=== PATIENT | female | born 1970 | race Caucasian/White ===

== ENCOUNTER → 2016-10-31 | Outpatient (CLI) | payer OTHER ==
[2016-10-31 17:12] LABS: FREE T4 1.35 NG/DL (0.76-1.46)
== END ==
LOC: M WUC 12:18
PROVIDERS: ATTEND Internal Medicine
DX: E03.9 Hypothyroidism, unspecified (principal)

== ENCOUNTER 2018-08-09 19:32 | Inpatient (IN) | payer OTHER ==
[2018-08-09] MEDS: NS 500 ML IV (20:00)
[2018-08-09] MEDS ORDERED: MORPHINE 2 MG/ML 1ML SYRINGE (J2270) IV (20:00)
[2018-08-09 21:18] LABS: BASO % 0.3 % (0.0-1.0); EOS % 0.2 % (0.0-3.0); HEMATOCRIT 43.7 % (36.0-47.0); HEMOGLOBIN 14.1 g/dl (12.0-15.5); IMMATURE GRANULOCYTE % 0.3 % (0-3.0); LYMPH # 1.3 10^3/uL (1.5-4.5); LYMPH % 13.1 % (24.0-44.0); MEAN CORPUSCULAR HEMOGLOBIN 27.8 pg (27.0-33.0); MEAN CORPUSCULAR HGB CONC 32.3 g/dl (32.0-36.5); MONO # 0.6 10^3/uL (0.0-0.8); NEUTROPHILS # 7.7 10^3/uL (1.8-7.7); NEUTROPHILS % 80.1 % (36.0-66.0); PLATELET COUNT, AUTOMATED 360 10^3/uL (150-450); RED BLOOD COUNT 5.08 10^6/uL (4.00-5.40); RED CELL DISTRIBUTION WIDTH 13.5 % (11.5-14.5); WHITE BLOOD COUNT 9.6 10^3/uL (4.0-10.0)
[2018-08-09 21:28] LABS: INR 1.05; PROTHROMBIN TIME 13.8 SECONDS (12.1-14.4)
[2018-08-09 21:29] LABS: PARTIAL THROMBOPLASTIN TIME 38.6 SECONDS (25.4-37.6)
[2018-08-09 21:44] LABS: ALBUMIN 3.4 GM/DL (3.2-5.2); ALBUMIN/GLOBULIN RATIO 0.83 (1.00-1.93); ALKALINE PHOSPHATASE 64 U/L (45-117); ALT/SGPT 23 U/L (12-78); AMYLASE 37 U/L (25-115); ANION GAP 8 MEQ/L (8-16); AST/SGOT 21 U/L (7-37); BILIRUBIN,DIRECT 0.2 MG/DL (0.0-0.2); BILIRUBIN,TOTAL 0.6 MG/DL (0.2-1.0); BLOOD UREA NITROGEN 11 MG/DL (7-18); CALCIUM LEVEL 9.1 MG/DL (8.5-10.1); CARBON DIOXIDE LEVEL 31 MEQ/L (21-32); CHLORIDE LEVEL 100 MEQ/L (98-107); CK-MB VALUE MASS < 1.0 NG/ML (<3.6); CPK CREATINE PHOSPHOKINASE 93 U/L (26-192); CREATININE FOR GFR 0.79 MG/DL (0.55-1.30); GLOMERULAR FILTRATION RATE > 60.0 (>58); GLUCOSE, FASTING 128 MG/DL (70-100); LIPASE 81 U/L (73-393); MB/CK RELATIVE INDEX 1.08 (< OR =4); POTASSIUM SERUM 4.2 MEQ/L (3.5-5.1); SODIUM LEVEL 139 MEQ/L (136-145); TOTAL PROTEIN 7.5 GM/DL (6.4-8.2); TROPONIN I < 0.02 NG/ML (< 0.10)
[2018-08-09 21:51] LABS: LACTIC ACID SEPSIS PROTOCOL 1.4 MMOL/L (0.4-2.0)
[2018-08-09] MEDS: metroNIDAZOLE 500 MG in APPROPRIATE DILUENT 1 EA IV (22:00)
[2018-08-09] MEDS: LR 1,000 ML IV (22:30)
[2018-08-09] MEDS ORDERED: MORPHINE 4 MG/ML 1ML VIAL/SYRINGE (J2270) IV (22:30)
[2018-08-09] MEDS: KETOROLAC 30 MG/ML VIAL (J1885) IV (23:25)
[2018-08-09] MEDS: ONDANSETRON 4MG/2ML VIAL (J2405) IV (23:25)
[2018-08-10] MEDS: LR 1,000 ML IV ×3 (01:28→19:36)
[2018-08-10] MEDS: BACTRIM 80MG/400MG TAB PO (02:34)
[2018-08-10] MEDS: ACETAMINOPHEN TAB 650MG DOSE (2X325MG) PO ×2 (04:40→16:52)
[2018-08-10] MEDS: ONDANSETRON 4MG/2ML VIAL (J2405) IV ×3 (05:25→18:32)
[2018-08-10] MEDS: KETOROLAC 30 MG/ML VIAL (J1885) IV ×3 (05:25→21:05)
[2018-08-10] MEDS: metroNIDAZOLE 500 MG in APPROPRIATE DILUENT 1 EA IV (05:55)
[2018-08-10 08:23] LABS: BASO % 0.2 % (0.0-1.0); HEMOGLOBIN 12.4 g/dl (12.0-15.5); IMMATURE GRANULOCYTE % 0.4 % (0-3.0); LYMPH # 1.4 10^3/uL (1.5-4.5); LYMPH % 10.4 % (24.0-44.0); MEAN CORPUSCULAR HEMOGLOBIN 27.5 pg (27.0-33.0); MEAN CORPUSCULAR HGB CONC 32.6 g/dl (32.0-36.5); MEAN CORPUSCULAR VOLUME 84.3 fl (80.0-96.0); MONO # 0.6 10^3/uL (0.0-0.8); MONO % 4.5 % (0.0-5.0); NEUTROPHILS # 11.2 10^3/uL (1.8-7.7); NEUTROPHILS % 84.5 % (36.0-66.0); PLATELET COUNT, AUTOMATED 322 10^3/uL (150-450); RED BLOOD COUNT 4.51 10^6/uL (4.00-5.40); RED CELL DISTRIBUTION WIDTH 13.8 % (11.5-14.5); WHITE BLOOD COUNT 13.2 10^3/uL (4.0-10.0)
[2018-08-10] MEDS: HEPARIN SOD (PORCINE) 5000 UNITS/ML VIAL SC ×3 (08:34→21:04)
[2018-08-10] MEDS: PANTOPRAZOLE 40MG TAB (PROTONIX) PO (08:34)
[2018-08-10] MEDS: LISINOPRIL 5 MG TAB PO (11:01)
[2018-08-10] MEDS: LEVOTHYROXINE 100MCG TABLET (0.1MG) PO (12:56)
[2018-08-10] MEDS: ERTAPENEM SODIUM 1 GM in NS MINI-BAG PLUS 50 ML IV (13:05)
[2018-08-10 13:16] LABS: AMORPHOUS SEDIMENT RFX MODERATE (NEGATIVE); KETONE, URINE AUTO RFX 1+ mg/dL (NEGATIVE); MUCUS, URINE RFX LARGE (NEGATIVE); NITRITE, URINE AUTO RFX NEGATIVE (NEGATIVE); RBC, URINE AUTO RFX 0 /HPF (0-3); SQUAM EPITHELIAL CELL UR AURFX 5 /HPF (0-6); WBC, URINE AUTO RFX 4 /HPF (0-3)
[2018-08-10 13:18] LABS: LEUKOCYTE ESTERASE UR AUTO RFX 2+ (NEGATIVE)
[2018-08-11] MEDS: KETOROLAC 30 MG/ML VIAL (J1885) IV ×3 (03:59→16:38)
[2018-08-11] MEDS: ONDANSETRON 4MG/2ML VIAL (J2405) IV ×4 (04:04→22:47)
[2018-08-11] MEDS: HEPARIN SOD (PORCINE) 5000 UNITS/ML VIAL SC ×3 (06:16→23:01)
[2018-08-11] MEDS: LISINOPRIL 5 MG TAB PO (06:16)
[2018-08-11 06:58] LABS: BASO % 0.2 % (0.0-1.0); EOS % 0.2 % (0.0-3.0); HEMATOCRIT 40.5 % (36.0-47.0); HEMOGLOBIN 13.1 g/dl (12.0-15.5); IMMATURE GRANULOCYTE % 0.7 % (0-3.0); LYMPH # 1.3 10^3/uL (1.5-4.5); LYMPH % 7.4 % (24.0-44.0); MEAN CORPUSCULAR HEMOGLOBIN 27.5 pg (27.0-33.0); MEAN CORPUSCULAR HGB CONC 32.3 g/dl (32.0-36.5); MEAN CORPUSCULAR VOLUME 84.9 fl (80.0-96.0); MONO # 0.5 10^3/uL (0.0-0.8); MONO % 2.8 % (0.0-5.0); NEUTROPHILS # 15.9 10^3/uL (1.8-7.7); NEUTROPHILS % 88.7 % (36.0-66.0); PLATELET COUNT, AUTOMATED 324 10^3/uL (150-450); RED BLOOD COUNT 4.77 10^6/uL (4.00-5.40); RED CELL DISTRIBUTION WIDTH 14.7 % (11.5-14.5); WHITE BLOOD COUNT 17.9 10^3/uL (4.0-10.0)
[2018-08-11] MEDS: LEVOTHYROXINE 100MCG TABLET (0.1MG) PO (07:06)
[2018-08-11 07:30] LABS: ANION GAP 10 MEQ/L (8-16); BLOOD UREA NITROGEN 17 MG/DL (7-18); CALCIUM LEVEL 8.7 MG/DL (8.5-10.1); CARBON DIOXIDE LEVEL 26 MEQ/L (21-32); CHLORIDE LEVEL 103 MEQ/L (98-107); CREATININE FOR GFR 1.21 MG/DL (0.55-1.30); GLOMERULAR FILTRATION RATE 50.8 (>58); GLUCOSE, FASTING 104 MG/DL (70-100); POTASSIUM SERUM 3.7 MEQ/L (3.5-5.1); SODIUM LEVEL 139 MEQ/L (136-145)
[2018-08-11] MEDS: PANTOPRAZOLE 40MG INJ (PROTONIX) (C9113) IV (08:11)
[2018-08-11] MEDS: PLAQUENIL 200 MG PO (10:54)
[2018-08-11] MEDS: LR 1,000 ML IV ×2 (10:56→19:52)
[2018-08-11] MEDS: ERTAPENEM SODIUM 1 GM in NS MINI-BAG PLUS 50 ML IV (13:34)
[2018-08-11] MEDS: METOCLOPRAMIDE INJ 10MG/2ML VIAL (J2765) IV (19:45)
[2018-08-11] MEDS: HYDROMORPHONE HCL 0.5 MG/ 0.5 ML SYRINGE (J1170 PER 1) IV ×2 (19:46→22:47)
[2018-08-12] MEDS: LR 1,000 ML IV ×9 (04:34→20:56)
[2018-08-12 06:24] LABS: BASO % 0.2 % (0.0-1.0); EOS % 0.2 % (0.0-3.0); HEMATOCRIT 38.2 % (36.0-47.0); HEMOGLOBIN 12.3 g/dl (12.0-15.5); IMMATURE GRANULOCYTE % 1.9 % (0-3.0); LYMPH # 0.9 10^3/uL (1.5-4.5); LYMPH % 5.1 % (24.0-44.0); MEAN CORPUSCULAR HEMOGLOBIN 27.8 pg (27.0-33.0); MEAN CORPUSCULAR HGB CONC 32.2 g/dl (32.0-36.5); MEAN CORPUSCULAR VOLUME 86.2 fl (80.0-96.0); MONO # 0.6 10^3/uL (0.0-0.8); MONO % 3.1 % (0.0-5.0); NEUTROPHILS # 15.9 10^3/uL (1.8-7.7); NEUTROPHILS % 89.5 % (36.0-66.0); PLATELET COUNT, AUTOMATED 337 10^3/uL (150-450); RED BLOOD COUNT 4.43 10^6/uL (4.00-5.40); RED CELL DISTRIBUTION WIDTH 14.5 % (11.5-14.5); WHITE BLOOD COUNT 17.8 10^3/uL (4.0-10.0)
[2018-08-12 07:04] LABS: ANION GAP 11 MEQ/L (8-16); BLOOD UREA NITROGEN 33 MG/DL (7-18); CALCIUM LEVEL 8.7 MG/DL (8.5-10.1); CARBON DIOXIDE LEVEL 24 MEQ/L (21-32); CHLORIDE LEVEL 102 MEQ/L (98-107); CREATININE FOR GFR 2.69 MG/DL (0.55-1.30); GLOMERULAR FILTRATION RATE 20.2 (>58); GLUCOSE, FASTING 96 MG/DL (70-100); POTASSIUM SERUM 3.9 MEQ/L (3.5-5.1); SODIUM LEVEL 137 MEQ/L (136-145)
[2018-08-12] MEDS: LISINOPRIL 5 MG TAB PO (07:07)
[2018-08-12] MEDS: HEPARIN SOD (PORCINE) 5000 UNITS/ML VIAL SC ×3 (07:50→21:41)
[2018-08-12] MEDS: LEVOTHYROXINE 100MCG TABLET (0.1MG) PO (08:31)
[2018-08-12] MEDS ORDERED: fentaNYL 250 MCG/5 ML INJECTION (J3010) As Ordered (10:36)
[2018-08-12] MEDS ORDERED: SUCCINYLCHOLINE 100 MG/5 ML SYRINGE (J0330) As Ordered (10:36)
[2018-08-12] MEDS ORDERED: METOCLOPRAMIDE INJ 10MG/2ML VIAL (J2765) As Ordered ×2 (10:36→15:35)
[2018-08-12] MEDS ORDERED: dexameTHASONE 4 MG/ML 1ML VIAL (J1100) As Ordered (10:36)
[2018-08-12] MEDS ORDERED: PROPOFOL 200 MG/20 ML VIAL As Ordered (10:36)
[2018-08-12] MEDS ORDERED: LIDOCAINE 2% INJ 100 MG/5 ML SDV (FOR ANES.) As Ordered (10:36)
[2018-08-12] MEDS ORDERED: MIDAZOLAM INJ 2 MG/2 ML VIAL (J2250) As Ordered (10:36)
[2018-08-12] MEDS ORDERED: ROCURONIUM BROMIDE 50 MG/5 ML VIAL As Ordered (10:36)
[2018-08-12] MEDS ORDERED: ONDANSETRON 4MG/2ML VIAL (J2405) As Ordered ×2 (10:36→15:35)
[2018-08-12] MEDS: PLAQUENIL 200 MG PO (11:00)
[2018-08-12] MEDS ORDERED: PHENYLephrine HCL 500 MCG/5 ML (100MCG/ML) SYRINGE (J2370) As Ordered (12:04)
[2018-08-12] MEDS ORDERED: VASOPRESSIN INJ 20 UNITS/ML VIAL As Ordered (12:19)
[2018-08-12] MEDS ORDERED: SEVOFLURANE INHAL SOLN 250 ML BTL As Ordered (13:03)
[2018-08-12] MEDS ORDERED: DESFLURANE 240 ML INHALANT As Ordered (13:05)
[2018-08-12] MEDS: ERTAPENEM SODIUM 1 GM in NS MINI-BAG PLUS 50 ML IV (13:15)
[2018-08-12] MEDS ORDERED: ERTAPENEM 1 GM INJ (INVanz) (J1335) As Ordered (13:15)
[2018-08-12] MEDS ORDERED: PHENYLEPHRINE INJ 10MG/ML VIAL (J2370) As Ordered (13:28)
[2018-08-12] MEDS ORDERED: NEOSTIGMINE 10 MG/10 ML VIAL (J2710) As Ordered (14:38)
[2018-08-12] MEDS ORDERED: GLYCOPYRROLATE INJ 0.2 MG/ML 2 ML VIAL As Ordered ×2 (14:38→14:39)
[2018-08-12] MEDS: ONDANSETRON 4MG/2ML VIAL (J2405) IV ×2 (15:40→19:58)
[2018-08-12] MEDS ORDERED: fentaNYL 100 MCG/2 ML INJECTION (J3010) IV (15:45)
[2018-08-12] MEDS ORDERED: MEPERIDINE INJ 25 MG/ML VIAL (J2175) IV (15:45)
[2018-08-12] MEDS ORDERED: ONDANSETRON 4MG/2ML VIAL (J2405) IV (15:45)
[2018-08-12] MEDS ORDERED: PERCOCET 5MG/325MG TAB PO (15:45)
[2018-08-12] MEDS: METOCLOPRAMIDE INJ 10MG/2ML VIAL (J2765) IV ×2 (16:00→17:22)
[2018-08-12] MEDS: PANTOPRAZOLE 40MG INJ (PROTONIX) (C9113) IV (17:17)
[2018-08-12] MEDS: CHLORASEPTIC SPRAY MT (19:33)
[2018-08-12] MEDS: HYDROMORPHONE HCL 0.5 MG/ 0.5 ML SYRINGE (J1170 PER 1) IV (19:59)
[2018-08-13] MEDS: LR 1,000 ML IV ×5 (01:00→20:19)
[2018-08-13] MEDS: LISINOPRIL 5 MG TAB PO (05:20)
[2018-08-13] MEDS: HEPARIN SOD (PORCINE) 5000 UNITS/ML VIAL SC ×3 (05:21→21:24)
[2018-08-13 05:34] LABS: BASO % 0.1 % (0.0-1.0); HEMATOCRIT 30.1 % (36.0-47.0); IMMATURE GRANULOCYTE % 0.4 % (0-3.0); LYMPH # 0.7 10^3/uL (1.5-4.5); LYMPH % 4.7 % (24.0-44.0); MEAN CORPUSCULAR HEMOGLOBIN 27.5 pg (27.0-33.0); MEAN CORPUSCULAR HGB CONC 32.2 g/dl (32.0-36.5); MEAN CORPUSCULAR VOLUME 85.3 fl (80.0-96.0); MONO # 0.6 10^3/uL (0.0-0.8); MONO % 4.2 % (0.0-5.0); NEUTROPHILS # 12.4 10^3/uL (1.8-7.7); NEUTROPHILS % 90.6 % (36.0-66.0); PLATELET COUNT, AUTOMATED 317 10^3/uL (150-450); RED BLOOD COUNT 3.53 10^6/uL (4.00-5.40); RED CELL DISTRIBUTION WIDTH 14.3 % (11.5-14.5); WHITE BLOOD COUNT 13.7 10^3/uL (4.0-10.0)
[2018-08-13 05:37] LABS: HEMOGLOBIN 9.7 g/dl (12.0-15.5)
[2018-08-13 05:58] LABS: ANION GAP 10 MEQ/L (8-16); BLOOD UREA NITROGEN 39 MG/DL (7-18); CALCIUM LEVEL 7.8 MG/DL (8.5-10.1); CARBON DIOXIDE LEVEL 26 MEQ/L (21-32); CHLORIDE LEVEL 104 MEQ/L (98-107); CREATININE FOR GFR 1.59 MG/DL (0.55-1.30); GLUCOSE, FASTING 110 MG/DL (70-100); POTASSIUM SERUM 3.9 MEQ/L (3.5-5.1); SODIUM LEVEL 140 MEQ/L (136-145)
[2018-08-13] MEDS: LEVOTHYROXINE 100MCG TABLET (0.1MG) PO (07:38)
[2018-08-13] MEDS: PANTOPRAZOLE 40MG INJ (PROTONIX) (C9113) IV (08:47)
[2018-08-13] MEDS: PLAQUENIL 200 MG PO (10:59)
[2018-08-13] MEDS: ONDANSETRON 4MG/2ML VIAL (J2405) IV ×2 (12:03→22:09)
[2018-08-13] MEDS: HYDROMORPHONE HCL 0.5 MG/ 0.5 ML SYRINGE (J1170 PER 1) IV ×2 (12:05→22:10)
[2018-08-13] MEDS: ERTAPENEM SODIUM 1 GM in NS MINI-BAG PLUS 50 ML IV (12:38)
[2018-08-13] MEDS: SODIUM CHLORIDE 0.9% INJ 10 ML SYR IV ×2 (14:20→22:09)
[2018-08-14] MEDS: LR 1,000 ML IV ×5 (01:23→21:30)
[2018-08-14] MEDS: SODIUM CHLORIDE 0.9% INJ 10 ML SYR IV ×3 (06:00→22:13)
[2018-08-14] MEDS: HYDROMORPHONE HCL 0.5 MG/ 0.5 ML SYRINGE (J1170 PER 1) IV ×2 (06:20→16:45)
[2018-08-14] MEDS: ONDANSETRON 4MG/2ML VIAL (J2405) IV ×2 (06:27→16:46)
[2018-08-14 06:46] LABS: HEMATOCRIT 33.3 % (36.0-47.0); HEMOGLOBIN 10.7 g/dl (12.0-15.5); MEAN CORPUSCULAR HEMOGLOBIN 27.2 pg (27.0-33.0); MEAN CORPUSCULAR HGB CONC 32.1 g/dl (32.0-36.5); MEAN CORPUSCULAR VOLUME 84.5 fl (80.0-96.0); PLATELET COUNT, AUTOMATED 372 10^3/uL (150-450); RED BLOOD COUNT 3.94 10^6/uL (4.00-5.40); RED CELL DISTRIBUTION WIDTH 14.3 % (11.5-14.5); WHITE BLOOD COUNT 15.4 10^3/uL (4.0-10.0)
[2018-08-14] MEDS: HEPARIN SOD (PORCINE) 5000 UNITS/ML VIAL SC ×3 (06:48→22:13)
[2018-08-14 07:06] LABS: ANION GAP 8 MEQ/L (8-16); BLOOD UREA NITROGEN 28 MG/DL (7-18); CALCIUM LEVEL 7.8 MG/DL (8.5-10.1); CARBON DIOXIDE LEVEL 29 MEQ/L (21-32); CHLORIDE LEVEL 103 MEQ/L (98-107); CREATININE FOR GFR 0.87 MG/DL (0.55-1.30); GLOMERULAR FILTRATION RATE > 60.0 (>58); GLUCOSE, FASTING 86 MG/DL (70-100); POTASSIUM SERUM 3.7 MEQ/L (3.5-5.1); SODIUM LEVEL 140 MEQ/L (136-145)
[2018-08-14] MEDS: LISINOPRIL 5 MG TAB PO (07:11)
[2018-08-14] MEDS: PANTOPRAZOLE 40MG INJ (PROTONIX) (C9113) IV (08:25)
[2018-08-14] MEDS: LEVOTHYROXINE 100MCG TABLET (0.1MG) PO (08:25)
[2018-08-14] MEDS: PLAQUENIL 200 MG PO (11:00)
[2018-08-14] MEDS: ERTAPENEM SODIUM 1 GM in NS MINI-BAG PLUS 50 ML IV (12:58)
[2018-08-15] MEDS: LR 1,000 ML IV ×3 (02:20→11:40)
[2018-08-15] MEDS: SODIUM CHLORIDE 0.9% INJ 10 ML SYR IV ×3 (06:00→20:47)
[2018-08-15] MEDS: HEPARIN SOD (PORCINE) 5000 UNITS/ML VIAL SC ×3 (06:31→20:47)
[2018-08-15] MEDS: LISINOPRIL 5 MG TAB PO (06:32)
[2018-08-15 06:46] LABS: HEMATOCRIT 32.7 % (36.0-47.0); HEMOGLOBIN 10.3 g/dl (12.0-15.5); MEAN CORPUSCULAR HEMOGLOBIN 27.5 pg (27.0-33.0); MEAN CORPUSCULAR HGB CONC 31.5 g/dl (32.0-36.5); MEAN CORPUSCULAR VOLUME 87.4 fl (80.0-96.0); PLATELET COUNT, AUTOMATED 314 10^3/uL (150-450); RED BLOOD COUNT 3.74 10^6/uL (4.00-5.40); RED CELL DISTRIBUTION WIDTH 14.6 % (11.5-14.5); WHITE BLOOD COUNT 15.3 10^3/uL (4.0-10.0)
[2018-08-15 07:07] LABS: ANION GAP 10 MEQ/L (8-16); BLOOD UREA NITROGEN 21 MG/DL (7-18); CALCIUM LEVEL 7.9 MG/DL (8.5-10.1); CARBON DIOXIDE LEVEL 29 MEQ/L (21-32); CHLORIDE LEVEL 105 MEQ/L (98-107); CREATININE FOR GFR 0.64 MG/DL (0.55-1.30); GLOMERULAR FILTRATION RATE > 60.0 (>58); GLUCOSE, FASTING 84 MG/DL (70-100); POTASSIUM SERUM 3.7 MEQ/L (3.5-5.1); SODIUM LEVEL 144 MEQ/L (136-145)
[2018-08-15] MEDS: PANTOPRAZOLE 40MG INJ (PROTONIX) (C9113) IV (08:40)
[2018-08-15] MEDS: LEVOTHYROXINE 100MCG TABLET (0.1MG) PO (08:40)
[2018-08-15] MEDS: ACETAMINOPHEN TAB 650MG DOSE (2X325MG) PO (09:51)
[2018-08-15] MEDS: PLAQUENIL 200 MG PO (09:52)
[2018-08-15] MEDS: ERTAPENEM SODIUM 1 GM in NS MINI-BAG PLUS 50 ML IV (13:59)
[2018-08-16] MEDS: LISINOPRIL 5 MG TAB PO (05:16)
[2018-08-16] MEDS: HEPARIN SOD (PORCINE) 5000 UNITS/ML VIAL SC ×2 (05:16→13:52)
[2018-08-16] MEDS: SODIUM CHLORIDE 0.9% INJ 10 ML SYR IV ×3 (05:17→21:26)
[2018-08-16] MEDS: LR 1,000 ML IV (05:18)
[2018-08-16 05:58] LABS: ANION GAP 7 MEQ/L (8-16); BLOOD UREA NITROGEN 15 MG/DL (7-18); CALCIUM LEVEL 8.1 MG/DL (8.5-10.1); CARBON DIOXIDE LEVEL 32 MEQ/L (21-32); CHLORIDE LEVEL 102 MEQ/L (98-107); CREATININE FOR GFR 0.52 MG/DL (0.55-1.30); GLOMERULAR FILTRATION RATE > 60.0 (>58); GLUCOSE, FASTING 96 MG/DL (70-100); POTASSIUM SERUM 3.7 MEQ/L (3.5-5.1); SODIUM LEVEL 141 MEQ/L (136-145)
[2018-08-16] MEDS: LEVOTHYROXINE 100MCG TABLET (0.1MG) PO (07:42)
[2018-08-16] MEDS: ACETAMINOPHEN TAB 650MG DOSE (2X325MG) PO (08:05)
[2018-08-16] MEDS: PANTOPRAZOLE 40MG INJ (PROTONIX) (C9113) IV (09:36)
[2018-08-16] MEDS: MICAFUNGIN SODIUM 100 MG in D5W MINI-BAG PLUS 100 ML IV (09:37)
[2018-08-16] MEDS: PLAQUENIL 200 MG PO (12:10)
[2018-08-16] MEDS: ERTAPENEM SODIUM 1 GM in NS MINI-BAG PLUS 50 ML IV (13:52)
[2018-08-16] MEDS: FUROSEMIDE 20 MG/2 ML VIAL (J1940) IV (17:43)
[2018-08-17] MEDS: ONDANSETRON 4MG/2ML VIAL (J2405) IV ×2 (02:27→17:53)
[2018-08-17] MEDS: HYDROMORPHONE HCL 0.5 MG/ 0.5 ML SYRINGE (J1170 PER 1) IV ×2 (02:28→21:33)
[2018-08-17] MEDS: ACETAMINOPHEN TAB 650MG DOSE (2X325MG) PO (02:29)
[2018-08-17] MEDS: SODIUM CHLORIDE 0.9% INJ 10 ML SYR IV ×6 (02:30→21:34)
[2018-08-17] MEDS: LISINOPRIL 5 MG TAB PO (05:50)
[2018-08-17] MEDS: LEVOTHYROXINE 100MCG TABLET (0.1MG) PO (08:23)
[2018-08-17] MEDS: ENOXAPARIN 40 MG/0.4 ML SYRINGE (J1650) SC (08:23)
[2018-08-17] MEDS: PANTOPRAZOLE 40MG INJ (PROTONIX) (C9113) IV (08:24)
[2018-08-17] MEDS: MICAFUNGIN SODIUM 100 MG in D5W MINI-BAG PLUS 100 ML IV (08:24)
[2018-08-17] MEDS: POTASSIUM CHLORIDE 10 MEQ SR TABLET PO ×3 (09:30→21:32)
[2018-08-17] MEDS: FUROSEMIDE 40 MG TAB PO (09:30)
[2018-08-17 09:49] LABS: HEMATOCRIT 31.3 % (36.0-47.0); HEMOGLOBIN 9.8 g/dl (12.0-15.5); MEAN CORPUSCULAR HEMOGLOBIN 27.3 pg (27.0-33.0); MEAN CORPUSCULAR HGB CONC 31.3 g/dl (32.0-36.5); MEAN CORPUSCULAR VOLUME 87.2 fl (80.0-96.0); PLATELET COUNT, AUTOMATED 307 10^3/uL (150-450); RED BLOOD COUNT 3.59 10^6/uL (4.00-5.40); WHITE BLOOD COUNT 18.7 10^3/uL (4.0-10.0)
[2018-08-17 09:55] LABS: ADD MANUAL DIFFER YES; DIFF SLIDE NUMBER 122; POS COUNT POS FLAG; POSITIVE MORPH POS FLAG
[2018-08-17 10:09] LABS: LYMPHOCYTES 12 % (16-52); MONOCYTES 4 % (0-8); NEUTROPHILS 84 % (35-75)
[2018-08-17 10:10] LABS: PLATELET ESTIMATE NORMAL (NORMAL)
[2018-08-17 10:14] LABS: ALBUMIN 1.4 GM/DL (3.2-5.2); ALBUMIN/GLOBULIN RATIO 0.39 (1.00-1.93); ALKALINE PHOSPHATASE 65 U/L (45-117); ALT/SGPT 16 U/L (12-78); ANION GAP 6 MEQ/L (8-16); AST/SGOT 25 U/L (7-37); BILIRUBIN,TOTAL 0.3 MG/DL (0.2-1.0); BLOOD UREA NITROGEN 10 MG/DL (7-18); CALCIUM LEVEL 7.9 MG/DL (8.5-10.1); CARBON DIOXIDE LEVEL 35 MEQ/L (21-32); CHLORIDE LEVEL 100 MEQ/L (98-107); CREATININE FOR GFR 0.53 MG/DL (0.55-1.30); GLOMERULAR FILTRATION RATE > 60.0 (>58); GLUCOSE, FASTING 132 MG/DL (70-100); POTASSIUM SERUM 3.5 MEQ/L (3.5-5.1); SODIUM LEVEL 141 MEQ/L (136-145)
[2018-08-17] MEDS: PLAQUENIL 200 MG PO (10:55)
[2018-08-17] MEDS: ERTAPENEM SODIUM 1 GM in NS MINI-BAG PLUS 50 ML IV (13:12)
[2018-08-17] MEDS: FUROSEMIDE 40 MG/4 ML VIAL (J1940) IV ×2 (13:13→23:17)
[2018-08-17] MEDS: METOCLOPRAMIDE INJ 10MG/2ML VIAL (J2765) IV (21:34)
[2018-08-18] MEDS: SODIUM CHLORIDE 0.9% INJ 10 ML SYR IV ×5 (06:18→22:26)
[2018-08-18] MEDS: LISINOPRIL 5 MG TAB PO (06:18)
[2018-08-18] MEDS: LEVOTHYROXINE 100MCG TABLET (0.1MG) PO (07:42)
[2018-08-18] MEDS: MICAFUNGIN SODIUM 100 MG in D5W MINI-BAG PLUS 100 ML IV (08:28)
[2018-08-18] MEDS: ENOXAPARIN 40 MG/0.4 ML SYRINGE (J1650) SC (08:51)
[2018-08-18] MEDS: PANTOPRAZOLE 40MG TAB (PROTONIX) PO (08:51)
[2018-08-18 09:56] LABS: BASO % 0.2 % (0.0-1.0); EOS # 0.1 10^3/uL (0.0-0.50); EOS % 0.5 % (0.0-3.0); HEMOGLOBIN 9.5 g/dl (12.0-15.5); LYMPH # 1.9 10^3/uL (1.5-4.5); LYMPH % 12.4 % (24.0-44.0); MEAN CORPUSCULAR HEMOGLOBIN 27.4 pg (27.0-33.0); MEAN CORPUSCULAR HGB CONC 31.7 g/dl (32.0-36.5); MEAN CORPUSCULAR VOLUME 86.5 fl (80.0-96.0); MONO # 0.9 10^3/uL (0.0-0.8); MONO % 6.1 % (0.0-5.0); NEUTROPHILS # 11.8 10^3/uL (1.8-7.7); NEUTROPHILS % 75.8 % (36.0-66.0); PLATELET COUNT, AUTOMATED 277 10^3/uL (150-450); RED BLOOD COUNT 3.47 10^6/uL (4.00-5.40); RED CELL DISTRIBUTION WIDTH 15.3 % (11.5-14.5); WHITE BLOOD COUNT 15.5 10^3/uL (4.0-10.0)
[2018-08-18 10:17] LABS: ANION GAP 4 MEQ/L (8-16); BLOOD UREA NITROGEN 8 MG/DL (7-18); CALCIUM LEVEL 7.6 MG/DL (8.5-10.1); CARBON DIOXIDE LEVEL 38 MEQ/L (21-32); CHLORIDE LEVEL 100 MEQ/L (98-107); CREATININE FOR GFR 0.68 MG/DL (0.55-1.30); GLOMERULAR FILTRATION RATE > 60.0 (>58); GLUCOSE, FASTING 120 MG/DL (70-100); SODIUM LEVEL 142 MEQ/L (136-145)
[2018-08-18] MEDS: PLAQUENIL 200 MG PO (11:00)
[2018-08-18] MEDS: FUROSEMIDE 40 MG/4 ML VIAL (J1940) IV (11:42)
[2018-08-18] MEDS: ONDANSETRON 4MG/2ML VIAL (J2405) IV ×2 (13:51→22:27)
[2018-08-18] MEDS: ERTAPENEM SODIUM 1 GM in NS MINI-BAG PLUS 50 ML IV (13:51)
[2018-08-18] MEDS: HYDROMORPHONE HCL 0.5 MG/ 0.5 ML SYRINGE (J1170 PER 1) IV (22:27)
[2018-08-19] MEDS: ONDANSETRON 4MG/2ML VIAL (J2405) IV ×3 (03:16→21:33)
[2018-08-19] MEDS: HYDROMORPHONE HCL 0.5 MG/ 0.5 ML SYRINGE (J1170 PER 1) IV ×3 (03:17→21:35)
[2018-08-19] MEDS: SODIUM CHLORIDE 0.9% INJ 10 ML SYR IV ×4 (05:43→21:35)
[2018-08-19] MEDS: LISINOPRIL 5 MG TAB PO (05:43)
[2018-08-19 06:11] LABS: BASO # 0.1 10^3/uL (0.0-0.2); BASO % 0.3 % (0.0-1.0); EOS # 0.1 10^3/uL (0.0-0.50); EOS % 0.8 % (0.0-3.0); HEMATOCRIT 32.8 % (36.0-47.0); HEMOGLOBIN 10.3 g/dl (12.0-15.5); IMMATURE GRANULOCYTE % 4.1 % (0-3.0); LYMPH # 2.2 10^3/uL (1.5-4.5); LYMPH % 13.5 % (24.0-44.0); MEAN CORPUSCULAR HEMOGLOBIN 27.6 pg (27.0-33.0); MEAN CORPUSCULAR HGB CONC 31.4 g/dl (32.0-36.5); MEAN CORPUSCULAR VOLUME 87.9 fl (80.0-96.0); MONO # 1.1 10^3/uL (0.0-0.8); MONO % 6.9 % (0.0-5.0); NEUTROPHILS # 11.9 10^3/uL (1.8-7.7); NEUTROPHILS % 74.4 % (36.0-66.0); PLATELET COUNT, AUTOMATED 302 10^3/uL (150-450); RED BLOOD COUNT 3.73 10^6/uL (4.00-5.40); RED CELL DISTRIBUTION WIDTH 15.3 % (11.5-14.5)
[2018-08-19 06:30] LABS: ANION GAP 6 MEQ/L (8-16); BLOOD UREA NITROGEN 9 MG/DL (7-18); CALCIUM LEVEL 7.9 MG/DL (8.5-10.1); CARBON DIOXIDE LEVEL 38 MEQ/L (21-32); CHLORIDE LEVEL 96 MEQ/L (98-107); CREATININE FOR GFR 0.71 MG/DL (0.55-1.30); GLOMERULAR FILTRATION RATE > 60.0 (>58); GLUCOSE, FASTING 123 MG/DL (70-100); POTASSIUM SERUM 3.9 MEQ/L (3.5-5.1); SODIUM LEVEL 140 MEQ/L (136-145)
[2018-08-19] MEDS: LEVOTHYROXINE 100MCG TABLET (0.1MG) PO (07:48)
[2018-08-19] MEDS: FUROSEMIDE 40 MG/4 ML VIAL (J1940) IV (08:05)
[2018-08-19] MEDS: MICAFUNGIN SODIUM 100 MG in D5W MINI-BAG PLUS 100 ML IV (08:05)
[2018-08-19] MEDS: ENOXAPARIN 40 MG/0.4 ML SYRINGE (J1650) SC (08:05)
[2018-08-19] MEDS: PANTOPRAZOLE 40MG TAB (PROTONIX) PO (08:05)
[2018-08-19] MEDS: PLAQUENIL 200 MG PO (10:24)
[2018-08-19] MEDS: ERTAPENEM SODIUM 1 GM in NS MINI-BAG PLUS 50 ML IV (13:33)
[2018-08-20] MEDS: ONDANSETRON 4MG/2ML VIAL (J2405) IV (02:43)
[2018-08-20] MEDS: HYDROMORPHONE HCL 0.5 MG/ 0.5 ML SYRINGE (J1170 PER 1) IV ×3 (02:43→22:50)
[2018-08-20] MEDS: LISINOPRIL 5 MG TAB PO (05:20)
[2018-08-20] MEDS: SODIUM CHLORIDE 0.9% INJ 10 ML SYR IV ×4 (05:20→22:51)
[2018-08-20 05:48] LABS: BASO % 0.2 % (0.0-1.0); EOS # 0.1 10^3/uL (0.0-0.50); EOS % 0.8 % (0.0-3.0); HEMATOCRIT 29.1 % (36.0-47.0); HEMOGLOBIN 9.2 g/dl (12.0-15.5); IMMATURE GRANULOCYTE % 2.2 % (0-3.0); LYMPH # 1.8 10^3/uL (1.5-4.5); LYMPH % 14.4 % (24.0-44.0); MEAN CORPUSCULAR HEMOGLOBIN 27.9 pg (27.0-33.0); MEAN CORPUSCULAR HGB CONC 31.6 g/dl (32.0-36.5); MEAN CORPUSCULAR VOLUME 88.2 fl (80.0-96.0); MONO # 0.9 10^3/uL (0.0-0.8); MONO % 7.2 % (0.0-5.0); NEUTROPHILS # 9.3 10^3/uL (1.8-7.7); NEUTROPHILS % 75.2 % (36.0-66.0); PLATELET COUNT, AUTOMATED 245 10^3/uL (150-450); RED CELL DISTRIBUTION WIDTH 15.2 % (11.5-14.5); WHITE BLOOD COUNT 12.3 10^3/uL (4.0-10.0)
[2018-08-20 06:02] LABS: ANION GAP 5 MEQ/L (8-16); BLOOD UREA NITROGEN 9 MG/DL (7-18); CALCIUM LEVEL 7.2 MG/DL (8.5-10.1); CARBON DIOXIDE LEVEL 39 MEQ/L (21-32); CHLORIDE LEVEL 98 MEQ/L (98-107); CREATININE FOR GFR 0.76 MG/DL (0.55-1.30); GLOMERULAR FILTRATION RATE > 60.0 (>58); GLUCOSE, FASTING 100 MG/DL (70-100); POTASSIUM SERUM 3.9 MEQ/L (3.5-5.1); SODIUM LEVEL 142 MEQ/L (136-145)
[2018-08-20] MEDS ORDERED: PERCOCET 5MG/325MG TAB PO (09:15)
[2018-08-20] MEDS: LEVOTHYROXINE 100MCG TABLET (0.1MG) PO (09:42)
[2018-08-20] MEDS: PANTOPRAZOLE 40MG TAB (PROTONIX) PO (09:42)
[2018-08-20] MEDS: FUROSEMIDE 40 MG/4 ML VIAL (J1940) IV (09:42)
[2018-08-20] MEDS: MICAFUNGIN SODIUM 100 MG in D5W MINI-BAG PLUS 100 ML IV (09:42)
[2018-08-20] MEDS: ENOXAPARIN 40 MG/0.4 ML SYRINGE (J1650) SC (09:43)
[2018-08-20] MEDS: PLAQUENIL 200 MG PO (12:30)
[2018-08-20] MEDS: ONDANSETRON 4 MG TAB (S0181) PO ×2 (16:20→22:50)
[2018-08-21] MEDS: SODIUM CHLORIDE 0.9% INJ 10 ML SYR IV ×4 (03:42→21:00)
[2018-08-21] MEDS: HYDROMORPHONE HCL 0.5 MG/ 0.5 ML SYRINGE (J1170 PER 1) IV ×3 (03:42→21:01)
[2018-08-21] MEDS: LISINOPRIL 5 MG TAB PO (06:40)
[2018-08-21 06:58] LABS: BASO % 0.2 % (0.0-1.0); EOS # 0.1 10^3/uL (0.0-0.50); EOS % 0.6 % (0.0-3.0); HEMATOCRIT 29.3 % (36.0-47.0); HEMOGLOBIN 9.3 g/dl (12.0-15.5); IMMATURE GRANULOCYTE % 1.2 % (0-3.0); LYMPH # 1.8 10^3/uL (1.5-4.5); MEAN CORPUSCULAR HEMOGLOBIN 27.6 pg (27.0-33.0); MEAN CORPUSCULAR HGB CONC 31.7 g/dl (32.0-36.5); MEAN CORPUSCULAR VOLUME 86.9 fl (80.0-96.0); MONO # 1.1 10^3/uL (0.0-0.8); MONO % 8.7 % (0.0-5.0); NEUTROPHILS # 9.6 10^3/uL (1.8-7.7); NEUTROPHILS % 75.3 % (36.0-66.0); PLATELET COUNT, AUTOMATED 261 10^3/uL (150-450); RED BLOOD COUNT 3.37 10^6/uL (4.00-5.40); RED CELL DISTRIBUTION WIDTH 15.3 % (11.5-14.5); WHITE BLOOD COUNT 12.7 10^3/uL (4.0-10.0)
[2018-08-21 07:24] LABS: ALBUMIN 1.6 GM/DL (3.2-5.2); ALBUMIN/GLOBULIN RATIO 0.39 (1.00-1.93); ALKALINE PHOSPHATASE 61 U/L (45-117); ALT/SGPT 37 U/L (12-78); ANION GAP 4 MEQ/L (8-16); AST/SGOT 50 U/L (7-37); BILIRUBIN,TOTAL 0.4 MG/DL (0.2-1.0); BLOOD UREA NITROGEN 10 MG/DL (7-18); CALCIUM LEVEL 7.8 MG/DL (8.5-10.1); CARBON DIOXIDE LEVEL 39 MEQ/L (21-32); CHLORIDE LEVEL 95 MEQ/L (98-107); CREATININE FOR GFR 0.79 MG/DL (0.55-1.30); GLOMERULAR FILTRATION RATE > 60.0 (>58); GLUCOSE, FASTING 116 MG/DL (70-100); POTASSIUM SERUM 3.9 MEQ/L (3.5-5.1); SODIUM LEVEL 138 MEQ/L (136-145); TOTAL PROTEIN 5.7 GM/DL (6.4-8.2)
[2018-08-21] MEDS: LEVOTHYROXINE 100MCG TABLET (0.1MG) PO (08:49)
[2018-08-21] MEDS: ENOXAPARIN 40 MG/0.4 ML SYRINGE (J1650) SC (08:50)
[2018-08-21] MEDS: PANTOPRAZOLE 40MG TAB (PROTONIX) PO (08:50)
[2018-08-21] MEDS: MICAFUNGIN SODIUM 100 MG in D5W MINI-BAG PLUS 100 ML IV (08:51)
[2018-08-21] MEDS: PLAQUENIL 200 MG PO (11:00)
[2018-08-22] MEDS: HYDROMORPHONE HCL 0.5 MG/ 0.5 ML SYRINGE (J1170 PER 1) IV ×4 (03:58→21:31)
[2018-08-22] MEDS: SODIUM CHLORIDE 0.9% INJ 10 ML SYR IV ×7 (03:58→21:32)
[2018-08-22] MEDS: LISINOPRIL 5 MG TAB PO (05:43)
[2018-08-22] MEDS: LEVOTHYROXINE 100MCG TABLET (0.1MG) PO (07:30)
[2018-08-22] MEDS: PANTOPRAZOLE 40MG TAB (PROTONIX) PO (09:38)
[2018-08-22] MEDS: ENOXAPARIN 40 MG/0.4 ML SYRINGE (J1650) SC (09:48)
[2018-08-22] MEDS: MICAFUNGIN SODIUM 100 MG in D5W MINI-BAG PLUS 100 ML IV (09:48)
[2018-08-22] MEDS: PLAQUENIL 200 MG PO (11:27)
[2018-08-23] MEDS: LISINOPRIL 5 MG TAB PO (05:48)
[2018-08-23] MEDS: SODIUM CHLORIDE 0.9% INJ 10 ML SYR IV ×4 (06:00→21:00)
[2018-08-23 06:05] LABS: BASO % 0.4 % (0.0-1.0); EOS # 0.1 10^3/uL (0.0-0.50); EOS % 1.1 % (0.0-3.0); HEMATOCRIT 29.5 % (36.0-47.0); HEMOGLOBIN 9.2 g/dl (12.0-15.5); IMMATURE GRANULOCYTE % 0.7 % (0-3.0); LYMPH # 2.3 10^3/uL (1.5-4.5); LYMPH % 21.6 % (24.0-44.0); MEAN CORPUSCULAR HEMOGLOBIN 27.2 pg (27.0-33.0); MEAN CORPUSCULAR HGB CONC 31.2 g/dl (32.0-36.5); MEAN CORPUSCULAR VOLUME 87.3 fl (80.0-96.0); MONO # 0.9 10^3/uL (0.0-0.8); MONO % 8.8 % (0.0-5.0); NEUTROPHILS # 7.1 10^3/uL (1.8-7.7); NEUTROPHILS % 67.4 % (36.0-66.0); PLATELET COUNT, AUTOMATED 301 10^3/uL (150-450); RED BLOOD COUNT 3.38 10^6/uL (4.00-5.40); RED CELL DISTRIBUTION WIDTH 15.2 % (11.5-14.5); WHITE BLOOD COUNT 10.5 10^3/uL (4.0-10.0)
[2018-08-23 06:37] LABS: ALBUMIN 1.6 GM/DL (3.2-5.2); ALBUMIN/GLOBULIN RATIO 0.33 (1.00-1.93); ALKALINE PHOSPHATASE 60 U/L (45-117); ALT/SGPT 37 U/L (12-78); ANION GAP 5 MEQ/L (8-16); AST/SGOT 46 U/L (7-37); BILIRUBIN,TOTAL 0.4 MG/DL (0.2-1.0); BLOOD UREA NITROGEN 10 MG/DL (7-18); CALCIUM LEVEL 7.8 MG/DL (8.5-10.1); CARBON DIOXIDE LEVEL 35 MEQ/L (21-32); CHLORIDE LEVEL 99 MEQ/L (98-107); CREATININE FOR GFR 0.79 MG/DL (0.55-1.30); GLOMERULAR FILTRATION RATE > 60.0 (>58); GLUCOSE, FASTING 100 MG/DL (70-100); POTASSIUM SERUM 3.9 MEQ/L (3.5-5.1); SODIUM LEVEL 139 MEQ/L (136-145); TOTAL PROTEIN 6.4 GM/DL (6.4-8.2)
[2018-08-23] MEDS: LEVOTHYROXINE 100MCG TABLET (0.1MG) PO (07:54)
[2018-08-23] MEDS: ONDANSETRON 4 MG TAB (S0181) PO (07:54)
[2018-08-23] MEDS: ENOXAPARIN 40 MG/0.4 ML SYRINGE (J1650) SC (09:00)
[2018-08-23] MEDS: MICAFUNGIN SODIUM 100 MG in D5W MINI-BAG PLUS 100 ML IV (09:00)
[2018-08-23] MEDS: PANTOPRAZOLE 40MG TAB (PROTONIX) PO (09:29)
[2018-08-23] MEDS: PLAQUENIL 200 MG PO (11:20)
[2018-08-23] MEDS: MIRALAX *UNIT DOSE* 17GM PACKET PO ×3 (14:13→17:43)
[2018-08-23] MEDS: metroNIDAZOLE (FLAGYL) 500 MG TAB PO ×2 (14:13→20:58)
[2018-08-23] MEDS: NEOMYCIN SULFATE 500 MG TAB PO ×2 (15:27→20:59)
[2018-08-23] MEDS ORDERED: ONDANSETRON 4 MG TAB (S0181) XX (19:45)
[2018-08-23] MEDS ORDERED: ONDANSETRON 4 MG TAB (S0181) PO (19:45)
[2018-08-23] MEDS: ONDANSETRON 4MG/2ML VIAL (J2405) IV (20:59)
[2018-08-24] MEDS: NEOMYCIN SULFATE 500 MG TAB PO (06:38)
[2018-08-24] MEDS: metroNIDAZOLE (FLAGYL) 500 MG TAB PO ×2 (06:38→13:09)
[2018-08-24] MEDS: LISINOPRIL 5 MG TAB PO (06:38)
[2018-08-24] MEDS: SODIUM CHLORIDE 0.9% INJ 10 ML SYR IV ×6 (06:39→22:41)
[2018-08-24] MEDS: ONDANSETRON 4MG/2ML VIAL (J2405) IV ×2 (06:44→13:09)
[2018-08-24] MEDS: LEVOTHYROXINE 100MCG TABLET (0.1MG) PO (07:45)
[2018-08-24] MEDS: MICAFUNGIN SODIUM 100 MG in D5W MINI-BAG PLUS 100 ML IV (09:24)
[2018-08-24] MEDS: PANTOPRAZOLE 40MG TAB (PROTONIX) PO (09:24)
[2018-08-24] MEDS: PLAQUENIL 200 MG PO (10:44)
[2018-08-24] MEDS ORDERED: ERTAPENEM 1 GM INJ (INVanz) (J1335) As Ordered (13:56)
[2018-08-24] MEDS ORDERED: PROPOFOL 200 MG/20 ML VIAL As Ordered (15:22)
[2018-08-24] MEDS ORDERED: MIDAZOLAM INJ 2 MG/2 ML VIAL (J2250) As Ordered (15:22)
[2018-08-24] MEDS ORDERED: GLYCOPYRROLATE INJ 0.2 MG/ML 2 ML VIAL As Ordered ×2 (15:22)
[2018-08-24] MEDS ORDERED: ONDANSETRON 4MG/2ML VIAL (J2405) As Ordered (15:22)
[2018-08-24] MEDS ORDERED: LIDOCAINE 2% INJ 100 MG/5 ML SDV (FOR ANES.) As Ordered (15:22)
[2018-08-24] MEDS ORDERED: fentaNYL 250 MCG/5 ML INJECTION (J3010) As Ordered (15:22)
[2018-08-24] MEDS ORDERED: dexameTHASONE 4 MG/ML 1ML VIAL (J1100) As Ordered (15:22)
[2018-08-24] MEDS ORDERED: METOCLOPRAMIDE INJ 10MG/2ML VIAL (J2765) As Ordered (15:22)
[2018-08-24] MEDS ORDERED: DESFLURANE 240 ML INHALANT As Ordered (15:22)
[2018-08-24] MEDS ORDERED: ROCURONIUM BROMIDE 50 MG/5 ML VIAL As Ordered ×3 (15:22→15:35)
[2018-08-24] MEDS ORDERED: NEOSTIGMINE 10 MG/10 ML VIAL (J2710) As Ordered (15:23)
[2018-08-24] MEDS ORDERED: HYDROmorphone HCL 2 MG/ML 1ML VIAL (J1170) As Ordered (15:34)
[2018-08-24] MEDS ORDERED: SUGAMMADEX SODIUM 500 MG/5 ML VIAL (BRIDION) As Ordered (18:40)
[2018-08-24] MEDS ORDERED: fentaNYL 100 MCG/2 ML INJECTION (J3010) IV (19:30)
[2018-08-24] MEDS ORDERED: HYDROMORPHONE HCL 0.5 MG/ 0.5 ML SYRINGE (J1170 PER 1) IV ×2 (19:30→19:45)
[2018-08-24] MEDS ORDERED: ONDANSETRON 4MG/2ML VIAL (J2405) IV (19:30)
[2018-08-24] MEDS ORDERED: PERCOCET 5MG/325MG TAB As Ordered (19:44)
[2018-08-24] MEDS: PERCOCET 5MG/325MG TAB PO (19:49)
[2018-08-24] MEDS: ALVIMOPAN 12 MG CAPSULE (ENTEREG) PO (22:39)
[2018-08-25] MEDS: HYDROMORPHONE HCL 0.5 MG/ 0.5 ML SYRINGE (J1170 PER 1) IV ×6 (01:59→21:02)
[2018-08-25] MEDS: SODIUM CHLORIDE 0.9% INJ 10 ML SYR IV ×4 (04:52→21:03)
[2018-08-25 05:19] LABS: BASO % 0.2 % (0.0-1.0); HEMATOCRIT 31.1 % (36.0-47.0); HEMOGLOBIN 9.5 g/dl (12.0-15.5); IMMATURE GRANULOCYTE % 0.7 % (0-3.0); LYMPH # 1.6 10^3/uL (1.5-4.5); LYMPH % 9.4 % (24.0-44.0); MEAN CORPUSCULAR HEMOGLOBIN 26.9 pg (27.0-33.0); MEAN CORPUSCULAR HGB CONC 30.5 g/dl (32.0-36.5); MEAN CORPUSCULAR VOLUME 88.1 fl (80.0-96.0); MONO % 6.2 % (0.0-5.0); NEUTROPHILS # 13.9 10^3/uL (1.8-7.7); NEUTROPHILS % 83.5 % (36.0-66.0); PLATELET COUNT, AUTOMATED 397 10^3/uL (150-450); RED BLOOD COUNT 3.53 10^6/uL (4.00-5.40); RED CELL DISTRIBUTION WIDTH 15.5 % (11.5-14.5); WHITE BLOOD COUNT 16.6 10^3/uL (4.0-10.0)
[2018-08-25 05:37] LABS: ANION GAP 7 MEQ/L (8-16); BLOOD UREA NITROGEN 11 MG/DL (7-18); CALCIUM LEVEL 8.1 MG/DL (8.5-10.1); CARBON DIOXIDE LEVEL 31 MEQ/L (21-32); CHLORIDE LEVEL 101 MEQ/L (98-107); CREATININE FOR GFR 0.85 MG/DL (0.55-1.30); GLOMERULAR FILTRATION RATE > 60.0 (>58); GLUCOSE, FASTING 110 MG/DL (70-100); POTASSIUM SERUM 4.6 MEQ/L (3.5-5.1); SODIUM LEVEL 139 MEQ/L (136-145)
[2018-08-25] MEDS: LISINOPRIL 5 MG TAB PO (06:05)
[2018-08-25] MEDS: LR 1,000 ML IV ×3 (06:05→21:03)
[2018-08-25] MEDS: ENOXAPARIN 40 MG/0.4 ML SYRINGE (J1650) SC (08:19)
[2018-08-25] MEDS: PANTOPRAZOLE 40MG TAB (PROTONIX) PO (08:19)
[2018-08-25] MEDS: MICAFUNGIN SODIUM 100 MG in D5W MINI-BAG PLUS 100 ML IV (08:19)
[2018-08-25] MEDS: ALVIMOPAN 12 MG CAPSULE (ENTEREG) PO ×2 (08:19→21:01)
[2018-08-25] MEDS: LEVOTHYROXINE 100MCG TABLET (0.1MG) PO (08:19)
[2018-08-25] MEDS: ACETAMINOPHEN TAB 650MG DOSE (2X325MG) PO (08:20)
[2018-08-25] MEDS: ERTAPENEM SODIUM 1 GM in NS MINI-BAG PLUS 50 ML IV (08:20)
[2018-08-25] MEDS: ONDANSETRON 4MG/2ML VIAL (J2405) IV ×2 (08:34→15:44)
[2018-08-25] MEDS: PLAQUENIL 200 MG PO (11:50)
[2018-08-26] MEDS: HYDROMORPHONE HCL 0.5 MG/ 0.5 ML SYRINGE (J1170 PER 1) IV ×3 (01:19→08:43)
[2018-08-26] MEDS: SODIUM CHLORIDE 0.9% INJ 10 ML SYR IV ×3 (04:59→21:32)
[2018-08-26] MEDS: LISINOPRIL 5 MG TAB PO (05:49)
[2018-08-26 08:37] LABS: APPEARANCE, URINE CLOUDY (CLEAR); BACTERIA, URINE AUTO 1+ (NEGATIVE); BILIRUBIN, URINE AUTO NEGATIVE (NEGATIVE); BLOOD, URINE BLOOD NEGATIVE (NEGATIVE); COLOR, URINE YELLOW (YELLOW); GLUCOSE, URINE (UA) AUTO NEGATIVE (NEGATIVE); KETONE, URINE AUTO 1+ mg/dL (NEGATIVE); LEUKOCYTE ESTERASE, URINE AUTO NEGATIVE (NEGATIVE); MUCUS, URINE SMALL (NEGATIVE); NITRITE, URINE AUTO NEGATIVE (NEGATIVE); PROTEIN, URINE AUTO NEGATIVE (NEGATIVE); RBC, URINE AUTO 3 /HPF (0-3); SPECIFIC GRAVITY URINE AUTO 1.014 (1.002-1.035); SQUAMOUS EPITHELIAL CELL UR AU 2 /HPF (0-6); URIC ACID CRYSTALS SMALL; UROBILINOGEN, URINE AUTO 0.2 mg/dL (0.0-2.0); WBC, URINE AUTO 3 /HPF (0-3)
[2018-08-26] MEDS: MICAFUNGIN SODIUM 100 MG in D5W MINI-BAG PLUS 100 ML IV (08:42)
[2018-08-26] MEDS: PANTOPRAZOLE 40MG TAB (PROTONIX) PO (08:42)
[2018-08-26] MEDS: ENOXAPARIN 40 MG/0.4 ML SYRINGE (J1650) SC (08:42)
[2018-08-26] MEDS: ALVIMOPAN 12 MG CAPSULE (ENTEREG) PO ×2 (08:42→20:01)
[2018-08-26] MEDS: LEVOTHYROXINE 100MCG TABLET (0.1MG) PO (08:42)
[2018-08-26 10:20] LABS: HEMATOCRIT 27.6 % (36.0-47.0); HEMOGLOBIN 8.6 g/dl (12.0-15.5); MEAN CORPUSCULAR HEMOGLOBIN 27.3 pg (27.0-33.0); MEAN CORPUSCULAR HGB CONC 31.2 g/dl (32.0-36.5); MEAN CORPUSCULAR VOLUME 87.6 fl (80.0-96.0); PLATELET COUNT, AUTOMATED 363 10^3/uL (150-450); RED BLOOD COUNT 3.15 10^6/uL (4.00-5.40); RED CELL DISTRIBUTION WIDTH 15.8 % (11.5-14.5)
[2018-08-26 10:42] LABS: ANION GAP 7 MEQ/L (8-16); BLOOD UREA NITROGEN 12 MG/DL (7-18); CALCIUM LEVEL 7.9 MG/DL (8.5-10.1); CARBON DIOXIDE LEVEL 32 MEQ/L (21-32); CHLORIDE LEVEL 99 MEQ/L (98-107); CREATININE FOR GFR 0.71 MG/DL (0.55-1.30); GLOMERULAR FILTRATION RATE > 60.0 (>58); GLUCOSE, FASTING 116 MG/DL (70-100); POTASSIUM SERUM 3.7 MEQ/L (3.5-5.1); SODIUM LEVEL 138 MEQ/L (136-145)
[2018-08-26] MEDS: PERCOCET 5MG/325MG TAB PO ×2 (12:12→17:10)
[2018-08-26] MEDS: PLAQUENIL 200 MG PO (12:12)
[2018-08-27] MEDS: HYDROMORPHONE HCL 0.5 MG/ 0.5 ML SYRINGE (J1170 PER 1) IV (02:55)
[2018-08-27] MEDS: SODIUM CHLORIDE 0.9% INJ 10 ML SYR IV ×3 (05:27→14:29)
[2018-08-27] MEDS: LISINOPRIL 5 MG TAB PO (05:27)
[2018-08-27] MEDS: LEVOTHYROXINE 100MCG TABLET (0.1MG) PO (07:51)
[2018-08-27] MEDS: PERCOCET 5MG/325MG TAB PO ×2 (07:52→14:01)
[2018-08-27] MEDS: MICAFUNGIN SODIUM 100 MG in D5W MINI-BAG PLUS 100 ML IV (09:45)
[2018-08-27] MEDS: ALVIMOPAN 12 MG CAPSULE (ENTEREG) PO (09:46)
[2018-08-27] MEDS: ENOXAPARIN 40 MG/0.4 ML SYRINGE (J1650) SC (09:46)
[2018-08-27] MEDS: PANTOPRAZOLE 40MG TAB (PROTONIX) PO (09:46)
[2018-08-27] MEDS: PLAQUENIL 200 MG PO (11:30)
[2018-08-27] MEDS ORDERED: SLF 3 ML SYR IV (14:15)
[2018-08-27] MEDS: SLF 3 ML SYR IV (22:28)
[2018-08-28] MEDS: HYDROMORPHONE HCL 0.5 MG/ 0.5 ML SYRINGE (J1170 PER 1) IV (01:57)
[2018-08-28] MEDS: PERCOCET 5MG/325MG TAB PO ×2 (06:54→16:53)
[2018-08-28] MEDS: SLF 3 ML SYR IV ×3 (06:54→21:40)
[2018-08-28] MEDS: LISINOPRIL 5 MG TAB PO (06:54)
[2018-08-28] MEDS: LEVOTHYROXINE 100MCG TABLET (0.1MG) PO (07:35)
[2018-08-28] MEDS: ENOXAPARIN 40 MG/0.4 ML SYRINGE (J1650) SC (09:36)
[2018-08-28] MEDS: PANTOPRAZOLE 40MG TAB (PROTONIX) PO (10:52)
[2018-08-28] MEDS: PLAQUENIL 200 MG PO (10:54)
[2018-08-29] MEDS: SLF 3 ML SYR IV ×3 (05:12→22:00)
[2018-08-29] MEDS: HYDROMORPHONE HCL 0.5 MG/ 0.5 ML SYRINGE (J1170 PER 1) IV (05:13)
[2018-08-29] MEDS: LISINOPRIL 5 MG TAB PO (05:29)
[2018-08-29 07:24] LABS: BASO % 0.6 % (0.0-1.0); EOS # 0.1 10^3/uL (0.0-0.50); EOS % 1.3 % (0.0-3.0); HEMATOCRIT 28.9 % (36.0-47.0); HEMOGLOBIN 8.9 g/dl (12.0-15.5); IMMATURE GRANULOCYTE % 0.4 % (0-3.0); LYMPH # 1.6 10^3/uL (1.5-4.5); LYMPH % 21.8 % (24.0-44.0); MEAN CORPUSCULAR HEMOGLOBIN 27.5 pg (27.0-33.0); MEAN CORPUSCULAR HGB CONC 30.8 g/dl (32.0-36.5); MEAN CORPUSCULAR VOLUME 89.2 fl (80.0-96.0); MONO # 0.5 10^3/uL (0.0-0.8); MONO % 6.8 % (0.0-5.0); NEUTROPHILS % 69.1 % (36.0-66.0); PLATELET COUNT, AUTOMATED 363 10^3/uL (150-450); RED BLOOD COUNT 3.24 10^6/uL (4.00-5.40); RED CELL DISTRIBUTION WIDTH 16.1 % (11.5-14.5); WHITE BLOOD COUNT 7.2 10^3/uL (4.0-10.0)
[2018-08-29 07:47] LABS: ALBUMIN 1.8 GM/DL (3.2-5.2); ALBUMIN/GLOBULIN RATIO 0.38 (1.00-1.93); ALKALINE PHOSPHATASE 115 U/L (45-117); ALT/SGPT 31 U/L (12-78); ANION GAP 2 MEQ/L (8-16); AST/SGOT 53 U/L (7-37); BILIRUBIN,TOTAL 0.3 MG/DL (0.2-1.0); BLOOD UREA NITROGEN 6 MG/DL (7-18); CALCIUM LEVEL 8.2 MG/DL (8.5-10.1); CARBON DIOXIDE LEVEL 36 MEQ/L (21-32); CHLORIDE LEVEL 102 MEQ/L (98-107); CREATININE FOR GFR 0.76 MG/DL (0.55-1.30); GLOMERULAR FILTRATION RATE > 60.0 (>58); GLUCOSE, FASTING 112 MG/DL (70-100); POTASSIUM SERUM 3.7 MEQ/L (3.5-5.1); SODIUM LEVEL 140 MEQ/L (136-145); TOTAL PROTEIN 6.6 GM/DL (6.4-8.2)
[2018-08-29] MEDS: PANTOPRAZOLE 40MG TAB (PROTONIX) PO (07:53)
[2018-08-29] MEDS: LEVOTHYROXINE 100MCG TABLET (0.1MG) PO (07:53)
[2018-08-29] MEDS: ENOXAPARIN 40 MG/0.4 ML SYRINGE (J1650) SC (07:53)
[2018-08-29] MEDS: PLAQUENIL 200 MG PO (11:23)
[2018-08-29] MEDS: PERCOCET 5MG/325MG TAB PO ×2 (13:33→20:02)
[2018-08-30] MEDS: SLF 3 ML SYR IV ×3 (06:42→22:00)
[2018-08-30] MEDS: LISINOPRIL 5 MG TAB PO (06:42)
[2018-08-30] MEDS: PANTOPRAZOLE 40MG TAB (PROTONIX) PO (08:11)
[2018-08-30] MEDS: PERCOCET 5MG/325MG TAB PO ×2 (08:13→17:02)
[2018-08-30] MEDS: LEVOTHYROXINE 100MCG TABLET (0.1MG) PO (08:13)
[2018-08-30] MEDS: ENOXAPARIN 40 MG/0.4 ML SYRINGE (J1650) SC (08:13)
[2018-08-30] MEDS: PLAQUENIL 200 MG PO (11:00)
[2018-08-31] MEDS: PERCOCET 5MG/325MG TAB PO ×3 (01:36→22:50)
[2018-08-31] MEDS: LISINOPRIL 5 MG TAB PO (05:26)
[2018-08-31] MEDS: SLF 3 ML SYR IV (05:26)
[2018-08-31] MEDS: LEVOTHYROXINE 100MCG TABLET (0.1MG) PO (07:48)
[2018-08-31] MEDS: PANTOPRAZOLE 40MG TAB (PROTONIX) PO (07:48)
[2018-08-31] MEDS: ENOXAPARIN 40 MG/0.4 ML SYRINGE (J1650) SC (07:48)
[2018-08-31] MEDS: PLAQUENIL 200 MG PO (11:00)
[2018-09-01] MEDS: LISINOPRIL 5 MG TAB PO (05:08)
[2018-09-01 06:38] LABS: BASO % 0.3 % (0.0-1.0); EOS # 0.1 10^3/uL (0.0-0.50); EOS % 1.8 % (0.0-3.0); HEMATOCRIT 27.5 % (36.0-47.0); HEMOGLOBIN 8.5 g/dl (12.0-15.5); IMMATURE GRANULOCYTE % 0.5 % (0-3.0); LYMPH # 1.8 10^3/uL (1.5-4.5); LYMPH % 29.6 % (24.0-44.0); MEAN CORPUSCULAR HEMOGLOBIN 27.2 pg (27.0-33.0); MEAN CORPUSCULAR HGB CONC 30.9 g/dl (32.0-36.5); MEAN CORPUSCULAR VOLUME 88.1 fl (80.0-96.0); MONO # 0.5 10^3/uL (0.0-0.8); MONO % 8.4 % (0.0-5.0); NEUTROPHILS # 3.6 10^3/uL (1.8-7.7); NEUTROPHILS % 59.4 % (36.0-66.0); PLATELET COUNT, AUTOMATED 314 10^3/uL (150-450); RED BLOOD COUNT 3.12 10^6/uL (4.00-5.40); RED CELL DISTRIBUTION WIDTH 16.5 % (11.5-14.5); WHITE BLOOD COUNT 6.1 10^3/uL (4.0-10.0)
[2018-09-01 07:15] LABS: ALBUMIN 1.8 GM/DL (3.2-5.2); ALBUMIN/GLOBULIN RATIO 0.39 (1.00-1.93); ALKALINE PHOSPHATASE 293 U/L (45-117); ALT/SGPT 104 U/L (12-78); ANION GAP 3 MEQ/L (8-16); AST/SGOT 132 U/L (7-37); BILIRUBIN,TOTAL 0.3 MG/DL (0.2-1.0); BLOOD UREA NITROGEN 10 MG/DL (7-18); CALCIUM LEVEL 7.9 MG/DL (8.5-10.1); CARBON DIOXIDE LEVEL 34 MEQ/L (21-32); CHLORIDE LEVEL 102 MEQ/L (98-107); CREATININE FOR GFR 0.81 MG/DL (0.55-1.30); GLOMERULAR FILTRATION RATE > 60.0 (>58); GLUCOSE, FASTING 101 MG/DL (70-100); POTASSIUM SERUM 4.1 MEQ/L (3.5-5.1); SODIUM LEVEL 139 MEQ/L (136-145); TOTAL PROTEIN 6.4 GM/DL (6.4-8.2)
[2018-09-01] MEDS: LEVOTHYROXINE 100MCG TABLET (0.1MG) PO (09:12)
[2018-09-01] MEDS: ENOXAPARIN 40 MG/0.4 ML SYRINGE (J1650) SC (09:12)
[2018-09-01] MEDS: PANTOPRAZOLE 40MG TAB (PROTONIX) PO (09:12)
[2018-09-01] MEDS: PLAQUENIL 200 MG PO (11:00)
[2018-09-01] MEDS: PERCOCET 5MG/325MG TAB PO ×2 (11:07→18:21)
[2018-09-01] MEDS: ACETAMINOPHEN TAB 650MG DOSE (2X325MG) PO (21:41)
[2018-09-02] MEDS: LISINOPRIL 5 MG TAB PO (05:26)
[2018-09-02] MEDS: ENOXAPARIN 40 MG/0.4 ML SYRINGE (J1650) SC (08:49)
[2018-09-02] MEDS: PANTOPRAZOLE 40MG TAB (PROTONIX) PO (08:49)
[2018-09-02] MEDS: PERCOCET 5MG/325MG TAB PO ×3 (08:50→23:03)
[2018-09-02] MEDS: LEVOTHYROXINE 100MCG TABLET (0.1MG) PO (08:51)
[2018-09-02] MEDS: PLAQUENIL 200 MG PO (11:00)
[2018-09-03] MEDS: LISINOPRIL 5 MG TAB PO (05:12)
[2018-09-03 07:05] LABS: ALBUMIN 2.1 GM/DL (3.2-5.2); ALKALINE PHOSPHATASE 267 U/L (45-117); ALT/SGPT 79 U/L (12-78); AST/SGOT 87 U/L (7-37); BILIRUBIN,DIRECT 0.1 MG/DL (0.0-0.2); BILIRUBIN,TOTAL 0.4 MG/DL (0.2-1.0); TOTAL PROTEIN 7.3 GM/DL (6.4-8.2)
[2018-09-03] MEDS: LEVOTHYROXINE 100MCG TABLET (0.1MG) PO (07:30)
[2018-09-03] MEDS: ENOXAPARIN 40 MG/0.4 ML SYRINGE (J1650) SC (09:00)
[2018-09-03] MEDS: PANTOPRAZOLE 40MG TAB (PROTONIX) PO (09:00)
[2018-09-03] MEDS: PLAQUENIL 200 MG PO (11:12)
[2018-09-03] MEDS: PERCOCET 5MG/325MG TAB PO ×2 (15:16→22:36)
[2018-09-04] MEDS: LISINOPRIL 5 MG TAB PO (05:10)
[2018-09-04] MEDS: ENOXAPARIN 40 MG/0.4 ML SYRINGE (J1650) SC (09:00)
[2018-09-04] MEDS: LEVOTHYROXINE 100MCG TABLET (0.1MG) PO (10:05)
[2018-09-04] MEDS: PANTOPRAZOLE 40MG TAB (PROTONIX) PO (10:05)
[2018-09-04] MEDS: PLAQUENIL 200 MG PO (10:06)
== END 2018-09-04 14:00 | disposition home health service (06) | DRG 330 ==
LOC: M ICU 08-12 16:27 → M PED 08-10 00:55 → M MSPAV 08-13 17:45 → M ED 19:32 → M ED INP 22:26
PROVIDERS: Surgery
PROC: 0DTN0ZZ Resection of Sigmoid Colon, Open Approach (ICD-10-PCS; principal; 2018-08-12 09:06)
PROC: 0D1M0Z4 Bypass Descending Colon to Cutaneous, Open Approach (ICD-10-PCS; 2018-08-12 09:06)
PROC: 02HV33Z Insertion of Infusion Device into Superior Vena Cava, Percutaneous Approach (ICD-10-PCS; 2018-08-12 09:06)
PROC: 0DQ80ZZ Repair Small Intestine, Open Approach (ICD-10-PCS; 2018-08-12 10:26)
PROC: 0D1L0Z4 Bypass Transverse Colon to Cutaneous, Open Approach (ICD-10-PCS; 2018-08-12 10:26)
PROC: 0DBM0ZZ Excision of Descending Colon, Open Approach (ICD-10-PCS; 2018-08-12 10:26)
PROC: 0WQF0ZZ Repair Abdominal Wall, Open Approach (ICD-10-PCS; 2018-08-12 10:26)
DX: K57.20 Diverticulitis of large intestine with perforation and abscess without bleeding (principal); Z68.43 Body mass index [BMI] 50.0-59.9, adult; N17.9 Acute kidney failure, unspecified; J90 Pleural effusion, not elsewhere classified; K94.03 Colostomy malfunction; E66.01 Morbid (severe) obesity due to excess calories; Z88.0 Allergy status to penicillin; Z88.6 Allergy status to analgesic agent; Z88.1 Allergy status to other antibiotic agents; Z91.041 Radiographic dye allergy status

== ENCOUNTER 2018-10-04 19:33 | Emergency (ER) | payer OTHER ==
[~2018-10-04] VITALS: Ht 165.1 cm; Wt 140.0 kg
[~2018-10-04 19:33] MED LIST: ACET-683 PO; ACET1TAB55 PO; ASPI1TAB15 PO; HYDR200T3 PO; LEVO200T4 PO; LISI-542 PO; METR1TAB66 PO; PERCOCET PO; PLAQUENIL PO; SULF1TAB72 PO; SYNT100T PO; VITA-122 PO
[2018-10-04] MEDS ORDERED: COLA100C5 PO (19:51)
[2018-10-04] MEDS ORDERED: FERR325T18 (19:51)
[2018-10-04 20:37] LABS: BASO # 0.1 10^3/uL (0.0-0.2); BASO % 0.6 % (0.0-1.0); EOS # 0.1 10^3/uL (0.0-0.50); EOS % 1.3 % (0.0-3.0); HEMATOCRIT 38.4 % (36.0-47.0); HEMOGLOBIN 11.8 g/dl (12.0-15.5); LYMPH # 3.3 10^3/uL (1.5-4.5); LYMPH % 39.9 % (24.0-44.0); MEAN CORPUSCULAR HEMOGLOBIN 26.6 pg (27.0-33.0); MEAN CORPUSCULAR HGB CONC 30.7 g/dl (32.0-36.5); MEAN CORPUSCULAR VOLUME 86.5 fl (80.0-96.0); MONO # 0.5 10^3/uL (0.0-0.8); MONO % 5.8 % (0.0-5.0); NEUTROPHILS # 4.3 10^3/uL (1.8-7.7); NEUTROPHILS % 52.3 % (36.0-66.0); PLATELET COUNT, AUTOMATED 357 10^3/uL (150-450); RED BLOOD COUNT 4.44 10^6/uL (4.00-5.40); WHITE BLOOD COUNT 8.2 10^3/uL (4.0-10.0)
[2018-10-04 20:56] LABS: ERYTHROCYTE SEDIMENTATION RATE 73 mm/hr (0-20)
[2018-10-04 21:00] LABS: ALBUMIN 3.4 GM/DL (3.2-5.2); ALT/SGPT 21 U/L (12-78); BILIRUBIN,DIRECT 0.1 MG/DL (0.0-0.2); BILIRUBIN,TOTAL 0.5 MG/DL (0.2-1.0); BLOOD UREA NITROGEN 15 MG/DL (7-18); C REACTIVE PROTEIN QUANTITATIV 1.36 MG/DL (0.00-0.30); CALCIUM LEVEL 8.8 MG/DL (8.5-10.1); CARBON DIOXIDE LEVEL 30 MEQ/L (21-32); CHLORIDE LEVEL 104 MEQ/L (98-107); CREATININE FOR GFR 0.97 MG/DL (0.55-1.30); GLOMERULAR FILTRATION RATE > 60.0 (>58); GLUCOSE, FASTING 131 MG/DL (70-100); POTASSIUM SERUM 4.1 MEQ/L (3.5-5.1); SODIUM LEVEL 140 MEQ/L (136-145); TOTAL PROTEIN 7.8 GM/DL (6.4-8.2)
--- NOTE | 2018-10-04 22:11 | REPVR ---
EXAM: US Abdomen Limited EXAM DATE/TIME: 10/04/2018 9:34 PM CLINICAL HISTORY: 48 years old, female; Signs and symptoms; Other: Drainage from incision; Prior surgery; Surgery date: 1-6 months; Surgery type: Bowel resection beginning of august; Additional info: Inc drainage/swelling at incision/r/o abscess TECHNIQUE: Real-time ultrasound of the abdomen with image documentation. Examination is focused on the region of clinical interest. COMPARISON: CT ABD PELVIS W/O CONTRAST 08/12/2018 8:05 AM FINDINGS: A limited ultrasound was performed of the anterior incision site. There is concern for drainage from this area. At the incision site there is a linear fluid collection measuring approximately 8 CM in length but only 1CM in thickness. There is however no focal mass effect and no focal large abscess identified. The linear fluid collection could be serous fluid or infected fluid. A CT scan might be considered for further evaluation. IMPRESSION: At the incision there is a small linear area of fluid but no focal abscess identified. Suggest correlation with CT. Electronically signed by: Eugene Perkins On 10/04/2018 22:11:48 PM
[2018-10-04] MEDS ORDERED: BACT800T5 PO (22:45)
[2018-10-04 22:50] VITALS: BP 146/74
== END 2018-10-04 22:55 | disposition home or self-care (01) ==
LOC: M ED 19:33
DX: L03.311 Cellulitis of abdominal wall (principal); T81.41XA Infection following a procedure, superficial incisional surgical site, initial encounter; Y83.3 Surgical operation with formation of external stoma as the cause of abnormal reaction of the patient, or of later complication, without mention of misadventure at the time of the procedure; K57.32 Diverticulitis of large intestine without perforation or abscess without bleeding; I10 Essential (primary) hypertension; E03.9 Hypothyroidism, unspecified; F41.9 Anxiety disorder, unspecified; M32.9 Systemic lupus erythematosus, unspecified; Z88.0 Allergy status to penicillin; Z88.1 Allergy status to other antibiotic agents; Z91.040 Latex allergy status; Z91.018 Allergy to other foods; Z88.8 Allergy status to other drugs, medicaments and biological substances; Z79.899 Other long term (current) drug therapy; Z79.82 Long term (current) use of aspirin

== ENCOUNTER 2018-10-23 21:15 | Emergency (ER) | payer OTHER ==
[~2018-10-23] VITALS: Ht 165.1 cm; Wt 138.6 kg
[~2018-10-23 21:15] MED LIST changes: +BACT800T5 PO; +COLA100C5 PO; +FERR325T18; +METR-201 PO; -METR1TAB66 PO
[2018-10-23 22:27] LABS: BASO # 0.1 10^3/uL (0.0-0.2); BASO % 0.6 % (0.0-1.0); EOS # 0.1 10^3/uL (0.0-0.50); EOS % 1.5 % (0.0-3.0); HEMOGLOBIN 12.6 g/dl (12.0-15.5); LYMPH # 3.4 10^3/uL (1.5-4.5); LYMPH % 37.9 % (24.0-44.0); MEAN CORPUSCULAR HEMOGLOBIN 26.3 pg (27.0-33.0); MEAN CORPUSCULAR HGB CONC 30.7 g/dl (32.0-36.5); MEAN CORPUSCULAR VOLUME 85.4 fl (80.0-96.0); MONO # 0.6 10^3/uL (0.0-0.8); MONO % 6.2 % (0.0-5.0); NEUTROPHILS # 4.7 10^3/uL (1.8-7.7); NEUTROPHILS % 53.5 % (36.0-66.0); PLATELET COUNT, AUTOMATED 335 10^3/uL (150-450); WHITE BLOOD COUNT 8.8 10^3/uL (4.0-10.0)
[2018-10-23 23:17] LABS: BLOOD UREA NITROGEN 15 MG/DL (7-18); CALCIUM LEVEL 8.6 MG/DL (8.5-10.1); CARBON DIOXIDE LEVEL 28 MEQ/L (21-32); CHLORIDE LEVEL 105 MEQ/L (98-107); CREATININE FOR GFR 0.83 MG/DL (0.55-1.30); GLOMERULAR FILTRATION RATE > 60.0 (>58); GLUCOSE, FASTING 125 MG/DL (70-100); POTASSIUM SERUM 4.1 MEQ/L (3.5-5.1); SODIUM LEVEL 139 MEQ/L (136-145)
--- NOTE | 2018-10-23 23:32 | REPVR ---
EXAM: CT Abdomen and Pelvis Without Contrast EXAM DATE/TIME: 10/23/2018 10:32 PM CLINICAL HISTORY: 48 years old, female; Pain; Abdominal pain; Flank; Left; Prior surgery; Surgery date: <1 month; Additional info: Left flank pain; Hematuria TECHNIQUE: Axial computed tomography images of the abdomen and pelvis without contrast. All CT scans at this facility use at least one of these dose optimization techniques: automated exposure control; mA and/or kV adjustment per patient size (includes targeted exams where dose is matched to clinical indication); or iterative reconstruction. Coronal and sagittal reformatted images were created and reviewed. COMPARISON: CT ABD PELVIS W/O CONTRAST 08/12/2018 8:05 AM FINDINGS: Lower thorax: There is mild atelectasis and infiltrate at the right lung base. There is a moderate size right pleural effusion. This has developed since the previous CT. Normal size heart. ABDOMEN: Liver: Normal liver. Gallbladder and bile ducts: Post cholecystectomy. Pancreas: Normal pancreas. Spleen: Normal spleen. Adrenals: Normal adrenal glands. Kidneys and ureters: Normal kidneys. Stomach and bowel: Surgical clips in the upper sigmoid colon/blind-ending pouch. There is a colostomy in left lower quadrant with no evidence of obstruction. Normal appearing small bowel. PELVIS: Bladder: Urinary bladder is empty. Reproductive: Normal uterus. ABDOMEN and PELVIS: Intraperitoneal space: There is no evidence of pneumoperitoneum. Bones/joints: There is severe narrowing of the L4-L5 disc space with a large posterior bony ridge/osteophyte causing severe central spinal canal stenosis and severe bilateral L4 neural foramina narrowing. Soft tissues: Previous anterior abdominal wound now healed. There is a scar. Vasculature: Normal-size aorta. Lymph nodes: No evidence of lymphadenopathy. IMPRESSION: No evidence of bowel obstruction. There is mild right basilar atelectasis and infiltrate. There is a moderate right pleural effusion. Electronically signed by: Eugene Perkins On 10/23/2018 23:32:29 PM
[2018-10-24 00:19] VITALS: BP 160/78
--- NOTE | 2018-10-24 11:40 | ED PDOC ---
Post-Departure Follow-Up ft xena de souza and dr helton faxed formal report of ct abd/p forfu Lacie Jimenez MD Oct 24, 2018 11:40
== END 2018-10-24 00:27 | disposition home or self-care (01) ==
LOC: M ED 21:15
DX: R31.9 Hematuria, unspecified (principal); J90 Pleural effusion, not elsewhere classified; I10 Essential (primary) hypertension; M32.9 Systemic lupus erythematosus, unspecified; F41.9 Anxiety disorder, unspecified; E03.9 Hypothyroidism, unspecified; Z91.041 Radiographic dye allergy status; Z88.0 Allergy status to penicillin; Z88.1 Allergy status to other antibiotic agents; Z91.018 Allergy to other foods; Z79.899 Other long term (current) drug therapy; Z79.82 Long term (current) use of aspirin; Z93.3 Colostomy status; Z90.49 Acquired absence of other specified parts of digestive tract

== ENCOUNTER 2018-11-12 21:00 | Emergency (ER) | payer OTHER ==
[~2018-11-12] VITALS: Ht 165.1 cm; Wt 143.2 kg
[2018-11-12 22:46] VITALS: BP 158/84
[2018-11-12 23:27] LABS: ABG BASE EXCESS 2.6 (-2.0-2.0); ABG HCO3 25.9 MEQ/L (22.0-26.0); ABG O2 SATURATION 99.4 % (95.0-99.0); ABG PARTIAL PRESSURE CO2 35.8 mmHg (35.0-45.0); ABG PARTIAL PRESSURE O2 176.1 mmHg (75.0-100.0); ABG STANDARD HCO3 26.8 MEQ/L (22.0-26.0); ABG pH (ARTERIAL) 7.477 UNITS (7.350-7.450)
--- NOTE | 2018-11-13 02:18 | REP ---
Clinical: Effusion. Technique: PA and lateral. Comparison: 08/20/2018. Findings: Small residual right pleural effusion and minimal right basilar atelectasis noted. No further consolidation, or pneumothorax. Mediastinum and cardiac silhouette are normal. Skeletal structures intact. Impression: Small right pleural effusion with right basilar atelectasis. Electronically Signed by Toro Scales MD 11/13/2018 02:09 A
--- NOTE | 2018-11-13 10:59 | ED PDOC ---
Post-Departure Follow-Up frank de souza faxed formal report of cxr for fu Lacie Jimenez MD Nov 13, 2018 10:59
== END 2018-11-13 | disposition home or self-care (01) ==
LOC: M ED 21:00
DX: J90 Pleural effusion, not elsewhere classified (principal); I10 Essential (primary) hypertension; E03.9 Hypothyroidism, unspecified; D50.9 Iron deficiency anemia, unspecified; Z91.041 Radiographic dye allergy status; Z88.0 Allergy status to penicillin; Z88.1 Allergy status to other antibiotic agents; Z91.018 Allergy to other foods; Z79.899 Other long term (current) drug therapy; Z79.82 Long term (current) use of aspirin

== ENCOUNTER → 2018-12-04 | Outpatient (CLI) | payer OTHER ==
[~2018-12-04] MED LIST changes: -FERR325T18; +FERR325T18 PO; +ONDA4TAB6 PO; +OSEL75CA PO; +TESS100C PO
[2018-12-04 13:34] LABS: BASO % 0.5 % (0.0-1.0); EOS # 0.1 10^3/uL (0.0-0.50); EOS % 1.2 % (0.0-3.0); HEMATOCRIT 43.4 % (36.0-47.0); HEMOGLOBIN 13.4 g/dl (12.0-15.5); LYMPH # 2.2 10^3/uL (1.5-4.5); LYMPH % 33.8 % (24.0-44.0); MEAN CORPUSCULAR HEMOGLOBIN 26.3 pg (27.0-33.0); MEAN CORPUSCULAR HGB CONC 30.9 g/dl (32.0-36.5); MEAN CORPUSCULAR VOLUME 85.1 fl (80.0-96.0); MONO # 0.4 10^3/uL (0.0-0.8); MONO % 6.6 % (0.0-5.0); NEUTROPHILS # 3.8 10^3/uL (1.8-7.7); NEUTROPHILS % 57.6 % (36.0-66.0); PLATELET COUNT, AUTOMATED 306 10^3/uL (150-450); WHITE BLOOD COUNT 6.6 10^3/uL (4.0-10.0)
[2018-12-04 13:54] LABS: ERYTHROCYTE SEDIMENTATION RATE 43 mm/hr (0-20); INR 1.01; PROTHROMBIN TIME 13.4 SECONDS (12.1-14.4)
[2018-12-04 13:55] LABS: PARTIAL THROMBOPLASTIN TIME 46.3 SECONDS (25.4-37.6)
[2018-12-04 14:00] LABS: ALBUMIN 3.7 GM/DL (3.2-5.2); ALT/SGPT 22 U/L (12-78); BILIRUBIN,TOTAL 0.6 MG/DL (0.2-1.0); BLOOD UREA NITROGEN 16 MG/DL (7-18); CALCIUM LEVEL 9.2 MG/DL (8.5-10.1); CARBON DIOXIDE LEVEL 32 MEQ/L (21-32); CHLORIDE LEVEL 103 MEQ/L (98-107); CREATININE FOR GFR 0.79 MG/DL (0.55-1.30); GLOMERULAR FILTRATION RATE > 60.0 (>58); GLUCOSE, FASTING 106 MG/DL (70-100); LDH LACTATE DEHYDROGENASE 202 U/L (84-246); POTASSIUM SERUM 4.7 MEQ/L (3.5-5.1); RHEUMATOID FACTOR QUANT < 10.0 IU/ML (<15.0); SODIUM LEVEL 140 MEQ/L (136-145); TOTAL PROTEIN 7.8 GM/DL (6.4-8.2)
[2018-12-08 00:09] LABS: ANCA-ATYPICAL <1:20 titer (Neg:<1:20); ANTI DOUBLE STRAND-DNA AB <1 IU/mL (0-9); ANTINUCLEAR ANTIBODIES DIRECT Positive (Negative); CYTOPLASMIC NEUTROP AB ANCA-C <1:20 titer (Neg:<1:20); PERINUCLEAR AB ANCA-P <1:20 titer (Neg:<1:20); RNP ANTIBODIES >8.0 AI (0.0-0.9); SJOGREN'S ANTI SS-A >8.0 AI (0.0-0.9); SJOGREN'S ANTI SS-B 3.8 AI (0.0-0.9); SMITH ANTIBODIES <0.2 AI (0.0-0.9)
== END ==
LOC: M SMT 10:24
PROVIDERS: ATTEND Internal Medicine Pulmonary Disease
DX: J90 Pleural effusion, not elsewhere classified (principal); K57.20 Diverticulitis of large intestine with perforation and abscess without bleeding

== ENCOUNTER 2018-12-09 12:08 | Emergency (ER) | payer OTHER ==
[~2018-12-09] VITALS: Ht 165.1 cm; Wt 145.0 kg
[~2018-12-09 12:08] MED LIST changes: -ONDA4TAB6 PO; -OSEL75CA PO; -TESS100C PO
[2018-12-09 13:03] LABS: BASO % 0.6 % (0.0-1.0); EOS # 0.1 10^3/uL (0.0-0.50); EOS % 1.1 % (0.0-3.0); HEMOGLOBIN 13.3 g/dl (12.0-15.5); LYMPH # 1.1 10^3/uL (1.5-4.5); LYMPH % 20.4 % (24.0-44.0); MEAN CORPUSCULAR HEMOGLOBIN 26.3 pg (27.0-33.0); MEAN CORPUSCULAR HGB CONC 31.7 g/dl (32.0-36.5); MEAN CORPUSCULAR VOLUME 83.2 fl (80.0-96.0); MONO # 0.4 10^3/uL (0.0-0.8); MONO % 8.3 % (0.0-5.0); NEUTROPHILS # 3.7 10^3/uL (1.8-7.7); NEUTROPHILS % 69.4 % (36.0-66.0); PLATELET COUNT, AUTOMATED 253 10^3/uL (150-450); RED BLOOD COUNT 5.05 10^6/uL (4.00-5.40); WHITE BLOOD COUNT 5.3 10^3/uL (4.0-10.0)
[2018-12-09 13:29] LABS: INFLUENZA A AMPLIFICATION POSITIVE (NEGATIVE); INFLUENZA B AMPLIFICATION NEGATIVE (NEGATIVE)
[2018-12-09 13:34] LABS: ALBUMIN 3.5 GM/DL (3.2-5.2); ALT/SGPT 20 U/L (12-78); BILIRUBIN,DIRECT 0.2 MG/DL (0.0-0.2); BILIRUBIN,TOTAL 0.7 MG/DL (0.2-1.0); BLOOD UREA NITROGEN 14 MG/DL (7-18); CALCIUM LEVEL 9.2 MG/DL (8.5-10.1); CARBON DIOXIDE LEVEL 32 MEQ/L (21-32); CHLORIDE LEVEL 102 MEQ/L (98-107); CREATININE FOR GFR 0.78 MG/DL (0.55-1.30); GLOMERULAR FILTRATION RATE > 60.0 (>58); GLUCOSE, FASTING 92 MG/DL (70-100); LIPASE 155 U/L (73-393); POTASSIUM SERUM 4.1 MEQ/L (3.5-5.1); SODIUM LEVEL 138 MEQ/L (136-145); TOTAL PROTEIN 8.3 GM/DL (6.4-8.2)
--- NOTE | 2018-12-09 13:44 | REP ---
Clinical: cough. Comparison: 11/12/2018. Technique: PA and lateral. Findings: The mediastinum and cardiac silhouette are normal. The lung atkinson are clear and without acute consolidation, effusion, or pneumothorax. The skeletal structures are intact and normal. Impression: 1. No acute cardiopulmonary process. Electronically Signed by Toro Scales MD 12/09/2018 01:35 P
[2018-12-09] MEDS ORDERED: OSEL75CA PO (13:52)
[2018-12-09 13:58] VITALS: BP 173/85
[2018-12-09] MEDS ORDERED: ACETAMINOPHEN 325 MG TAB PO ONE (14:00)
[2018-12-09] MEDS ORDERED: ONDA4TAB6 PO (14:03)
== END 2018-12-09 14:10 | disposition home or self-care (01) ==
LOC: M ED 12:08
DX: J09.X9 Influenza due to identified novel influenza A virus with other manifestations (principal); E66.9 Obesity, unspecified; I10 Essential (primary) hypertension; E03.9 Hypothyroidism, unspecified; M32.9 Systemic lupus erythematosus, unspecified; F41.9 Anxiety disorder, unspecified; Z79.899 Other long term (current) drug therapy; Z79.890 Hormone replacement therapy; Z79.82 Long term (current) use of aspirin; Z91.041 Radiographic dye allergy status; Z88.0 Allergy status to penicillin; Z88.1 Allergy status to other antibiotic agents; Z91.018 Allergy to other foods; Z88.8 Allergy status to other drugs, medicaments and biological substances; Z90.49 Acquired absence of other specified parts of digestive tract; Z98.890 Other specified postprocedural states

== ENCOUNTER 2018-12-11 05:39 | Emergency (ER) | payer OTHER ==
[~2018-12-11] VITALS: Ht 165.1 cm; Wt 143.2 kg
[~2018-12-11 05:39] MED LIST changes: +ONDA4TAB6 PO; +OSEL75CA PO
--- NOTE | 2018-12-11 06:55 | REP ---
Clinical: Chest pain with flu-like symptoms Comparison: 12/09/2018 . Technique: PA and lateral. Findings: The mediastinum and cardiac silhouette are normal. The lung atkinson are clear and without acute consolidation, effusion, or pneumothorax. The skeletal structures are intact and normal. Impression: 1. No acute cardiopulmonary process. Electronically Signed by Toro Scales MD 12/11/2018 06:47 A
[2018-12-11] MEDS ORDERED: TESS100C PO (07:07)
[2018-12-11 07:18] VITALS: BP 185/88
== END 2018-12-11 07:22 | disposition home or self-care (01) ==
LOC: M ED 05:39
DX: J09.X2 Influenza due to identified novel influenza A virus with other respiratory manifestations (principal); K57.30 Diverticulosis of large intestine without perforation or abscess without bleeding; E03.9 Hypothyroidism, unspecified; E55.9 Vitamin D deficiency, unspecified; F41.9 Anxiety disorder, unspecified; Z90.49 Acquired absence of other specified parts of digestive tract; Z79.82 Long term (current) use of aspirin; Z79.899 Other long term (current) drug therapy; Z88.0 Allergy status to penicillin; Z88.8 Allergy status to other drugs, medicaments and biological substances; Z88.1 Allergy status to other antibiotic agents; Z91.018 Allergy to other foods; Z91.041 Radiographic dye allergy status

== ENCOUNTER → 2019-01-11 | Outpatient (CLI) | payer OTHER ==
[~2019-01-11] MED LIST changes: -METR-201 PO; +METR-265 PO; +TESS100C PO
--- NOTE | 2019-01-11 09:32 | REP ---
CT ABDOMEN WITHOUT IV OR ORAL CONTRAST: HISTORY: Peristomal hernia without obstruction. Comparison CT study October 23, 2018. CT FINDINGS: Digital preliminary oncology physician assistant radiograph shows clips in the right upper quadrant and right lower quadrant of the abdomen. The bowel gas pattern is normal on digital oncology physician assistant radiograph. Lung bases are clear except for the presence of a small quantity of right pleural fluid. This has decreased in size compared to the October 23, 2018 prior study. There is a small collection of loculated pleural fluid just posterior to the inferior vena cava at the right base anteriorly. No focal hepatic or splenic lesion is seen. The liver is not enlarged. The spleen is mildly prominent measuring 14 cm in greatest transverse dimension. This is unchanged. The gallbladder is surgically absent. No pancreatic lesion is seen. Normal adrenal glands are noted bilaterally. Kidneys are morphologically intact. No stone or hydronephrosis is seen. No retroperitoneal mass or adenopathy is noted. A left lower quadrant colostomy is seen. There is a longer and somewhat redundant loop of left colon in the anterior abdominal wall along with some abdominal fat today. The size of the defect in the anterior abdominal wall measures 5.7 cm in medial to lateral span, previously 4.0 cm. It has a 6.7 cm craniocaudal diameter. No small bowel loops are seen within the hernia. The sigmoid colon appears to have been resected. No other abdominal wall defect is seen. There is no evidence of ascites. IMPRESSION: 1. Small right pleural effusion decreased in size from the October 23, 2018 study. 2. Left lower quadrant colostomy with peristomal hernia as above. 3. Borderline spleen size. Electronically Signed by Toi Muñoz MD 01/11/2019 01:32 P
== END ==
LOC: M RAD 06:47
PROVIDERS: ATTEND Surgery
DX: K43.5 Parastomal hernia without obstruction or gangrene (principal); J90 Pleural effusion, not elsewhere classified

== ENCOUNTER 2019-03-18 20:17 | Emergency (ER) | payer OTHER ==
[~2019-03-18] VITALS: Ht 165.1 cm; Wt 141.8 kg
[2019-03-18 20:17] VITALS: BP 163/77
== END 2019-03-18 23:44 | disposition left against medical advice (07) ==
LOC: M ED 20:17
DX: Z53.29 Procedure and treatment not carried out because of patient's decision for other reasons (principal)

== ENCOUNTER 2019-10-22 12:20 | Emergency (ER) | payer OTHER ==
[~2019-10-22] VITALS: Ht 165.1 cm; Wt 154.1 kg
[~2019-10-22 12:20] MED LIST changes: -SULF1TAB72 PO; +SULF400T14 PO
--- NOTE | 2019-10-22 13:05 | REP ---
Portable chest x-ray: Single view. History: Chest pain. Comparison chest x-ray December 11, 2018. Findings: Monitoring electrodes overlie the chest. Lungs are well inflated and clear. The pleural angles are sharp. Heart size is normal. Pulmonary vasculature is not increased. Impression: No active disease. Electronically Signed by Toi Muñoz MD 10/22/2019 12:57 P
[2019-10-22 13:43] LABS: BASO % 0.4 % (0.0-1.0); EOS % 0.4 % (0.0-3.0); HEMATOCRIT 47.7 % (36.0-47.0); HEMOGLOBIN 15.1 g/dl (12.0-15.5); LYMPH # 1.7 10^3/uL (1.5-5.0); LYMPH % 20.1 % (24.0-44.0); MEAN CORPUSCULAR HEMOGLOBIN 28.6 pg (27.0-33.0); MEAN CORPUSCULAR HGB CONC 31.7 g/dl (32.0-36.5); MEAN CORPUSCULAR VOLUME 90.3 fl (80.0-96.0); MONO # 0.4 10^3/uL (0.0-0.8); MONO % 5.1 % (0.0-5.0); NEUTROPHILS # 6.1 10^3/uL (1.5-8.5); NEUTROPHILS % 73.6 % (36.0-66.0); PLATELET COUNT, AUTOMATED 312 10^3/uL (150-450); RED BLOOD COUNT 5.28 10^6/uL (4.00-5.40); WHITE BLOOD COUNT 8.3 10^3/uL (4.0-10.0)
[2019-10-22 14:17] LABS: ALBUMIN 4.1 GM/DL (3.2-5.2); BILIRUBIN,DIRECT 0.3 MG/DL (0.0-0.2); TOTAL PROTEIN 8.3 GM/DL (6.4-8.2)
[2019-10-22 14:18] LABS: BLOOD UREA NITROGEN 12 MG/DL (7-18); CALCIUM LEVEL 9.2 MG/DL (8.5-10.1); CARBON DIOXIDE LEVEL 27 MEQ/L (21-32); CHLORIDE LEVEL 105 MEQ/L (98-107); CK-MB VALUE MASS < 1.0 NG/ML (<3.6); CPK CREATINE PHOSPHOKINASE 71 U/L (26-192); CREATININE FOR GFR 0.89 MG/DL (0.55-1.30); GLOMERULAR FILTRATION RATE > 60.0 (>58); GLUCOSE, FASTING 115 MG/DL (70-100); MB/CK RELATIVE INDEX 1.41 (< OR =4); POTASSIUM SERUM 3.8 MEQ/L (3.5-5.1); SODIUM LEVEL 140 MEQ/L (136-145); TROPONIN I < 0.02 NG/ML (< 0.10)
[2019-10-22 14:19] LABS: MAGNESIUM LEVEL 2.4 MG/DL (1.8-2.4); PHOSPHORUS LEVEL 3.2 MG/DL (2.5-4.9)
[2019-10-22 14:22] LABS: FREE T4 1.64 NG/DL (0.76-1.46); THYROID STIMULATING HORMONE 1.4 uIU/ML (0.358-3.740)
[2019-10-22 15:35] VITALS: BP 150/71
--- NOTE | 2019-10-23 10:12 | ECGEPIP ---
[facility] - ED Test Date: 2019-10-22 Pat Name: DARCI ENGEL Department: Room: - Gender: Female Parole Supervisor: : 1970 Requested By: Susan Lujan Order Number: [id number] Reading MD: Susan Lujan Measurements Intervals [place] Rate: 77 P: 35 KS: 148 QRS: 33 QRSD: 93 T: 10 QT: 382 QTc: 433 Interpretive Statements SINUS RHYTHM POSSIBLE INFERIOR MYOCARDIAL INFARCTION, PROBABLY OLD SIMILAR 08/09/18 Electronically Signed on 10-23-2019 10:12:16 EST by Susan Lujan
== END 2019-10-22 15:44 | disposition home or self-care (01) ==
LOC: EDBD 12:20 → M ED 12:20
DX: R00.2 Palpitations (principal); I10 Essential (primary) hypertension; E07.9 Disorder of thyroid, unspecified; M32.9 Systemic lupus erythematosus, unspecified; Z79.899 Other long term (current) drug therapy; Z79.890 Hormone replacement therapy; Z79.82 Long term (current) use of aspirin; Z88.0 Allergy status to penicillin; Z88.1 Allergy status to other antibiotic agents; Z88.8 Allergy status to other drugs, medicaments and biological substances; Z91.018 Allergy to other foods; Z91.041 Radiographic dye allergy status

== ENCOUNTER 2019-12-06 18:17 | Emergency (ER) | payer OTHER ==
[~2019-12-06] VITALS: Ht 165.1 cm; Wt 156.6 kg
--- NOTE | 2019-12-06 20:25 | REPVR ---
PROCEDURE INFORMATION: Exam: CT Head Without Contrast Exam date and time: 12/06/2019 7:55 PM Age: 49 years old Clinical indication: Injury or trauma; Fall; Initial encounter; Blunt trauma (contusions or hematomas); Additional info: Fall, pain to left side of head TECHNIQUE: Imaging protocol: Computed tomography of the head without contrast. Radiation optimization: All CT scans at this facility use at least one of these dose optimization techniques: automated exposure control; mA and/or kV adjustment per patient size (includes targeted exams where dose is matched to clinical indication); or iterative reconstruction. COMPARISON: No relevant prior studies available. FINDINGS: Brain: Normal. No hemorrhage. Unremarkable white matter. No mass effect. Ventricles: Normal. No ventriculomegaly. Bones/joints: Unremarkable. No acute fracture. Sinuses: Visualized sinuses are unremarkable. No fluid levels. Mastoid air cells: Visualized mastoid air cells are well aerated. Soft tissues: Unremarkable. IMPRESSION: No acute intracranial abnormality. Electronically signed by: Dharmesh Love On 12/06/2019 20:24:51 PM
--- NOTE | 2019-12-06 20:29 | REPVR ---
PROCEDURE INFORMATION: Exam: CT Cervical Spine Without Contrast Exam date and time: 12/06/2019 7:55 PM Age: 49 years old Clinical indication: Injury or trauma; Fall; Initial encounter; Blunt trauma; Additional info: Fall, pain to left side of head TECHNIQUE: Imaging protocol: Computed tomography images of the cervical spine without contrast. Radiation optimization: All CT scans at this facility use at least one of these dose optimization techniques: automated exposure control; mA and/or kV adjustment per patient size (includes targeted exams where dose is matched to clinical indication); or iterative reconstruction. COMPARISON: No relevant prior studies available. FINDINGS: Vertebrae: Discogenic degenerative changes with endplate spurring at C5-C6 and C6-C7. No fracture or malalignment. Discs/Spinal canal/Neural foramina: Mild central spinal stenosis with lateral recess and foraminal narrowing on the left at C6-C7. Soft tissues: Unremarkable. Lungs: Lung apices are normal. IMPRESSION: 1. No fracture or malalignment. 2. Mild degenerative spondylosis as above. Electronically signed by: Dharmesh Love On 12/06/2019 20:29:03 PM
[2019-12-06] MEDS ORDERED: PERCOCET 5MG/325MG TAB PO ONE (20:45)
[2019-12-06] MEDS ORDERED: REGL10TA6 PO (20:45)
[2019-12-06 22:11] VITALS: BP 156/77
[2019-12-06] MEDS ORDERED: traMADol 50 MG TAB (BULK 4 TAB ED) PO ONE (22:15)
--- NOTE | 2019-12-08 07:56 | REP ---
LEFT ELBOW, FOUR VIEWS: There is no evidence of an acute fracture, dislocation or intrinsic bone disease. IMPRESSION: No fracture or dislocation. Electronically Signed by Trung Laws MD 12/08/2019 06:03 P
== END 2019-12-06 23:02 | disposition home or self-care (01) ==
LOC: M ED 18:17
DX: S50.02XA Contusion of left elbow, initial encounter (principal); S00.83XA Contusion of other part of head, initial encounter; W18.39XA Other fall on same level, initial encounter; Y92.481 Parking lot as the place of occurrence of the external cause; H92.02 Otalgia, left ear; I10 Essential (primary) hypertension; E07.9 Disorder of thyroid, unspecified; Z79.899 Other long term (current) drug therapy; Z79.890 Hormone replacement therapy; Z79.82 Long term (current) use of aspirin; Z88.0 Allergy status to penicillin; Z88.1 Allergy status to other antibiotic agents; Z88.8 Allergy status to other drugs, medicaments and biological substances; Z91.018 Allergy to other foods; Z91.041 Radiographic dye allergy status

== ENCOUNTER → 2019-12-10 | Outpatient (REF) | payer OTHER ==
[~2019-12-10] MED LIST changes: +REGL10TA6 PO
[2019-12-10 17:48] LABS: BASO % 0.6 % (0.0-1.0); EOS # 0.1 10^3/uL (0.0-0.5); EOS % 0.7 % (0.0-3.0); HEMOGLOBIN 14.1 g/dl (12.0-15.5); LYMPH # 2.4 10^3/uL (1.5-5.0); LYMPH % 32.4 % (24.0-44.0); MEAN CORPUSCULAR HEMOGLOBIN 28.6 pg (27.0-33.0); MEAN CORPUSCULAR VOLUME 89.2 fl (80.0-96.0); MONO # 0.5 10^3/uL (0.0-0.8); MONO % 6.6 % (0.0-5.0); NEUTROPHILS # 4.3 10^3/uL (1.5-8.5); NEUTROPHILS % 59.4 % (36.0-66.0); PLATELET COUNT, AUTOMATED 216 10^3/uL (150-450); RED BLOOD COUNT 4.93 10^6/uL (4.00-5.40); WHITE BLOOD COUNT 7.3 10^3/uL (4.0-10.0)
[2019-12-10 18:08] LABS: CREATININE,RANDOM URINE 65.7 MG/DL; TOTAL PROTEIN,RANDOM URINE 8.7 MG/DL (0.0-12.0)
[2019-12-10 18:24] LABS: ALBUMIN 3.7 GM/DL (3.2-5.2); ALT/SGPT 46 U/L (12-78); BILIRUBIN,TOTAL 0.8 MG/DL (0.2-1.0); BLOOD UREA NITROGEN 15 MG/DL (7-18); C REACTIVE PROTEIN QUANTITATIV 1.48 MG/DL (0.00-0.30); CALCIUM LEVEL 8.9 MG/DL (8.5-10.1); CARBON DIOXIDE LEVEL 26 MEQ/L (21-32); CHLORIDE LEVEL 108 MEQ/L (98-107); COMPLEMENT C3 167 MG/DL (90-180); COMPLEMENT C4 17 MG/DL (10-40); CREATININE FOR GFR 0.67 MG/DL (0.55-1.30); FREE T4 1.54 NG/DL (0.76-1.46); GLOMERULAR FILTRATION RATE > 60.0 (>58); GLUCOSE, FASTING 87 MG/DL (70-100); SODIUM LEVEL 140 MEQ/L (136-145); TOTAL PROTEIN 7.5 GM/DL (6.4-8.2)
[2019-12-10 19:07] LABS: TOTAL 25(OH) VITAMIN D 32.4 NG/ML (30.0-100.0)
[2019-12-10 19:30] LABS: ERYTHROCYTE SEDIMENTATION RATE 30 mm/hr (0-20)
[2019-12-16 14:10] LABS: ANA (HEP2) Positive (.); ANTI DS-DNA AB Negative (Negative); BETA-2 GLYCOPROTEIN I ABY IGA <9 (0-25); BETA-2 GLYCOPROTEIN I ABY IGG <9 (0-20); BETA-2 GLYCOPROTEIN I ABY IGM <9 (0-32); CARDIOLIPIN IGA ANTIBODY <9 APL U/mL (0-11); CARDIOLIPIN IGG ANTIBODY <9 GPL U/mL (0-14); CARDIOLIPIN IGM ANTIBODY <9 MPL U/mL (0-12); SMITHS ANTIBODY < 0.2 AI (0.0-0.9); SSA SJOGRENS A >8.0 AI (0.0-0.9); SSB SJOGRENS B 7.7 AI (0.0-0.9)
== END ==
LOC: M SFHCRHEU 13:48
PROVIDERS: ATTEND Internal Medicine
DX: M32.9 Systemic lupus erythematosus, unspecified (principal); E66.01 Morbid (severe) obesity due to excess calories; E55.9 Vitamin D deficiency, unspecified
CPT/HCPCS: 36415; 80053; 82306; 82570; 84156; 84439; 84443; 85025; 85652; 86038; 86140; 86146; 86147; 86160; 86225; 86235; 86255; G0463

== ENCOUNTER → 2020-01-02 | Outpatient (CLI) | payer OTHER ==
--- NOTE | 2020-01-02 16:39 | REP ---
LUMBOSACRAL SPINE SERIES: Five views of the lumbosacral spine are performed. There is no compression fracture. There is normal lumbar lordosis. There is mild diffuse anterior spurring. There is moderate posterior osteophytic ridging at L4-5 level. There is sclerosis and spurring at the posterior facet joints of L4-5 and L5-S1. There is moderate disc space narrowing and subchondral sclerosis at L4-5. There is likely spinal stenosis at L4-5. Posterior elements are intact. Metallic clips are seen in the pelvis. There are metallic clips in the right upper quadrant. IMPRESSION: Arthritic changes as discussed above most significantly at the L4-5 level. There appears to be posterior osteophytic ridging at L4-5 with hypertrophic changes at the posterior facet joints likely causing spinal stenosis at that level. Electronically Signed by Trung Laws MD 01/02/2020 05:01 P
== END ==
LOC: M WUC 13:33
PROVIDERS: ATTEND Internal Medicine
DX: M25.78 Osteophyte, vertebrae (principal); M48.061 Spinal stenosis, lumbar region without neurogenic claudication; M54.16 Radiculopathy, lumbar region
CPT/HCPCS: 72110; G0463

== ENCOUNTER 2020-01-08 02:30 | Emergency (ER) | payer OTHER ==
[~2020-01-08] VITALS: Ht 165.1 cm; Wt 154.6 kg
[2020-01-08 02:34] VITALS: BP 172/83
== END 2020-01-08 03:55 | disposition left against medical advice (07) ==
LOC: M ED 02:30
DX: R19.7 Diarrhea, unspecified (principal); R10.30 Lower abdominal pain, unspecified; I10 Essential (primary) hypertension; E07.9 Disorder of thyroid, unspecified; M32.9 Systemic lupus erythematosus, unspecified; E66.8 Other obesity; Z79.899 Other long term (current) drug therapy; Z79.82 Long term (current) use of aspirin; Z88.0 Allergy status to penicillin; Z88.1 Allergy status to other antibiotic agents; Z88.8 Allergy status to other drugs, medicaments and biological substances; Z91.018 Allergy to other foods; Z91.041 Radiographic dye allergy status

== ENCOUNTER 2020-03-25 21:07 | Emergency (ER) | payer OTHER ==
[~2020-03-25] VITALS: Ht 165.1 cm; Wt 145.5 kg
[2020-03-25 23:18] LABS: HEMATOCRIT 46.3 % (36.0-47.0); HEMOGLOBIN 14.6 g/dl (12.0-15.5); MEAN CORPUSCULAR HEMOGLOBIN 28.2 pg (27.0-33.0); MEAN CORPUSCULAR HGB CONC 31.5 g/dl (32.0-36.5); MEAN CORPUSCULAR VOLUME 89.6 fl (80.0-96.0); PLATELET COUNT, AUTOMATED 282 10^3/uL (150-450); RED BLOOD COUNT 5.17 10^6/uL (4.00-5.40); WHITE BLOOD COUNT 7.6 10^3/uL (4.0-10.0)
[2020-03-25 23:41] LABS: ALBUMIN 3.6 GM/DL (3.2-5.2); ALT/SGPT 31 U/L (12-78); BILIRUBIN,TOTAL 0.6 MG/DL (0.2-1.0); BLOOD UREA NITROGEN 15 MG/DL (7-18); CALCIUM LEVEL 8.9 MG/DL (8.5-10.1); CARBON DIOXIDE LEVEL 30 MEQ/L (21-32); CHLORIDE LEVEL 107 MEQ/L (98-107); CK-MB VALUE MASS < 1.0 NG/ML (<3.6); CPK CREATINE PHOSPHOKINASE 84 U/L (26-192); CREATININE FOR GFR 0.87 MG/DL (0.55-1.30); GLOMERULAR FILTRATION RATE > 60.0 (>58); GLUCOSE, FASTING 123 MG/DL (70-100); MB/CK RELATIVE INDEX 1.19 (< OR =4); POTASSIUM SERUM 4.2 MEQ/L (3.5-5.1); SODIUM LEVEL 142 MEQ/L (136-145); TOTAL PROTEIN 7.7 GM/DL (6.4-8.2); TROPONIN I < 0.02 NG/ML (< 0.10)
[2020-03-26] MEDS ORDERED: NORCO 5/325MG TABLET (BULK FOR ED) PO ONE (00:15)
[2020-03-26 00:34] VITALS: BP 120/70
--- NOTE | 2020-03-26 08:12 | REP ---
Clinical: Cough . Comparison: 10/22/2019 . Findings: The mediastinum and cardiac silhouette are stable and within normal limits for portable technique. The lung atkinson are clear without acute consolidation, effusion, or pneumothorax. Skeletal structures are intact. Impression: No acute cardiopulmonary process appreciated. Electronically Signed by Toro Scales MD 03/26/2020 08:03 A
== END 2020-03-26 00:38 | disposition home or self-care (01) ==
LOC: M ED 21:07
DX: H92.02 Otalgia, left ear (principal); I10 Essential (primary) hypertension; G50.0 Trigeminal neuralgia; E03.9 Hypothyroidism, unspecified; E55.9 Vitamin D deficiency, unspecified; F41.9 Anxiety disorder, unspecified; Z88.0 Allergy status to penicillin; Z88.1 Allergy status to other antibiotic agents; Z88.6 Allergy status to analgesic agent; Z88.8 Allergy status to other drugs, medicaments and biological substances; Z91.018 Allergy to other foods; Z91.041 Radiographic dye allergy status; Z79.82 Long term (current) use of aspirin; Z79.899 Other long term (current) drug therapy

== ENCOUNTER → 2020-08-31 | Outpatient (CLI) | payer OTHER ==
[~2020-08-31] MED LIST changes: +ASPI-546 PO; -ASPI1TAB15 PO; +VITAD400CA PO
[2020-08-31 11:30] LABS: BASO % 0.6 % (0.0-1.0); EOS # 0.1 10^3/uL (0.0-0.5); EOS % 0.9 % (0.0-3.0); HEMATOCRIT 42.7 % (36.0-47.0); HEMOGLOBIN 13.4 g/dl (12.0-15.5); LYMPH # 2.1 10^3/uL (1.5-5.0); MEAN CORPUSCULAR HGB CONC 31.4 g/dl (32.0-36.5); MEAN CORPUSCULAR VOLUME 89.1 fl (80.0-96.0); MONO # 0.4 10^3/uL (0.0-0.8); MONO % 6.3 % (0.0-5.0); NEUTROPHILS # 3.7 10^3/uL (1.5-8.5); NEUTROPHILS % 58.9 % (36.0-66.0); PLATELET COUNT, AUTOMATED 278 10^3/uL (150-450); RED BLOOD COUNT 4.79 10^6/uL (4.00-5.40); WHITE BLOOD COUNT 6.4 10^3/uL (4.0-10.0)
[2020-08-31 12:02] LABS: ERYTHROCYTE SEDIMENTATION RATE 49 mm/hr (0-20)
[2020-08-31 12:09] LABS: TOTAL PROTEIN,RANDOM URINE 9.2 MG/DL (0.0-12.0)
[2020-08-31 12:21] LABS: ALBUMIN 3.6 GM/DL (3.2-5.2); ALT/SGPT 31 U/L (12-78); BILIRUBIN,TOTAL 0.9 MG/DL (0.2-1.0); BLOOD UREA NITROGEN 14 MG/DL (7-18); CALCIUM LEVEL 9.4 MG/DL (8.5-10.1); CARBON DIOXIDE LEVEL 32 MEQ/L (21-32); CHLORIDE LEVEL 105 MEQ/L (98-107); CREATININE FOR GFR 0.86 MG/DL (0.55-1.30); FREE T4 1.38 NG/DL (0.76-1.46); GLOMERULAR FILTRATION RATE > 60.0 (>58); GLUCOSE, FASTING 91 MG/DL (70-100); POTASSIUM SERUM 4.4 MEQ/L (3.5-5.1); SODIUM LEVEL 140 MEQ/L (136-145); THYROID STIMULATING HORMONE 0.866 uIU/ML (0.358-3.740); TOTAL PROTEIN 7.6 GM/DL (6.4-8.2)
[2020-08-31 14:49] LABS: COMPLEMENT C3 142 MG/DL (90-180); COMPLEMENT C4 16 MG/DL (10-40)
[2020-09-05 09:09] LABS: ANTI DS-DNA AB Negative (Negative)
== END ==
LOC: M LAB 10:27
PROVIDERS: ATTEND Internal Medicine
DX: N96 Recurrent pregnancy loss (principal); M32.9 Systemic lupus erythematosus, unspecified; E03.9 Hypothyroidism, unspecified
CPT/HCPCS: 36415; 80053; 82570; 84156; 84439; 84443; 85025; 85613; 85652; 85732; 86160; 86225; G0463

== ENCOUNTER → 2020-08-31 | Outpatient (REF) | payer OTHER | LOC: M SFHCRHEU 08:36 | PROVIDERS: ATTEND Internal Medicine | DX: M32.9 Systemic lupus erythematosus, unspecified (principal) ==

== ENCOUNTER → 2020-09-14 | Outpatient (CLI) | payer SELFPAY | LOC: M LABSMTC 18:26 | PROVIDERS: ATTEND Pediatrics | DX: Z20.828 Contact with and (suspected) exposure to other viral communicable diseases (principal) ==

== ENCOUNTER → 2020-10-13 | Outpatient (CLI) | payer OTHER ==
[2020-10-13 08:17] LABS: BLOOD UREA NITROGEN 17 MG/DL (7-18); CALCIUM LEVEL 8.7 MG/DL (8.5-10.1); CARBON DIOXIDE LEVEL 31 MEQ/L (21-32); CHLORIDE LEVEL 105 MEQ/L (98-107); CREATININE FOR GFR 0.81 MG/DL (0.55-1.30); GLOMERULAR FILTRATION RATE > 60.0 (>58); GLUCOSE, FASTING 111 MG/DL (70-100); POTASSIUM SERUM 4.2 MEQ/L (3.5-5.1); SODIUM LEVEL 141 MEQ/L (136-145)
== END ==
LOC: M LAB 07:18
PROVIDERS: ATTEND Urology
DX: R73.01 Impaired fasting glucose (principal)

== ENCOUNTER 2020-11-04 06:15 | Day surgery (SDC) | payer OTHER ==
[~2020-11-04] VITALS: Ht 165.1 cm; Wt 150.6 kg
[~2020-11-04 06:15] MED LIST changes: -LISI-542 PO; +LISI-898 PO
--- OUTSIDE RECORDS SUMMARY | 2020-11-04 06:19 | CCD | Summary of Care ---
Author Author [facility] Organization [facility] Address Unknown Phone Unavailable Care Team Providers Care Italian Teacher Name Role Phone Elena Morfin PCP Reason for Visit * Reason Comments Procedure Cysto Encounter Details Care Team Description Date Type Department Chandrika Aguilar [place] [address] [phone] Gross hematuria (Primary Dx) 10/22/2020 Procedure visit [facility] @ [address] [id number] Allergies Comments Active Allergy Reactions Severity Noted Date Difficulty breathing Amoxicillin Hives 07/16/2015 Cefaclor Hives 07/16/2015 Difficulty breathing Doxycycline Hives 07/16/2015 tachycardio Penicillins Hives 07/16/2015 documented as of this encounter (statuses as of 10/23/2020) Medications End Date Status Medication Sig Dispensed Refills Start Date Active levothyroxine (SYNTHROID) Take 200 mcg 0 200 MCG tablet by mouth daily Active lisinopril Take 5 mg by 0 (PRINIVIL,ZESTRIL) 5 MG mouth daily. tablet Active hydroxychloroquine Take 200 mg 0 (PLAQUENIL) 200 MG tablet by mouth daily. Active aspirin 81 MG tablet Take 81 mg by 0 mouth daily. Active Cholecalciferol (VITAMIN Take 2,000 0 D) 2000 UNITS tablet Units by mouth Two Times Daily. Active Ferrous Sulfate 325 (65 Take 325 mg 0 Fe) MG Oral Tablet by mouth daily with breakfast 10/22/2020 Discontinued diazePAM 2 MG Oral Tablet Take 1 tablet 1 tablet 0 (Valium)Indications: by mouth once 1 Anxiety as needed for Anxiety (take one hour prior to cystoscopy) for up to 1 dose Status Hospital, Clinic, or Ordered Dose Route Frequency Start End Date Other Facility Date Administered Medication Ended lidocaine (XYLOCAINE) 2 % 10 mL UR Once 10/22/19 urojet 10 mL 21 1 Ended sulfamethoxazole-trimetho 1 tablet PO Once 10/22/19 prim (BACTRIM DS) 800-160 21 1 MG per tablet 1 tablet documented as of this encounter (statuses as of 10/23/2020) Active Problems Problem Noted Date Antiphospholipid antibody syndrome 07/21/2015 SLE (systemic lupus erythematosus) 07/16/2015 Overview: Diagnosis as per referral History of antiphospholipid antibody syndrome 2014 Overview: 6 miscarriages and positive lupus antic oagulant Obesity 07/16/2015 Incontinence Gross hematuria documented as of this encounter (statuses as of 10/23/2020) Social History Date Tobacco Use Types Packs/Day Years Used Never Smoker Smokeless Tobacco: Never Used Drinks/Week oz/Week Comments Alcohol Use 0 Standard drinks or equivalent 0.0 No Sex Assigned at Date Recorded Not on file Date Recorded COVID-19 Exposure Response 10/22/2020 12:16 PM EST In the last month, have you been in contact with No / Unsure someone who was confirmed or suspected to have Coronavirus / COVID-19? documented as of this encounter Last Filed Vital Signs Reading Time Taken Comments Vital Sign 159/90 10/22/2020 2:06 PM EST Blood Pressure 79 10/22/2020 2:06 PM EST Pulse 36.4 C (97.6 F) 10/22/2020 2:06 PM EST Temperature 18 10/22/2020 2:06 PM EST Respiratory Rate - - Oxygen Saturation - - Inhaled Oxygen Concentration 140.6 kg (310 lb) 10/22/2020 2:06 PM EST Weight 165.1 cm (5' 5") 10/22/2020 2:06 PM EST Height 51.59 10/22/2020 2:06 PM EST Body Mass Index documented in this encounter Patient Instructions * Patient Instructions* Catarina Daley RN - 10/22/2020 2:15 PM EST Patient Discharge Instructions for Cystoscopy Discharge instructions were given to Laverne prior to procedure. Laverne welch understanding of all discharge instrudctions These instructions included: Cystoscopy Cystoscopy is a procedure that lets your doctor look directly inside your urethr a and bladder. It can be used to: Help diagnose a problem with your urethra, bladder, or kidneys. Take a sample (biopsy) of bladder or urethral tissue. Treat certain problems (such as removing kidney stones). Place a stent to bypass an obstruction. Take special x-rays of the kidneys. Based on the findings, your doctor may recommend other tests or treatments. What Is a Cystoscope? A cystoscope is a telescope-like instrument that contains lenses and fiberoptics (small glass wires that make bright light). The cystoscope may be straight and rigid, or flexible to bend around curves in the urethra. The doctor may look dir ectly into the cystoscope, or project the image onto a monitor. Getting Ready To prepare, stop taking any medications as instructed. Ask whether you should av oid eating or drinking anything after midnight before the procedure. Follow any other instructions your doctor gives you. Tell your doctor before the exam if you: Take any medications, such as aspirin or blood thinners Have allergies to any medications Are The Procedure Cystoscopy is done in the doctors office or hospital. The doctor and somet imes a nurse are present during the procedure. It takes only a few minutes, long er if a biopsy, x-ray, or treatment needs to be done. During the procedure: You lie on an exam table on your back, knees bent and legs apart. You are covere d with a drape. Your urethra and the area around it are washed. Anesthetic jelly may be applied to numb the urethra. Other pain medication is usually not needed. In some cases, you may be offered a mild sedative to help you relax. If a more extensive proce dure is to be done, such as a biopsy or kidney stone removal, general anesthesia may be needed. The cystoscope is inserted. A sterile fluid is put into the bladder to expand it . You may feel pressure from this fluid. When the procedure is done, the cystoscope is removed. After the Procedure If you had a sedative, general anesthesia, or spinal anesthesia, you must have s omeone drive you home. Once youre home: Drink plenty of fluids. You may have burning or light bleeding when you urinatethis is normal. Medications may be prescribed to ease any discomfort or prevent infection. Take these as directed. Call your doctor if you have heavy bleeding or blood clots, burning that lasts m ore than a day, a fever over 101F , or trouble urinating. [id number] [facility], [address] [place] [address], [place] [address]. All r ights reserved. This information is not intended as a substitute for professiona l medical care. Always follow your healthcare professional's instructions. If you have any questions please do not hesitate to call us! documented in this encounter Progress Notes * Chandrika Aguilar MD - 10/22/2020 2:15 PM EST Chief complaint: Gross hematuria History of present illness: Patient is a pleasant 50-year-old female with a hist ory of gross hematuria as well as urinary incontinence. She has had multiple ab dominal surgeries, and recently has noticed some hematuria. She is unsure if th e bleeding is coming from the bladder versus the vagina, and is also following u p with ACTIVE DIRECTORY ENGINEER, and is scheduled to have a hysteroscopy. Patient recently underwent CT IVP, and is coming in today for cystoscopy. CT IVP: Personally reviewed the images of the CT IVP. No clear evidence of worr isome lesions in either the kidneys or the ureters. Will await official atten ding report. Date: 10/22/2020 Cystoscopy Preop Diagnosis: Hematuria Postop Diagnosis: Hematuria Surgeon: Jeff Procedure: The patient was brought in to the procedure room. The patient was prepped and d raped in a sterile fashion. A time out was performed confirming the correct pat ient and procedure. 2% lidocaine jelly was instilled per urethra for local anes thetic. We started by inserting the scope per urethra. The urethra was visualized in it s entirety and found to be normal. The scope was then passed in to the bladder. The bladder was visualized in its entirety, including retroflexion to visualize the bladder neck and urethrovesical junction. Both ureteral orifices were visu alized in their orthotopic position, clear urine efflux was seen. The bladder wa s noted to have no foreign bodies, masses or lesions. The cystoscope was withdrawn atraumatically. Patient tolerated the procedure wel moi. Assessment/plan: Patient is a pleasant 50-year-old female with a history of april turia, evaluation today is negative for any worrisome urologic source. 1. Patient will follow up with [facility] DIRECT[employer] [facility]INE[facility], for her hysteroscopy 2. Patient follow-up with us in 1 year, for repeat urinalysis. If she starts t o develop any worsening neurologic symptoms, or has more hematuria, she will db l our office for sooner evaluation. This visit was dictated using [employer] dictation software, please excuse any typog raphical errors. Thank you very much for allowing me to participate in this sherice ent's care. Please do not hesitate to contact me with any questions. Chandrika Aguilar MD Diesel Dragline Operator, Department of Urology [facility] Main: documented in this encounter Nursing Notes * Catarina Daley RN - 10/22/2020 2:15 PM EST Loaner scope used documented in this encounter Plan of Treatment Care Team Description Date Type Specialty Chandrika Aguilar MD [address] [place] [address] [phone] 10/28/2021 Office Visit Urology Health Maintenance Due Date Last Done Comments MMR Vaccines (1 of - 02[birth year]01/1972 Standard series) Varicella Vaccines (1 of [birth year]/01/1972 2 - 2-dose childhood series) DTaP,Tdap,and Td Vaccines 1978 (1 - Tdap) HIV Screening 02/01/1984 Cervical Cancer Screening 02/01/1992 5 years Influenza Vaccine 07/09/2020 06/12/2020, 07/08/2019 Pneumococcal Vaccine: 65+ 02/01/2036 Years (1 of - PPSV23) HIB Vaccines Aged Out No longer eligible based on patient's age to complete this topic Hepatitis A Vaccines Aged Out No longer eligibl e based on patient's age to complete this topic Hepatitis B Vaccines Aged Out No longer eligibl e based on patient's age to complete this topic IPV Vaccines Aged Out No longer eligible based on patient's age to complete this topic Pneumococcal Vaccine: Aged Out No longer eligib le based on patient's age to Pediatrics (0 to 5 Years) complete this topic and At-Risk Patients (6 to 64 Years) documented as of this encounter Results Not on filedocumented in this encounter Visit Diagnoses Diagnosis Gross hematuria - Primary documented in this encounter Administered Medications Action Date Dose Rate Site Medication Order MAR Action 10/22/2020 2:17 PM EST 10 mLs lidocaine (XYLOCAINE) 2 % urojet 10 mL Given 10 mL, Urethral, Once, Sherry 10/22/20 at 1415, For 1 dose 10/22/2020 2:27 PM EST 1 tablet sulfamethoxazole-trimethoprim (BACTRIM Given DS) 800-160 MG per tablet 1 tablet 1 tablet, Oral, Once, Sherry 10/22/20 at 1415, For 1 dose documented in this encounter
--- OUTSIDE RECORDS SUMMARY | 2020-11-04 06:19 | CCD ---
Author Author [facility] Organization [facility] Address Unknown Phone Unavailable Care Team Providers Care Transition Manager Name Role Phone Chago Stefanie Unavailable PROBLEMS Type Condition ICD9-CM Code [id number] Code Onset Dates Condition S tatus SNOMED Code Notes Problem Postoperative wound dehiscence, initial encounter T81.31XA Active 735657005 Problem Postoperative wound dehiscence, subsequent encounter T81.31XD Active 206740205 Problem Hypothyroidism, unspecified type E03.9 Active 41647278 Problem Lumbar spondylosis M47.816 Active 981782302 Problem Severe obesity E66.01 Active 45570596819654 Problem Vitamin D deficiency E55.9 Active 12562509 Problem Lumbago with sciatica, left side M54.42 Active 644199157 Problem Systemic lupus erythematosus , unspecified SLE type, unspecified organ involvement status M32.9 Active 55376826 ALLERGIES Allergen (clinical drug ingredient) Drug/Non Drug Allergy do cumented on EMR Reaction Allergy Type Onset Date Status ceclor Anaphylaxis Drug Allergy Active Penicillin (For Allergies Use Only) Anaphylaxis Drug Aller gy Active amoxicillin Amoxicillin(NDC Code:[address]-47) Anaphylaxis Drug Bridger rgy Active doxycycline Doxycycline(ND Code:[address]-80) Anaphylaxis Drug Bridger rgy Active IV Dye Anaphylaxis Drug Allergy Active ENCOUNTERS from 1971 to 2020-09-12 Encounter Location Date Provider Diagnosis [facility] Rheumatology [address] [place] [address] Aug, Stefanie Anders IMMUNIZATIONS No Information SOCIAL HISTORY Tobacco Use: Social History Observation Description Date Details (start date - stop date) Never Smoker Sex Assigned At : Social History Observation Description Sex Assigned At Unknown Education: Question Answer Notes Level of Education: College Language: Question Answer Notes Languages spoken: Frisian Islam: Question Answer Notes Islam No confucianism beliefs that would impact health care. Alcohol Screening: Question Answer Notes Did you have a drink containing alcohol in the past year? No Points 0 Interpretation Negative Tobacco Use: Question Answer Notes Are you a: never smoker REASON FOR REFERRAL No Information VITAL SIGNS No information MEDICATIONS Medication SIG (Take, Route, Frequency, Duration) Notes Start Da te End Date Status Levothyroxine Sodium 200 MCG 1 tablet on an empty stom ach in the morning Orally Once a day for 30 day(s) Active Ammonium Lactate 12 % as directed Externally Daily Active Vanicream - as directed Externally A ctive Vitamin D3 3000 UNIT 1 tablet Orally Once a day Active Iron 325 (65 Fe) MG 1 tablet Orally Once a day for 30 day(s) Active Docusate Sodium 100 MG 1 capsule as needed Orally Once a day Active Lisinopril 5 MG 1 tablet Orally Once a day for 30 day(s) Active Align Not-Taking Aspir-81 81 MG 1 tablet Orally Once a day for 30 day(s) Active Plaquenil 200 MG 1 tablet brand only Orally Once a day for 90 days Active PROCEDURES No Information RESULTS No Results REASON FOR VISIT No Information MEDICAL (GENERAL) HISTORY Type Description Date Medical History hypertension Medical History mixed connective tissue disease Medical History hypothyroidism Medical History diverticulitis Surgical History colostomy 08/2018 Surgical History cesarian 1991 Surgical History gall bladder removed 1993 Surgical History D&C Surgical History ectopic Surgical History catracts 2012 Surgical History sinus surgery 1999 Hospitalization History diverticulitis, colostomy 08/2018 Hospitalization History strep throat 1996 Goals Section No Information Health Concerns No Information MEDICAL EQUIPMENT No Information MENTAL STATUS No Information FUNCTIONAL STATUS No Information ASSESSMENTS No Information PLAN OF TREATMENT Next Appt Details Provider Name:Shanita Kovacs, 2020-09-14 10:00:00 AM, [address] [place], [address], Insurance Providers Payer Name Payer Address Payer Phone Insured Name Patient Relati onship to Insured Coverage Start Date Coverage End Date [facility] [address] [place] [id number] KAELYN ENGEL
--- OUTSIDE RECORDS SUMMARY | 2020-11-04 06:19 | CCD ---
Author Author [facility] Organization [facility] Address Unknown Phone Unavailable Care Team Providers Care Patient Registration Rep Name Role Phone Chago Stefanie Unavailable PROBLEMS Type Condition ICD9-CM Code [id number] Code Onset Dates Condition S tatus SNOMED Code Notes Problem Postoperative wound dehiscence, initial encounter T81.31XA Active 315156819 Problem Postoperative wound dehiscence, subsequent encounter T81.31XD Active 095077665 Problem Hypothyroidism, unspecified type E03.9 Active 57674011 Problem Lumbar spondylosis M47.816 Active 637315459 Problem Severe obesity E66.01 Active 31242463638458 Problem Vitamin D deficiency E55.9 Active 36584532 Problem Lumbago with sciatica, left side M54.42 Active 044926372 Problem Systemic lupus erythematosus , unspecified SLE type, unspecified organ involvement status M32.9 Active 00158999 ALLERGIES Allergen (clinical drug ingredient) Drug/Non Drug Allergy do cumented on EMR Reaction Allergy Type Onset Date Status ceclor Anaphylaxis Drug Allergy Active Penicillin (For Allergies Use Only) Anaphylaxis Drug Aller gy Active amoxicillin Amoxicillin(ND Code:[address]-34) Anaphylaxis Drug Bridger rgy Active doxycycline Doxycycline(ND Code:[address]-12) Anaphylaxis Drug Bridger rgy Active IV Dye Anaphylaxis Drug Allergy Active ENCOUNTERS from 1971 to 2020-11-02 Encounter Location Date Provider Diagnosis [facility] Rheumatology [address] [place] [address] Oct, Stefanie Anders IMMUNIZATIONS No Information SOCIAL HISTORY Tobacco Use: Social History Observation Description Date Details (start date - stop date) Never Smoker Sex Assigned At : Social History Observation Description Sex Assigned At Unknown Education: Question Answer Notes Level of Education: College Language: Question Answer Notes Languages spoken: Mohawk Uatsdin: Question Answer Notes Uatsdin No rastafari beliefs that would impact health care. Alcohol [...] Information RESULTS No Results REASON FOR VISIT questions Hematocrit result MEDICAL (GENERAL) HISTORY Type Description Date Medical History hypertension Medical History mixed connective tissue disease Medical History hypothyroidism Medical History diverticulitis Surgical History colostomy 08/2018 Surgical History cesarian 1991 Surgical History gall bladder removed 1993 Surgical History D&C Surgical History ectopic Surgical History catracts 2012 Surgical History sinus surgery 1999 Hospitalization History diverticulitis, colostomy 08/2018 Hospitalization History strep throat 1995 Goals Section No Information Health Concerns No Information MEDICAL EQUIPMENT No Information MENTAL STATUS No Information FUNCTIONAL STATUS No Information ASSESSMENTS No Information PLAN OF TREATMENT No Information Insurance Providers Payer Name Payer Address Payer Phone Insured Name Patient Relati onship to Insured Coverage Start Date Coverage End Date [facility] [address] [facility] [id number] KAELYN ENGEL
--- OUTSIDE RECORDS SUMMARY | 2020-11-04 06:20 | CCD ---
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 Use of Other Medications 09/10/2020 - 12:00AM Aleixs Awan DO Active 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 09/10/2020 - 12:00AM Alexis Awan DO Active Sicca Syndrome with Keratoconjunctivitis 09/10/2020 - 12:00AM Alexis Awan DO Active Dry Eye Syndrome 09/10/2020 - 12:00AM Alexis hart DO Active Vitreous Disorders Degeneration 09/10/2020 - 12:00AM Luba Awan DO Active Plan of Treatment Pending Tests Order Diagnosis Results Due Ordering Provi merary Testing Ordered - Visual Field Visual Field 10-2 Red Sicca s yndrome with keratoconjunctivitis 03/09/21 Alexis Awan DO Testing Ordered - OCT OCT RETINA Sicca syndrome with kerato conjunctivitis 03/09/21 Alexis Awan DO Future Appointments Date Time Location Provider VISUAL FIELD 10-2 02/01/2021 7:30AM Nikolas Naik MD [facility] OCT RETINA 02/01/2021 7:30AM Nikolas Naik MD [facility] 1 Year Follow-Up 09/15/2021 7:40AM Nikolas Naik MD [facility] Alexis Awan DO Assessments Includes: Assessments for all patient encounters Findings Encounter Date Dry eye syndrome NEW PATIENT WITH REFERRAL with Alexis quinn DO 09/10/2020 retirement use of other medications NEW PATIENT WITH RE FERRAL with Alexis Awan DO 09/10/2020 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 NEW PATIEN T WITH REFERRAL with Alexis Awan DO 09/10/2020 Pseudophakia NEW PATIENT WITH REFERRAL with Alexis Bennett [facility] DO 09/10/2020 Sicca syndrome with keratoconjunctivitis NEW PATIENT W ITH REFERRAL with Alexis Awan DO 09/10/2020 Vitreous degeneration NEW PATIENT WITH REFERRAL with Alexis Awan DO 09/10/2020 Instructions Instructions not supported for this document typeNo Instructions Recorded Medical Equipment - Implanted Devices Includes: Current and historical DevicesNo Medical Equipment Recorded Medications Includes: Current and historical Medications Current Medications (continue as prescribed) Plaquenil 200 MG Oral Tablet 09/10/2020 Provider: Diagnosis: Synthroid 200 MCG Oral Tablet 09/10/2020 Provider: Diagnosis: Lisinopril 5 MG Oral Tablet 09/10/2020 Provider: Diagnosis: Calcium Carbonate-Vitamin D 300-100 MG-UNIT Oral Capsule 12/2019 Provider: Diagnosis: Daily Vitamin/Iron Oral Tablet 09/10/2020 Provider: Diagnosis: Aspirin Low Dose 81 MG Oral Tablet Chewable 09/10/2020 Provider: Diagnosis: Medications Administered Includes: Administered Medications in patient's chartNo Administered Medications Recorded Vital Signs Includes: Vital Signs from 09/10/2019 through 09/10/2020No Vital Signs Recorded For Specified Dates Results Includes: Results from 09/10/2019 through 09/10/2020No Results Recorded For Specified Dates History of Present Illness History of Present Illness not supported for this document typeNo History of Present Illness Recorded Social History Description Last Updated Not a current smoker 09/10/2020 Not using alcohol 09/10/2020 Not using drugs 09/10/2020 Smoking status : Never smoker 09/10/2020 Procedures and Surgical History Includes: Procedures from 09/10/2019 through 09/10/2020 Procedures Code Diagnosis Performing Provider Service Location Service Date Medical Eye Exam [id number] Sicca syndrome with keratoconjunctivitis, retirement use of other medications, Open angle with borderline findings, low risk, bilateral, DRY EYE SYNDROME Alexis Awan DO 09/10/2020 Surgical History Last Updated History of extracapsular cataract extraction PCIOL OS 2013 by [facility] 09/10/2020 Surgical / procedural history Bowel res ection 2017, Sinus [id number], Gallbladder 1993, 1991, D&C 2008 09/10/2020 Medical History Includes: Medical History in patient's chart Description Last Updated Reported medical history Sjogrens Syndrome, Menopause , Hernia 09/10/2020 History of hypertension 09/10/2020 History of hypothyroidism 09/10/2020 Family History Includes: Family History in patient's chart Description Last Updated Maternal history of hypertension 09/10/2020 Paternal history of heart disease 09/10/2020 Paternal history of hypertension 09/10/2020 Review of Systems Review of Systems not supported for this document typeNo Review of Systems Recorded Mental Status Mental Status not supported for this document type Description Oriented to time, place, and person Functional Status Functional Status not supported for this document typeNo Functional Status Recorded Physical Exam Physical Exam not supported for this document typeNo Physical Exam Recorded Immunizations Includes: Immunizations in patient's chartNo Immunizations Recorded Allergies Includes: Active, inactive, and resolved Allergies Substance Type Reaction Onset Date - Time Resolved Date - Ti me Status Penicillin Allergy 09/10/2020 - 8:16AM Activ e Ceclor Allergy 09/10/2020 - 8:17AM Activ e Amoxicillin Allergy 09/10/2020 - 8:16AM Acti ve Encounters Includes: Encounters from 09/10/2019 through 09/10/2020 Encounter Provider Location Date Check-In Time Check-Out Time D iagnosis NEW PATIENT WITH REFERRAL Alexis Celeste MD [facility] 09/10/2020 7:53AM 8:52AM Dry Eye Syndrome, Cem rderline Glaucoma Open Angle with Borderline Findings Both Eyes, 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 Use of Other Medications, Sicca Syndrome with Keratoconjunctivitis, Vitreous Disorders Degeneration, Pse udophakia Insurance Includes: Active Insurance Policies Plan Name Member ID Group # Subscriber Relationship Effective Da melissa 1 - [facility] [id number] Laverne Chapman Self Advance Directives Includes: Current Advance DirectivesNo Advance Directives Recorded Health Concerns Includes: Active Health ConcernsNo Active Health Concerns Recorded Goals Includes: Active GoalsNo Active Goals Recorded Interventions Includes: Interventions for active GoalsNo Interventions Recorded Evaluations & Outcomes Includes: Evaluations & Outcomes for active GoalsNo Outcomes Recorded
--- OUTSIDE RECORDS SUMMARY | 2020-11-04 06:20 | CCD | Continuity of Care Document ---
Author Author [facility] Address [address] [place] [address] Phone Support Name Relationship Address Phone [place], [place] [address] [place] [address] Alice MCCOY [place] [address] [facility] [address] [place] [address] Jarad Ríos [place] [address] [facility] [place] [address] Allergies, Adverse Reactions, Alerts Allergen Type Severity Reaction Last Updated Verified Status amoxicillin Allergy Halina re Anaphylaxis September 15, 2020 10:02pm Yes Active amoxicillin trihydrate Allergy Severe Anaphylaxis September 15, 2020 10:02 pm Yes Active cefaclor Allergy Severe Anaphylaxis September 15, 2020 10:02pm Yes Active dicyclomine Allergy Halina re Anaphylaxis September 15, 2020 10:02pm Yes Active Iodinated Contrast Media Allergy Severe Anaphylaxis September 15, 2020 10:02 pm Yes Active Penicillins Allergy Halina re Anaphylaxis September 15, 2020 10:02pm Yes Active potassium clavulanate Allergy Severe Anaphylaxis September 15, 2020 10:02 pm Yes Active naproxen Adverse Reaction Moderate Other, not listed September 15, 2020 10:02pm Yes Active Medications Medication Status Dose Units Route Directions Qty Days Start Date End Date Instructions Aspirin Active 81 MG PO Once Per Day April 23, 2016 1:33pm Levothyroxine (Levoxyl) 200 MCG tablet Active 200 MCG PO Once Per Day April 23, 2016 1:33 pm Lisinopril Active 5 MG PO Once Per Day April 23, 2016 1:33pm Hydroxychloroquine Active 200 MG PO Once Per Day April 23, 2016 1:33pm Cholecalciferol (Vitamin D3) Active 3000 UNIT PO Once Per Day April 23, 2016 1:33 pm Hydrocodone-Acetaminophen ([place] 5-325 T ablet) 5-325 mg tablet Discontinued 1 - 2 TAB PO Every 4-6 hours April 23, 2016 2:22pm November 8:19pm Azithromycin Discontinued 250 MG PO Once Per Day August 07, 2017 7:06pm March 26, 2018 9:10am x 5 days Ferrous Sulfate (Iron) 325 MG tablet Activ e 325 MG PO Once Per Day November 17, 2018 1 2:35am Docusate Sodium Active 1 00 MG PO Once Per Day November 17, 2018 12:35am Problems Active Problems Medical Problem Onset Date Status Pain in limb Active Knee pain, acute Activ e Knee sprain Active Palpitations Active Skin irritation Active Acute diverticulitis A ctive Pain, dental Active Knee buckling Active Costochondritis, acute Active Procedures Procedure Date Performed Status CT Thorax without contrast September 15, 2020 10:05pm completed CT Abd/pel w/o contrast September 10:05pm completed Urine Culture September 15, 2020 active Respiratory Panel (PCR) September 15, 2020 completed Blood Culture September 15, 2020 active Escherichia coli Shiga Toxins EIA De cember 2019 active Salmonella/Shigella Screen September 15, 2020 active Campylobacter Culture September 15, 2020 active Escherichia coli 0157 Culture Decemb er 2019 active 3D DIG MAMMO SCREEN BILAT June 25, 2020 6:50am completed Relevant Diagnostic Tests and/or Laboratory Data Laboratory Results Test Date/Time Result Interpretation Reference Range Result Comment Performing Site White Blood Count September 15, 2020 10:40pm 7.2 10e3/uL 4.45-10.71 [facility], [address] [place] [address] 79046 Red Blood Count September 15, 2020 10:40pm 4.77 10e6/uL 4.20-5.40 [facility], [address] [place] [address] 49053 Hemoglobin September 15, 2020 10:40pm 13.7 g/dL 10.7-15.4 [facility], [address] [place] [address] 04948 Hematocrit September 15, 2020 10:40pm 42.8 % 37-47 [facility], [address] [place] [address] 47698 Mean Corpuscular Volume September 10:40pm 89.7 fl 80-96 [facility], [address] [place] [address] 77405 Mean Corpuscular Hemoglobin September 15, 2020 10:40pm 28.7 pg 27-31 [facility], [address] [place] [address] Mean Corpuscular Hemoglobin Concent September 15, 2020 10:40pm 32.0 g/dl 33-37 [facility], [address] [place], [place] [id number] Red Cell Distribution Width September 15, 2020 10:40pm 13 % 11-15 [facility], [address] [place] [address] Platelet Count September 15, 2020 10:40pm 278 10e3/ul 130-472 [facility], [address] [place], [place] [address] Mean Platelet Volume September 15 10:40pm 10.6 fl 9.1-13.1 [facility], [address] [place] [address] Neutrophils (%) (Auto) September 15, 2020 10:40pm 57.5 % 41-77 [facility], [address] [place], [place] [id number] Absolute Neutrophil September 15 10:40pm 4.1 # 1.7-7.6 [facility], [address] [place] [address] Lymphocytes (%) (Auto) September 15, 2020 10:40pm 33.9 % 14-46 [facility], [address] [place] [address] 56547 Lymphocytes # (Auto) September 15 10:40pm 2.4 # 0.6-4.[address] [facility], [address] [place] [address] Monocytes (%) (Auto) September 15 10:40pm 6.4 % 4-12 [facility], [address] [place] [address] Monocytes # September 15, 2020 10:40pm 0.5 # 0.2-1.2 [facility], [address] [place] [address] Eosinophils (%) (Auto) September 15, 2020 10:40pm 1.3 % 0-7 [facility], [address] [place] [address] Absolute Eosinophils (CBC) September 15, 2020 10:40pm 0.1 # 0.0-0.5 [facility], [address] [place] [address] Basophils (%) (Auto) September 15 10:40pm 0.6 % 0.4-1.3 [facility], [address] [place] [address] Absolute Basophils (CBC) September 10:40pm 0.0 # 0.0-0.2 [facility], [address] [place] [address] Immature Granulocyte % (Auto) Dece er 2019 10:40pm 0.3 % 0-2 [facility], [address] [place] [address] Absolute Immature Granulocyte (auto September 15, 2020 10:40pm 0.0 # 0-0.1 [facility], [address] [place] [address] Add Manual Differential September 10:40pm No [facility], [address] [place] [address] Prothrombin Time September 15, 2020 10:40p m 10.6 SECONDS 9.6-12.3 [facility], [address] [place] [address] INR International Normalized Ratio D ec2019 10:40pm 1.0 0.9-1.1 THE INR IS OPERATIONALLY DEFINED FOR ELVA SH PLASMA FROMPATIENTS STABILIZED ON ORAL ANTICOAGULANTS. ROUTINE ANTICOAGULANT THERAPY 2.0-3.0RECURRENT SYSTEMIC EMBOLISM/HEART VALVE REPLACEMENT 2.5-3.5 [facility], [address] [place] [address] 72901 Partial Thromboplastin Time - Kimball D ec2019 10:40pm 32.2 SECONDS 22.7-31.6 [facility], [address] [place] [address] 55005 Urine Color September 15, 2020 10:20pm Yellow [facility], [address] [place] [address] 02905 Urine Appearance September 15, 2020 10:20p m Clear CLEAR [facility], [address] [place] [address] 62775 Urine pH September 15, 2020 10:20pm 6.5 [facility], [address] [place] [address] 23658 Urine Specific Bird In Hand September 15, 2020 10:20pm 1.010 [facility], [address] [place] [address] Urine Leukocyte Esterase September 10:20pm Negative NEGATIVE [facility], [address] [place] [address] 47254 Urine Nitrate September 15, 2020 10:20pm Negative NEGATIVE [facility], [address] [place] [address] Urine Protein September 15, 2020 10:20pm Negative NEGATIVE [facility], [address] [place] [address] 62847 Urine Glucose September 15, 2020 10:20pm Negative NEGATIVE [facility], [address] [place] [address] 23231 Urine Ketones September 15, 2020 10:20pm Negative NEGATIVE [facility], [address] [place] [address] 67158 Urine Urobilinogen September 15 0 10:20pm 0.2 eu/dl [facility], [address] [place] [address] 83732 Urine Bilirubin September 15, 2020 10:20pm Negative NEGATIVE [facility], [address] [place] [address] 99598 Urine Blood September 15, 2020 10:20pm Moderate NEGATIVE A Culture has been added to this specimen per established criteria [facility], [address] [place] [address] 54915 Add Urine Microanalysis September 10:20pm Microscopic added [facility], [address] [place] [address] 95049 Urine RBC September 15, 2020 10:20pm 6-10 /hpf [facility], [address] [place] [address] 33517 Urine Squamous Epithelial Cells Dece mber 2019 10:20pm Few /hpf [facility], [address] [place] [address] 56379 Urine Bacteria September 15, 2020 10:20pm Small amount NEGATIVE [facility], [address] [place] [address] 06850 Blood Urea Nitrogen September 15 10:40pm 15 mg/dL 9-23 [facility], [address] [place] [address] 87108 Sodium Level September 15, 2020 10:40pm 141 mmol/L 132-146 [facility], [address] [place] [address] 32272 Potassium Level September 15, 2020 10:40pm 3.9 mmol/L 3.5-5.5 [facility], [address] [place] [address] 19199 Chloride Level September 15, 2020 10:40pm 109 mmol/l 99-109 [facility], [address] [place] [address] 08810 Carbon Dioxide Level September 15 020 10:40pm 29 mmol/l 20-31 [facility], [address] [place] [address] 74435 Anion Gap September 15, 2020 10:40pm 7 mmol/l 8-16 [facility], [address] [place] [address] 75823 Glucose Level September 15, 2020 10:40pm 114 mg/dL 74-106 [facility], [address] [place], [place] [address] Creatinine September 15, 2020 10:40pm 1.0 mg/dL 0.5-1.1 [facility], [address] [place], [place] [address] Glomerular Filtration Rate Calc Dece mber 2019 10:40pm 59 ml/min ABOVE 60 [facility], [address] [place], [place] [address] Alanine Aminotransferase (ALT/SGPT) September 15, 2020 10:40pm 26 U/L 10-49 [facility], [address] [place], [place] [address] Aspartate Amino Transf [facility]AST[facility]SGOT[facility] 16 U/L 0-33 [facility], [address] [place], [place] [address] Alkaline Phosphatase September 15 10:40pm 82 U/L 45-129 [facility], [address] [place], [place] [address] Calcium Level September 15, 2020 10:40pm 8.4 mg/dL 8.5-10.1 [facility], [address] [place], [place] [address] Total Bilirubin September 15, 2020 10:40pm 0.8 mg/dL 0.3-1.2 [facility], [address] [place], [place] [address] Albumin September 15, 2020 10:40pm 3.6 g/dL 3.2-4.8 [facility], [address] [place], [place] [address] Serum Total Protein September 15 10:40pm 8.1 g/dL 5.7-8.2 [facility], [address] [place], [place] [address] Lactic Acid Level September 15, 2020 10:40pm 1.1 mmol/L 0.5-2.2 [facility], [address] [place], [place] [address] C-Reactive Protein September 15 0 10:40pm 11.1 mg/L 0.0-5.0 [facility], [address] [place], [place] [address] Troponin I September 15, 2020 10:40pm Less than 0.015 ng/mL 0.00-0.09 Less than 0.09 NG/ML Negative0.10 - 0.77 NG/ML High Risk0.78 NG/ML or Greater Positive The WHO defined the cutoff (definition for diagnosis of AL)for this method as 0.78 ng/ml. [facility], [address] [place] [address] 05421 Pro-B-Type Natriuretic Peptide Decem 2019 10:40pm 269.00 pg/mL 0.00-175 [facility], [address] [place] [address] 28191 Microbiology Results Procedure Source Result Collection Date/Time Result Date/Time Result Comment Performing Site Respiratory Panel (PCR) Nasopharyngeal No Organisms Detected September 15, 2020 9:44pm September 15, 2020 11:07pm [facility], [address] [place] [address] 63160 Diagnostic Imaging Reports Report Dictated Date/Time Dictated By Status Radiology Report June 30 0 9:38am Abdi House MD completed [place] [id number] [place] [id number] [phone] NAME SEX PT STATUS ACCOUNT NUMBER DARCI ENGEL REG REF [id number] ORDERING PHYSICIAN LOCATION MEDICAL RECORD NO. JAIMEE Alice MCCOY, DO MAMMO [id number] ATTENDING PHYSICIAN DATE OF DATE OF EXAM/TIME Ez,Yoko 1970 06[birth year]/20749 TYPE / EXAM 3D DIG MAMMO SCREEN BILAT REASON FOR EXAM SCREENING LAST CLINICAL BREAST EXAM: patient is unsure FIVE YEAR RISK: 0.8% LIFETIME RISK: 7.5% FAMILY HISTORY OF BREAST CARCINOMA: Grandmother COMPARISON: June 05, 2016 2D bilateral digital mammogram in the CC and MLO projections was performed with supplemental 3D tomosynthesis of both breasts. FINDINGS: Craniocaudad and oblique lateral views of the breasts were obtained. The breasts are primarily of fat density. Occasional benign type calcifications are seen. There is no dominant mass, suspicious clustered microcalcification or architectural distortion. IMPRESSION: No mammographic evidence of malignancy. Yearly screening recommended. OVERALL FINAL ASSESSMENT OF FINDINGS BI-RADS 2 - Benign findings OVERALL FINAL ASSESSMENT OF THE BREAST COMPOSITION Breast Density Classification: A Description: The breasts are almost entirely fatty. This mammogram was read with the assistance of Jorge, an FDA-approved computer-a ided detection system for mammography. Reported By Abdi House MD on 06/30/20 0938 Signed By Abdi House MD on 06/30/20 0941 Date Time CC: Abdi House MD; Yoko Hui Techn: PELBU Trans Dt/Tm: Trans by: DT Prt Dt/Tm: : Total DLP = 0.00 mGy-cm : Total Radiation Dose = 0.0000 mSv Lifetime Dose: 0 mSv Health Concerns Health Concerns may be documented in an alternate section. Advance Directives Advance Directive Response Recorded Date/Time Advanced Directive No De cember 2019 10:23pm Does Patient have a DNR? No September 15, 2020 10:23pm Healthcare Proxy No Dece mber 2019 10:23pm Living Will No April 1:14pm Chief Complaint and Reason for Visit Chief Complaint SCREENING DIARRHEA,COUGH,HEADACHE Encounters Encounter Location(s) Ar rival/Admit Date Discharge/Depart Date Provider(s) Registered Referred [facility]-Mammography June 25, 2020 6:32am JAIMEE MCCOY DO Departed Emergency [facility]-Emergency Room ER September 15, 2020 9:31pm September 16, 2020 12:21am null Assessments No Assessments Information Available Functional Status No Functional Status information available Goals Goals may be documented in an alternate section. Immunizations No Immunization Information Available Mental Status Observation Response Jose e Recorded Impairments No impairments or barriers September 15, 2020 9:32pm Medical Equipment No Medical Equipment Information available Insurance Providers Guarantor DARCI ENGEL Address [address] [place] [address] Contact Info. Home Phone: Payer Policy Id Coverage Id Subscriber's Name Subscriber Id Effective Date Expiration Date [facility] Self Pay Self N/A [facility] [id number] KAELYN ENGEL [id number] Plan of Treatment Future Tests Future scheduled test information is unavailable Pending Tests Pending diagnostic test information is unavailable Future Visits Future appointment information is unavailable Referrals to Other Providers Reason for Referral Referral Start Date Provider Provider Conta ct Information Provider Address [facility] Phone: [phone] [facility] [address] Future Procedures Future procedure information is unavailable Future Medications Future medication information is unavailable Patient Instructions Acute Diarrhea (ED) Viral Syndrome (ED) Incisional Hernia (DC) Ventral Hernia (ED) Social History Smoking Status Status Date of Observation Never smoker September 15, 2020 10:2 3pm Observation Status Date of Observation Not November 18, 2016 Observation Status Observation Response Jose e of Response Smoking Status Never smoker September 15, 2020 10:23pm Alcohol Use No September 15, 2020 10:13pm Substance Use No [facility] 2019 10:13pm Assigned Sex Female Vital Signs Vital Reading Result Ref erence Range Collection Date/Time Height 65 [in_i] September 15, 2020 10:23pm Weight 320.00 [lb_av] September 15, 2020 10:23pm Body Temperature 98.2 [degF] 97.6-99.5 September 15, 2020 9:32pm Heart Rate 81 /min 60-100 September 15, 2020 9:32pm Respiratory rate 20 /min 12-24 September 15, 2020 9:32pm Oxygen saturation by Pulse oximetry 97 % 95- 100 September 15, 2020 9:32pm BP Systolic 177 mm[Hg] September 15, 2020 9:32pm BP Diastolic 87 mm[Hg] September 15, 2020 9:32pm
--- OUTSIDE RECORDS SUMMARY | 2020-11-04 06:20 | CCD | Summary of Care ---
Author Author [facility] Organization [facility] Address Unknown Phone Unavailable Care Team Providers Care Golf Teacher Name Role Phone Elena Morfin PCP Reason for Referral * Diagnostic Radiology (Routine) Referred By Contact Referred To Contact Status Reason Specialty Diagnoses / Procedures Chandrika Aguilar MD [address] [place] [address] Email: [email or web address] Open Radiology Diagnoses Gross hematuria P rocedures CT Abdomen Pelvis with and without Contrast Reason for Visit * Reason Comments New Patient incontinence * Office Visit (Routine) Referred By Contact Referred To Contact Status Reason Specialty Diagnoses / Procedures [facility] [place] - REFERRAL [address] [place] [address] Chandrika Aguilar MD [address] [place] [address] Email: [email or web address] Authorized Urology Diagnoses hematuria P rocedures hysteroscopy evalutaion - in office visits only 1 consult - 07/06/2020- 1 3 outpatient visits 07/06/2020- 1 Encounter Details Care Team Description Date Type Department Chandrika Aguilar MD [address] [place] [address] [phone] Gross hematuria (Primary Dx); Urge incontinence of urine 09/14/2020 Telemedicine [facility] Urology @ [facility] [address] [place] [id number] Allergies Comments Active Allergy Reactions Severity Noted Date Difficulty breathing Amoxicillin Hives 07/16/2015 Cefaclor Hives 07/16/2015 Difficulty breathing Doxycycline Hives 07/16/2015 tachycardio Penicillins Hives 07/16/2015 documented as of this encounter (statuses as of 09/14/2020) Medications End Date Status Medication Sig Dispensed [...] Oral Tablet by mouth daily with breakfast documented as of this encounter (statuses as of 09/14/2020) Active Problems Problem Noted Date Antiphospholipid antibody syndrome 07/21/2015 SLE (systemic lupus erythematosus) 07/16/2015 Overview: Diagnosis as per referral History of antiphospholipid antibody syndrome 2014 Overview: 6 miscarriages and positive lupus antic oagulant Obesity 07/16/2015 Incontinence Hematuria documented as of this encounter (statuses as of 09/14/2020) Social History Date Tobacco Use Types Packs/Day Years Used Never Smoker Smokeless Tobacco: Never Used Drinks/Week oz/Week Comments Alcohol Use 0 Standard drinks or equivalent 0.0 No Sex Assigned at Date Recorded Not on file Date Recorded COVID-19 Exposure Response 09/14/2020 7:41 AM EST In the last month, have you been in contact with No / Unsure someone who was confirmed or suspected to have Coronavirus / COVID-19? documented as of this encounter Last Filed Vital Signs Reading Time Taken Comments Vital Sign - - Blood Pressure - - Pulse - - Temperature - - Respiratory Rate - - Oxygen Saturation - - Inhaled Oxygen Concentration 140.6 kg (310 lb) 09/14/2020 8:05 AM EST Weight 165.1 cm (5' 5") 09/14/2020 8:05 AM EST Height 51.59 09/14/2020 8:05 AM EST Body Mass Index documented in this encounter Progress Notes * Chandrika Aguilar MD - 09/14/2020 8:00 AM EST Chief complaint: Gross hematuria, urinary incontinence History of present illness: Patient is a pleasant 50-year-old female with a hist ory of gross hematuria and urinary incontinence for approximately the last 2 yea rs. She states her symptoms started after she had a complex bowel resection. S he had a spontaneous bowel perforation, that required multiple surgeries, bowel resections, and ICU stay. After she recovered, she noted urinary frequency, urg ency, and occasional incontinence, associated with urgency. Additionally, she s tarted to notice bleeding, particularly after she urinated, in the toilet bowl, and when she would wipe. She denies any pain or discomfort with urinating. She denies any recent UTIs. She denies any hesitancy or straining to void. Patient feels she urinates approximately every hour throughout the day, and 1-2 times per night. Patient has also been seen by CLINIC PHYSICIAN, to evaluate for possible any gynecologic sour ce for the bleeding. She was recommended to have hysteroscopy. Patient has never been a smoker, and denies other urologic risk factors for abdirahman gnancy. PAST MEDICAL HISTORY Past Medical History: Diagnosis Date Hematuria Hypertension Hypothyroidism Incontinence Lupus 2009 [employer] [place] skin rash, thrombophlebitis Thrombophlebitis PAST SURGICAL HISTORY Past Surgical History: Procedure Laterality Date bowl resection 2018 CATARACT EXTRACTION SECTION CHOLECYSTECTOMY DILATION AND CURETTAGE OF UTERUS Medications: Current Outpatient Medications: aspirin 81 MG tablet, Take 81 mg by mouth daily., Disp: , Rfl: Cholecalciferol (VITAMIN D) 2000 UNITS tablet, Take 2,000 Units by mouth Two Times Daily., Disp: , Rfl: Ferrous Sulfate 325 (65 Fe) MG Oral Tablet, Take 325 mg by mouth daily w ith breakfast, Disp: , Rfl: hydroxychloroquine (PLAQUENIL) 200 MG tablet, Take 200 mg by mouth daily ., Disp: , Rfl: levothyroxine (SYNTHROID) 200 MCG tablet, Take 200 mcg by mouth daily , Disp: , Rfl: lisinopril (PRINIVIL,ZESTRIL) 5 MG tablet, Take 5 mg by mouth daily., Di sp: , Rfl: Allergies: Amoxicillin, Ceclor [cefaclor], Doxycycline, and Penicillins Allergies Allergen Reactions Amoxicillin Hives Difficulty breathing Ceclor [Cefaclor] Hives Doxycycline Hives Difficulty breathing Penicillins Hives tachycardio Tobacco: Social History Tobacco Use Smoking Status Never Smoker Smokeless Tobacco Never Used Alcohol: reports no history of alcohol use. Drug: has no history on file for drug. PAST FAMILY Family History Problem Relation Age of Onset Hypertension Mother Hypertension Father Kidney disease Father SOCIAL HISTORY Social History Socioeconomic History Marital status: Spouse name: None Number of children: None Years of education: None Highest education level: None Occupational History None Social Needs Financial resource strain: None Food insecurity Worry: None Inability: None Transportation needs Medical: None Non-medical: None Tobacco Use Smoking status: Never Smoker Smokeless tobacco: Never Used Substance and Sexual Activity Alcohol use: No Alcohol/week: 0.0 standard drinks Drug use: None Sexual activity: None Lifestyle Physical activity Days per week: None Minutes per session: None Stress: None Relationships Social connections Talks on phone: None Gets together: None Attends anglican service: None Active member of club or organization: None Attends meetings of clubs or organizations: None Relationship status: None Intimate partner violence Fear of current or ex partner: None Emotionally abused: None Physically abused: None Forced sexual activity: None Other Topics Concern None Social History Narrative None Social History Tobacco Use Smoking status: Never Smoker Smokeless tobacco: Never Used Substance Use Topics Alcohol use: No Alcohol/week: 0.0 standard drinks REVIEW OF SYSTEMS Constitutional: No fevers/chills Eyes: No trouble with vision Ears/Nose/Throat: No ear infections or sore throat Neuro: No tremors Endocrine: Not too hot or cold CV: no chest pains Resp: no wheezing or trouble breathing GI: no abdominal pains : as in HPI Heme: no easy bruising Musc: no new muscle weakness Derm: no new rashes EXAMINATION General: Awake, Alert, NAD Neurologic: Oriented to person, place, time Eyes: No icterus ENT: Moist mucous membranes Respiratory: Breathing comfortable without distress Musculoskeletal: POWERS, normal tone Skin: no rashes, edema Psychiatric: Normal mood, affect Chart review: Patient was seen by her PCP, Dr. Rodrigues, on 07/13/2020. Patient was noted to have history of gross hematuria since her surgical procedures. Assessment/plan: Patient is a pleasant 50-year-old female with a history of poss ible intermittent gross hematuria approximately last 1 to 2 years. 1. It is unclear whether the patient's bleeding is vaginal versus urologic in o rigin. Given the fact that seems to occur in the trouble, and after voiding, I do think it is reasonable to proceed with hematuria evaluation. I discussed thi s evaluation patient, including CT IVP as well as cystoscopy. Patient is maggie noonan to undergo this evaluation. 2. It is possible the patient's bleeding is gynecologic in origin. I would def er to her CLINIC PHYSICIAN providers for appropriate evaluation if no urologic source is iden tified. This is a telemedical visit including synchronous audio and visual communication initiated by the patient. The patient was informed of the risks including secur ity breech, technological failure, inability to perform a comprehensive physical exam which could delay or prevent an accurate diagnosis, and potential complica tions from treatment decisions rendered over a telemedical platform. The patient understands and consented to the use of tele-health services. This visit was dictated using [employer] dictation software, please excuse any typog raphical errors. Thank you very much for allowing me to participate in this sherice ent's care. Please do not hesitate to contact me with any questions. Chandrika Aguilar MD Risk Consulting Treasury Director, Department of Urology [facility] Main: documented in this encounter Plan of Treatment Order Schedule Name Type Priority Associated Diag noses 1 Occurrences starting 09/14/2020 until 03/15/2021 Basic metabolic panel Lab Routine Gross he maturia Expected: 09/14/2020, Expires: 2 CT Abdomen Pelvis with Imaging Routine Gross h ematuria and without Contrast Health Maintenance Due Date Last Done Comments MMR Vaccines (1 of - 02/01/1972 Standard series) Varicella Vaccines (1 of 02/01/1972 2 - 2-dose childhood series) DTaP,Tdap,and Td Vaccines 1978 (1 - Tdap) HIV Screening 02/01/1984 Cervical Cancer Screening 02/01/1992 5 years Influenza Vaccine 07/09/2020 Pneumococcal Vaccine: 65+ 02/01/2036 Years (1 of 1 - PPSV23) HIB Vaccines Aged Out No [...] Visit Diagnoses Diagnosis Gross hematuria - Primary Urge incontinence of urine Urge incontinence documented in this encounter
--- OUTSIDE RECORDS SUMMARY | 2020-11-04 06:20 | CCD ---
Author Author [facility] Organization [facility] Address Unknown Phone Unavailable Care Team Providers Care Supervisor Rework Name Role Phone AndersAlexisy Unavailable PROBLEMS Type Condition ICD9-CM Code BWC54-IV Code Onset Dates Condition S tatus SNOMED Code Notes Problem Postoperative wound dehiscence, initial encounter T81.31XA Active 763749068 Problem Postoperative wound dehiscence, subsequent encounter T81.31XD Active 367237290 Problem Hypothyroidism, unspecified type E03.9 Active 07222776 Problem Lumbar spondylosis M47.816 Active 479605448 Problem Severe obesity E66.01 Active 33470668669743 Problem Vitamin D deficiency E55.9 Active 01184156 Problem Lumbago with sciatica, left side M54.42 Active 480666382 Problem Systemic lupus erythematosus , unspecified SLE type, unspecified organ involvement status M32.9 Active 53454318 ALLERGIES Allergen (clinical drug ingredient) Drug/Non Drug Allergy do cumented on EMR Reaction Allergy Type Onset Date Status ceclor Anaphylaxis Drug Allergy Active Penicillin (For Allergies Use Only) Anaphylaxis Drug Aller gy Active amoxicillin Amoxicillin(NDC Code:[address]-21) Anaphylaxis Drug Bridger rgy Active doxycycline Doxycycline(ND Code:[address]-34) Anaphylaxis Drug Bridger rgy Active IV Dye Anaphylaxis Drug Allergy Active ENCOUNTERS from 1971 to 2020-09-07 Encounter Location Date Provider Diagnosis [facility] Rheumatology [address] [place] [address] Aug, Stefanie Anders Systemic lupus erythematosus, unspecifie d SLE type, unspecified organ involvement status M32.9 ; Hypothyroidism, unspecified type E03.9 ; History of recurrent miscarriages N96 and Lumbar spondylosis M47.816 IMMUNIZATIONS No Information SOCIAL HISTORY Tobacco Use: Social History Observation Description Date Details (start date - stop date) Never Smoker Sex Assigned At : Social History Observation Description Sex Assigned At Unknown Education: Question Answer Notes Level of Education: College Language: Question Answer Notes Languages spoken: Mauritanian Bahai: Question Answer Notes Bahai No advent beliefs that would impact health care. Alcohol Screening: Question Answer Notes Did you have a drink containing alcohol in the past year? No Points 0 Interpretation Negative Tobacco Use: Question Answer Notes Are you a: never smoker REASON FOR REFERRAL No Information VITAL SIGNS Weight 337.2 lbs Aug, Weight-kg 152.9 kg Aug, Height 65 in Aug, BMI 56.11 kg/m2 Aug, Heart Rate 74 /min Aug, Respiratory Rate 20 /min Aug, Temperature 97.6 degrees Fahrenheit Aug, Oximetry 99% Aug, Blood pressure systolic 126 mm Hg Aug, Blood pressure diastolic 74 mm Hg Aug, MEDICATIONS Medication SIG (Take, Route, Frequency, Duration) [...] Information RESULTS No Results REASON FOR VISIT Novemeber follow up MEDICAL (GENERAL) HISTORY Type Description Date Medical [...] No Information FUNCTIONAL STATUS No Information ASSESSMENTS Encounter Date Diagnosis Assessment Notes Treatment Notes Treatm ent Clinical Notes Aug, Systemic lupus erythematosus , unspecified SLE type, unspecified organ involvement status (ICD-10 - M32.9) SLE appears to be stable/mild and well treated on low-dose Plaquenil. There is no need to hold this drug either before or after any surgical procedure. Plaquenil is not associated with poor wound healing or infection. She will continue annual eye exam. Check lab today to assess lupus disease activity. Aug, Hypothyroidism, unspecified type (ICD-10 - E03.9 ) Per her request I will check thyroid function tests. If there are any abnormalities they will be deferred to her PCP. 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 She indicates she tested positive previously for lupus anticoagulant. I'm testing her for this again today, the last time this was ordered the test was not done. If she tests positive, she would need anticoagulation before and after her surgery. I would defer to hematology to recommend a regimen. Aug, Lumbar spondylosis (ICD-10 - M47.816) She has chronic back pain but at this time not extremely severe. Continue to monitor. Aug, Other Patient instructions: Continue Plaquenil 200 mg daily. There is no need to stop Plaquenil either before or after any surgical procedures since this drug is not associated with infection or poor wound healing. I'm testing today for lupus anticoagulant. If this is positive, I believe you will need anticoagulation in association with your upcoming surgical procedure. Hematology could be consulted for the most appropriate anticoagulation recommendations. Lab tests today. Follow-up visit in 4 months. PLAN OF TREATMENT Treatment Notes Assessment Notes Clinical Notes Systemic lupus erythematosus, unspecifie d SLE type, unspecified organ involvement status SLE appears to be stable/mild and well t reated on low-dose Plaquenil.There is no need to hold this drug either before or after any surgical procedure.Plaquenil is not associated with poor wound healing or infection.She will continue annual eye exam.Check lab today to assess lupus disease activity. Hypothyroidism, unspecified type Per her request I maricruz l check thyroid function tests.If there are any abnormalities they will be deferred to her PCP. History of recurrent miscarriages She has a history of recurrent miscarriage and superficial thrombophlebitis.She indicates she tested positive previously for lupus anticoagulant.I'm testing her for this again today, the last time this was ordered the test was not done.If she tests positive, she would need anticoagulation before and after her surgery. I would defer to hematology to recommend a regimen. Lumbar spondylosis She has chronic back pain bu t at this time not extremely severe.Continue to monitor. Next Appt Details 4 Months Reason: Provider Name:Shanita Kovacs, 2020-09-14 10:00:00 AM, [address] [place] [address], [phone], Insurance Providers Payer Name Payer Address Payer Phone Insured Name Patient Relati onship to Insured Coverage Start Date Coverage End Date [facility] [employer] [id number] [place] [id number] [place]
--- OUTSIDE RECORDS SUMMARY | 2020-11-04 06:21 | CCD ---
Author Author [facility] Organization [facility] Address Unknown Phone Unavailable Care Team Providers Care Warp Placer Name Role Phone DEJAOL, Kenyatta MORRELL MD Unavailable Unavailable ANTECOL, Kenyatta MORRELL MD Unavailable Unavailable ANTECOL, Kenyatta MORRELL MD Unavailable Unavailable ANTECOL, Kenyatta MORRELL MD Unavailable Unavailable ANTECOL, Kenyatta MORRELL MD Unavailable Unavailable ANTECOLKenyatta MD Unavailable Unavailable ANTECOLKenyatta MD Unavailable Unavailable ANTECOLKenyatta MD Unavailable Unavailable ANTECOLKenyatta MD Unavailable Unavailable ANTECOL, Kenyatta MORRELL MD Unavailable Unavailable ANTECOLKenyatta MD Unavailable Unavailable ANTECOLKenyatta MD Unavailable Unavailable ANTECOLKenyatta MD Unavailable Unavailable ANTECOLKenyatta MD Unavailable Unavailable ANTECOLKenyatta MD Unavailable Unavailable ANTECOLKenyatta MD Unavailable Unavailable ANTECOLKenyatta MD Unavailable Unavailable ANTECOLKenyatta MD Unavailable Unavailable ANTECOLKenyatta MD Unavailable Unavailable ANTECOLKenyatta MD Unavailable Unavailable ANTECOLKenyatta MD Unavailable Unavailable ANTECOLKenyatta MD Unavailable Unavailable ANTECOLKenyatta MD Unavailable Unavailable ANTECOLKenyatta MD Unavailable Unavailable ANTECOLKenyatta MD Unavailable Unavailable ANTECOLKenyatta MD Unavailable Unavailable ANTECOLKenyatta MD Unavailable Unavailable ANTECOLKenyatta MD Unavailable Unavailable ANTECOLKenyatta MD Unavailable Unavailable ANTECOL, Kenyatta MORRELL MD Unavailable Unavailable ANTECOL, Kenyatta MORRELL MD Unavailable Unavailable ANTECOL, Kenyatta MORRELL MD Unavailable Unavailable ANTECOL, Kenyatta MORRELL MD Unavailable Unavailable ANTECOL, Kenyatta MORRELL MD Unavailable Unavailable ANTECOL, Kenyatta MORRELL MD Unavailable Unavailable ANTECOL, Kenyatta MORRELL MD Unavailable Unavailable ANTECOL, Kenyatta MORRELL MD Unavailable Unavailable ANTECOL, Kenyatta MORRELL MD Unavailable Unavailable ANTECOL, Kenyatta MORRELL MD Unavailable Unavailable ANTECOL, Kenyatta MORRELL MD Unavailable Unavailable ANTECOL, Kenyatta MORRELL MD Unavailable Unavailable ANTECOL, Kenyatta MORRELL MD Unavailable Unavailable ANTECOL, Kenyatta MORRELL MD Unavailable Unavailable ANTECOL, Kenyatta MORRELL MD Unavailable Unavailable ANTECOL, Kenyatta MORRELL MD Unavailable Unavailable ANTECOL, Kenyatta MORRELL MD Unavailable Unavailable ANTECOL, Kenyatta MORRELL MD Unavailable Unavailable ANTECOL, Kenyatta MORRELL MD Unavailable Unavailable ANTECOL, Kenyatta MORRELL MD Unavailable Unavailable ANTECOL, Kenyatta MORRELL MD Unavailable Unavailable ANTECOL, Kenyatta MORRELL MD Unavailable Unavailable ANTECOL, Kenyatta MORRELL MD Unavailable Unavailable ANTECOL, Kenyatta MORRELL MD Unavailable Unavailable ANTECOL, Kenyatta MORRELL MD Unavailable Unavailable ANTECOL, Kenyatta MORRELL MD Unavailable Unavailable DARIUS, Alice HERMOSILLO Unavailable Unavailable Fons, M Fiordaliza SEAMER OPERATOR Unavailable Unavailable Fons, M Fiordaliza SEAMER OPERATOR Unavailable Unavailable Fons, M Fiordaliza SEAMER OPERATOR Unavailable Unavailable Fons, M Fiordaliza SEAMER OPERATOR Unavailable Unavailable Fons, M Fiordaliza SEAMER OPERATOR Unavailable Unavailable Fons, M Fiordaliza SEAMER OPERATOR Unavailable Unavailable Fons, M Fiordaliza SEAMER OPERATOR Unavailable Unavailable Fons, M Fiordaliza SEAMER OPERATOR Unavailable Unavailable Fons, M Fiordaliza SEAMER OPERATOR Unavailable Unavailable Fons, M Fiordaliza SEAMER OPERATOR Unavailable Unavailable Fons, M Fiordaliza SEAMER OPERATOR Unavailable Unavailable Fons, M Fiordaliza SEAMER OPERATOR Unavailable Unavailable Fons, M Fiordaliza SEAMER OPERATOR Unavailable Unavailable Fons, M Fiordaliza SEAMER OPERATOR Unavailable Unavailable Fons, M Fiordaliza SEAMER OPERATOR Unavailable Unavailable Fons, M Fiordaliza SEAMER OPERATOR Unavailable Unavailable Fons, M Fiordaliza SEAMER OPERATOR Unavailable Unavailable Fons, M Fiordaliza SEAMER OPERATOR Unavailable Unavailable Fons, M Fiordaliza SEAMER OPERATOR Unavailable Unavailable Fons, M Fiordaliza SEAMER OPERATOR Unavailable Unavailable Fons, M Fiordaliza SEAMER OPERATOR Unavailable Unavailable Fons, M Fiordaliza SEAMER OPERATOR Unavailable Unavailable Fons, M Fiordaliza SEAMER OPERATOR Unavailable Unavailable Fons, M Fiordaliza SEAMER OPERATOR Unavailable Unavailable Fons, M Fiordaliza SEAMER OPERATOR Unavailable Unavailable Fons, M Fiordaliza SEAMER OPERATOR Unavailable Unavailable Fons, M Fiordaliza SEAMER OPERATOR Unavailable Unavailable Fons, M Fiordaliza SEAMER OPERATOR Unavailable Unavailable Fons, M Fiordaliza SEAMER OPERATOR Unavailable Unavailable Fons, M Fiordaliza SEAMER OPERATOR Unavailable Unavailable Fons, M Fiordaliza SEAMER OPERATOR Unavailable Unavailable Fons, M Fiordaliza SEAMER OPERATOR Unavailable Unavailable Fons, M Fiordaliza SEAMER OPERATOR Unavailable Unavailable Fons, M Fiordaliza SEAMER OPERATOR Unavailable Unavailable Fons, M Fiordaliza SEAMER OPERATOR Unavailable Unavailable Fons, M Fiordaliza SEAMER OPERATOR Unavailable Unavailable Fons, M Fiordaliza SEAMER OPERATOR Unavailable Unavailable Fons, M Fiordaliza SEAMER OPERATOR Unavailable Unavailable Fons, M Fiordaliza SEAMER OPERATOR Unavailable Unavailable Fons, M Fiordaliza SEAMER OPERATOR Unavailable Unavailable Fons, M Fiordaliza SEAMER OPERATOR Unavailable Unavailable Fons, M Fiordaliza SEAMER OPERATOR Unavailable Unavailable Fons, M Fiordaliza SEAMER OPERATOR Unavailable Unavailable Fons, M Fiordaliza SEAMER OPERATOR Unavailable Unavailable Fons, M Fiordaliza SEAMER OPERATOR Unavailable Unavailable Fons, M Fiordaliza SEAMER OPERATOR Unavailable Unavailable Fons, M Fiordaliza SEAMER OPERATOR Unavailable Unavailable Fons, M Fiordaliza SEAMER OPERATOR Unavailable Unavailable Fons, M Fiordaliza SEAMER OPERATOR Unavailable Unavailable Fons, M Fiordaliza SEAMER OPERATOR Unavailable Unavailable Fons, M Fiordaliza SEAMER OPERATOR Unavailable Unavailable Fons, M Fiordaliza SEAMER OPERATOR Unavailable Unavailable Fons, M Fiordaliza SEAMER OPERATOR Unavailable Unavailable Fons, M Fiordaliza SEAMER OPERATOR Unavailable Unavailable Morfin, N Elena PA Unavailable Unavailable Morfin, N Elena PA Unavailable Unavailable Morfin, N Elena PA Unavailable Unavailable Morfin, N Elena PA Unavailable Unavailable Morfin, N Elena PA Unavailable Unavailable Morfin, N Elena PA Unavailable Unavailable Morfin, N Elena PA Unavailable Unavailable Morfin, N Elena PA Unavailable Unavailable Morfin, N Elena PA Unavailable Unavailable Morfin, N Elena PA Unavailable Unavailable Morfin, N Elena PA Unavailable Unavailable Morfin, N Elena PA Unavailable Unavailable Morfin, N Elena PA Unavailable Unavailable Morfin, N Elena PA Unavailable Unavailable Morfin, N Elena PA Unavailable Unavailable Morfin, N Elena PA Unavailable Unavailable Morfin, N Elena PA Unavailable Unavailable Morfin, N Elena PA Unavailable Unavailable Morfin, N Elena PA Unavailable Unavailable Jarad Ríos MD Unavailable Unavailable Spivey, L Bonnie PA Unavailable Unavailable Spivey, L Bonnie PA Unavailable Unavailable Spivey, L Bonnie PA Unavailable Unavailable Spivey, L Bonnie PA Unavailable Unavailable Spivey, L Bonnie PA Unavailable Unavailable Spivey, L Bonnie PA Unavailable Unavailable Spivey, L Bonnie PA Unavailable Unavailable Spivey, L Bonnie PA Unavailable Unavailable Spivey, L Bonnie PA Unavailable Unavailable Spivey, L Bonnie PA Unavailable Unavailable Spivey, L Bonnie PA Unavailable Unavailable Spivey, L Bonnie PA Unavailable Unavailable Spivey, L Bonnie PA Unavailable Unavailable Spivey, L Bonnie PA Unavailable Unavailable Spivey, L Bonnie PA Unavailable Unavailable Spivey, L Bonnie PA Unavailable Unavailable Spivey, L Bonnie PA Unavailable Unavailable Spivey, L Bonnie PA Unavailable Unavailable Spivey, L Bonnie PA Unavailable Unavailable Spivey, L Bonnie PA Unavailable Unavailable Spivey, L Bonnie PA Unavailable Unavailable Spivey, L Bonnie PA Unavailable Unavailable Spivey, L Bonnie PA Unavailable Unavailable Spivey, L Bonnie PA Unavailable Unavailable Spivey, L Bonnie PA Unavailable Unavailable Spivey, L Bonnie PA Unavailable Unavailable Spivey, L Bonnie PA Unavailable Unavailable Spivey, L Bonnie PA Unavailable Unavailable Spivey, L Bonnie PA Unavailable Unavailable Spivey, L Bonnie PA Unavailable Unavailable Spivey, L Bonnie PA Unavailable Unavailable Spivey, L Bonnie PA Unavailable Unavailable Spivey, L Bonnie PA Unavailable Unavailable Spivey, L Bonnie PA Unavailable Unavailable Spivey, L Bonnie PA Unavailable Unavailable Spivey, L Bonnie PA Unavailable Unavailable Yolanda, [id number] Z Dhiraj DO Unavailable Unavailab le Yolanda, [id number] Z Dhiraj DO Unavailable Unavailab le Yolanda, [id number] Z Dhiraj DO Unavailable Unavailab le KAJAL DOUGLASS MD Unavailable Unavailable AMKAJAL OLGUIN MD Unavailable Unavailable AMKAJAL OLGUIN MD Unavailable Unavailable AMKAJAL OLGUIN MD Unavailable Unavailable AMKAJAL OLGUIN MD Unavailable Unavailable AMERKAJAL GUERRERO MD Unavailable Unavailable AMKAJAL OLGUIN MD Unavailable Unavailable AMKAJAL OLGUIN MD Unavailable Unavailable AMKAJAL OLGUIN MD Unavailable Unavailable AMKAJAL OLGUIN MD Unavailable Unavailable AMKAJAL OLGUIN MD Unavailable Unavailable AMERKAJAL GUERRERO MD Unavailable Unavailable JÚNIOR HODGES MD Unavailable Unavailable JÚNIOR HODGES MD Unavailable Unavailable JÚNIOR HODGES MD Unavailable Unavailable JÚNIOR HODGES MD Unavailable Unavailable JÚNIOR OHDGES MD Unavailable Unavailable JÚNIOR HODGES MD Unavailable Unavailable JÚNIOR HODGES MD Unavailable Unavailable JÚNIOR HODGES MD Unavailable Unavailable JÚNIOR HODGES MD Unavailable Unavailable JÚNIOR HODGES MD Unavailable Unavailable GINZBURG, JÚNIOR MD Unavailable Unavailable GINZBURG, JÚNIOR MD Unavailable Unavailable GINZBURG, JÚNIOR MD Unavailable Unavailable GINZBURG JÚNIOR MD Unavailable Unavailable GINZBURG JÚNIOR MD Unavailable Unavailable GINZBURG JÚNIOR MD Unavailable Unavailable GINZBURG JÚNIOR MD Unavailable Unavailable GINZBURG JÚNIOR MD Unavailable Unavailable GINZBURG, JÚNIOR MD Unavailable Unavailable GINZBURG JÚNIOR MD Unavailable Unavailable GINZBURG, JÚNIOR MD Unavailable Unavailable GINZBURG, JÚNIRO MD Unavailable Unavailable GINZBURG, JÚNIOR MD Unavailable Unavailable GINZBURG, JÚNIOR MD Unavailable Unavailable GINZBURG, JÚNIOR MD Unavailable Unavailable GINZBURG JÚNIOR Unavailable Unavailable GINZBURG JÚNIOR Unavailable Unavailable GINZSUJATHA JÚNIOR MD Unavailable Unavailable GINZBURG JÚNIOR MD Unavailable Unavailable GINZSUJATHA JÚNIOR MD Unavailable Unavailable GINZSUJATHA JÚNIOR Unavailable Unavailable GINZSUJATHA JÚNIOR MD Unavailable Unavailable GINZSUJATHA JÚNIOR MD Unavailable Unavailable GINZBURG, JÚNIOR MD Unavailable Unavailable GINZSUJATHA JÚNIOR MD Unavailable Unavailable GINZSUJATHA JÚNIOR MD Unavailable Unavailable GINZSUJATHA JÚNIOR Unavailable Unavailable GINZSUJATHA JÚNIOR Unavailable Unavailable GINZSUJATHA JÚNIOR MD Unavailable Unavailable GINZSUJATHA JÚNIOR Unavailable Unavailable GINZSUJATHA JÚNIOR MD Unavailable Unavailable GINZSUJATHA JÚNIOR Unavailable Unavailable GINZSUJATHA JÚNIOR MD Unavailable Unavailable GINZBURG JÚNIOR Unavailable Unavailable GINZBURG JÚNIOR MD Unavailable Unavailable GINZBURG JÚNIOR MD Unavailable Unavailable GINZBURG, JÚNIOR MD Unavailable Unavailable GINZBURG, JÚNIOR MD Unavailable Unavailable GINZBURG JÚNIOR Unavailable Unavailable GINZBURG JÚNIOR Unavailable Unavailable GINZBURG JÚNIOR Unavailable Unavailable GINZBURG JÚNIOR MD Unavailable Unavailable GINZBURG, JÚNIOR MD Unavailable Unavailable GINZBURG, JÚNIOR MD Unavailable Unavailable GINZBURG JÚNIOR MD Unavailable Unavailable GINZBURG, JÚNIOR MD Unavailable Unavailable GINZBURG, JÚNIOR MD Unavailable Unavailable GINZBURG, JÚNIOR MD Unavailable Unavailable GINZBURG, JÚNIOR MD Unavailable Unavailable GINZBURG, JÚNIOR MD Unavailable Unavailable GINZBURG, JÚNIOR MD Unavailable Unavailable GINZBURG, JÚNIOR MD Unavailable Unavailable GINZBURG, JÚNIOR MD Unavailable Unavailable GINZBURG, JÚNIOR MD Unavailable Unavailable GINZBURG, JÚNIOR MD Unavailable Unavailable GINZBURG, JÚNIOR MD Unavailable Unavailable GINZBURG, JÚNIOR MD Unavailable Unavailable GINZBURG, JÚNIOR MD Unavailable Unavailable GINZBURG, JÚNIOR MD Unavailable Unavailable Issa AWANEW DO Unavailable [phone] Issa AWAN PRABHAKAR DO Unavailable [phone] Issa AWAN PRABHAKAR DO Unavailable [phone] Issa AWAN PRABHAKAR DO Unavailable [phone] Issa AWANEW DO Unavailable [phone] Issa AWAN PRABHAKAR DO Unavailable [phone] Issa AWAN PRABHAKAR DO Unavailable [phone] Issa AWANEW DO Unavailable [phone] Issa AWANEW DO Unavailable [phone] Issa AWANEW DO Unavailable [phone] Issa AWANEW DO Unavailable [phone] Issa AWANEW DO Unavailable [phone] Issa AWAN PRABHAKAR DO Unavailable [phone] Issa AWAN PRABHAKAR DO Unavailable [phone] Issa AWANEW DO Unavailable [phone] Issa AWANEW DO Unavailable [phone] Issa AWANEW DO Unavailable [phone] Issa AWAN PRABHAKAR DO Unavailable [phone] Issa AWAN PRABHAKAR DO Unavailable [phone] Issa AWAN DO Unavailable [phone] Issa AWAN DO Unavailable [phone] Doctor Provided, Family PHYS No Family Unavailable U navailable Re-disclosure Warning The records that you are about to access may contain information from federally-assisted alcohol or drug abuse programs. If such information is present, then the following federally mandated warning applies: This information has been disclosed to you from records protected by federal confidentiality rules (42 CFR part 2). The federal rules prohibit you from making any further disclosure of this information unless further disclosure is expressly permitted by the written consent of the person to whom it pertains or as otherwise permitted by 42 CFR part 2. A general authorization for the release of medical or other information is NOT sufficient for this purpose. The Federal rules restrict any use of the information to criminally investigate or prosecute any alcohol or drug abuse patient.The records that you are about to access may contain highly sensitive health information, the redisclosure of which is protected by Article 27-F of the [facility] Public Health law. If you continue you may have access to information: Regarding HIV / AIDS; Provided by facilities licensed or operated by the [facility] Office of Mental Health; or Provided by the [facility] Office for People With Developmental Disabilities. If such information is present, then the following [facility] mandated warning applies: This information has been disclosed to you from confidential records which are protected by state law. State law prohibits you from making any further disclosure of this information without the specific written consent of the person to whom it pertains, or as otherwise permitted by law. Any unauthorized further disclosure in violation of state law may result in a fine or care home sentence or both. A general authorization for the release of medical or other information is NOT sufficient authorization for further disc losure. Allergies and Adverse Reactions Type Description Substance Reaction Status Data Source(s ) Drug allergy dicyclomine dicyclomine Anaphylaxis [facility] Drug allergy amoxicillin Amoxicillin Anaphylaxis [facility] Drug allergy cefaclor Cefaclor Anaphylaxis [facility] Drug allergy naproxen Naproxen Other, not listed [place] L [facility] Drug allergy Penicillins Penicillin Anaphylaxis [facility] Drug allergy Iodinated Contrast Media Iodinated Contrast Media Anap hylaxis [facility] Drug allergy potassium clavulanate potassium clavulanate Anaphylaxis [facility] Drug allergy amoxicillin trihydrate amoxicillin trihydrate Anaphylaxi s [facility] Drug allergy Ceclor Oral Capsule Ceclor Active [place] (Porsche Rubio MD [facility]) Drug allergy amoxicillin Amoxicillin Active LILIA ( Porsche Rubio MD [facility]) Drug allergy Penicillin Oral Tablet Penicillin Active LILIA (Porsche Rubio MD [facility]) Drug allergy Amoxicillin Amoxicillin Anaphylaxis Active eCW1 ([facility]) BRANDNAME CECLOR CECLOR [facility] Food allergy PEANUTS PEANUTS [facility] Drug allergy DOXYCYCLINE DOXYCYCLINE [facility] Drug allergy AMOXICILLIN AMOXICILLIN HIVES [facility] Family History Family Member Name Family Member Gender Family Member Status Date o f Status Description Data Source(s) Unknown Male Problem MEDENT ([facility]) Unknown Male Problem MEDENT [facility] at age 76 Unknown Female Problem MEDENT ([facility]) Unknown Female Problem MEDENT ([facility]) Unknown Female Problem MEDENT ([facility]) Unknown Female Problem MEDENT ([facility]) Unknown Female Problem MEDENT ([facility]) Unknown Female Problem MEDENT ([facility]) Encounters Encounter Providers Location Date Indications Data Source(s ) Outpatient Attender: JÚNIOR HODGES MD 10/28/2021 12:00: 00 AM [facility] Unknown [address] [facility] [address] 11/02/2020 12:00:00 AM EST eCW1 ([facility]) Outpatient Attender: JÚNIOR HODGES MD [id number] 12:00:00 AM EST - 10/22/2020 02:29:24 PM [facility] Outpatient Referrer: JÚNIOR HODGES MD 10/22/2020 12:00:00 AM EST Gross hematuria [facility] Gross hematuria Outpatient Attender: Bonnie [email or web address] 12:00:00 AM EST - 10/22/2020 08:42:14 AM EST [facility] Emergency Attender: Jarad Ríos MD 09/15 09:31:00 PM EST - 09/16/2020 12:21:00 AM EST DIARRHEA,COUGH,HEADACHE [facility] DIARRHEA,COUGH,HEADACHE Patient discharged. Outpatient Attender: JÚNIOR HODGES MDReferrer: Elena Goff allegra BAIN [id number] 09/14/2020 12:00:00 AM EST - 09/14/2020 08:34:01 AM EST [facility] Outpatient<td ID="encounterTypeDescripti onID0">NEW PATIENT WITH REFERRAL</td><td>Prabhakar Awan DO</td><td>Porsche Naik MD [facility]</td><td>09/10/2020</td><td>7:53AM</td><td>8:52AM</td><td><content ID="encounterDiagnosisID0-0">Dry Eye Syndrome</content>, <content ID="encounterDiagnosisID0-1">Borderline Glaucoma Open Angle with Borderline Findings Both Eyes</content>, <content ID="encounterDiagnosisID0-2">Correction Use of Other Medications</content>, <content ID="encounterDiagnosisID0-3">Sicca Syndrome with Keratoconjunctivitis</content>, <content ID="encounterDiagnosisID0-4">Vitreous Disorders Degeneration</content>, <content ID="encounterDiagnosisID0-5">Pseudophakia</content></td> Attender: PRABHAKAR Celeste MD [facility] 09/10/2020 07:53:00 AM EST - 09/10/2020 08:52:00 AM EST PseudophakiaVitreous Disorders Degenerat ionSicca Syndrome with KeratoconjunctivitisLong Term Use of Other MedicationsBorderline Glaucoma Open Angle with Borderline Findings Both EyesDry Eye Syndrome LILIA (Porsche Rubio MD [facility]) Pseudophakia Vitreous Disorders Degeneration Sicca Syndrome with Keratoconjunctivitis Correction Use of Other Medications Borderline Glaucoma Open Angle with Bord de Findings Both Eyes Dry Eye Syndrome Unknown [address] [facility] [address] 09/07/2020 12:00:00 AM EST eCW1 ([facility]) Outpatient [address] [facility] [id number] 08/31/2020 12:00:00 AM EST eCW1 ([facility]) Outpatient Attender: JAIMEE Villelaender: No Family Doctor Provided 06/25/2020 07:32:00 AM EDT SCREENING [facility] l SCREENING Unknown [address] [facility] [address] 04/22/2020 12:00:00 AM EDT eCW1 ([facility]) Outpatient Referrer: PORSCHE WATKINS MD 01/13/2020 05:05:00 AM EDT [facility] [address] [place] [phone] 01/02/2020 12:00:00 AM EDT eCW1 ([facility] [address] [place] [phone] 01/02/2020 12:00:00 AM EDT eCW1 ([facility] [address] [place] [phone] 01/02/2020 12:00:00 AM EDT eCW1 ([facility] [address] [place] [phone] 12/30/2019 12:00:00 AM EDT eCW1 ([facility] [address] [place] [phone] 12/10/2019 12:00:00 AM EST eCW1 ([facility]) Outpatient Referrer: PORSCHE WATKINS MD 12/09/2019 03:23:00 PM EST [facility] Rhe[facility] Center [address] [place] [phone] 11/27/2019 12:00:00 AM EST eCW1 ([facility] [address] [place] [phone] 11/11/2019 12:00:00 AM EST eCW1 ([facility]) Outpatient Attender: Fiordaliza BEVERLY [email or web address] 11/06/2019 12:00:00 AM EST [facility] Outpatient Referrer: PORSCHE WATKINS MD 11/05/2019 09:00:00 PM EST [facility] Imaging Emergency Attender: KAJAL DOUGLASS MDConsultant : [phone] Dhiraj Guerrero DO 10/23/2019 03:29:00 PM EST - 10/23/2019 07:23:[address] [facility] Patient discharged. Medications Medication Brand Name Start Date Product Form Dose Route Admi nistrative Instructions Pharmacy Instructions Status Indications Reaction Description Data Source(s) lidocaine (XYLOCAINE) 2 % urojet 10 mL [address]-4 02:15:00 PM EST 10 mL Urethral completed 10 mL, Urethr al, Once, Sherry 10/22/20 at 1415, For 1 dose [facility] Medication administered onsite Sulfamethoxazole 800 MG / Trimethoprim 1 60 MG Oral Tablet sulfamethoxazole- trimethoprim (BACTRIM DS) 800-160 MG per tablet 1 tablet sulfamethoxazole- trimethoprim (BACTRIM DS) 800-160 MG per tablet 1 tablet 10/22/2020 02:15:00 PM EST 1 {tbl} Oral completed 1 tabl et, Oral, Once, Sherry 10/22/20 at 1415, For 1 dose [facility] Medication administered onsite Diazepam 2 MG Oral Tablet diazePAM 2 MG Oral Tablet (V alium) diazePAM 2 MG Oral Tablet (Valium) 10/20/2020 12:00:00 AM EST 2 mg Oral ab orted Anxiety Take 1 tablet by mouth once as needed for Anxiety (take one hour prior to cystoscopy) for up to 1 dose [facility] Anxiety Hydroxychloroquine Sulfate 200 MG Oral T ablet [Plaquenil] Plaquenil 200 MG Oral Tablet Plaquenil 200 MG Oral Tablet 09/10/2020 12:00:00 AM EST 1 active hydroxychloroquine sulfate 200 MG Oral T ablet [Plaquenil] LILIA (Porsche Rubio MD [facility]) Levothyroxine Sodium 0.2 MG Oral Tablet [Synthroid] Synthroid 200 MCG Oral Tablet Synthroid 200 MCG Oral Tablet 09/10/2020 12:00:00 AM EST 1 active levothyroxine sodium 0.2 MG Oral Tablet [Synthroid] LILIA (Porsche Rubio MD [facility]) Lisinopril 5 MG Oral Tablet Lisinopril 5 MG Oral Tablet 12/2019 12:00:00 AM EST 1 active lisinopril 5 MG O ral Tablet LILIA (Porsche Rubio MD [facility]) Calcium Carbonate-Vitamin D 300-100 MG-UNIT Oral Capsu le Calcium Carbonate- Vitamin D 300-100 MG-UNIT Oral Capsule 09/10/2020 12:00:00 AM EST 1 active Calcium Carbonate-Vitamin D GREE NWAY (Porsche Rubio MD [facility]) Daily Vitamin/Iron Oral Tablet Daily Vitamin/Iron Oral Table t 09/10/2020 12:00:00 AM EST 1 active Daily Vi tamin/Iron LILIA (Porsche Rubio MD [facility]) Aspirin 81 MG Chewable Tablet Aspirin Low Dose 81 MG O ral Tablet Chewable Aspirin Low Dose 81 MG Oral Tablet Chewable 09/10/2020 12:00:00 AM EST 1 active aspirin 81 MG Chewable Table t [facility]ILIA (Porsche Rubio MD [facility]) Sertraline 50 MG Oral Tablet sertraline (ZOLOFT) 50 MG tablet sertraline (ZOLOFT) 50 MG tablet 10/24/2019 12:00:00 AM EST a borted [facility] bismuth subsalicylate 17.5 MG/ML Oral [place] spension BISMATROL 262 MG/15ML suspension BISMATROL 262 MG/15ML suspension 10/24/2019 12:00:00 AM EST aborted [facility] 1 mg 10/23/2019 12:00:00 AM EST tablet 9 TAKE ONE TABLET BY MOUTH THREE TIMES A DAY MAXIMUM DAILY DOSE = 2 TABLETS TAKE ONE TABLET BY MOUTH THREE TIMES A DAY MAXIMUM DAILY DOSE = 2 TABLETS SOLD: 10/23/2019 [facility] fluticasone (FLONASE) 50 MCG/ACT nasal spray [id number] 10/10/2019 12:00:00 AM EST aborted [facility] emollient cream 64920-890-89 10/10/2019 12:00:00 AM EST active [facility] Sodium Chloride 0.111 MEQ/ML Nasal [place] [Deep Sea] DEEP SEA NASAL SPRAY 0.65 % nasal spray DEEP SEA NASAL SPRAY 0.65 % nasal spray 09/04/2019 12:00:00 AM EST aborted [facility] Omeprazole 20 MG Delayed Release Oral Ca psule omeprazole (PRILOSEC) 20 MG capsule omeprazole (PRILOSEC) 20 MG capsule 08/30/2019 12:00:00 AM EST aborted [facility] Docusate Sodium 100 MG Oral Tablet Docusate Sodium 100 MG Tablet Docusate Sodium 100 MG Tablet aborted STOOL SOFT ENER TABS [facility] Insurance Providers Payer name Policy type / Coverage type Policy ID Covered republican ID Covered republican's relationship to brooks Policy [place] Plan Information [facility] [id number] 2 [id number] U [id number] Self [id number] Tasia [id number] SELF PAY ONLY [id number] SP [id number] FOR LIFE U [id number] Self [id number] [facility] [id number] 2 [id number] [place] O [id number] S [id number] N REGIONAL CLAIMS NAVEEN -O/P [id number] 01 [id number] ANSI-Not a Secondary Insurance [id number] ANSI-Not a Secondary Insurance [id number] ANSI-Not a Secondary Insurance [id number] ANSI-Not a Secondary Insurance [id number] ANSI-Not a Secondary Insurance [id number] ANSI-Not a Secondary Insurance [id number] ANSI-Not a Secondary Insurance [id number] ANSI-Not a Secondary Insurance [id number] [place] [employer] [id number] 2 [id number] [facility] (2018) Health Maintenance Organization (HMO) [id number] Family Dependent [id number] [facility] (2018) Health Maintenance Organization (HMO) [id number] Family Dependent [id number] ANSI-Not a Secondary Insurance [id number] ANSI-Not a Secondary Insurance [id number] ANSI-Not a Secondary Insurance [id number] ANSI-Not a Secondary Insurance [id number] HUMANA PPO [id number] [facility] [id number] ANSI-Commercial [id number] [place] (2018) Health Maintenance Organization (HMO) [id number] Family Dependent [id number] [place] [employer] [id number] HU2 [id number] [place] (2018) Health Maintenance Organization (HMO) [id number] Family Dependent [id number] [place] (2018) Health Maintenance Organization (HMO) [id number] Family Dependent [id number] [place] (2018) Health Maintenance Organization (HMO) [id number] Family Dependent [id number] [place] (2018) Health Maintenance Organization (HMO) [id number] Family Dependent [id number] [place] (2018) Health Maintenance Organization (HMO) [id number] Family Dependent [id number] Prime Medigap Part B [id number] Family Dependent [id number] [place] (2018) Health Maintenance Organization (HMO) [id number] Family Dependent [id number] [facility] [id number] HU2 [id number] [employer] Health Maintenance Organization (HMO) [id number] Self [id number] [employer] Health Maintenance Organization (HMO) [id number] Self [id number] [facility] [place] O [id number] P [id number] U [id number] Self [id number] [facility] Federal Service Commercial Family Depend [facility] [id number] [facility] [id number] SPO [id number] [employer]/ AD P [id number] P [id number] Problems, Conditions, and Diagnoses Code Display Name Description Problem Type Effective Dates Data Source(s) Z13.220 Screening for lipid disorders Screening for lipid diso rders [id number] 10/22/2020 12:00:[address] [facility] Z01.818 Pre-op evaluation Pre-op evaluation [id number] 10/22/2020 12:00:[address] 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 Open Angle with Borderline Findings Both Eyes Problem 09/10/2020 12:00:00 AM EST [facility] (Porsche Rubio MD [facility]) 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 Use of Other Medications Problem 09/10/2020 12:00:00 AM EST [facility] (Porsche chandra MD [facility]) V43.1 Pseudophakia Pseudophakia Problem 09/10/2020 12:00:00 A M EST [facility] (Porsche Rubio MD [facility]) M47.816 [id number] Lumbar spondylosis Problem 08/31/2020 12:00: 00 AM EST eCW1 ([facility]) E03.9 56564911 Hypothyroidism, unspecified type Problem 08/31/2020 12:00:00 AM EST eCW1 ([facility]) M32.9 21938439 Systemic lupus eryth ematosus, unspecified SLE type, unspecified organ involvement status Problem 12/10/2019 12:00:00 AM EST eCW1 ([facility]) M54.42 105364671 Lumbago with sciatica, left side Problem 12/10/2019 12:00:00 AM EST eCW1 ([facility]) E55.9 47584868 Vitamin D deficiency Problem 12/10/2019 12:0 0:00 AM EST eCW1 ([facility]) E66.01 [id number] Severe obesity Problem 12/10/2019 12:00: 00 AM EST eCW1 ([facility]) M32.9 10073686 Systemic lupus eryth ematosus, unspecified SLE type, unspecified organ involvement status Problem 12/10/2019 12:00:00 AM EST eCW1 ([facility]) E66.01 [id number] Severe obesity Problem 12/10/2019 12:00: 00 AM EST eCW1 ([facility]) M54.42 683905748 Lumbago with sciatica, left side Problem 12/10/2019 12:00:00 AM EST W1 ([facility]) E55.9 20157095 Vitamin D deficiency Problem 12/10/2019 12:0 0:00 AM EST [facility] ([facility]) I10 Essential hypertension Essential hypertension [id number] 11/06/2019 12:00:[address] [facility] R00.2 Palpitations Palpitations 12262609 11/06/2019 12:00:[address] [facility] Z01.818 Encounter for other preprocedural examin ation Encounter for other preprocedural examin Diagnosis 10/22/2020 07:45:[address] [facility] Z13.220 Encounter for screening for lipoid disor ders Encounter for screening for lipoid disor Diagnosis 10/22/2020 07:45:[address] [facility] I10 Essential (primary) hypertension Essential (primary) h ypertension Diagnosis 10/22/2020 07:45:[address] [facility] R31.0 Gross hematuria Gross hematuria Diagnosis 10/08/2020 09:4 8:50 AM [facility] Z7982 senior care (current) use of aspirin senior care (cu rrent) use of aspirin Diagnosis 10/23/2019 03:29:00 PM [facility] I10 Essential (primary) hypertension Essential (primary) h ypertension Diagnosis 10/23/2019 03:29:00 PM [facility] E039 Hypothyroidism, unspecified Hypothyroidism, unspecifie d Diagnosis 10/23/2019 03:29:00 PM [facility] I493 Ventricular premature depolarization Ventricular premature depolarization Diagnosis 10/23/2019 03:29:00 PM [facility] R0789 Other chest pain Other chest pain Diagnosis 10/23/2019 03 :29:00 PM [facility] Surgeries/Procedures Procedure Description Date Indications Data Source(s) ECG ROUTINE ECG W/LEAST 12 LDS W/I&R POCT AMB EKG Routine 10/22/2020 8:27 AM EST Essential hypertension 10/22/2020 01:27:00 PM [facility] Essential hype rtension [facility] Essential hypertension BASIC METABOLIC PANEL CALCIUM TOTAL BASIC METABOLIC PANEL Routine 10/13/2020 10/13/2020 12:00:[address] [facility] CT Abd/pel w/o contrast 09/15/2020 10:05:00 PM [facility] CT Thorax without contrast 09/15/2020 10:05:00 PM [facility] Escherichia coli 0157 Culture 09/15/2020 12:00:00 AM E [facility] Campylobacter Culture 09/15/2020 12:00:00 AM [facility] Salmonella/Shigella Screen 09/15/2020 12:00:00 AM [facility] Escherichia coli Shiga Toxins EIA 09/15/2020 12:00:00 AM [facility] Blood Culture 09/15/2020 12:00:00 AM [facility] Nucleic acid assay (procedure) 09/15/2020 12:00:00 AM [facility] Urine Culture 09/15/2020 12:00:00 AM [facility] Surgical / procedural history Bowel res ection 2017, Sinus Ryzrmpr1332, Gallbladder 1994, 1992, D&C 2007 Surgical / procedural history Bowel resection 2017, Sinus [id number], Gallbladder 1994, 1992, D&C 200709/10/2020 12:00:00 AM [facility] (Porsche chandra MD [facility]) Extracapsular extraction of lens (procedure) History o f extracapsular cataract extraction PCIOL OS 2013 by WE 09/10/2020 12:00:00 AM [facility] (Porsche Rubio MD [facility]) Medical Eye Exam Medical Eye Exam 09/10/2020 12:00:00 AM [facility] (Porsche Rubio MD [facility]) BLOOD COUNT COMPLETE AUTO&AUTO DIFRNTL WBC COUNT CBC AND DIFFER ENTIAL Routine 08/31/2020 08/31/2020 12:00:00 AM [facility] THYROID STIMULATING HORMONE TSH TSH Routine 08/31/2020 08/31/2020 12:00:[address] [facility] BASIC METABOLIC PANEL CALCIUM TOTAL BASIC METABOLIC PANEL Routine 08/31/2020 08/31/2020 12:00:[address] [facility] Screening mammography (procedure) 06/25/2020 07:50:00 AM EDT [facility] VENIPUNCT, ROUTINE* 12/10/2019 12:00:00 AM EST eCW1 ([facility]) Results ID Date Data Source [id number] 10/30/2020 09:27:00 AM EST [facility] Name Value Range Interpretation Code Description Data Delmy rce(s) Supporting Document(s) SARS coronavirus 2 RNA Not Detected [facility] This lab was ordered by [facility] Laboratory and reported by [facility]. ID Date Data Source [id number] 10/23/2020 12:22:[address] [facility] Name Value Range Interpretation Code Description Data Delmy rce(s) Supporting Document(s) Progress Note [facility] [id number] lbm [file] ID Date Data Source [id number] 10/23/2020 09:35:35 AM [facility] CT ABDOMEN PELVIS WITH AND WITHOUT CONTR AST [id number] RESULTInterpreted by:Hallie Amaya MDCLINICAL INDICATION: Gross hematuria.TECHNIQUE: Helical axial CT images of the abdomen and pelvis were obtained with and without intravenous contrast and displayed at 5 and 1 mm intervals. Automated dose lowering techniques and/or adjustment according to patient size were utilized for this exam. No oral contrast was given.COMPARISON: None available.FINDINGS:LUNG BASES: The lung bases are clear. There is no pleural disease. The visualized cardiac structures are grossly normal.LIVER: The liver is normal in size and attenuation. There are no focal lesions.GALLBLADDER: The patient is status post cholecystectomy.BILE DUCTS: There is no intrahepatic or extrahepatic biliary dilation.PANCREAS: Pancreas appears normal. There is no mass, ductal dilatation, or surrounding inflammation.SPLEEN: The spleen is enlarged measuring 14 cm in length.ADRENALS: Adrenals are normal in size and morphology bilaterally.URINARY SYSTEM: The kidneys are normal in size and shape. There is no evidence of hydronephrosis, renal calculus, or focal lesion.There is normal enhancement and excretion of intravenous contrast bilaterally. The calyces are normal in appearance. No filling defect or stricture is noted in the ureters.The bladder appears normal without evidence of bladder stones or filling defects. On delayed images, the bladder is partially distended and opacified with contrast, without evidence for focal wall thickening or filling defect. STOMACH AND BOWEL: The stomach, duodenum, and small bowel are normal. Status post partial colectomy. Rectal stump is noted. Large left lower quadrant parastomal hernia containing fat and colonic loops. No evidence for obstruction or inflammatory stranding. There is no evidence of bowel obstruction. There is a small amount stool throughout the colon. Appendix is normal.LYMPH NODES: There are subcentimeter periportal and atriocaval lymph nodes.REPRODUCTIVE ORGANS: The uterus appears normal. There are no adnexal masses.VESSELS: The abdominal aorta is normal in course and caliber.FREE FLUID/AIR: There is no free fluid or free air.BONES: There are multilevel degenerative changes in the spine. There is severe disc space narrowing L4-5. There are degenerative changes of the bilateral sacroiliac joints. IMPRESSION:1. No urinary calculi or hydronephrosis.2. No filling defect within the collecting systems.3. Bladder is partially opacified, without filling defect or wall thickening.4. Left lower quadrant colostomy with large parastomal hernia.5. Mild splenomegaly.6. Additional findings as described above.This document has been electronically signed by Jazmin Mercedes MD on 10/23/2020 9:33 AM Name Value Range Interpretation Code Description Data Delmy e(s) Supporting Document(s) ID Date Data Source [id number] 09/15/2020 11:44:00 PM [facility] [address] [place] [address] [phone] NAME SEX PT STATUS ACCOUNT NUMBER DARCI CHAPMAN [facility] ER [id number] ORDERING PHYSICIAN LOCATION MEDICAL RECORD NO. Jarad Ríos MD ER [id number] ATTENDING PHYSICIAN DATE OF DATE OF EXAM/TIME [facility] 1970 09/15/202204 TYPE / EXAM CT Thorax without contrast REASON FOR EXAM Lupus diarrhea Hx divertic sepsis colostom Clinical History/Indication for Exam: Lupus diarrhea Hx divertic sepsis colostomy CT CHEST WITHOUT INTRAVENOUS CONTRAST INDICATION: Lupus diarrhea Hx divertic sepsis colostomy TECHNIQUE: Axial computed tomography images of the chest without intravenous contrast. Sagittal and coronal reformatted images were created and reviewed. This CT exam was performed using one or more of the following dose reduction techniques: automated exposure control, adjustment of the mA and/or kV according to patient size, and/or use of iterative reconstruction technique. COMPARIS ON: No relevant prior studies available. FINDINGS: Lungs: Unremarkable. No mass. No consolidation. Pleural space: Unremarkable. No pneumothorax. No significant effusion. Heart: Unremarkable. No cardiomegaly. No significant pericardial effusion. Bones/joints: Unremarkable. No acute fracture. No dislocation. Soft tissues: Unremarkable. Vasculature: Unremarkable. No thoracic aortic aneurysm. Lymph nodes: Unremarkable. No enlarged lymph nodes. 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 The patient is status post yoon cystectomy. IMPRESSION: No consolidation. 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 Automatic exposure control was used as a dose lowering technique. REPORT SIGNATURE ON FILE 09/15/2020 (23:44 Eastern Time ) Signed by: Yared Parikh M.D. Reported By Yared Parikh MD on 09/15/202343 Signed By Yared Parikh MD on 09/15/202343 Date Time CC: [facility]; Yared Parikh MD Techn: MUKUL Trans Dt/Tm: Trans by: DT Prt Dt/Tm: 4769-2125: Total DLP = 1000.00 mGy-cm 5219-3006: Total Radiation Dose = 13.0000 mSv Lifetime Dose: 26.1850 mSv Name Value Range Interpretation Code Description Data Delmy rce(s) Supporting Document(s) ID Date Data Source [id number] 09/15/2020 11:40:00 PM [facility] [address] [facility] [address] [place] [id number] [phone] NAME SEX PT STATUS ACCOUNT NUMBER DARCI CHAPMAN [facility] ER [id number] ORDERING PHYSICIAN LOCATION MEDICAL RECORD NO. Jarad Ríos MD ER [id number] ATTENDING PHYSICIAN DATE OF DATE OF EXAM/TIME [facility] 1970 09/15/202204 TYPE / EXAM CT Abd/pel w/o contrast REASON FOR EXAM cough chills morbid obesity Clinical History/Indication for Exam: cough chills morbid obesity CT ABDOMEN AND PELVIS WITHOUT INTRAVENOUS CONTRAST INDICATION: cough chills morbid obesity TECHNIQUE: Axial computed tomography images of the abdomen and pelvis without intravenous contrast. Sagittal and coronal reformatted images were created and reviewed. This CT exam was performed using one or more of the following dose reduction techniques: automated exposure control, adjustment of the mA and/or kV according to patient size, and/or use of iterative reconstruction technique. COMPARISON: August 04, 2018 FINDINGS: Lung bases: The visualized lung bases are clear. ABDOMEN: Liver: Unremarkable. Gallbladder and bile ducts: Status post cholecystectomy. No ductal dilation. Pancreas: Unremarkable. No ductal dilation. Spleen: Unremarkable. No splenomegaly. Adrenals: Unremarkable. No mass. Kidneys and ureters: No hydronephrosis, or ureteral stone. Stomach and bowel: Interval partial distal colectomy with left abdominal colostomy are noted. 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 This measures 13 cm. No obstruction. PELVIS: Appendix: See above. Bladder: Unremarkable. No stones. Reproductive: Unremarkable as visualized. ABDOMEN and PELVIS: Intraperitoneal space: Unremarkable. No free air. No significant fluid collection. Bones/joints: No acute fracture. No dislocation. Soft tissues: See above. Vasculature: Unremarkable. No abdominal aortic aneurysm. Lymph nodes: Unremarkable. No enlarged lymph nodes. IMPRESSION: 1. Interval partial distal colectomy with left abdominal colostomy are noted. 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 This measures 13 cm. 2. Status post cholecystectomy. 3. The visualized lung bases are clear. 4. No hydronephrosis, or ureteral stone. Automatic exposure control was used as a dose lowering technique. REPORT SIGNATURE ON FILE 09/15/2020 (23:40 Eastern Time ) Signed by: Gabriele Quiroz M.D. Reported By Gabriele Quiroz MD on 09/15/202339 Signed By Gabriele Quiroz MD on 09/15/202339 Date Time CC: [facility]; Gabriele Quiroz MD Techn: YAULU Trans Dt/Tm: Trans by: DT Prt Dt/Tm: : Total DLP = 879.00 mGy-cm : Total Radiation Dose = 13.1850 mSv Lifetime Dose: 26.1850 mSv Name Value Range Interpretation Code Description Data Delmy rce(s) Supporting Document(s) ID Date Data Source [id number] 09/15/2020 11:01:00 PM [facility] Special Instructions: Lab may order repe at test if initial test elevatedPhysician If elevated, reflex second test in 4-6 hrs Reason for ordering culture: Abnormal fi ndings UA@09/15/20 2312: UA W/ MICRO added. RFLXG = UMIC CIF.Method of Collection:: Voided @09/15/20 2348: Urine culture added. RFL XG = CULT.ADD.25,000 CFU/MLStaph spp, Strep spp, Corynebacterium sppProbable contaminants no senst done Reason for ordering culture: Abnormal fi ndings UA@09/15/20 2312: UA W/ MICRO added. RFLXG = UMIC CIF.Method of Collection:: Voided Name Value Range Interpretation Code Description Data Delmy rce(s) Supporting Document(s) Leukocytes [#/volume] in Blood by Automated count 7.2 10*3/uL 4.45-10 .71 N [facility] Erythrocytes [#/volume] in Blood by Automated count 4.77 10*6/uL 4.20 -5.40 N [facility] Hemoglobin [Moles/volume] in Blood 13.7 g/dL 10.7-15.4 [facility] Hematocrit [Volume Fraction] of Blood by Automated count 42.8 % 3 7-47 N [facility] Erythrocyte mean corpuscular volume [Ent itic volume] in Cord blood by Automated count 89.7 fL 80-96 N [facility] ital Erythrocyte mean corpuscular hemoglobin [Entitic mass] by Automated count 28.7 pg 27-31 N [facility] l Erythrocyte mean corpuscular hemoglobin concentration [Mass/volume] in Cord blood 32.0 g/dL 33-37 Below low normal [facility] Erythrocyte distribution width [Entitic volume] by Automated count 13 % 11-15 N [facility] Platelets [#/volume] in Blood by Automated count 278 10*3/uL 130-472 N [facility] Platelet mean volume [Entitic volume] in Blood 10.6 fL 9.1-13.1 N [facility] Neutrophils/100 leukocytes in Blood by Automated count 57.5 % 41- 77 N [facility] Neutrophils [#/volume] in Blood by Automated count 4.1 U 1.7-7.6 N [facility] Lymphocytes/100 leukocytes in Blood by Automated count 33.9 % 14- 46 N [facility] Lymphocytes [#/volume] in Blood by Automated count 2.4 U 0.6-4.6 N [facility] Monocytes/100 leukocytes in Blood by Automated count 6.4 % 4-12 N [facility] Monocytes [#/volume] in Blood by Automated count 0.5 U 0.2-1.2 N [facility] Eosinophils/100 leukocytes in Blood by Automated count 1.3 % 0-7 N [facility] Eosinophils [#/volume] in Blood by Automated count 0.1 U 0.0-0.5 N [facility] Basophils/100 leukocytes in Blood by Automated count 0.6 % 0.4-1 .3 N [facility] Basophils [#/volume] in Blood by Automated count 0.0 U 0.0-0.2 N [facility] NUCLEATED RED BLOOD CELL 0 % [facility] NUCLEATED RED BLOOD CELL# [address] [facility] Immature granulocytes [Presence] in Blood by Automated count 0-2 N [facility] Immature granulocytes [#/volume] in Blood by Automated count 0.0 U 0-0.1 N [facility] Manual Differential panel - Blood NO [facility] ID Date Data Source [id number] 09/15/2020 11:20:00 PM EST [facility] Special Instructions: Lab may order repe at test if initial test elevatedPhysician If elevated, reflex second test in 4-6 hrs Reason for ordering culture: Abnormal fi ndings UA@09/15/20 2312: UA W/ MICRO added. RFLXG = UMIC CIF.Method of Collection:: Voided @09/15/20 2348: Urine culture added. RFL XG = CULT.ADD.25,000 CFU/MLStaph spp, Strep spp, Corynebacterium sppProbable contaminants no senst done Reason for ordering culture: Abnormal fi ndings UA@09/15/20 2312: UA W/ MICRO added. RFLXG = UMIC CIF.Method of Collection:: Voided Name Value Range Interpretation Code Description Data Delmy rce(s) Supporting Document(s) Prothrombin Time (Patient) 10.6 s 9.6-12.3 [facility] INR 1.0 0.9-1.1 [facility] THE INR IS OPERATIONALLY DEFINED FOR ELVA SH PLASMA FROMPATIENTS STABILIZED ON ORAL ANTICOAGULANTS.ROUTINE ANTICOAGULANT THERAPY 2.0-3.0RECURRENT SYSTEMIC EMBOLISM/HEART VALVE REPLACEMENT 2.5-3.5 aPTT.lupus sensitive (LA screen) 32.2 s 22.7-31.6 Above high nor [facility] ID Date Data Source [id number] 09/15/2020 11:30:00 PM [facility] Special Instructions: Lab may order repe at test if initial test elevatedPhysician If elevated, reflex second test in 4-6 hrs Reason for ordering culture: Abnormal fi ndings UA@09/15/20 2312: UA W/ MICRO added. RFLXG = UMIC CIF.Method of Collection:: Voided @09/15/20 2348: Urine culture added. RFL XG = CULT.ADD.25,000 CFU/MLStaph spp, Strep spp, Corynebacterium sppProbable contaminants no senst done Reason for ordering culture: Abnormal fi ndings UA@09/15/20 2312: UA W/ MICRO added. RFLXG = UMIC CIF.Method of Collection:: Voided Name Value Range Interpretation Code Description Data Delmy rce(s) Supporting Document(s) Urea nitrogen [Mass/volume] in Serum or Plasma 15 mg/dL 9-23 [facility] Sodium [Moles/volume] in Serum or Plasma 141 mmol/L 132-146 [facility] Potassium [Moles/volume] in Serum or Plasma 3.9 mmol/L 3.5-5.5 [facility] Chloride [Moles/volume] in Serum or Plasma 109 mmol/L 99-109 [facility] Carbon dioxide, total [Moles/volume] in Serum or Plasma 29 mmol/L 20 -31 [facility] Anion gap in Serum or Plasma 7 mmol/L 8-16 Below low normal [facility] Glucose [Mass/volume] in Serum or Plasma 114 mg/dL 74-106 Above high normal [facility] Creatinine 1.0 mg/dL 0.5-1.1 [facility] Glomerular filtration rate/1.73 sq M.pre dicted [Volume Rate/Area] in Serum or Plasma 59 ml/min ABOVE 60 [facility] ital Alanine aminotransferase [Enzymatic acti vity/volume] in Serum or Plasma by With P-5'-P 26 U/L 10-49 N [facility] ital Aspartate aminotransferase [Enzymatic ac tivity/volume] in Serum or Plasma by With P-5'-P 16 U/L 0-33 N [facility] pital Alkaline phosphatase [Enzymatic activity/volume] in Serum or Plasma 82 U/L 45-129 [facility] Calcium [Mass/volume] in Serum or Plasma 8.4 mg/dL 8.5-10.1 Below low normal [facility] Bilirubin.total [Mass/volume] in Serum or Plasma 0.8 mg/dL 0.3-1.2 [facility] Albumin [Mass/volume] in Serum or Plasma by Bromocresol purple (BCP) dye binding method 3.6 g/dL 3.2-4.8 [facility] ital Protein [Mass/volume] in Serum or Plasma 8.1 g/dL 5.7-8.2 [facility] ID Date Data Source [id number] 09/15/2020 11:25:00 PM EST [facility] Special Instructions: Lab may order repe at test if initial test elevatedPhysician If elevated, reflex second test in 4-6 hrs Reason for ordering culture: Abnormal fi ndings UA@09/15/20 2312: UA W/ MICRO added. RFLXG = UMIC CIF.Method of Collection:: Voided @09/15/20 2348: Urine culture added. RFL XG = CULT.ADD.25,000 CFU/MLStaph spp, Strep spp, Corynebacterium sppProbable contaminants no senst done Reason for ordering culture: Abnormal fi ndings UA@09/15/20 2312: UA W/ MICRO added. RFLXG = UMIC CIF.Method of Collection:: Voided Name Value Range Interpretation Code Description Data Delmy rce(s) Supporting Document(s) Lactic w Rfx (if elevated) 1.1 mmol/L 0.5-2.2 N [facility] ID Date Data Source [id number] 09/20/2020 10:46:00 PM [facility] Special Instructions: Lab may order repe at test if initial test elevatedPhysician If elevated, reflex second test in 4-6 hrs Reason for ordering culture: Abnormal fi ndings UA@09/15/20 2312: UA W/ MICRO added. RFLXG = UMIC CIF.Method of Collection:: Voided @09/15/208: Urine culture added. RFL XG = CULT.ADD.25,000 CFU/MLStaph spp, Strep spp, Corynebacterium sppProbable contaminants no senst done Reason for ordering culture: Abnormal fi ndings UA@09/15/20 2312: UA W/ MICRO added. RFLXG = UMIC CIF.Method of Collection:: Voided Name Value Range Interpretation Code Description Data [facility] rce(s) Supporting Document(s) Bacteria identified in Blood by Culture [facility] NO GROWTH AFTER 5 DAYS ID Date Data Source [id number] 09/15/2020 11:30:00 PM [facility] Special Instructions: Lab may order repe at test if initial test elevatedPhysician If elevated, reflex second test in 4-6 hrs Reason for ordering culture: Abnormal fi ndings UA@09/15/20 2312: UA W/ MICRO added. RFLXG = UMIC CIF.Method of Collection:: Voided @09/15/20 2348: Urine culture added. RFL XG = CULT.ADD.25,000 CFU/MLStaph spp, Strep spp, Corynebacterium sppProbable contaminants no senst done Reason for ordering culture: Abnormal fi ndings UA@09/15/20 2312: UA W/ MICRO added. RFLXG = UMIC CIF.Method of Collection:: Voided Name Value Range Interpretation Code Description Data Delmy rce(s) Supporting Document(s) C reactive protein [Mass/volume] in Serum or Plasma 11.1 mg/L 0.0-5.0 Above high normal [facility] ID Date Data Source [id number] 09/15/2020 11:30:00 PM [facility] Special Instructions: Lab may order repe at test if initial test elevatedPhysician If elevated, reflex second test in 4-6 hrs Reason for ordering culture: Abnormal fi ndings UA@09/15/20 2312: UA W/ MICRO added. RFLXG = UMIC CIF.Method of Collection:: Voided @09/15/20 2348: Urine culture added. RFL XG = CULT.ADD.25,000 CFU/MLStaph spp, Strep spp, Corynebacterium sppProbable contaminants no senst done Reason for ordering culture: Abnormal fi ndings UA@09/15/20 2312: UA W/ MICRO added. RFLXG = UMIC CIF.Method of Collection:: Voided Name Value Range Interpretation Code Description Data [facility] rce(s) Supporting Document(s) Troponin I.cardiac [Mass/volume] in Serum or Plasma Less Than 0.015 0.00-0.09 N [facility] Less than 0.09 NG/ML Negative0.10 - 0.77 NG/ML High Risk0.78 NG/ML or Greater PositiveThe WHO defined the cutoff (definition for diagnosis of [place])for this method as 0.78 ng/ml. ID Date Data Source [id number] 09/15/2020 11:30:00 PM [facility] Special Instructions: Lab may order repe at test if initial test elevatedPhysician If elevated, reflex second test in 4-6 hrs Reason for ordering culture: Abnormal fi ndings UA@09/15/20 2312: UA W/ MICRO added. RFLXG = UMIC CIF.Method of Collection:: Voided @09/15/20 2348: Urine culture added. RFL XG = CULT.ADD.25,000 CFU/MLStaph spp, Strep spp, Corynebacterium sppProbable contaminants no senst done Reason for ordering culture: Abnormal fi ndings UA@09/15/20 2312: UA W/ MICRO added. RFLXG = UMIC CIF.Method of Collection:: Voided Name Value Range Interpretation Code Description Data Delmy rce(s) Supporting Document(s) Natriuretic peptide.B prohormone N-Terminal [Mass/volu me] in Serum or Plasma 269.00 pg/mL 0.00-175 Above high normal [facility] spital ID Date Data Source [id number] 09/15/2020 11:48:00 PM EST [facility] Special Instructions: Lab may order repe at test if initial test elevatedPhysician If elevated, reflex second test in 4-6 hrs Reason for ordering culture: Abnormal fi ndings UA@09/15/20 2312: UA W/ MICRO added. RFLXG = UMIC CIF.Method of Collection:: Voided @09/15/20 2348: Urine culture added. RFL XG = CULT.ADD.25,000 CFU/MLStaph spp, Strep spp, Corynebacterium sppProbable contaminants no senst done Reason for ordering culture: Abnormal fi ndings UA@09/15/20 2312: UA W/ MICRO added. RFLXG = UMIC CIF.Method of Collection:: Voided Name Value Range Interpretation Code Description Data Delmy rce(s) Supporting Document(s) Color of Urine [facility] Appearance of Urine CLEAR [facility] pH of Urine by Test strip 6.5 5-8 [facility] Specific gravity of Urine by Refractometry 1.010 1.005-1.030 [facility] Leukocyte esterase [Presence] in Urine by Test strip NEGAT KAYDEN [facility] Nitrite [Presence] in Urine by Test strip NEGATIVE [facility] Protein [Presence] in Urine by Test strip NEGATIVE [facility] Glucose [Mass/volume] in Urine by Automated test strip NEGATIVE NEG ATIVE [facility] Ketones [Presence] in Urine by Test strip NEGATIVE [facility] Urobilinogen [Presence] in Urine 0.2-1 EU/dl [facility] Bilirubin.total [Presence] in Urine by Automated test strip NEGATIVE [facility] Erythrocytes [#/volume] in Urine by Test strip MODERATE N EGATIVE Above high normal [facility] @DO MICRO!!!!A Culture has been added to this specimen per established criteria URINE MICROSCOPIC? (CIF) Microscopic Added [facility] ID Date Data Source [id number] 09/21/2020 02:16:00 PM [facility] Micro Number: [id number] Test Status: Sylwia l Specimen Source: STOOL Specimen Quality: Adequate Shiga Toxin: Not Detected Reference Range: Not Detected Micro Number: [id number] Test Status: Sylwia l Specimen Source: STOOL Specimen Quality: Adequate Result: No Salmonella or Shigella isolated Micro Number: [id number] Test Status: Sylwia l Specimen Source: STOOL Specimen Quality: Adequate Result: No enteric Campylobacter isolated PERFORMING SITE:[employer] [address] LaboratoryDirector: CHARLOTTE RENNER MD, CLIA: [id number] Name Value Range Interpretation Code Description Data Delmy rce(s) Supporting Document(s) ID Date Data Source [id number] 09/21/2020 02:16:00 PM [facility] Micro Number: [id number] Test Status: Sylwia l Specimen Source: STOOL Specimen Quality: Adequate Shiga Toxin: Not Detected Reference Range: Not Detected Micro Number: [id number] Test Status: Sylwia l Specimen Source: STOOL Specimen Quality: Adequate Result: No Salmonella or Shigella isolated Micro Number: [id number] Test Status: Sylwia l Specimen Source: STOOL Specimen Quality: Adequate Result: No enteric Campylobacter isolated PERFORMING SITE:[place] [address] LaboratoryDirector: CHARLOTTE RENNER MD, CLIA: [id number] Name Value Range Interpretation Code Description Data Delmy rce(s) Supporting Document(s) ID Date Data Source [id number] 09/21/2020 02:16:00 PM [facility] Micro Number: [id number] Test Status: Sylwia l Specimen Source: STOOL Specimen Quality: Adequate Shiga Toxin: Not Detected Reference Range: Not Detected Micro Number: [id number] Test Status: Sylwia l Specimen Source: STOOL Specimen Quality: Adequate Result: No Salmonella or Shigella isolated Micro Number: [id number] Test Status: Sylwia l Specimen Source: STOOL Specimen Quality: Adequate Result: No enteric Campylobacter isolated PERFORMING SITE:[facility] [employer] [place] [address] LaboratoryDirector: CHARLOTTE RENNER MD, CLIA: [id number] Name Value Range Interpretation Code Description Data Delmy rce(s) Supporting Document(s) ID Date Data Source [id number] 09/15/2020 10:09:00 PM [facility] ED Physician Documentation NAME: DARCI CHAPMAN : 1970 AGE: 50 MR#: [id number] SERVICE DATE: 09/15/[address]: Jarad Ríos MD PRIMARY CARE DR: Yoko [facility] (Adult[facility]) General Chief Complaint: Respiratory Pulmonary Stated Complaint: DIARRHEA,COUGH,HEADACHE Resident LT, travel outisde home, exposure to hot tubs:: No Time Seen by Provider: 09/15/20 21:50 Source: patient Exam Limitations: clinical condition and other (obesity ) History of Present Illness Initial Comments: 50-year-old white female with 3-day history of nasal congestion clear discharge without headache or photophobia or neck pain also w ith dry cough and general malaise with nausea butno shortness of breath or abdominal pain or vomiting but with moderate diarrhea via her colostomy. Patient denies actual diffuse myalgias but does say she has had bilateral foot pain. She also denies any current chest pain or pressure. There is concerned because she has a history of lupus is on Plaquenil and hence is immunocompromised in addition to her history of diverticulitis and related sepsis with resulting [place] colostomy of approximately a year and a half duration. Also has a history of morbid obesity and hypothyroidism hypertension multiple allergies. ROS otherwise acutely noncontributory PS and EMR data is appreciated , , Timing/Duration: other Past Medical History Past Medical History: Nursing Past Medical History Has Been Reviewed Allergies/Home Meds Allergies Allergy/AdvReac Type Severity Reaction Status Date / Time amoxicillin Allergy Severe Anaphylaxis Verified 09/15/20 22:02 amoxicillin trihydrate Allergy Severe Anaphylaxis Verified 09/15/20 22:02 [From Augmentin] cefaclor [From Ceclor] Allergy Severe Anaphylaxis Verified 09/15/20 22:02 dicyclomine Allergy Severe Anaphylaxis Verified 09/15/20 22:02 Iodinated Contrast Media Allergy Severe Anaphylaxis Verified 09/15/20 22:02 [Iodinated Contrast- Oral and IV Dye] Penicillins Allergy Severe Anaphylaxis Verified 09/15/20 22:02 potassium clavulanate Allergy Severe Anaphylaxis Verified 09/15/20 22:02 [From Augmentin] naproxen AdvReac Intermediate Other, not Verified 09/15/20 22:02 listed Home Medications Medication Instructions Recorded Confirmed Last Taken Type aspirin 81 mg PO DAILY 04/23/16 11/17/18 11/16/18 History cholecalciferol (vitamin D3) 3,000 unit PO DAILY 04/23/16 11/17/18 11/16/18 History hydroxychloroquine 200 mg PO DAILY 04/23/16 11/17/18 11/16/18 History levothyroxine [Levoxyl] 200 mcg PO DAILY 04/23/16 11/17/18 11/16/18 History lisinopril 5 mg PO DAILY 04/23/16 11/17/18 11/16/18 History docusate sodium 100 mg PO DAILY 11/17/18 11/17/18 11/16/18 History ferrous sulfate [Iron] 325 mg PO DAILY 11/17/18 11/17/18 11/16/18 History Medication list updated and reviewed:: Yes Pain Assessment Pain Location: na ER plan Plan of care and ER treatment: Patient encouraged to ask questions about plan and ER treatments and Patient agrees with ER plan of care Plan: see ED Orders PMH (from Triage) Patient Medical History PMH Reviewed/Updated as Needed: Yes Female History : No Hx Drug Resistant Infections Hx MRSA: (Methicillin-resistant Staphylococcus aureus): No Hx VRE (Vancomycin-resistant enterococci): No Hx C.Diff: No Hx CRKP: No Hx Other Resistant Infection?: No Isolation: Airborne Hx Recent Travel Out of the country within 10 days (where): No Hx Fever: No Hx Fever with a rash?: No Nurse screening for coronavirus: Recent Travel outside the No country (where) Has patient experienced No coronavirus symptoms Coronavirus symptoms lower respiratory illness,Shortness of breath, experienced Nausea, vomiting or diarr Social History Does patient have suicidal/homicidal thoughts or ideation?: No Are you in a relationship with/Does anyone hit you, yell/swear a t you, steal from you?: No Substance Use Hx Alcohol Use: No Hx Substance Use: No Hx Substance Use Treatment: No Smoking Status: Never smoker Tobacco Use Hx Chewing Tobacco Use: No Vaccination History Hx/Date of Tetanus, Diphtheria Vaccination: Yes (2015) Hx/Date of Influenza Vaccination: No Hx/Date of Pneumococcal Vaccination: No PFSH Social History Does the Patient have a Healthcare Proxy: No Does Patient have a DNR?: No Does Patient have a Living Will?: No Hx Recent Travel (where): No Smoking Status: Never smoker ROS Review of Systems Constitutional: Reports weakness and malaise; Denies fever, chills and sweats Eyes: Reports redness; Denies vision change, eye discharge/drng, eye pain, conjunctiva inflammation and wears glasses ENT: Reports nasal discharge and nasal congestion; Denies mouth pain, mouth swelling, dental pain, bleeding gums, ear pain, hearing loss, tinnitis, ear discharge, nasal pain, epistaxis, throat pain, throat swelling, hoarseness, pain upon swallowing and recent head trauma Respiratory: Reports cough; Denies sputum, orthopnea, SOB w/exertion rest, SOB with excertion, SOB at rest, SOB, stridor, wheezing, hemoptysis and pleuritic pain Cardiovascular: Reports hypertension; Denies chest pain, palpitations, orthopnea, paroxysmal noc dyspnea, edema, light headedness, dyspnea on exertion, syncope, known heart murmurs, leg cramps w/walking and pain in feet/toes at night Gastrointestinal: Reports nausea and diarrhea; Denies vomiting, abdominal pain, constipation, heartburn, reflux/regurg, hematemesis, black tarry stools, melena, hematochezia, coffee grounds emesis, stomach pain relieved by food and hx of jaundice Genitourinary-Female: Denies dysuria, frequency, hematuria, retention and urgency Musculoskeletal: Reports foot pain; Denies neck pain, shoulder pain, arm pain, back pain, hand pain, leg pain, sciatica, muscle pain and joint pain Skin/Breasts: Denies rash and pruritus Neurologic: Denies weakness, numbness, headache, incoordination, change in speech, confusion, dizziness, vertigo, lightheadedness, muscle spasm, loss of consciousness, abnormal gait and paresthesias Psychiatric: Reports anxiety Endocrine: Reports Loss of appetite; Denies Excessive sweating, Intolerance to cold, Polydipsia, Polyuria and Unexplained weight loss Hematological/Lymphatic: Denies easy blee ding and easy bruising Allergic/Immunologic: Denies rash, night sweats, wheals and flare Physical Exam General Limitations: physical limitation General appearance: alert, in no apparent distress and anxious Head Head exam: Present atraumatic, normocephalic and normal inspection Eye Eye exam: Present normal apperance, PERRL and EOMI; Absent scleral icterus and conjunctival injection Pupils: Present normal accommodation ENT ENT exam: Present normal exam, normal orophraynx, mucous membranes moist, TM's normal bilaterally and normal external ear exam Neck Neck exam: Present normal inspection, full ROM and supple; Absent tenderness, meningismus, lymphadenopathy and thyromegaly Respiratory Respiratory exam: Present normal lung sounds bilaterally; Absent respiratory distress, wheezes, rales, rhonchi, stridor, chest wall tenderness and prolonged expiratory Cardiovascular Cardiovascular Exam: Present regular rate, normal rhythm, normal heart sounds and no murmur; Absent rubs, gallop, clicks, JVD, S3 and S4 GI/Abdominal GI/Abdominal exam: Present Abd soft, bowel sounds present all quadrents, soft, normal bowel sounds and other (patent LLQ colostomy wnl); Absent distended, tenderness, guarding, rebound, rigid, organomegaly and pulsatile mass Rectal Rectal exam: Present deferred Extremities Exam Extremities exam: Present Full ROM without tenderness, capillary refill brisk, full ROM, capillary refill brisk and pedal edema (tr); Absent tenderness, joint swelling and calf tenderness Back Exam Back exam: Present normal inspection; Absent tenderness, CVA tenderness (R), CVA tenderness (L), paraspinal tenderness and vertebral tenderness Neurological Exam Neurological exam: Present alert, oriented X3, CN II-XII intact and normal gait; Absent motor sensory deficit Psychiatric Psychiatric exam: Present normal affect and anxious Skin Skin exam: Present warm and dry; Absent rash and cyanosis Vital Signs Vital Signs: Vital Signs 09/15/20 21:32 Temperature 98.2 F Pulse Rate 81 Respiratory Rate 20 Blood Pressure 177/87 O2 Sat by Pulse Oximetry 97 MDM (comprehensive) Lab Data Labs: 09/15/20 22:40 09/15/20 22:40 Laboratory Results Last 24 hours 09/15/20 22:20: Urine Color Yellow, Urine Appearance Clear, Urine pH 6.5, Ur Specific [place] 1.010, Urine Protein Negative, Urine Ketones Negative, Urine Blood Moderate H, Urine Nitrate Negative, Urine Bilirubin Negative, Urine Urobilinogen 0.2 eu/dl, Ur Leukocyte Esterase Negative, Add Ur Microanalysis Microscopic added, Urine RBC 6-10 H, Ur Squamous Epith Cells Few, Urine Bacteria Small amount H, Urine Glucose Negative 09/15/20 22:40: WBC 7.2, RBC 4.77, Hgb 13.7, Hct 42.8, MCV 89.7, MCH 28.7, MCHC 32.0 L, RDW 13, Plt Count 278, MPV 10.6, Immature Gran % (Auto) 0.3, Neut % (Auto) 57.5, Lymph % (Auto) 33.9, [place] % (Auto) 6.4, Eos % (Auto) 1.3, Baso % (Auto) 0.6, Lymph # (Auto) 2.4, Abs Immat Gran (auto) 0.0, Add Manual Diff No, Absolute Neutrophils 4.1, Monocytes # 0.5, Absolute Eosinophils 0.1, Absolute Basophils 0.0 09/15/20 22:40: PT 10.6, INR 1.0, PTT (Lionel) 32.2 H 09/15/20 22:40: Sodium 141, Potassium 3.9, Chloride 109, Carbon Dioxide 29, Anion Gap 7 L, BUN 15, Creatinine 1.0, GFR Calculation 59, Glucose 114 H, Calcium 8.4 L, Total Bilirubin 0.8, AST 16, ALT 26, Alkaline Phosphatase 82, Troponin I Less than 0.015, C-Reactive Protein 11.1 H, Dbx-C-Kmbfrqdueds Pept 269.00 H, Serum Total Protein 8.1, Albumin 3.6 09/15/20 22:40: Lactic Acid 1.1 Microbiology 09/15/20 21:44 Nasopharyngeal Respiratory Panel (PCR) - Fin al No Organisms Detected EKG Data -: EKG Interpreted by Me ([address] isolated to V3 Q to III with nssts nl axis interv) EKG Data EKG comments: min change vs 2017 Radiology Data Radiology impressions: CT Thorax IMPRESSION: No consolidation. 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 Automatic exposure control was used as a dose lowering technique. REPORT SIGNATURE ON FILE 09/15/2020 (23:44 Eastern Time ) Signed by: Yared Parikh M.D. Reported By Yared Parikh MD on 09/15/20 2344 Signed By Yared Parikh MD on 09/15/[address] Abd Pelvis IMPRESSION: 1. Interval partial distal colectomy with left abdominal colostomy are noted. 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 This measures 13 cm. 2. Status post cholecystectomy. 3. The visualized lung bases are clear. 4. No hydronephrosis, or ureteral stone. Automatic exposure control was used as a dose lowering technique. REPORT SIGNATURE ON FILE 09/15/2020 (23:40 Eastern Time ) Signed by: Gabriele Quiroz M.D. Medical Decision Making Free Text/Narative:: 2350 No change vss Data appreciated Differential Diagnosis Differential Diagnosis: Febrile / viral v bact ( resp GI other ) v Rheum v other Critical Care Time Critical Care Time Critical Care Time: Yes ED Critical Care Time - [facility]: 31-74 Minutes Total Critical Care Time: 33 Critical Care Time: complex pt with fever Ddx * w/u eval dispo f/u Plan Plan Plan: per above DC data Discharge Plan Admission/Discharge Dx Primary DC Diagnosis: Viral Syndrome/ Immunocomp Host/ Ventral Hernias x 2 / Diarrhea/ Hx Lupus ED Provider: Jarad Ríos ED Status: Physician Time Seen by Provider: 09/15/20 21:50 Triaged At: 09/15/20 21:32 Condition Condition: Stable Discharge Detail Disposition: Home, Self-Care Med Rec New Prescriptions: No Action aspirin 81 MG tablet,chewable 81 mg PO DAILY RF: 0 levothyroxine [Levoxyl] 200 MCG tablet 200 mcg PO DAILY RF: 0 lisinopril 5 MG tablet 5 mg PO DAILY RF: 0 hydroxychloroquine 200 MG tablet 200 mg PO DAILY RF: 0 cholecalciferol (vitamin D3) 5,000 UNIT capsule 3,000 unit PO DAILY RF: 0 ferrous sulfate [Iron (ferrous sulfate)] 325 MG tablet 325 mg PO DAILY RF: 0 docusate sodium 100 MG capsule 100 mg PO DAILY RF: 0 Discharge Education Printouts: Acute Diarrhea (ED), Viral Syndrome (ED), Incisional Hernia (DC), Ventral Hernia (ED) Follow Up Visit/Referrals: [facility] [Primary Care Provider] - Forms Forms Work Release: Work/School/Activ/Gym Release Follow Up Care/Instructions Diet/Activity/Wound Care..: see Dx's Rx fluids tylenol see PCP Dr Morfin at [facility] in 2 d - call in am for appt (re ED Follow up) RTED if sx increase or new ssx or fever as discussed , , *Discharge Patient* Discharge Orders: Discharge Order (Routine); Ordered 09/16/20 Ordered By: Jarad Ríos Report Signers: <Electronically signed by Jarad Ríos MD> Jarad Ríos MD 09/16/20 0004 Jarad Ríos MD SIGNATURE DA Report Cosigners: D: CASEY 09/15/202208 T: CASEY 09/15/202208 CC: [facility] Name Value Range Interpretation Code Description Data Delmy rce(s) Supporting Document(s) ID Date Data Source [id number] 09/15/2020 11:07:00 PM [facility] THIS RP PANEL TESTS FOR SARS-CoV -2,(COVID-19)FilmArray Respiratory Panel is a Multiplexed NAAT-PCR testNORMAL VALUE FOR ALL 20 PATHOGENS IS "NOT DETECTED".The FilmArray RP panel detects Influenza A H1,H3 [id number] H1 viruses,Influenza B virus, Respiratory syncytialvirus, Human metapneumovirus,Parainfluenza virus 1,2,3, and4, Adenovirus,Rhino/Enterovirus,Coronavirus HKU 1, Nl63,OC43, and 229E,Bordetella pertussis, Bordetellaparapertussis, Mycoplasma pneumoniae and Chlamydiapneumoniae, SARS-CoV-2 (COVID 19).THIS TEST HAS NOT BEEN EVALUATED FOR USE WITH SPECIMENSOTHER THAN NASOPHARYNGEAL SWAB SPECIMENS.THE PERFORMANCE OF THIS TEST HAS NOT BEEN ESTABLISHED FORPATIENTS WITHOUT SIGNS AND SYMPTOMS OF RESPIRATORYINFECTION.RESULTS FROM THIS TEST MUST BE CORRELATED WITH CLINICALHIST ORY, EPIDEMIOLOGICAL DATA , AND OTHER DATA AVAILABLE TOTHE CLINICIAN EVALUATING THE PATIENT.THE PERFORMANCE OF THE FilmARRAY RP HAS NOT BEEN ESTABLISHEDIN INDIVIDUALS WHO RECEIVED INFLUENZA VACCINE. RECENTADMINISTRATION OF A NASAL INFLUENZA VACCINE MAY CAUSE AFALSE POSITIVE RESULT FOR INFLUENZA A AND/OR B.NEGATIVE RESULTS SHOULD NOT BE USED THE SOLE BASIS FORDIAGNOSIS, TREATMENT, OR OTHER MANAGEMENT DECISIONS.NEGATIVE RESULTS IN THE SETTING OF A RESPIRATORY ILLNESSMAYBE DUE TO INFECTION WITH PATHOGENS THAT ARE NOT DETECTEDBY THIS TEST OR LOWER RESPIRATORY TRACT INFECTION THAT ISNOT DETECTED BY A NASOPHARYNGEAL SWAB SPECIMEN.SARS-CoV-2 RNA Resp Ql MICHAEL+probe Name Value Range Interpretation Code Description Data Delmy rce(s) Supporting Document(s) ID Date Data Source [id number] 09/15/2020 12:00:00 AM EST [facility] Name Value Range Interpretation Code Description Data Delmy rce(s) Supporting Document(s) SARS-CoV2 Rapid PCR [facility] This lab was ordered by [facility] and reported by [facility]. ID Date Data Source [id number] 09/14/2020 09:08:[address] [facility] Name Value Range Interpretation Code Description Data Delmy rce(s) Supporting Document(s) Progress Note [facility] HXAUTu7gXjZJYtPx63/JBYlvJFLyn1MnIWjpDJv1YQsnKJItQ1ClFWY9zL3wDQT8ISwRTmEqAxVeXzS5 lbm DjDfoUDyYlETYxCxjBWrJlIJvqUngjwCVkCP1AsTD5MJDgI07cFWFiSQMxW1BjTZO9AVF+Jn3VCOQtqR LsPP1HLjdA3L9mq6yKIA5b0L2qfGVRIebf5jRmXUY7vgs3U1fODxaUsy3QBv0fB7sqHnca/RikFfxF1E 3utevca2MkzILA8b0fBwIFcaq/v7M91+acs+y/9U/X F2x8z/22Q0Q1fKNdzxX/yRaZK3C13F0cHL+axtcv/DJi+0vxvcFT4ZhzrJCeV2FNQnjYlLE2mGtkx0qe Z+A2OvhZ1zb06W0fyzQAlf26+Lmdb3cv/3LOpF3xmuAbycXc7t1GfbQqVhweECPxxVLTkGY43rPfoRph yVpRiJ8A6M8wszAV/xLKoo3sJx0Cyd3PdU9C6G1l+C lsUSEQHm+GIReNUYlmz+S+x6U/k9mpLKd1TYgqbXsWsfz8Zrszf0N1uW5hngaeEP2WEd/ISZlSi3FCPX fWbOwuOYLg39T0tLQUrhyPpB887bYkvdatn/9J6Fw5iSMhJ4gJj/esmluiokKrAK87Rbfg3fy7zKHvD5 llxMWsO1783ZeNp5g3+iqH7MFv6sQN4pfPAErvKUId +MWKlt7myy5RFYtihuiKnLjFLo1/3R9krpJR+Vthas7kF9T4wPWwRS5L+739x7r2phFbvMNCKJpC/dLi 8mdojM4rAFxxtkxk/vqSThNLwZ8p96noMk0PGstbAS6B9L0gw8JoPL2A+mQ6zyJozltSGLe6zOuRP9aG mOpow3nVIkploOUurKhduy3fjjxtP2RETFV9DZbrqN QBjhwmfBrk5dlRONEUd8vonuPY9Z/OISYdPY2BqhFZSo/jG8n4FnXeuD/9x7DWEwkF0jeev1bICoqmY2 XdebAMFncBexXNvlyvkts0+j54x34x7VZGdmO6ZYc3pAwog6BLU4xo8BtydEzeWxuo8h5U+zijWZ0kNc iH9CxqknJaRggrtxlmHBj3GA5gFrjmmvd0rForOGqS [file] C2shRw1aAU/0T3XIFTeyy457FW0wxt+4V2SAt94+HOSPITAL ADMISSIONS OFFICER ihl0N5cRlcoc0rMC0xcB6V/w8TBB4SVk+gz7xwmnKt9PXy+tZwiS6yh9eUzvlk+++jx0+zzHdMvX3qpl GHlxz7xmTVz8rsGuvJTUdQp4LH19U3pMYjo3RDsJ4a/Re4Xt13KBppSc7WJo80B/Dqbm9nsGuBfqpiyn +++SYa/Kd7Vfwp8g85qam0pW42opsmPYTlWBxs06Kl aZAr4E11rnWInFJXvH9WAe+Sv4OPH2p4vMP1b5JA0XnTvylaT+GHoak09dh7fKzCesc2hs+qnds5W6pg 23t2jHCya1VJUsGR9ji62ll25iv1rmlNHMun4Tih6URVdFTmnnCckhUKRCpD4e6srFGYa5xhhdkO7vBu AJjSEiaKqicHew2g9WOvmXYxp+28YrkGfYhWD5Zfpd fyrllhH2S2dwrymRnLgXa4jhLGav/EWmLDsNsSYwqfsu+kI8MaxUhcpjCFTfGwiIsRZ5XKCrsiPAJ2Uf aKkrbh1owvh05XAWIXIOor4um2y2jgFB2HKqmbA9aaTyqE3qKu8ZMzJs9RZ9St7kweoZY3U/+3NQ6AXU yN7rHaNQ1AGTWjKuKjwu7B4QR2t9YXeEG3RuVIPfg8 TQ11a2RfgfdbadKZL10LZUjq7Ai4jOvPwQRYANHJVoX+NKl8nJe51oRRLkQXtiFNe+Zgy6VajJz4z4V9 +cscEoGQwqB9tD1rMgP21ygR5ymZCalbQo8WqI1qWbhKRyzhWBIvzlAumbwMnJZgi98OiO6BU6T4W2ob sJM5PtCllvHnVcyMvnGdYsuOnr3af+PAWPGVd5EcLf N7eD2wIXAjVY96wClLBoQO0kMM9hgI99R+7rN/Ace/m3J1Qhd0IBm2KMkyuLyWpz4KL+JNiQNSWrZWnXj [file] 8WK8+G+tYDFNOv1roqGO7Kz3oolRqc43A94UW [file] xECiQy2VPCK2AiNVWoPvSC1DKHu= ID Date Data Source [id number] 09/14/2020 12:00:00 AM EST [facility] Name Value Range Interpretation Code Description Data Delmy rce(s) Supporting Document(s) 2019-nCoV RNA XXX MICHAEL+probe-Imp [facility] This lab was ordered by [facility] and reported by [employer] ID Date Data Source [id number] 06/30/2020 09:38:00 AM EDT [facility] [address] [place] [address] [phone] NAME SEX PT STATUS ACCOUNT NUMBER DARCI CHAPMAN REG REF [id number] ORDERING PHYSICIAN LOCATION MEDICAL RECORD NO. JAIMEE MCCOY DO MAMMO [id number] ATTENDING PHYSICIAN DATE OF DATE OF EXAM/TIME [facility],[place] 1970 06/25/20749 TYPE / EXAM 3D DIG [...] read with the assistance of Jorge, an FDA- approved computer-aided detection system for mammography. Reported By Abdi House MD on 06/30/20937 Signed By Abdi House MD on 06/30/2041 Date Time CC: Abdi House MD; [facility] Techn: PELBU Trans Dt/Tm: Trans by: DT Prt Dt/Tm: : Total DLP = 0.00 mGy-cm : Total Radiation Dose = 0.0000 mSv Lifetime Dose: 0 mSv Name Value Range Interpretation Code Description Data Delmy rce(s) Supporting Document(s) ID Date Data Source [id number] 05/08/2020 12:00:00 AM EDT [facility] Kip Zhao MD Patient Name: ALVIN CHAPMAN [facility] [address] [facility] [address]- Date of Exam: 05/08/2020#: Fax: [phone] EXAM: CT ABDOMEN & PELVIS WITHOUT&WITH CONTRASTCLINICAL INFORMATION: Abnormal uterine bleeding for two years.Low dose [address] scanning of the abdomen and pelvis wasobtained without the administration of intravenous co ntrast, with oralcontrast. The patient declined intravenous contrast administration.History of colon resection with colostomy.The visualized lung bases demonstrate no infiltrate. The liver, spleen,adrenals, pancreas and kidneys are grossly unremarkable. The patient hashad a prior cholecystectomy. There does not appear to be significantbiliary dilatation.Abdominal aorta is normal in caliber with no aneurysm. I see noadenopathy. There is no free air. There is a very small amount of freefluid in the posterior cul-de-sac. I see no bowel wall thickening.Left-sided colotomy is noted in the mid-abdomen. 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 The hernia contains primarilynon-inflamed fat but also a portion of the colon. The aperture of thehernia is 6 cm in diameter. The appendix normal. Surgical clips andsutures are seen along the superior margin of the uterus from the priorcolon surgery, and there appear to be bilateral fallopian tube clips. Nopelvic mass is seen. Uterus is grossly unremarkable. There is no evidenceof ovarian mass. The urinary bladder is mildly distended and grosslyunremarkable. There is post surgical scarring in the anterior abdominalwall. There are mild degenerative changes of the spine.IMPRESSION:Status post cholecystectomy. Status post colonic surgery with leftcolostomy noted. There is a parastomal hernia containing primarily fat,which is not inflamed as discussed above. Uterus and ovaries appeargrossly unremarkable. There is a tiny amount of free fluid in zinhkf-ge-ixe which is likely physiologic.Accredited by the [employer] in [place].Trung Laws, MARY/Gerson you for referring DARCI CHAPMAN to our office. Electronically Signed - TRUNG LAWS MD 05/08/20 16:26 Name Value Range Interpretation Code Description Data Delmy rce(s) Supporting Document(s) ID Date Data Source VITAMIN D 25-HYDROXY 12/10/2019 12:00:00 AM EST eCW1 ([facility]) Name Value Range Interpretation Code Description Data Delmy rce(s) Supporting Document(s) 32.4 30.0-100.0 TOTAL 25(OH) VITAMIN D eC W1 ([facility]) ID Date Data Source CREATININE,RANDOM URINE 12/10/2019 12:00:00 AM EST eCW1 ([facility]) Name Value Range Interpretation Code Description Data Delmy rce(s) Supporting Document(s) 65.7 CREATININE,RANDOM URINE eCW1 ( [facility]) ID Date Data Source FREE T4 & TSH PANEL 12/10/2019 12:00:00 AM EST eCW1 ([facility]) Name Value Range Interpretation Code Description Data Delmy rce(s) Supporting Document(s) 0.940 0.358-3.740 THYROID STIMULATING HORM ONE eCW1 ([facility]) 1.54 0.76-1.46 FREE T4 eCW1 ([facility]) ID Date Data Source TOTAL PROTEIN,RANDOM URINE 12/10/2019 12:00:00 AM EST eCW1 ( [facility]) Name Value Range Interpretation Code Description Data Delmy rce(s) Supporting Document(s) 8.7 0.0-12.0 TOTAL PROTEIN,RANDOM URIN E eCW1 ([facility]) ID Date Data Source ERYTHROCYTE SEDIMENTATION RATE 12/10/2019 12:00:00 AM EST eC W1 ([facility]) Name Value Range Interpretation Code Description Data Delmy rce(s) Supporting Document(s) 30 0-20 ERYTHROCYTE SEDIMENTATION RATE eCW1 ([facility]) ID Date Data Source Comprehensive Metabolic Profile (CMP) 12/10/2019 12:00:00 AM EST eCW1 ([facility]) Name Value Range Interpretation Code Description Data Delmy rce(s) Supporting Document(s) 15 7-18 BLOOD UREA NITROGEN eCW1 ([facility]) 87 70-100 GLUCOSE, FASTING eCW1 ([facility]) 0.67 0.55-1.30 CREATININE FOR GFR eCW1 ([facility]) > 60.0 >58 GLOMERULAR FILTRATION RATE eCW 1 ([facility]) 140 136-145 SODIUM LEVEL eCW1 ([facility]) 108 98-107 CHLORIDE LEVEL eCW1 ([facility]) 4.0 3.5-5.1 POTASSIUM SERUM eCW1 ([facility]) 26 21-32 CARBON DIOXIDE LEVEL eCW1 ([facility]) 79 45-117 ALKALINE PHOSPHATASE eCW1 ([facility]) 8.9 8.5-10.1 CALCIUM LEVEL eCW1 ([facility]) 24 7-37 AST/SGOT eCW1 ([facility]) 46 12-78 ALT/SGPT eCW1 ([facility]) 0.8 0.2-1.0 BILIRUBIN,TOTAL eCW1 ([facility]) 3.7 3.2-5.2 ALBUMIN eCW1 ([facility]) 7.5 6.4-8.2 TOTAL PROTEIN eCW1 ([facility]) 0.97 1.00-1.93 ALBUMIN/GLOBULIN RATIO eCW1 ([facility]) ID Date Data Source C REACTIVE PROTEIN QUANTITATIV (At [facility]) 12/10/2019 12:00 :00 AM EST eCW1 ([facility]) Name Value Range Interpretation Code Description Data Delmy rce(s) Supporting Document(s) 1.48 0.00-0.30 C REACTIVE PROTEIN QUANTI TATIV eCW1 ([facility]) ID Date Data Source CBC with Differential 12/10/2019 12:00:00 AM EST eCW1 ([facility]) Name Value Range Interpretation Code Description Data Delmy rce(s) Supporting Document(s) 7.3 4.0-10.0 WHITE BLOOD COUNT eCW1 ([facility]) 4.93 4.00-5.40 RED BLOOD COUNT eCW1 ([facility]) 14.1 12.0-15.5 HEMOGLOBIN eCW1 ([facility]) 44.0 36.0-47.0 HEMATOCRIT eCW1 ([facility]) 89.2 80.0-96.0 MEAN CORPUSCULAR VOLUME e CW1 ([facility]) 32.0 32.0-36.5 MEAN CORPUSCULAR HGB CONC eCW1 ([facility]) 216 150-450 PLATELET COUNT, AUTOMATED eCW1 ([facility]) 13.5 11.5-14.5 RED CELL DISTRIBUTION WID TH eCW1 ([facility]) 28.6 27.0-33.0 MEAN CORPUSCULAR HEMOGLOB IN eCW1 ([facility]) 0.7 0.0-3.0 EOS % eCW1 ([facility]) 59.4 36.0-66.0 NEUTROPHILS % eCW1 ([facility]) 6.6 0.0-5.0 MONO % eCW1 ([facility]) 32.4 24.0-44.0 LYMPH % eCW1 ([facility]) 2.4 1.5-5.0 LYMPH # eCW1 ([facility]) 0.5 0.0-0.8 MONO # eCW1 ([facility]) 4.3 1.5-8.5 NEUTROPHILS # eCW1 ([facility]) 0.6 0.0-1.0 BASO % eCW1 ([facility]) 0.1 0.0-0.5 EOS # eCW1 ([facility]) 0.0 0.0-0.2 BASO # eCW1 ([facility]) ID Date Data Source COMPLEMENT C4 12/10/2019 12:00:00 AM EST eCW1 ([facility]) Name Value Range Interpretation Code Description Data Delmy rce(s) Supporting Document(s) 17 10-40 COMPLEMENT C4 eCW1 ([facility]) ID Date Data Source COMPLEMENT C3 12/10/2019 12:00:00 AM EST eCW1 ([facility]) Name Value Range Interpretation Code Description Data Delmy rce(s) Supporting Document(s) 031 90-180 COMPLEMENT C3 eCW1 ([facility]) ID Date Data Source [id number] 10/24/2019 08:52:00 [place] [address] RESPIRATORY CARE REPORT ==== ---------NAME------- NUMBER SEX AGE ADMIT DISC. XRAY# F/C DEDRICK Fragoso [id number] F 49 10/23/19 10/23/19 [id number] SB1 E/R DATE OF : 1970 M/R# [id number] #: [phone] TR-07 LOCATION: EMERGENCY DEPT [facility] [address] COMPLE TE:10/24/19 03:07 VMT 16043 PHYSICIAN: EVONNE SNOWDEN CH Name Value Range Interpretation Code Description Data Delmy rce(s) Supporting Document(s) ID Date Data Source [id number] 10/24/2019 04:06:00 PM [place] [address] PHONE: [phone] FAX: [phone] Name .................. : MAREN Fragoso Acct Number.................. : [id number] ROOM. ................. : [address] Number ................... : [id number] Stay type ............. : E/R Discharge Date......... ... : 10/23/19 Admit Date ......... : 10/23/19 Admit Phys .................... : EVONNE Obrien Date of ....... : 1970 Family Phys ................... : YOLANDA HYLTON Phone .................. : [phone] Age ................................ : 49 Film# .................. .:[id number] Sex ................................. : F Unsigned transcriptions are preliminary reports and do not represent a medical or legal document CHEST 2 VIEWS 14267 COMPLETE:10/23/19 18:50 KAH 20231 Reason(s): Chest Pain CHEST X-RAY: 2-VIEWS INDICATION: Chest pain. FINDINGS: The cardiac and mediastinal silhouettes appear normal and the lungs are clear. The bones and soft tissues are normal. The upper abdomen is unremarkable. IMPRESSION: No acute disease identifiable. Electronically Reviewed and Signed By Evan Liriano M.D. , 10/24/19 16:06, [place] Transcribe Initials: LISA , Transcribe Date: 10/23/19 20:39, Dictation Date: Copy for: ISI BROWN via fax Copy for: EMERGENCY DEPT via modem Copy for: 710 MED REC DISCHARGED Page 1 of 1 Name Value Range Interpretation Code Description Data Delmy rce(s) Supporting Document(s) ID Date Data Source [id number] 10/23/2019 03:29:[address] [facility] [address] [facility] Emergency Department [address] [place] [address] Phone #: ext- [phone] 10/23/2019 14:54 Patient: DARCI CHAPMAN Sex: F : 1970 Age: 49yWEIGHT:145.1 kg (S) HEIGHT:65 inches (S) BMI:53.3ALLERGIES: Wilian Coyne COMPLAINT: discomfortDIAGNOSIS: Atypical chest pain, Ventricular premature complexLAB ORDERSOrder Description Priority Entered Acknowledged InitialedCBC w Diff STAT 16:25 10/23/2019 16:26 Evangelina Francisco RN P.A.-C;CMP STAT 16:10/23/2019 16:26 Evangelina Francisco RN P.A.-C;Lipase STAT 16:25 10/23/2019 16:26 Evangelina Francisco RN P.A.-C;PT/PTT STAT 16:25 10/23/2019 16:26 Evangelina Francisco RN P.A.-C;Troponin-T STAT 16:10/23/2019 16:26 Evangelina Francisco RN P.A.-C;TSH STAT 16:25 10/23/2019 16:26 Evangelina Francisco RN P.A.-C;D-Dimer STAT 16:25 10/23/2019 16:26 Evangelina Brendan Francisco RN P.A.-C;Urinalysis (Clean STAT 16:25 10/23/2019 16:26 DorisCatch) Brendan Francisco RN P.A.-C;HCG Serum Qual STAT 16:25 10/23/2019 16:26 Evangelina Brendan Francisco RN P.A.-C;Influenza Nasal A B STAT 16:28 10/23/2019 16:52 Isabel Arreaga RN P.A.-C; [address] [facility] Emergency Department [address] [place] [address] Phone #: ext- [phone] 10/23/2019 14:54 Patient: DARCI CHAPMAN Sex: F : 1970 Age: 49yDIAGNOSTIC STUDY ORDERSOrder Description Priority Entered Acknowledged InitialedChest 2 View STAT 17:40 10/23/2019 17:58 Basilia(Oxygen?(No)) Brendan Snowden selenium plant operator, Anurag CLARK P.A.-C; Tech1 Reason for Study: Chest PainMEDICATION/IV/DRIP/FLUID ORDERSOrder Description Priority Entered Acknowledged InitialedIV NS : Bolus 500 16:25 10/23/2019 16:51 Davian Arreaga, then 125 mL/hr Brendan Snowden RN P.A.-C;Ativan IVP 0.5 mg 17:40 10/23/2019 18:43 Evangelina(HIGH ALERT Brendan Francisco RNMEDICATION) P.A.-C;GENERAL ORDERSOrder Description Priority Entered Acknowledged InitialedCardiac Monitor 16:25 10/23/2019 16:26 Evangelina(continuous) Brendan Francisco RN P.A.-C;EKG 16:25 10/23/2019 16:26 Evangelina Brendan Francisco RN P.A.-C;NPO 16:10/23/2019 16:26 Evangelina Francisco RN P.A.-C;Obtain Old EKG 16:10/23/2019 16:26 Evangelina Francisco RN P.A.-C;Obtain Old Records 16:10/23/2019 16:26 Evangelina Francisco RN P.A.-C;Pulse oximeter 16:10/23/2019 16:26 Evangelina(Continuous) Brendan Francisco RN P.A.-C;Saline Lock 16:10/23/2019 16:51 Isabel Arreaga RN P.A.-C;Vitals 16:10/23/2019 16:26 Evangelina Francisco RN P.A.-C;Blood Pressure 16:10/23/2019 16:26 Evangelina [address] [facility] Emergency Department [address] [place] [address] Phone #: ext- [phone] 10/23/2019 14:54 Patient: DARCI CHAPMAN Sex: F : 1970 Age: 49yMonitor Brendan Francisco RN P.A.-C;[Electronically signed by Brendan Snowden P.A.-C (02:10/24/2019)][Electronically signed by Brielle Keyes R.N. (12:10/24/2019)][Electronically locked by Brielle Keyes R.N. (:10/24/2019)] Name Value Range Interpretation Code Description Data Delmy rce(s) Supporting Document(s) ID Date Data Source [id number] 10/23/2019 03:29:[address] [facility] 1 Medication Reconciliation Report [facility] Emergency Department [address] [place] [address] Phone #: are- [phone] 10/23/2019 14:54 [id number] Sex: F : 1970 Age: 49yWeight: 145.1 kgHeight/Length: 65 in.BMI: 53.3ALLERGIES: Rufus Coyne patient's Home Medications are listed below:THE FOLLOWING MEDICATIONS NEED TO BE RECONCILED: Aspirin Oral (81 mg) 1 tablet, daily Levothyroxine Sodium Oral Lisinopril Oral Plaquenil OralThe source(s) of the original Home Medication information:Not obtained.The following Medications were given to the patient in the Emergency Department:IV NS IV Fluids bolus 500 mL over 20 minute(s), then 125 mL/hr, administered: 10/23/2019 4:51:00 PMAtivan [IVP] IVP 0.5 mg diluted in NS 10 mL, administered: 10/23/2019 6:10:00 PMThe following Medications were prescribed to the patient:Ativan 1 mg t ablet Take 1 tablet three times a day for 3 days -- Dispense 9 tablet. Refills: 0.Substitution permitted.Pharmacy - [id number] - [id number] ; [place] [address]. FaxNumber: . -- Brendan Snowden P.A.-C Name Value Range Interpretation Code Description Data Delmy rce(s) Supporting Document(s) ID Date Data Source [id number] 10/23/2019 03:29:[address] [facility] 1 Medication Administration Record [facility] Emergency Department [address] [place] [address] Phone #: ext- [phone] 10/23/2019 14:54 Patient: DARCI CHAPMAN Sex: F : 1970 Age: 49yWeight: 145.1 kgHeight/Length: 65 inBMI: 53.3ALLERGIES: Ceclor, Penicillins Date/Time Medication Administered Medication OrderedStart IV NS IV NS : Bolus 500 mL, then 93582:51 10/23/2019 Dose: IV Fluids mL/hrIsabel Arreaga RN Rate: 125 mL/hr over 4 hour(s)---- Bolus: 500 mL over 20 minute(s)Stop Dispensed: 1000 mL bag19:13 10/23/2019 Site: #1 left Inder Azul R.N.Given ATIVAN [IVP] (LORAZEPAM) Ativan IVP 0.5 mg (HIGH ALERT18:10 10/23/2019 Dose: 0.5 mg IVP MEDICATION)Evangelina Francisco RN In: NS 10 mL Site: #1 left AC Name Value Range Interpretation Code Description Data Delmy rce(s) Supporting Document(s) ID Date Data Source [id number] 10/23/2019 03:29:[address] [facility] [address] [facility] Emergency Department [address] [place] [address] Phone #: ext- [phone] 10/23/2019 14:54 Patient: DARCI CHAPMAN Sex: F : 1970 Age: 49yAtypical chest painOccasional PVC's.INSTRUCTIONSNo dietary restrictions. Avoid stimulants (such as cigarettes, coffee, cold medicines, sinus medicines,street drugs). Do not smoke.(Recommend to utilize OTC Motrin and Tylenol to control inflammation and pain management.Recommend to follow the instructions on the bottle and not to exceed.).Warnings: Further evaluation is necessary.SEDATIVE MEDICATION: You were given sedative medication during your visit. Do not drive or operatedangerous machinery.CONTROLLED SUBSTANCE WARNINGS.GENERAL WARNINGS: Return or contact your physician immediately if your condition worsens orchanges unexpectedly, if not improving as expected, or if other problems arise.Prescription monitor program consulted by me due to This report was requested by: Brendan Garcia #: [id number]. Prescription does not exceed state maximum supply of medi cationsPrescription Medications:Ativan 1 mg tablet Take 1 tablet three times a day for 3 days -- Dispense 9 tablet. Refills: 0.Substitution permitted.Pharmacy - [facility] - [id number] ; [place] [address]. Phone: FaxNumber: .Follow-up:Return to the emergency department as needed. Follow up with your healthcare provider in about threedays if not better. Call for an appointment. Follow up with a front office assistant as scheduled.Understanding of the discharge instructions verbalized by patient.Follow-up with: Shabbir Marin MD, Gastroenterology, [id number], [facility],[address] [place] [address], [address], [place], [facility] Follow up. Call for the next available appointment. Reason for referral: evaluation and treatment. [address] [facility] Emergency Department [address] [place] [address] Phone #: ext- [phone] 10/23/2019 14:54 Patient: DARCI CHAPMAN Sex: F : 1970 Age: 49y ADDITIONAL INFORMATIONChest Pain with Uncertain Cause (Child)Chest pain in children can have many causes. Most are not serious. Sometimes chest pain is causedby stress or anxiety. Your child may have chest pain from heartburn (stomach acid reflux), or lots ofcoughing. Or the pain may be from inflammation of the cartilage and joints connecting the ribs to thebreastbone (sternum). A child may have a hard time describing the pain, so it can be hard for you tofigure out the cause. In many cases, the cause of chest pain is not known. Less than 2% of chestpain in children and teens is due to a real heart problem or cause.Home careThe healthcare provider may prescribe medicines for pain or other symptoms, such as a cough.Follow all instructions for giving these medicines to your child. Don't give your child any medicinesthat the provider has not approved.General care Allow your child to do normal activities, as advised by your healthcare provider and as tolerated by your child. If an activity makes the pain worse, have your child rest. Position your child so that he or she is as comfortable as possible when having chest pain. Change his or her position as needed. A cold pack may help if the healthcare provider thinks the pain is from an injury or inflammation. Most young children will not use a cold pack because they don't like the feel of the cold. Don't force your child to use one. Apply a covered heating pad set on warm--not hot--or a warm cloth to the chest for 20 minutes, 4 times a day. If the pain seems worse after several hours, stop using heat. Ask your provider about stretches for the chest muscles that may help ease pain. If the provider thinks the pain is from heartburn, watch what your child eats. Limit junk food. Don't give your child a meal just before bedtime, and avoid large meals. Talk with your provider about the causes of your child's pain. The provider may advise other ways to ease it. Acetaminophen or ibuprofen can be used to treat sore or strained chest muscles. Do not give your child aspirin unless told to do so by the healthcare provider.Follow-up careFollow up with your child's healthcare provider, or as advised. [address] [facility] Emergency Department [address] [place] [address] Phone #: ext- [phone] 10/23/2019 14:54 Patient: DARCI CHAPMAN Sex: F : 1970 Age: 49yCall 911Call 911 if your child: Has severe shortness of breath or is turning blue (cyanosis) Faints or loses consciousness Has an abnormal heartbeatWhen to seek medical adviceCall your child's healthcare provider right away if any of these occur: Your child has a fever Symptoms don't go away with medicine or other treatment Your child's symptoms worsen Trouble breathing Fast breathing Acting very ill Too weak to stand The pain is severe and lasts for a prolonged period Chest pain improves, but then worsens again 1999- 2017 [employer]. [address] [place], [place] [address]. All rights reserved. This information is not intended as asubstitute for professional medical care. Always follow your healthcare professional's instructions.Heart Palpitations [address] [facility] Emergency Department [address] [place] [address] Phone #: ext- [phone] 10/23/2019 14:54 Patient: DARCI CHAPMAN Sex: F : 1970 Age: 49yPalpitations are the feeling that your heart is beating hard, fast, or irregular. Some describe it as"pounding" or "skipped beats." Palpitations may occur in someone with heart disease, but can alsooccur in a healthy person.Heart-related causes: Arrhythmia (a change from the heart's normal rhythm) Heart valve disease Disease of the heart muscle Coronary artery disease High blood tuktacibPpi-yzxrl-dxhuunn causes: Certain medicines such as asthma inhalers and decongestants Some herbal supplements, energy drinks and pills, and weight loss pills Illegal stimulant drugs such as cocaine, crank, methamphetamine, PCP, bath salts, or ecstasy Caffeine, alcohol, and tobacco [address] [facility] Emergency Department [address] [place] [address] Phone #: ext- [phone] 10/23/2019 14:54 Patient: DARCI CHAPMAN Sex: Dotty : 1970 Age: 49y Medical conditions such as thyroid disease, anemia, anxiety, and panic disorderSometimes the cause can't be found.Home careFollow these home care tips: Don't use too much caffeine, alcohol, tobacco, or any stimulant drugs. Tell your doctor about any prescription or zwys-iir-ppgzctt or herbal medicines you take.Follow-up care Follow up with your doctor, or as advised.Call 911This is the fastest and safest way to get to the emergency department. The paramedics can alsobegin treatment on the way to the hospital, if needed.Don't wait until your symptoms are severe to call 911. These are reasons to call 911: Chest pain Shortness of breath Feeling lightheaded, faint, or dizzy Fainting or loss of consciousness Very irregular heartbeat Rapid heartbeat that makes you uncomfortable Slower than usual heart rate associated with symptoms Slower than usual heart rate Chest pain with weakness, dizziness, heavy sweating, nausea, or vomiting Extreme drowsiness or confusion Weakness of an arm or leg, or on 1 side of the face Difficulty with speech or visionWhen to seek medical adviceCall your healthcare provider right away if you have palpitations and any of the followin General Instructions [facility] Emergency Department [address] [place] [address] Phone #: ext- [phone] 10/23/2019 14:54 Patient: DARCI CHAPMAN Sex: F : 1970 Age: 49y Weakness Dizziness Lightheadedness Fainting [id number] [employer]. [address] [place] [address]. All rights reserved. This information is not intended as asubstitute for professional medical care. Always follow your healthcare professional's instructions.About ArrhythmiasElectrical impulses cause the normal heart to beat 60 to 100 times a minute while at rest. Theseimpulses come from a natural pacemaker deep inside the heart muscle. Each impulse causes theheart muscle to contract. This causes the blood to flow through the heart and out to the tissues andorgans of your body.An arrhythmia is a change from the normal speed or pattern of these electrical impulses. This cancause the heart to beat too fast (tachycardia); or too slow (bradycardia); or in an unsteady pattern(irregular rhythm). [address] [facility] Emergency Department [address] [place] [address] Phone #: ext- [phone] 10/23/2019 14:54 Patient: DARCI CHAPMAN Sex: F : 1970 Age: 49ySymptoms of arrhythmiasDifferent people experience arrhythmias differently. Sometimes they may not have symptoms, but justnotice a change in their pulse. Symptoms can include: Fluttering feeling in the chest Shortness of breath Chest pain or pressure Neck fullness Lightheadedness or dizziness Fainting or almost fainting Palpitations (the sense that your heart is fluttering or beating fast or hard or irregularly) Tiredness, fatigue, or weakness Cardiac arrestCauses of arrhythmiasArrhythmias are most often due to heart disease such as: Coronary artery disease Heart valve disease Enlarged heart High blood pressure Heart failureOther causes of arrhythmia include: Certain medicines (such as asthma inhalers and decongestants) Some herbal supplements Cardiac stimulant drugs (such as cocaine, amphetamine, diet pills, certain decongestant cold medicines, caffeine, and nicotine) Excessive alcohol use Anxiety and panic disorder Thyroid disease [address] [facility] Emergency Department [address] [place] [address] Phone #: ext- [phone] 10/23/2019 14:54 Patient: DARCI CHAPMAN Sex: F : 1970 Age: 49y Anemia Diabetes Sleep apnea Obesity Congenital heart disease Cardiac genetic diseasesArrhythmias can often be prevented. The cause and type of arrhythmia determines the besttreatment. Sometimes your doctor may want to monitor your heart rate over a 24-hour period orlonger. This can help identify the cause of your arrhythmia and find the best treatment. This can bedone with a Holter monitor, a portable EKG recording device attached by wires to your chest. Or youmay get an event monitor, which you can place over the skin in front of your heart to record heartrhythms. You can carry this with you as you go about your routine activities during the monitoringperiod. Implantable loop recorders may also be used to monitor the heart rhythm for up to 2 years.This miniature device is plac ed underneath the skin overlying the heart.Home careThe following guidelines will help you care for yourself at home: Avoid cardiac stimulants (such as cocaine, amphetamine, diet pills, certain decongestant cold medicines, caffeine, and nicotine). If you smoke, stop smoking. Contact your doctor or a local stop-smoking program for help. Tell your doctor about any prescription, srqo-epk-vkmxzvp, or herbal medicines you take. These may be affecting your heart rhythm.Follow-up careFollow up with your healthcare provider, or as advised. If a Holter monitor has been recommended,contact the ca rdiologist you have been referred to as soon as you can picker tender helper the device. Otheroutpatient tests may also be arranged for you at that time.Call 911This is the fastest and safest way to get to the emergency department. The paramedics can also starttreatment on the way to the hospital, if needed.Don't wait until your symptoms are severe to call 911. Other reasons to call 911 besides chest paininclude: [address] [facility] Emergency Department [address] [place] [address] Phone #: ext- [phone] 10/23/2019 14:54 Patient: DARCI CHAPMAN Sex: F : 1970 Age: 49y Chest, shoulder, arm, neck, or back pain Shortness of breath Feeling lightheaded, faint, or dizzy Unexplained fainting Rapid heart beat Slower than usual heart rate compared to your normal Very irregular heartbeat Chest pain (angina) with weakness, dizziness, heavy sweating, nausea, or vomiting Extreme drowsiness, or confusion Weakness of an arm or leg or one side of the face Difficulty with speech or visionWhen to seek medical adviceRemember, things are not always like they are on TV. Sometimes it is not so obvious. You may onlyfeel weak or just "not right." If it is not clear or if you have any doubt, call for advice. Seek help for chest pain, or it feels different from usual, even if your symptoms are mild. Don't drive yourself. Have someone else drive. If no one can drive you, call 911. If your doctor has given you medicines to take when you have symptoms, take them, but don't delay getting help while trying to find them. [id number] [employer]. [address] [place] [address]. All rights reserved. This information is not in tended as asubstitute for professional medical care. Always follow your healthcare professional's instructions. You have been given the following additional information: Chest Pain, Uncertain Cause (Child) Palpitations About Arrhythmias [address] [facility] Emergency Department [address] [place] [address] Phone #: ext- [phone] 10/23/2019 14:54 Patient: DARCI CHAPMAN Sex: F : 1970 Age: 49y(Electronically signed by Brendan Snowden P.A.-C 10/24/2019 02:08) Name Value Range Interpretation Code Description Data Delmy rce(s) Supporting Document(s) ID Date Data Source [id number] 10/23/2019 03:29:[address] [facility] 1 Clinical Report - Nurses [facility] Emergency Department [address] [place] [address] Phone #: ext- [phone] 10/23/2019 14:54 Patient: DARCI CHAPMAN Sex: F : 1970 Age: 49yTRIAGEHistorian: patient.Triage time: 15:00 10/23/2019. Acuity: LEVEL 3.Chief Complaint: (chest and back pain).Alert. No acute distress.( pt seen a [facility] yesterday, dx with pvc's, pt unable to see cardiology until next month. pt c/o back andchest pain last night and today. pt unsure if it's her anxiety or something wrong.).SEPSIS SCREEN: NEGATIVE. Negative (no infection suspected/documented). --15:05 10/23/19 StephyBrielleEmily15:00 10/23/19. BP: 155/95. MAP: 115. HR: 79. RR: 18. O2 saturation: 99%. Temp: 97.8 F. Pain levelnow: 4/10. --15:05 10/23/19 Brielle Keyes R.N.Weight: 145.1 kg stated. Height/Length: 65 inches Per Patient. BMI: 53.3. --14:59 10/23/19 Brielle Keyes R.N.MedicationsLisinopril Oral. --15:01 10/23/19 Stephy Isaura Hannah. Plaquenil Oral. --15:10/23/19, January RPuraN. Levothyroxine Sodium Oral. --15:10/23/19, JanuaryIsaura. Aspirin Oral (Tablet Chewable 81 mg) 1 tablet, daily. --15:10/23/19, January RPuraN.AllergiesPenicillins. --15:10/23/19, JanuaryIsaura.Ceclor. --15:10/23/19, January, RAngelica.PROBLEMS:Systemic Lupus Erythematosus.Hypothyroidism.Hypertension. --15:02 10/23/19, January, RPuraN.ADDITIONAL SURGERIES:Bowel resection.Cateract.Cholecystectomy.C- Section.Sinus Surgery. --15:02 10/23/19January RLesa 2 Clinical Report - Nurses [facility] Emergency Department [address] [place] [address] Phone #: ext- [phone] 10/23/2019 14:54 Patient: DARCI CHAPMAN [facility]#: [id number] Sex: F : 1970 Age: 49y History PAST MEDICAL HX: The patient is post-menopausal. SOCIAL HX: Never smoker. No alcohol use or drug use. The patient was offered HIV testing but declined. The patient has not traveled outside the [place] Infectious disease exposure: No infectious disease exposure. Patient is not a known carrier of tuberculosis, hepatitis, HIV, MRSA or VRE. Patient is not a known carrier of CRE. SELF HARM ASSESSMENT: Self harm assessment was performed. The patient answered "no" to the question(s) "Have you recently felt down, depressed, or hopeless?", "Do you have thoughts of harming or killing yourself?", "Do you have a plan for harming or killing yourself?", "Have you recently had thoughts about harming or killing others?", "Do you have any dangerous items in your possession?", "Have you noticed less interest or pleasure in doing things?", "Ar e you here because you tried to hurt yourself?" and "Have you ever tried to hurt yourself before today?". ABUSE ASSESSMENT: Abuse assessment. yes. The patient had positive responses to the question(s) "Do you feel safe in your home?". No report of abuse. NUTRITIONAL RISK ASSESSMENT: The nutritional risk assessment revealed no deficiencies. FUNCTIONAL ASSESSMENT: Functional assessment: no impairments noted. LEARNING NEEDS ASSESSMENT: The learning needs assessment revealed no barriers. FALL RISK ASSESSMENT: Fall risk assessment completed. No risk factors identified. SKIN INTEGRITY ASSESSMENT: Skin integrity risk assessment completed. No skin integrity risk identified. --15:05 10/23/19 Brielle Keyes R.N. Interventions To treatment room. --15:05 10/23/19 Brielle Keyes R.N.NURSING PROGRESS NOTESCardiac monitor, pulse oximeter and NIBP monitor placed on patient; monitor alarms on. Patient gowned.Reassurance given. Call light placed in reach. Side rails up x 2. Bed placed in lowest position. Brakesof bed on. Patient ready for evaluation- ED physician and PA notified. --15:07 10/23/19 Brielle Keyes R.N. EKG time: (16:07 10/23/2019). EKG was performed by a raciel and shown to the ED physician and PA. --16:09 10/23/19 [place] selenium plant operatorAnurag Packer ER Tech1 16:51 10/23/2019 Site #1 started via IV in the left antecubital space with an 20g angiocath; one attempt. Saline lock flushed with 5 mL saline. --16:51 10/23/19 Isabel Arreaga, KINGS 16:51 10/23/2019 Started bag #1 1000 mL IV Fluids IV NS; bolus of 500 mL over 20 minute(s) then at 125 mL/hr over 4 hour(s) via site #1 via IV pump. Allergies verified and confirmed 5 rights. IV patency 3 Clinical Report - Nurses [facility] Emergency Department [address] [place] [address] Phone #: ext- [phone] 10/23/2019 14:54 Patient: DARCI CHAPMAN Sex: F : 1970 Age: 49y established. IV site checked: no pain, redness, or swelling. IV flushed thoroughly pre- and post-medication administration. Information reviewed with patient including reason for taking this medication. Verbalizes understanding. --16:51 10/23/19 Isabel Arreaga RN 17:55 10/23/19. Patient transported to radiology by wheelchair with experimental technician. --18:05 10/23/19 Evangelina Francisco RN 18:06 10/23/19. Patient returned from radiology by wheelchair with experimental technician. --18:06 10/23/19 Evangelina Francisco RN 18:10 10/23/2019 Ativan (LORazepam) IVP 0.5 mg given diluted in NS 10mL over 2 minute(s) via site #1. Allergies verified and confirmed 5 rights. IV patency established. IV site checked: no pain, redness, or swelling. IV flushed thoroughly pre- and post- medication administration. IVP given by RN. Information reviewed with patient including reason for taking this medication, signs of allergic reaction, precautions and sedative warning. Verbalizes understanding. --18:43 10/23/19 Evangelina Francisco RN 18:45 10/23/19. Reassessment after medication administered and fluids administered. She has had no adverse reaction. ( States no pain, "still high anxiety", looking at cell phone appears relaxed, vitals signs stable). --18:45 10/23/19 Evangelina Francisco RN 19:13 10/23/2019 IV Fluids IV NS via IV site #1 Discontinued: discontinued upon discharge. Total amount infused: 750 mL. --19:23 10/23/19 Shira Azul R.N.DISPOSITION / DISCHARGE 19:14 10/23/19. BP: 123/61. HR: 77. RR: 19. O2 saturation: 100%. Temp: 97.5 F. Pain level now 0/10. --19:14 10/23/19 [place] selenium plant operatorAnurag ER Tech1 19:22 10/23/2019 Site #1 removed upon discharge. Bandage applied. --19:22 10/23/19 Shira Azul R.N. Departure time: 19:23 10/23/2019. Condition at departure: improved and stable. No learning barriers present. Reviewed medication(s). Prescription(s) sent electronically to pharmacy. Follow up contact number , Cardiology, PCP. Patient and spouse verbalized understanding. Written instructions provided in Persian. The patient was discharged by the physician shipping assistant. She was discharged home and accompanied by spouse. She left ambulatory and via private vehicle. Spouse driving. --19:23 10/23/19 Shira Azul R.N.Locked/Released at 10/24/2019 12:01 by Brielle Keyes R.N. 4 Clinical Report - Nurses [facility] Emergency Department [address] [place] [address] Phone #: ext- [phone] 10/23/2019 14:54 [id number] Sex: F : 1970 Age: 49y Name Value Range Interpretation Code Description Data Delmy rce(s) Supporting Document(s) ID Date Data Source [id number] 10/23/2019 03:29:[address] [facility] 1 Clinical Report - Physicians/Mid Levels [facility] Emergency Department [address] [place] [address] Phone #: ext- [phone] 10/23/2019 14:54 Patient: DARCI CHAPMAN Sex: F : 1970 Age: 49y Time Seen: 16:22 10/23/2019; initial patient contact, initial documentation. Arrived- By private vehicle. Historian- patient.HISTORY OF PRESENT ILLNESS Chief Complaint: CHEST DISCOMFORT. It is described as tightness and it is described as located in the left chest area. This started yesterday and is still present but is improving. The patient cannot recall the circumstances at the onset. At its maximum, severity described as mild. When seen in the E.D., severity described as mild. No nausea, vomiting, difficulty breathing or diaphoresis. No additional chest pain. (Pt sts that she as a appt with PCP yesterday and noted slgiht chest discomfort and was referred to [facility]. Pt had a extensive work up and dx'ed wtih PVCs with a f/u with cardiolgoy. Sts that she was infomred if she feels any pain to come to the ER. Unsure if its actually CP or potentially her anxiety.). Similar symptoms previously. Recent medical care: The patient was seen recently at another facility in the emergency department and office.REVIEW OF SYSTEMSNo fever, chills, pedal edema, calf pain or fainting episodes. No headache, sore throat, blurred vision,abdominal pain or black stools. No difficulty with urination, skin rash, enlarged lymph nodes, joint pain orbloody stools. The patient has had a cough.PAST HISTORYSee nurses notes. Problems: Osteum bag. HTN. Crush Injury. Throid disease. 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 Systemic Lupus Erythematosus. Hypothyroidism. Hypertension. Additional Surgeries: Bowel resection. Cateract. Cholecystectomy. . 2 Clinical Report - Physicians/Mid Levels [facility] Emergency Department [address] [place] [address] Phone #: ext- [phone] 10/23/2019 14:54 -------- Patient: DARCI CHAPMAN Sex: F : 1970 Age: 49y Sinus Surgery. Medications: Aspirin Oral (Tablet Chewable 81 mg) 1 tablet, daily. Levothyroxine Sodium Oral. Plaquenil Oral. Lisinopril Oral. Allergies: Ceclor. Penicillins.SOCIAL HISTORYNever smoker. No alcohol use or drug use.ADDITIONAL NOTESThe nursing notes have been reviewed.PHYSICAL EXAMVital Signs: 10/23/2019 15:00 BP: 155/95. MAP: 115. HR: 79. RR: 18. O2 saturation: 99%. Temp: 97.8 F.Pain level now: 01/16. Have been reviewed. Oxygen saturation normal.Appearance: Alert. Oriented X3. No acute distress.Eyes: Eyelids appear normal to inspection. Conjunctivae and sclerae appear normal to inspection.Corneas appear normal to inspection. Pupils equal, round and reactive to light. EOMs intact. Periorbitalareas appear normal to inspection. Anterior chambers clear.ENT: Normal ENT inspection. Airway intact. TM's normal. Ears normal. Nose normal. Nares normal.Pharynx normal. Uvula midline. Voice normal.Neck: Normal inspection. Neck supple.CVS: Normal heart rate and rhythm. No JVD present. Pulses normal. Capillary refill normal. Strongperipheral pulses. Heart sounds normal. Pulses: right radial 2+; left radial 2+; right dorsalis pedis 2+; leftdorsalis pedis 2+; right posterior tibial 2+; left posterior tibial 2+.Respiratory: Chest normal on inspection. No respiratory distress. Unlabored respirations. Lungs clear.Good chest movement. Breath sounds normal and equal. Chest nontender.Abdomen: Soft and nontender. Bowel sounds normal. No distention. Obese.Back: Normal external inspection. No CVA tenderness.Skin: Skin warm and dry.Extremities: Extremities exhibit normal ROM. No lower extremity edema.Neuro: Awake. Alert. Mood/affect normal. Speech normal. No motor deficit. No sensory deficit.Psych: Cognition normal. Thought process and content normal. Insight and judgement normal.LABS, X-RAYS, AND EKGEKG: SInus rhythem w. sinus arrhythmia w/ occasional PVCo/o normal ecg.Chest X-ray: No acute disease. The X- rays were interpreted by the radiologist.Laboratory Tests: 3 Clinical Report - Physicians/[facility] Emergency Department [address] [place] [address] Phone #: ext- [phone] 10/23/2019 14:54 Patient: DARCI CHAPMAN Sex: F : 1970 Age: 49yInfluenza Nasal A B: (IFEOMA: 10/23/2019 16:42) ( MsgRcvd 2019 17:06) Final results Test Result Flag Units (Reference) INFLUENZA A NEGATIVE (NORMAL: NEGAT INFLUENZA B NEGATIVE (NORMAL: NEGAT INFLUENZA A REENTER NEGATIVE (NORMAL: NEGAT INFLUENZA B REENTER NEGATIVE (NORMAL: NEGAT PROCEDURAL CONTROL VALID KIT LOT # _[id number] 10/23/19.1706.AZ . . . KIT EXP DATE _07/02/20 10/23/19.1706.AZ . . .The Influenza A utilizing an isothermal nucleic acid amplification technologyfor thequalitative detection of influenza A and B viral RNA.Negative results do not preclude influenza virusinfection and should not beused as the sole basis for diagnosis, treatment or other patient managementdecisions.CBC w Diff: (IFEOMA: 10/23/2019 16:40) ( GagRcvd 10/23/2019 16:55) Final results Test Result Flag Units (Reference) CBC W/AUTOMATED DIFF COMPLETE BLOOD COUNT WBC 9.2 10/uL (4.2 - 11.0) RBC 5.09 10/uL (4.20 - 5.40) HEMOGLOBIN 14.5 g/dL (12.0 - 16.0) HEMATOCRIT 45.3 % (37.0 - 47.0) MCV 89.0 fL (81.0 - 101) MCH 28.5 pg (27.0 - 34.0) MCHC 32.0 g/dL (31.0 - 36.0) RDW 13.7 % (11.5 - 14.5) PLATELETS 308 10/uL (150 - 450) MPV 10.3 fL (7.4 - 10.4) NEUT 71.4 % (37.0 - 80.0) LYMPH 22.4 L % (25.0 - 40.0) MONO 5.4 % (3.0 - 8.0) EOS 0.3 % (0.0 - 7.0) BASO 0.3 % (0.0 - 2.5) %IG 0.2 H % (0.0 - 0.0) %NRBC 0.0 % (0.0 - 0.0) #NEUT 6.59 10/uL (2.00 - 6.90) #LYMPH 2.07 10/uL (0.60 - 3.40) #MONO 0.50 10/uL (0.00 - 0.90) #EOS 0.03 10/uL (0.00 - 0.70) #BASO 0.03 10/uL (0.00 - 0.20) #IG 0.02 10/uL (0.00 - 0.10) #NRBC 0.00 10/uL (0.00 - 0.00) MANUAL DIFF NOT INDICATED RBC MORPH NOT INDICATEDCMP: (IFEOMA: 10/23/2019 16:40) ( MsgRcvd 10/23/2019 17:32) Final results Test Result Flag Units (Reference) COMPREHENSIVE METABOLIC PANEL COMPREHENSIVE METABOLIC PANEL SODIUM 142 mEq/L (134 - 153) POTASSIUM 3.9 mEq/L (3.6 - 5.0) CHLORIDE 100 mEq/L (98 - 107) CO2 26 MEQ/L (22 - 30) GLUCOSE 107 MG/DL (65 - 110) BUN 18 MG/DL (7 - 21) CREATININE 1.2 MG/DL (0.7 - 1.5) BUN/CREAT 15 (8 - 27) TOTAL PROTEIN 8.0 G/DL (6.3 - 8.2) ALBUMIN 4.4 G/DL (3.9 - 5.0) GLOBULIN 3.6 H GM/DL (2.4 - 3.2) A/G RATIO 1.2 (0.8 - 2.0) CALCIUM 9.8 MG/DL (8.4 - 10.2) TOTAL BILI 1.1 MG/DL (0.2 - 1.3) ALKALINE PHOS 73 U/L (38 - 126) SGOT/AST 24 U/L (5 - 40) SGPT/ALT 23 U/L (7 - 56) 4 Clinical Report - Physicians/Mid Levels [facility] Emergency Department [address] [place] [address] Phone #: ext- [phone] 10/23/2019 14:54 Patient: DARCI CHAPMAN Sex: F : 1970 Age: 49y ANION GAP 16.0 mmol/L (8.0 - 16.0) AGE 49 yrs NON-AA GFR 51 mL/min AFR AMER GFR >60 mL/min Male GFR Interprentation 20-49 yrs >60 mL/min Muzacc63-73 yrs >56 mL/min Normal 60-69 yrs >49 mL/min Normal 70-79yrs>42 mL/min Normal 80 and above >35 mL/min Normal Female GFRInterpretation 20-39 yrs >60 mL/min Normal 40-49 yrs >58 mL/minNormal 50- 59 yrs >51 mL/min Normal 60-69 yrs >45 mL/min Lgyxig82-44 yrs >39 mL/min Normal 80 and above >32 mL/min NormalLipase: (IFEOMA: 10/23/2019 16:40) ( MsgRcvd 10/23/2019 17:26) Final results Test Result Flag Units (Reference) LIPASE 26 U/L (13 - 60)PT/PTT: (IFEOMA: 10/23/2019 16:40) ( MsgRcvd 10/23/2019 17:06) Final results Test Result Flag Units (Reference) PROTIME 13.2 SECONDS (11.0 - 15.5) INR 0.99 (0.93 - 1.23) PTT 45.5 H SECONDS (24.8 - 36.7) \\BLDo\\INR INTERPRETATION\\BLDx\\ Therapeutic range for Coumadin andrelated oral anticoagulants. -International Normalized Ratio (INR): 2.0 - 3.0 for VenousThrombosis, Pulmonary Embolus, Tissue heart valves, Acute [place] Atrial Fibrillation, Valvular heart diseaseand recurrent Systemic Embolism. -International Normalized Ratio (INR): 2.5 - 3.5 forMechanical Prosthetic valve. \\BLDo\\PTT INTERPRETATION\\BLDx\\Critical results for patients not on therapy: >50 seconds Critical results for patients on therapy:>119 seconds Therapeutic range for patients on therapy: 58 - 90 seconds Coag studies fromline draws may not be accurate due to Heparin and other interferences.Troponin-T: (IFEOMA: 10/23/2019 16:40) ( [facility] 10/23/2019 17:16) Final results Test Result Flag Units (Reference) TROPONIN T 0.01 NG/ML (0.00 - 0.10) TROPONIN T0.1 ng/ml Recommended as the clinical threshold value forTroponin T.TSH: (IFEOMA: 10/23/2019 16:40) ( [facility] 10/23/2019 17:32) Final results Test Result Flag Units (Reference) TSH 0.68 uIU/mL (0.47 - 5.01)D-Dimer: (IFEOMA: 10/23/2019 16:40) ( [facility] 10/23/2019 17:06) Final results Test Result Flag Units (Reference) D-DIMER QUANT 0.44 ug/mL (0.27 - 0.50)Urinalysis: (IFEOMA: 10/23/2019 16:35) ( [facility] 10/23/2019 16:56) Final results Test Result Flag Units (Reference) URINALYSIS URINALYSIS SOURCE R COLOR yellow (NORMAL: Yello CLARITY clear (NORMAL: Clear SPEC GRAVITY 1.015 (1.001 - 1.030 pH 5 (5 - 9) GLUCOSE NORM (NORMAL: Negat BILIRUBIN NEG (NORMAL: Negat KETONE 15 A (NORMAL: Negat PROTEIN NEG (NORMAL: Negat NITRITE NEG (NORMAL: Negat BLOOD NEG (NORMAL: Negat LEUK EST NEG (NORMAL: Negat UROBILINOGEN NOR (less than 1.0 MICROSCOPIC Not Indicate 5 Clinical Report - Physicians/Mid Levels [facility] Emergency Department [address] [place] [address] Phone #: [phone] 10/23/2019 14:54 Patient: DARCI CHAPMAN MRN: [id number] Sex: F : 1970 Age: 49y Beta-HCG, Qual Serum: (IFEOMA: 10/23/2019 16:40) ( MsgRcvd 10/23/2019 17:09) Final results Test Result Flag Units (Reference) HCG SERUM QUAL NEGATIVE (NORMAL: NEGAT HCG SERUM QL REENTER NEGATIVE (NORMAL: NEGAT { KIT LOT # [id number] ){ KIT EXP DATE 03/28/21 ){ PROCEDURAL CONTROL VALID ).PROGRESS AND PROCEDURESCourse of Care: VSS, NAD, AOx3, interacting well and appropriately, no use of accessory muscle, able tospeak full sentences, stable, non-toxic looking. Enter room and pt lying peacefully in bed in NAD. Patient stable. Denies any new issues, concerns, or complaints. Was at clinic yesterday, had palps, sent to [facility]...night prior had MOM. Sts drinks MOM for stoma....feels funny at times after this. Sts she will stop. Does not see GI. PE demos NV intact b/l UE and LE. Will obtain labs and imaging for furhter eval. PEnding ersults. Enter room and patient lying peacefully in bed in NAD. Patient stable. Denies any new issues, concerns, or complaints. Discussed results with pt. Discussed tx plan with pt. Discussed and counseled on stable condition. Discussed importance of a f/u with PCP. Discussed return to ER criteria. Answered their questions. Indicates and verbalizes that they understand, agree, and will comply with above. Denies any new questions or concerns. Patient has capacity to understand. Discharge decision based on the following: patient's condition is stable; patient's exam is stable; social support is adequate; transportation is available; follow-up is available. Discussed of OTC Motrin and Tylenol to control inflammation and pain management. Informed to follow directions on bottle that are appropriate for age and/or weight. Discussed case with health care provider (Evonne). Disposition: Discharged home in good and improved condition. Condition: good and stable.CLINICAL IMPRESSION Atypical chest pain Occasional PVC's. 6 Clinical Report - Physicians/Mid Levels [facility] Emergency Department [address] [place] [address] Phone #: [phone] 10/23/2019 14:54 Patient: DARCI CHAPMAN Sex: F : 1970 Age: 49yINSTRUCTIONS No dietary restrictions. Avoid stimulants (such as cigarettes, coffee, cold medicines, sinus medicines, street drugs). Do not smoke. (Recommend to utilize OTC Motrin and Tylenol to control inflammation and pain management. Recommend to follow the instructions on the bottle and not to exceed.). Warnings: Further evaluation is necessary. SEDATIVE MEDICATION: You were given sedative medication during your visit. Do not drive or operate dangerous machinery. CONTROLLED SUBSTANCE WARNINGS. GENERAL WARNINGS: Return or contact your physician immediately if your condition worsens or changes unexpectedly, if not improving as expected, or if other problems arise. Prescription monitor program consulted by me due to This report was requested by: Brendan Snowden Reference #: [id number]. Prescription does not exceed state maximum supply of medications Prescription Medications: Ativan 1 mg tablet Take 1 tablet three times a day for 3 days -- Dispense 9 tablet. Refills: 0. [place] bstitution permitted. Pharmacy - [facility] - [id number] ; [place] [address]. . Follow-up: Return to the emergency department as needed. Follow up with your healthcare provider in about three days if not better. Call for an appointment. Follow up with a front office assistant as scheduled. Understanding of the discharge instructions verbalized by patient. Follow-up with: Shabbir Marin MD, Gastroenterology, [id number], [facility], [address] [place] [address], [address], [place], [address] Follow up. Call for the next available appointment. Reason for referral: evaluation and treatment.(Electronically signed by Brendan Snowden P.A.-C 10/24/2019 02:08) Name Value Range Interpretation Code Description Data Delmy rce(s) Supporting Document(s) ID Date Data Source [id number] 10/23/2019 05:06:00 PM [facility] Name Value Range Interpretation Code Description Data Delmy rce(s) Supporting Document(s) Influenza virus A Ag [Presence] in Nasopharynx by Immunoassa y NEGATIVE NORMAL: NEGATIVE [facility] Influenza virus B Ag [Presence] in Nasopharynx by Immunoassa y NEGATIVE NORMAL: NEGATIVE [facility] NEGATIVENEGATIVE PROCEDURAL CO NTROL VALID KIT LOT # _[id number] 10/23/19.1706.NH . . . KIT EXP DATE _07/02/20 10/23/19.1706.NH . . .The Influenza A & B assay is a rapid molecular in vitro diagnostic testutilizing an isothermal nucleic acid amplification technology for thequalitative detection of influenza A and B viral RNA.Negative results do not preclude influenza virus infection and should not beused as the sole basis for diagnosis, treatment or other patient managementdecisions. ID Date Data Source [id number] 10/23/2019 05:32:00 PM [facility] Name Value Range Interpretation Code Description Data Delmy rce(s) Supporting Document(s) Thyrotropin [Units/volume] in Serum or Plasma by Detec tion limit <= 0.05 mIU/L 0.68 uIU/mL 0.47 - 5.[address] [facility] ID Date Data Source [id number] 10/23/2019 05:32:[address] [facility] Name Value Range Interpretation Code Description Data Delmy rce(s) Supporting Document(s) COMPREHENSIVE METABOLIC PANEL [facility] COMPREHENSIVE METABOLIC PANEL Sodium [Moles/volume] in Serum or Plasma 142 mEq/L 134 - [address] [facility] Potassium [Moles/volume] in Serum or Plasma 3.9 mEq/L 3.6 - 5.[address] [facility] Chloride [Moles/volume] in Serum or Plasma 100 mEq/L 98 - [address] [facility] Carbon dioxide, total [Moles/volume] in Serum or Plasma 26 MEQ/L 22 - [address] [facility] Glucose [Mass/volume] in Serum or Plasma 107 MG/DL 65 - [address] [facility] BUN 18 MG/DL 7 - 21 [facility] Creatinine [Mass/volume] in Serum or Plasma 1.2 MG/DL 0.7 - 1.[address] [facility] BUN/CREAT 15 8 - 27 [facility] Protein [Mass/volume] in Serum or Plasma 8.0 G/DL 6.3 - 8.[address] [facility] Albumin [Mass/volume] in Serum or Plasma 4.4 G/DL 3.9 - 5.[address] [facility] Globulin [Mass/volume] in Serum by calculation 3.6 GM/DL 2.4 - 3.[address] [facility] A/G RATIO 1.2 0.8 - 2.0 [facility] Calcium [Mass/volume] in Serum or Plasma 9.8 MG/DL 8.4 - 10.[address] [facility] Bilirubin.total [Mass/volume] in Serum or Plasma 1.1 MG/DL 0.2 - 1.[address] [facility] Alkaline phosphatase [Enzymatic activity/volume] in Serum or Plasma 73 U/L 38 - [address] [facility] Aspartate aminotransferase [Enzymatic activity/volume] in Serum or Plasma 24 U/L 5 - [address] [facility] Alanine aminotransferase [Enzymatic activity/volume] in Seru m or Plasma 23 U/L 7 - [address] [facility] Anion gap 3 in Serum or Plasma 16.0 mmol/L 8.0 - 16.[address] [facility] AGE 49 yrs [facility] NON-AA GFR 51 mL/min [facility] AFR AMER GFR >60 mL/min [facility] Male GFR In terprentation 20-49 yrs >60 mL/min Normal 50-59 yrs >56 mL/min Normal 60-69 yrs >49 mL/min Normal 70-79yrs >42 mL/min Normal 80 and above >35 mL/min Normal Female GFR Interpretation 20-39 yrs >60 mL/min Normal 40-49 yrs >58 mL/min Normal 50-59 yrs >51 mL/min Normal 60-69 yrs >45 mL/min Normal 70-79 yrs >39 mL/min Normal 80 and above >32 mL/min Normal ID Date Data Source [id number] 10/23/2019 05:26:00 PM [facility] Name Value Range Interpretation Code Description Data Delmy rce(s) Supporting Document(s) Lipase [Enzymatic activity/volume] in Serum or Plasma 26 U/L 13 - [address] [facility] ID Date Data Source [id number] 10/23/2019 05:16:00 PM [facility] Value Range Interpretation Code Description Data Delmy rce(s) Supporting Document(s) TROPONIN T 0.01 NG/ML 0.00 - 0.10 [facility] TROPONIN T0.1 ng/ml Recommended as the c linical threshold value forTroponin T. ID Date Data Source [id number] 10/23/2019 05:09:00 PM [facility] Name Value Range Interpretation Code Description Data Delmy rce(s) Supporting Document(s) HCG SERUM QUAL NEGATIVE NORMAL: NEGATIVE [facility] HCG SERUM QL REENTER NEGATIVE NORMAL: NEGATIVE [facility] { KIT LOT # [id number] ){ KIT EXP DATE 03/28/21 ){ PROCEDURAL CONTROL VALID ) ID Date Data Source [id number] 10/23/2019 05:06:00 PM [facility] Value Range Interpretation Code Description Data Delmy rce(s) Supporting Document(s) Fibrin D-dimer FEU [Mass/volume] in Platelet poor plasma 0.44 ug /mL 0.27 - 0.[address] [facility] ID Date Data Source [id number] 10/23/2019 05:06:00 PM [facility] Name Value Range Interpretation Code Description Data [facility] rce(s) Supporting Document(s) Prothrombin time (PT) 13.2 SECONDS 11.0 - 15.5 [facility] INR in Platelet poor plasma by Coagulation assay 0.99 0.93 - 1. [address] [facility] aPTT in Blood by Coagulation assay 45.5 SECONDS 24.8 - 36.[address] [facility] \\BLDo\\INR INTERPRETATION\\BLDx\\ Therapeutic range for Coumadin and related oral anticoagulants. - International Normalized Ratio (INR): 2.0 - 3.0 for Venous Thrombosis, Pulmonary Embolus, Tissue heart valves, Acute [place] Atrial Fibrillation, Valvular heart disease and recurrent Systemic Embolism. - International Normalized Ratio (INR): 2.5 - 3.5 for Mechanical Prosthetic valve. \\BLDo\\PTT INTERPRETATION\\BLDx\\ Critical results for patients not on therapy: >50 seconds Critical results for patients on therapy: >119 seconds Therapeutic range for patients on therapy: 58 - 90 seconds Coag adam dies from line draws may not be accurate due to Heparin and other interferences. ID Date Data Source [id number] 10/23/2019 04:55:00 PM [facility] Name Value Range Interpretation Code Description Data [facility](s) Supporting Document(s) CBC W/AUTOMATED DIFF [facility] COMPLETE BLOOD COUNT Leukocytes [#/volume] in Blood by Automated count 9.2 10^3/uL 4.2 - [address] [facility] Erythrocytes [#/volume] in Blood by Automated count 5.09 10^6/uL 4. 20 - 5.[address] [facility] Hemoglobin [Mass/volume] in Blood 14.5 g/dL 12.0 - 16.[address] [facility] Hematocrit [Volume Fraction] of Blood by Automated count 45.3 % 3 7.0 - 47.[address] [facility] Erythrocyte mean corpuscular volume [Entitic volume] by Auto mated count 89.0 fL 81.0 - [address] [facility] Erythrocyte mean corpuscular hemoglobin [Entitic mass] by Automated count 28.5 pg 27.0 - 34.[address] [facility] Erythrocyte mean corpuscular hemoglobin concentration [Mass/volume] by Automated count 32.0 g/dL 31.0 - 36.[address] [facility] Erythrocyte distribution width [Ratio] by Automated count 13.7 % 11.5 - 14.[address] [facility] Platelets [#/volume] in Blood by Automated count 308 10^3/uL 150 - [address] [facility] Platelet mean volume [Entitic volume] in Blood by Automated count 10.3 fL 7.4 - 10.[address] [facility] Neutrophils/100 leukocytes in Blood by Automated count 71.4 % 37. 0 - 80.[address] [facility] Lymphocytes/100 leukocytes in Blood by Manual count 22.4 % 25.0 - 40.[address] [facility] Monocytes/100 leukocytes in Blood by Automated count 5.4 % 3.0 - 8.[address] [facility] Eosinophils/100 leukocytes in Blood by Automated count 0.3 % 0.0 - 7.[address] [facility] Basophils/100 leukocytes in Blood by Automated count 0.3 % 0.0 - 2.[address] [facility] %IG 0.2 % 0.0 - 0.0 [facility] %NRBC 0.0 % 0.0 - 0.0 [facility] al Neutrophils [#/volume] in Blood by Automated count 6.59 10^3/uL 2.00 - 6.[address] [facility] Lymphocytes [#/volume] in Blood by Automated count 2.07 10^3/uL 0.60 - 3.[address] [facility] Monocytes [#/volume] in Blood by Automated count 0.50 10^3/uL 0.00 - 0.[address] [facility] Eosinophils [#/volume] in Blood by Automated count 0.03 10^3/uL 0.00 - 0.[address] [facility] Basophils [#/volume] in Blood by Automated count 0.03 10^3/uL 0.00 - 0.[address] [facility] #IG 0.02 10^3/uL 0.00 - 0.10 [facility] ospital #NRBC 0.00 10^3/uL 0.00 - 0.00 [facility] MANUAL DIFF NOT INDICATED [facility] RBC MORPH NOT INDICATED [facility] ID Date Data Source [id number] 10/23/2019 04:56:[address] [facility] Name Value Range Interpretation Code Description Data Delmy rce(s) Supporting Document(s) URINALYSIS [facility] URINALYSIS SOURCE R [facility] COLOR yellow NORMAL: Yellow [facility] CLARITY clear NORMAL: Clear [facility] Specific gravity of Urine by Test strip 1.015 1.001 - 1.[address] [facility] pH 5 5 - 9 [facility] Glucose [Mass/volume] in Urine by Test strip [facility] Bilirubin.total [Presence] in Urine by Test strip NEG NORMAL: Negative [facility] Ketones [Presence] in Urine by Test strip 15 NORMAL: Negative A [facility] Protein [Mass/volume] in Urine by Test strip NEG [facility]AL[facility] Nitrite [Presence] in Urine by Test strip NEG NORMAL: Negative [facility] BLOOD NEG NORMAL: Negative [facility] Leukocyte esterase [Presence] in Urine by Test strip NEG DEANA L: Negative [facility] Urobilinogen [Mass/volume] in Urine by Test strip NOR less jazmyn n 1.0 mg/dL [facility] MICROSCOPIC Not Indicate [facility]ital Procedure Social History Code Duration Value Status Description Data Source(s ) Alcohol intake 10/22/2020 12:00:00 AM EST Not Currently completed [facility] Smoking 10/22/2020 12:00:00 AM EST Never smoker completed Never s [facility] Alcohol intake 10/22/2020 12:00:00 AM EST Current non-d ralph of alcohol (finding) completed Current non-drinker of alcohol (finding) [facility] Tobacco use and exposure 10/22/2020 12:00:00 AM EST Never used co mpleted Never used [facility] Smoking 10/22/2020 12:00:00 AM EST Never smoker completed Never s [facility] 09/15/2020 10:23:00 PM EST Never smoker completed Never s [facility] Smoking 09/15/2020 10:23:00 PM EST Never smoker completed Never s [facility] 09/15/2020 10:13:55 PM EST No completed No [facility] 09/15/2020 10:13:55 PM EST No completed No [facility] Alcohol intake 09/14/2020 12:00:00 AM EST Current non-d ralph of alcohol (finding) completed Current non-drinker of alcohol (finding) [facility] Smoking 09/10/2020 09:22:07 AM EST Never smoked tobacco (findi ng) completed Never smoked tobacco (finding) [place] (Porsche Rubio MD [facility]) Smoking 08/31/2020 12:00:00 AM EST Never Smoker completed Never S moker eCW1 ([facility]) Smoking 08/31/2020 12:00:00 AM EST Never Smoker completed Never S moker eCW1 ([facility]) Smoking 08/31/2020 12:00:00 AM EST Never Smoker completed Never S moker eCW1 ([facility]) Smoking 01/02/2020 12:00:00 AM EDT Never Smoker completed Never S moker eCW1 ([facility]) Vital Signs ID Date Data Source UNK Name Value Range Interpretation Code Description Data Source(s) Oxygen saturation in Arterial blood by Pulse oximetry 99 % 99 % [facility] Body mass index (BMI) [Ratio] 53.42 kg/m2 53.42 kg/m2 [facility] Body weight 150.141 kg 150.141 kg [facility] Body height 167.6 cm 167.6 cm [facility] Heart rate 66 /min 66 /min [facility] Diastolic blood pressure 74 mm[Hg] 74 mm[Hg] [facility] Systolic blood pressure 132 mm[Hg] 132 mm[Hg] [facility] Diastolic blood pressure 74 mm[Hg] 74 mm[Hg] eCW1 ([facility]) Systolic blood pressure 126 mm[Hg] 126 mm[Hg] e CW1 ([facility]) Body temperature 97.6 [degF] 97.6 [degF] eCW1 ( [facility]) Respiratory rate 20 /min 20 /min eCW1 ([facility]) Heart rate 74 /min 74 /min eCW1 ([facility]) Body mass index (BMI) [Ratio] 56.11 kg/m2 56.11 kg/m2 eCW1 ([facility]) Body height 65 [in_i] 65 [in_i] eCW1 ([facility]) Body weight 152.9 kg 152.9 kg eCW1 ([facility]) Body weight 337.2 [lb_av] 337.2 [lb_av] eCW1 ([facility]) Body weight 152.636 kg 152.636 kg [facility] ([facility], ) [place] body weight 125 [lb_av] 125 [lb_av] MEDEN T ([facility], ) Body mass index (BMI) [Ratio] 56.0 kg/m2 56.0 k g/m2 MEDENT ([facility], ) Body weight 336.50 [lb_av] 336.50 [lb_av] MEDEN T ([facility], ) Body height 65 [in_i] 65 [in_i] MEDENT ([facility]) 5'5" Diastolic blood pressure 78 mm[Hg] 78 mm[Hg] [facility], [facility] Systolic blood pressure 136 mm[Hg] 136 mm[Hg] M EDENT ([facility], ) Diastolic blood pressure 70 mm[Hg] 70 mm[Hg] eCW1 ([facility]) Systolic blood pressure 124 mm[Hg] 124 mm[Hg] e CW1 ([facility]) Body temperature 98.0 [degF] 98.0 [degF] eCW1 ( [facility]) Respiratory rate 20 /min 20 /min eCW1 ([facility]) Heart rate 76 /min 76 /min eCW1 ([facility]) Body mass index (BMI) [Ratio] 56.51 kg/m2 56.51 kg/m2 eCW1 ([facility]) Body height 65 [in_us] 65 [in_us] eCW1 ([facility]) Body weight Measured 339.6 [lb_av] 339.6 [lb_av ] eCW1 ([facility]) Diastolic blood pressure 84 mm[Hg] 84 mm[Hg] eCW1 ([facility]) Systolic blood pressure 132 mm[Hg] 132 mm[Hg] e CW1 ([facility]) Body temperature 98.0 [degF] 98.0 [degF] eCW1 ( [facility]) Respiratory rate 20 /min 20 /min eCW1 ([facility]) Heart rate 81 /min 81 /min eCW1 ([facility]) Body mass index (BMI) [Ratio] 57.17 kg/m2 57.17 kg/m2 eCW1 ([facility]) Body height 65 [in_us] 65 [in_us] eCW1 ([facility]) Body weight Measured 343.6 [lb_av] 343.6 [lb_av ] eCW1 ([facility]) ID Date Data Source [id number] 10/23/2020 12:22:58 PM [facility] Name Value Range Interpretation Code Description Data Source(s) WEIGHT RECORDED 310 lb 310 lb [facility] Body height Measured 65 in 65 in [facility] Patient Treatment Plan of Care Planned Activity Planned Date Details Description Data Source (s) Sulfamethoxazole 800 MG / Trimethoprim 160 MG Oral Tab let 10/22/2020 02:15:00 PM [facility]spital lidocaine (XYLOCAINE) 2 % urojet 10 mL 10/22/2020 02:15:00 PM [facility] Diazepam 2 MG Oral Tablet 10/20/2020 12:00:00 AM [facility] Sertraline 50 MG Oral Tablet 10/24/2019 12:00:[address] [facility] bismuth subsalicylate 17.5 MG/ML Oral Suspension 10/24/2019 12:00:[address] [facility] fluticasone (FLONASE) 50 MCG/ACT nasal spray 10/10/2019 12:00:[address] [facility] emollient cream 10/10/2019 12:00:[address] [facility] Sodium Chloride 0.111 MEQ/ML Nasal [place] [[place]] 09/04/20 12:00:[address] [facility] Omeprazole 20 MG Delayed Release Oral Capsule 08/30/2019 12:00:[address] [facility] Docusate Sodium 100 MG Oral Tablet [facility]
[2020-11-04] MEDS ORDERED: LR 1,000 ML IV ONE (07:00)
[2020-11-04 07:02] LABS: HEMATOCRIT 47.1 % (36.0-47.0); HEMOGLOBIN 14.8 g/dl (12.0-15.5)
[2020-11-04] MEDS ORDERED: ACETAMINOPHEN TAB 650MG DOSE (2X325MG) As Ordered ONE (07:15)
[2020-11-04] MEDS ORDERED: SCOPOLAMINE 1MG TRANSDERMAL PATCH As Ordered ONE (07:15)
[2020-11-04 07:40] LABS: ALBUMIN 3.6 GM/DL (3.2-5.2); ALT/SGPT 29 U/L (12-78); BILIRUBIN,TOTAL 0.8 MG/DL (0.2-1.0); BLOOD UREA NITROGEN 22 MG/DL (7-18); CALCIUM LEVEL 9.6 MG/DL (8.5-10.1); CARBON DIOXIDE LEVEL 30 MEQ/L (21-32); CHLORIDE LEVEL 103 MEQ/L (98-107); GLOMERULAR FILTRATION RATE > 60.0 (>58); GLUCOSE, FASTING 118 MG/DL (70-100); POTASSIUM SERUM 5.2 MEQ/L (3.5-5.1); SODIUM LEVEL 139 MEQ/L (136-145); TOTAL PROTEIN 8.7 GM/DL (6.4-8.2)
[2020-11-04] MEDS ORDERED: LIDOCAINE 1% SDV 30ML VIAL As Ordered ONE (07:43)
[2020-11-04] MEDS ORDERED: SUGAMMADEX SODIUM 500 MG/5 ML VIAL (BRIDION) As Ordered ONE (07:46)
[2020-11-04] MEDS ORDERED: propofoL 200 MG/20 ML VIAL As Ordered ONE (07:46)
[2020-11-04] MEDS ORDERED: LIDOCAINE 2% 100MG/5ML SDV (FOR ANES.) As Ordered ONE (07:46)
[2020-11-04] MEDS ORDERED: ONDANSETRON 4MG/2ML VIAL As Ordered ONE (07:46)
[2020-11-04] MEDS ORDERED: MIDAZOLAM INJ 2MG/2ML VIAL (J2250 PER 1MG) As Ordered ONE (07:46)
[2020-11-04] MEDS ORDERED: dexameTHASONE 4 MG/ML 1ML VIAL (J1100 PER 1MG) As Ordered ONE (07:46)
[2020-11-04] MEDS ORDERED: ROCURONIUM BROMIDE 50 MG/5 ML VIAL As Ordered ONE (07:46)
[2020-11-04] MEDS ORDERED: fentaNYL 250 MCG/5 ML INJECTION (J3010) As Ordered ONE (07:46)
[2020-11-04] MEDS ORDERED: KETOROLAC 60MG 2ML VIAL As Ordered ONE (07:59)
[2020-11-04] MEDS ORDERED: GLYCOPYRROLATE INJ 0.2 MG/ML 2 ML VIAL As Ordered ONE (08:21)
[2020-11-04] MEDS ORDERED: oxyCODONE 5MG TAB As Ordered ONE (09:19)
--- NOTE | 2020-11-04 09:27 | ROOPDOC ---
[facility] Report Of Operation Report of Operation DATE OF PROCEDURE: 11/04/20 PREPROCEDURE DIAGNOSES: Abnormal Uterine Bleeding POSTPROCEDURE DIAGNOSES: Abnormal Uterine bleeding, endometrial polyp. PROCEDURE: Diagnostic Hysteroscopy, Polypectomy, Dilation and Curettage and Mirena IUD placement. SURGEON: Preston Cervantes MD AIX SYSTEM ADMINISTRATOR: MD ANESTHESIA: LMA. ESTIMATED BLOOD LOSS: Approximately 20 mL. COMPLICATIONS: None. REMARKS: . PROCEDURE NOTE: normal anatomy of external female genitalia. external exam limited due to body habitus. Endometrial poly, Normal Bilateral [place]. Polypectomy using Skip stone forceps. endometrial curetting done. Mirena IUD Placed without issues. Paracervical block done with 1% lidocaine plain ( 9ml). DESCRIPTION OF PROCEDURE: The patient was taken to the operating room where anesthesia was found to be adequate. She was then placed in the high lithotomy position with the yellow fin stirrups. Examination under anesthesia was performed, with the findings listed above. The patient was then prepped and draped in the usual sterile fashion. An operative bivalve sterile speculum was placed in the vagina, and the anterior and posterior lips of the cervix were grasped with a single-tooth tenaculum. The cervix was sounded to 8 cm and sequentially dilated using Rui dilators up to 15French. A paracervical block was then done using 9mg of 1% lidocaine pain. A 5 mm diagnostic hysteroscope with normal saline distention medium was inserted into the cervix. Upon entrance into the cervical canal, an endometrial polyp with a posterior right lateral attachment next to the right ostium was visualized. No additional fibroids were visualized. The bilateral cornua were seen and then the hysteroscope was removed. The cervix was then dilated to 17Fr and vaginal sidewall retractors used to allow better visualization. Skip stone forceps were then advanced through the cervix into the uterus, with two attempts to grasp the polyp, which were remov ed. After removal of the Skip forceps, a sharp curette was then gently advanced through the cervix to the fundus. Sharp curettage was performed until a good uterine cry was noted at 360. The sharp curette was removed, with moderate return of tissue. Both the endometrial polyp and endometrial curettings were sent separately to Pathology. Next the Mirena IUD was inserted according to the vat house laborer's guidelines. the strings were cut to approximately 2-3 cm. Both single tooth tenaculum were removed from the cervix. The tenaculum sites were hemostatic after pressure held with a sponge stick. The operative sterile speculum and side wall retractors were then removed from the vagina. The patient was returned to the supine position, extubated without difficulty, and then taken to the recovery room in stable condition. Sponge, lap, and needle counts were correct x2.. PRESTON CERVANTES MD Nov 04, 2020 09:27
[2020-11-04] MEDS ORDERED: METOCLOPRAMIDE INJ 10MG/2ML VIAL (J2765 PER 1) IV PRN (09:30)
[2020-11-04] MEDS ORDERED: LR 1,000 ML IV SCH (09:30)
[2020-11-04] MEDS ORDERED: ONDANSETRON 4MG/2ML VIAL IV PRN (09:30)
[2020-11-04] MEDS ORDERED: oxyCODONE 5MG TAB PO PRN (09:30)
[2020-11-04] MEDS ORDERED: fentaNYL 100 MCG/2 ML INJECTION (J3010) IV PRN (09:30)
[2020-11-04] MEDS ORDERED: MEPERIDINE INJ 25 MG/ML VIAL (J2175) IV PRN (09:30)
[2020-11-04] MEDS ORDERED: KETOROLAC 30 MG/ML 1ML VIAL IV ONE (09:30)
[2020-11-04] MEDS ORDERED: oxyCODONE 5MG TAB PO ONE ×2 (09:30→10:45)
[2020-11-04 12:00] VITALS: BP 155/82
== END 2020-11-04 12:07 | disposition home or self-care (01) ==
LOC: M SDC 06:15
PROVIDERS: ATTEND Obstetrics & Gynecology
DX: N93.9 Abnormal uterine and vaginal bleeding, unspecified (principal); N84.0 Polyp of corpus uteri; F43.10 Post-traumatic stress disorder, unspecified; I10 Essential (primary) hypertension; E03.9 Hypothyroidism, unspecified; K57.92 Diverticulitis of intestine, part unspecified, without perforation or abscess without bleeding; D64.9 Anemia, unspecified; M32.9 Systemic lupus erythematosus, unspecified; Z86.718 Personal history of other venous thrombosis and embolism; Z91.041 Radiographic dye allergy status; Z88.0 Allergy status to penicillin; Z88.1 Allergy status to other antibiotic agents; Z88.8 Allergy status to other drugs, medicaments and biological substances; Z91.018 Allergy to other foods; Z79.82 Long term (current) use of aspirin
CPT/HCPCS: 36415; 58300; 58558; 80053; 81025; 84484; 85014; 85018; 88305; J1100; J1885; J2250; J2405; J3010; J7298

== ENCOUNTER 2021-05-12 18:01 | Emergency (ER) | payer OTHER ==
[~2021-05-12] VITALS: Ht 165.1 cm; Wt 150.0 kg
[~2021-05-12 18:01] MED LIST changes: +MIRE1IUD IU; +PLAQ200T4 PO; +REFR0.5D8; +SYNT175T2 PO
[2021-05-12] MEDS ORDERED: ALPRAZolam 0.25 MG TAB PO ONE (23:40)
[2021-05-12 23:49] LABS: BASO % 0.4 % (0.0-1.0); EOS # 0.1 10^3/uL (0.0-0.5); EOS % 0.9 % (0.0-3.0); HEMOGLOBIN 14.7 g/dl (12.0-15.5); LYMPH # 2.8 10^3/uL (1.5-5.0); LYMPH % 31.3 % (24.0-44.0); MEAN CORPUSCULAR HEMOGLOBIN 28.2 pg (27.0-33.0); MEAN CORPUSCULAR VOLUME 88.3 fl (80.0-96.0); MONO # 0.5 10^3/uL (0.0-0.8); NEUTROPHILS # 5.5 10^3/uL (1.5-8.5); NEUTROPHILS % 61.1 % (36.0-66.0); PLATELET COUNT, AUTOMATED 316 10^3/uL (150-450); RED BLOOD COUNT 5.21 10^6/uL (4.00-5.40); WHITE BLOOD COUNT 9.1 10^3/uL (4.0-10.0)
[2021-05-13 00:36] LABS: BLOOD UREA NITROGEN 15 MG/DL (7-18); CARBON DIOXIDE LEVEL 28 MEQ/L (21-32); CHLORIDE LEVEL 105 MEQ/L (98-107); CK-MB VALUE MASS < 1.0 NG/ML (<3.6); CPK CREATINE PHOSPHOKINASE 96 U/L (26-192); CREATININE FOR GFR 0.77 MG/DL (0.55-1.30); GLOMERULAR FILTRATION RATE > 60.0 (>51); GLUCOSE, FASTING 92 MG/DL (70-100); MB/CK RELATIVE INDEX 1.04 (< OR =4); NT-PRO BNP 246 PG/ML (<125); POTASSIUM SERUM 4.2 MEQ/L (3.5-5.1); SODIUM LEVEL 140 MEQ/L (136-145); TROPONIN I < 0.02 NG/ML (< 0.10)
--- NOTE | 2021-05-13 00:57 | REPVR ---
PROCEDURE INFORMATION: Exam: XR Chest Exam date and time: 05/12/2021 11:07 PM Age: 51 years old Clinical indication: Other: Dyspnea; Additional info: Dyspnea/cough TECHNIQUE: Imaging protocol: XR of the chest. Views: 1 view. COMPARISON: CR PORTABLE CHEST X-RAY 03/25/2020 11:46 PM FINDINGS: LUNGS and PLEURAL SPACE: The lungs are symmetrically expanded. Lung volumes are within normal limits. No evidence of peribronchial thickening. There is no consolidation, pneumothorax, or pleural effusion. No evidence of pulmonary vascular redistribution or overt edema. MEDIASTINUM: There is no mediastinal shift or widening. CARDIAC SILHOUETTE: Cardiac size is at the upper end of normal. BONY THORAX: No acute findings are seen. IMPRESSION: No acute infiltrate. Findings discussed above in detail. Electronically signed by: Gurwinder Fisher On 05/13/2021 00:57:22 AM
[2021-05-13 01:31] LABS: RSV AMPLIFICATION NEGATIVE (NEGATIVE)
[2021-05-13 03:10] VITALS: BP 156/75
--- NOTE | 2021-05-13 07:35 | ECGEPIP ---
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
== END 2021-05-13 03:13 | disposition home or self-care (01) ==
LOC: M ED 18:22
DX: J06.9 Acute upper respiratory infection, unspecified (principal); I10 Essential (primary) hypertension; M32.9 Systemic lupus erythematosus, unspecified; E03.9 Hypothyroidism, unspecified; Z79.899 Other long term (current) drug therapy; Z79.82 Long term (current) use of aspirin; Z79.890 Hormone replacement therapy; Z97.5 Presence of (intrauterine) contraceptive device; Z88.0 Allergy status to penicillin; Z88.1 Allergy status to other antibiotic agents; Z88.8 Allergy status to other drugs, medicaments and biological substances; Z91.018 Allergy to other foods

== ENCOUNTER 2021-05-31 20:38 | Emergency (ER) | payer OTHER ==
[~2021-05-31] VITALS: Ht 165.1 cm; Wt 140.9 kg
[2021-05-31] MEDS ORDERED: LORazepam 2 MG/ML VIAL IV STA (21:20)
[2021-05-31 21:55] LABS: BASO % 0.5 % (0.0-1.0); EOS # 0.1 10^3/uL (0.0-0.5); EOS % 1.1 % (0.0-3.0); HEMATOCRIT 45.5 % (36.0-47.0); HEMOGLOBIN 14.7 g/dl (12.0-15.5); LYMPH # 2.3 10^3/uL (1.5-5.0); LYMPH % 27.2 % (24.0-44.0); MEAN CORPUSCULAR HEMOGLOBIN 28.5 pg (27.0-33.0); MEAN CORPUSCULAR HGB CONC 32.3 g/dl (32.0-36.5); MEAN CORPUSCULAR VOLUME 88.3 fl (80.0-96.0); MONO # 0.5 10^3/uL (0.0-0.8); NEUTROPHILS # 5.5 10^3/uL (1.5-8.5); NEUTROPHILS % 64.8 % (36.0-66.0); PLATELET COUNT, AUTOMATED 285 10^3/uL (150-450); RED BLOOD COUNT 5.15 10^6/uL (4.00-5.40); WHITE BLOOD COUNT 8.4 10^3/uL (4.0-10.0)
[2021-05-31 22:12] LABS: BLOOD UREA NITROGEN 21 MG/DL (7-18); CALCIUM LEVEL 8.5 MG/DL (8.5-10.1); CARBON DIOXIDE LEVEL 30 MEQ/L (21-32); CHLORIDE LEVEL 109 MEQ/L (98-107); CREATININE FOR GFR 0.94 MG/DL (0.55-1.30); GLOMERULAR FILTRATION RATE > 60.0 (>51); GLUCOSE, FASTING 115 MG/DL (70-100); SODIUM LEVEL 142 MEQ/L (136-145)
--- NOTE | 2021-05-31 22:12 | REPVR ---
PROCEDURE INFORMATION: Exam: XR Chest Exam date and time: 05/31/2021 9:11 PM Age: 51 years old Clinical indication: Pain; Other: Not specified; Additional info: Chest pain TECHNIQUE: Imaging protocol: XR of the chest. Views: 1 view. COMPARISON: CR PORTABLE CHEST X-RAY 05/12/2021 11:10 PM FINDINGS: Lungs: Unremarkable. No consolidation. Pleural spaces: Unremarkable. No pleural effusion. No pneumothorax. Heart/Mediastinum: Unremarkable. No cardiomegaly. Bones/joints: Unremarkable. IMPRESSION: No acute findings. Electronically signed by: Carson Hernandez On 05/31/2021 22:12:17 PM
[2021-05-31] MEDS ORDERED: KETOROLAC 30 MG/ML 1ML VIAL IV ONE (23:10)
[2021-05-31] MEDS ORDERED: methylPREDNISolone 125MG 2ML VIAL IV ONE (23:15)
[2021-05-31] MEDS ORDERED: diphenhydrAMINE 50MG/ML VIAL (J1200) IV ONE (23:15)
[2021-05-31] MEDS ORDERED: ISOVUE-370 76% 100ML VIAL As Ordered ONE (23:26)
--- NOTE | 2021-06-01 00:29 | REPVR ---
PROCEDURE INFORMATION: Exam: CTA Chest With Contrast Exam date and time: 05/31/2021 12:07 AM Age: 51 years old Clinical indication: Shortness of breath; Other: Chest pain, SOB TECHNIQUE: Imaging protocol: Computed tomographic angiography of the chest with contrast. 3D rendering (Not supervised by radiologist): MIP and/or 3D reconstructed images were created by the technologist. Radiation optimization: All CT scans at this facility use at least one of these dose optimization techniques: automated exposure control; mA and/or kV adjustment per patient size (includes targeted exams where dose is matched to clinical indication); or iterative reconstruction. Contrast material: ISOVUE 370; Contrast volume: 75 ml; Contrast route: INTRAVENOUS (IV); COMPARISON: CT Chest without contrast 08/23/2018 1:45 PM FINDINGS: Pulmonary arteries: Normal. No pulmonary emboli. Aorta: Unremarkable. No aortic aneurysm. No aortic dissection. Lungs: Unremarkable. No consolidation. No masses. Pleural spaces: Unremarkable. No pneumothorax. No pleural effusion. Heart: Unremarkable. No cardiomegaly. No pericardial effusion. Lymph nodes: Unremarkable. No enlarged lymph nodes. Bones/joints: Unremarkable. No acute fracture. Soft tissues: Unremarkable. IMPRESSION: No pulmonary embolism. Electronically signed by: Carson Hernandez On 06/01/2021 00:28:53 AM
[2021-06-01 03:30] VITALS: BP 136/53
--- NOTE | 2021-06-01 20:09 | ECGEPIP ---
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
== END 2021-06-01 03:56 | disposition home or self-care (01) ==
LOC: M ED 20:38
DX: F41.0 Panic disorder [episodic paroxysmal anxiety] (principal); I10 Essential (primary) hypertension; E78.5 Hyperlipidemia, unspecified; Z79.899 Other long term (current) drug therapy; Z79.82 Long term (current) use of aspirin; Z88.0 Allergy status to penicillin; Z88.1 Allergy status to other antibiotic agents; Z88.8 Allergy status to other drugs, medicaments and biological substances; Z91.018 Allergy to other foods
CPT/HCPCS: 71045; 71275; 80048; 84484; 85025; 93005; 93041; 94760; 96374; 96375; 99285; J1200; J1885; J2060; J2930; Q9967

== ENCOUNTER → 2021-08-04 | Outpatient (CLI) | payer OTHER | LOC: M LABSMTC 09:44 | PROVIDERS: ATTEND Pediatrics | DX: Z20.822 Contact with and (suspected) exposure to COVID-19 (principal) | CPT/HCPCS: C9803; U0003 ==

== ENCOUNTER → 2021-08-12 | Outpatient (REF) | payer OTHER ==
[2021-08-12 17:26] LABS: BASO % 0.6 % (0.0-1.0); EOS # 0.1 10^3/uL (0.0-0.5); HEMATOCRIT 45.1 % (36.0-47.0); HEMOGLOBIN 14.3 g/dl (12.0-15.5); LYMPH # 2.5 10^3/uL (1.5-5.0); LYMPH % 36.4 % (24.0-44.0); MEAN CORPUSCULAR HEMOGLOBIN 29.3 pg (27.0-33.0); MEAN CORPUSCULAR HGB CONC 31.7 g/dl (32.0-36.5); MEAN CORPUSCULAR VOLUME 92.4 fl (80.0-96.0); MONO # 0.4 10^3/uL (0.0-0.8); MONO % 5.9 % (2.0-8.0); NEUTROPHILS # 3.9 10^3/uL (1.5-8.5); NEUTROPHILS % 55.8 % (36.0-66.0); PLATELET COUNT, AUTOMATED 280 10^3/uL (150-450); RED BLOOD COUNT 4.88 10^6/uL (4.00-5.40); WHITE BLOOD COUNT 6.9 10^3/uL (4.0-10.0)
[2021-08-12 17:58] LABS: ALBUMIN 3.7 GM/DL (3.2-5.2); ALT/SGPT 36 U/L (12-78); BILIRUBIN,TOTAL 1.2 MG/DL (0.2-1.0); BLOOD UREA NITROGEN 13 MG/DL (7-18); C REACTIVE PROTEIN QUANTITATIV 1.87 MG/DL (0.00-0.30); CALCIUM LEVEL 9.3 MG/DL (8.5-10.1); CARBON DIOXIDE LEVEL 33 MEQ/L (21-32); CHLORIDE LEVEL 106 MEQ/L (98-107); COMPLEMENT C3 161 MG/DL (90-180); COMPLEMENT C4 18 MG/DL (10-40); CREATININE FOR GFR 0.83 MG/DL (0.55-1.30); GLOMERULAR FILTRATION RATE > 60.0 (>51); GLUCOSE, FASTING 96 MG/DL (70-100); POTASSIUM SERUM 4.2 MEQ/L (3.5-5.1); SODIUM LEVEL 141 MEQ/L (136-145); TOTAL PROTEIN 7.7 GM/DL (6.4-8.2)
[2021-08-12 18:02] LABS: ERYTHROCYTE SEDIMENTATION RATE 38 mm/hr (0-30)
[2021-08-12 18:08] LABS: AMORPHOUS SEDIMENT MODERATE (NEGATIVE); APPEARANCE, URINE TURBID (CLEAR); BACTERIA, URINE AUTO NEGATIVE (NEGATIVE); BILIRUBIN, URINE AUTO NEGATIVE (NEGATIVE); BLOOD, URINE BLOOD NEGATIVE (NEGATIVE); COLOR, URINE AMBER (YELLOW); GLUCOSE, URINE (UA) AUTO NEGATIVE (NEGATIVE); KETONE, URINE AUTO NEGATIVE (NEGATIVE); LEUKOCYTE ESTERASE, URINE AUTO NEGATIVE (NEGATIVE); MUCUS, URINE SMALL (NEGATIVE); NITRITE, URINE AUTO NEGATIVE (NEGATIVE); PROTEIN, URINE AUTO NEGATIVE (NEGATIVE); RBC, URINE AUTO 1 /HPF (0-3); SPECIFIC GRAVITY URINE AUTO 1.017 (1.002-1.035); SQUAMOUS EPITHELIAL CELL UR AU 3 /HPF (0-6); UROBILINOGEN, URINE AUTO 0.2 mg/dL (0.0-2.0); WBC, URINE AUTO 0 /HPF (0-3)
[2021-08-12 18:33] LABS: TOTAL PROTEIN,RANDOM URINE 11.1 MG/DL (0.0-12.0)
[2021-08-16 12:07] LABS: ANTI DS-DNA AB Negative (Negative)
== END ==
LOC: M SFHCRHEU 09:07
PROVIDERS: ATTEND Internal Medicine Rheumatology
DX: M32.9 Systemic lupus erythematosus, unspecified (principal)

== ENCOUNTER 2021-12-04 22:53 | Emergency (ER) | payer OTHER ==
[~2021-12-04] VITALS: Ht 165.1 cm; Wt 143.2 kg
[~2021-12-04 22:53] MED LIST changes: -LISI-898 PO; +LISI5TAB11 PO
[2021-12-04 23:36] VITALS: BP 175/80
[2021-12-05] MEDS ORDERED: CLINDAMYCIN 150MG CAPSULE PO ONE (00:10)
[2021-12-05] MEDS ORDERED: BOOSTRIX/ADACEL VACCINE (DIPHTH/PERTUSS/ACELL/TETANUS) 0.5ML SYR IM ONE (00:10)
[2021-12-05] MEDS ORDERED: ACETAMINOPHEN 500 MG TAB PO ONE (00:20)
[2021-12-05] MEDS ORDERED: CLEO300C2 PO (00:31)
[2021-12-05] MEDS ORDERED: SULF400T14 PO (00:51)
== END 2021-12-05 00:57 | disposition home or self-care (01) ==
LOC: M ED 22:53
DX: S61.452A Open bite of left hand, initial encounter (principal); W55.01XA Bitten by cat, initial encounter; Y92.009 Unspecified place in unspecified non-institutional (private) residence as the place of occurrence of the external cause; Y93.9 Activity, unspecified; Y99.9 Unspecified external cause status; R21 Rash and other nonspecific skin eruption; I12.9 Hypertensive chronic kidney disease with stage 1 through stage 4 chronic kidney disease, or unspecified chronic kidney disease; M32.9 Systemic lupus erythematosus, unspecified; E03.9 Hypothyroidism, unspecified; Z88.0 Allergy status to penicillin; Z88.1 Allergy status to other antibiotic agents; Z79.899 Other long term (current) drug therapy; Z79.890 Hormone replacement therapy

== ENCOUNTER 2021-12-07 11:59 | Emergency (ER) | payer OTHER ==
[~2021-12-07] VITALS: Ht 165.1 cm; Wt 150.0 kg
[~2021-12-07 11:59] MED LIST changes: +CLEO300C2 PO
[2021-12-07 14:57] VITALS: BP 143/88
== END 2021-12-07 14:58 | disposition home or self-care (01) ==
LOC: M ED 11:59
DX: S61.216A Laceration without foreign body of right little finger without damage to nail, initial encounter (principal); W26.8XXA Contact with other sharp object(s), not elsewhere classified, initial encounter; Y92.018 Other place in single-family (private) house as the place of occurrence of the external cause; I10 Essential (primary) hypertension; E03.9 Hypothyroidism, unspecified; M32.9 Systemic lupus erythematosus, unspecified; Z79.899 Other long term (current) drug therapy; Z79.82 Long term (current) use of aspirin; Z97.5 Presence of (intrauterine) contraceptive device; Z88.0 Allergy status to penicillin; Z88.1 Allergy status to other antibiotic agents; Z88.8 Allergy status to other drugs, medicaments and biological substances; Z91.018 Allergy to other foods

== ENCOUNTER → 2021-12-10 | Outpatient (CLI) | payer OTHER ==
[2021-12-10 09:07] LABS: BLOOD UREA NITROGEN 17 MG/DL (7-18); CARBON DIOXIDE LEVEL 27 MEQ/L (21-32); CHLORIDE LEVEL 107 MEQ/L (98-107); CREATININE FOR GFR 0.76 MG/DL (0.55-1.30); GLOMERULAR FILTRATION RATE > 60.0 (>51); GLUCOSE, FASTING 102 MG/DL (70-100); POTASSIUM SERUM 4.7 MEQ/L (3.5-5.1); SODIUM LEVEL 139 MEQ/L (136-145)
== END ==
LOC: M LAB 07:46
PROVIDERS: ATTEND Physician Assistant Medical
DX: S61.452A Open bite of left hand, initial encounter (principal); W55.01XA Bitten by cat, initial encounter; Y92.89 Other specified places as the place of occurrence of the external cause; Y93.89 Activity, other specified; Y99.8 Other external cause status

== ENCOUNTER 2021-12-28 13:16 | Emergency (ER) | payer OTHER ==
[~2021-12-28] VITALS: Ht 165.1 cm; Wt 143.2 kg
[2021-12-28 16:28] LABS: BASO % 0.4 % (0.0-1.0); EOS # 0.1 10^3/uL (0.0-0.5); EOS % 0.7 % (0.0-3.0); HEMATOCRIT 44.6 % (36.0-47.0); HEMOGLOBIN 14.4 g/dl (12.0-15.5); LYMPH # 2.2 10^3/uL (1.5-5.0); LYMPH % 24.6 % (24.0-44.0); MEAN CORPUSCULAR HEMOGLOBIN 28.6 pg (27.0-33.0); MEAN CORPUSCULAR HGB CONC 32.3 g/dl (32.0-36.5); MEAN CORPUSCULAR VOLUME 88.7 fl (80.0-96.0); MONO # 0.5 10^3/uL (0.0-0.8); NEUTROPHILS # 6.1 10^3/uL (1.5-8.5); NEUTROPHILS % 68.1 % (36.0-66.0); PLATELET COUNT, AUTOMATED 281 10^3/uL (150-450); RED BLOOD COUNT 5.03 10^6/uL (4.00-5.40); WHITE BLOOD COUNT 8.9 10^3/uL (4.0-10.0)
[2021-12-28] MEDS ORDERED: HYDROMORPHONE HCL 0.5 MG/ 0.5 ML SYRINGE (J1170 PER 1) IV ONE (16:35)
[2021-12-28] MEDS ORDERED: METOCLOPRAMIDE INJ 10MG/2ML VIAL (J2765 PER 1) IV ONE (16:35)
[2021-12-28 16:58] LABS: ALBUMIN 3.8 GM/DL (3.2-5.2); BILIRUBIN,DIRECT 0.2 MG/DL (0.0-0.2); BILIRUBIN,TOTAL 1.3 MG/DL (0.2-1.0); TOTAL PROTEIN 7.6 GM/DL (6.4-8.2)
[2021-12-28] MEDS ORDERED: ISOVUE-370 76% 100ML VIAL As Ordered ONE (16:59)
[2021-12-28] MEDS ORDERED: diazePAM 10MG/2ML SYRINGE (J3360 PER 5MG) IV ONE (19:45)
[2021-12-28] MEDS ORDERED: LIDOCAINE 5% (LIDODERM) PATCH TD ONE (19:45)
[2021-12-28] MEDS ORDERED: **NOTE PATIENT COMMENT** MISC XX SCH (21:00)
[2021-12-28] MEDS ORDERED: METH-1165 PO ×2 (21:01→21:25)
[2021-12-28] MEDS ORDERED: PRED20TA PO ×2 (21:01→21:25)
[2021-12-28] MEDS ORDERED: ASPE4PAD TOP (21:01)
[2021-12-28] MEDS ORDERED: predniSONE 20 MG TAB PO ONE (21:05)
[2021-12-28 21:13] VITALS: BP 175/84
[2021-12-28] MEDS ORDERED: LIDO1PAD TOP (21:25)
== END 2021-12-28 21:19 | disposition home or self-care (01) ==
LOC: M ED 13:16
DX: M54.50 Low back pain, unspecified (principal); I10 Essential (primary) hypertension; E03.9 Hypothyroidism, unspecified; M32.9 Systemic lupus erythematosus, unspecified; Z88.0 Allergy status to penicillin; Z88.1 Allergy status to other antibiotic agents; Z88.8 Allergy status to other drugs, medicaments and biological substances; Z91.018 Allergy to other foods; Z79.899 Other long term (current) drug therapy; Z79.82 Long term (current) use of aspirin; Z79.890 Hormone replacement therapy
CPT/HCPCS: 74177; 80047; 80076; 81001; 83690; 84702; 85025; 96374; 96375; 99284; J1170; J2765; J3360; J7512; Q9967

== ENCOUNTER → 2022-02-07 | Outpatient (CLI) | payer OTHER ==
[~2022-02-07] MED LIST changes: +ASPE4PAD TOP; +LIDO1PAD TOP; +METH-1165 PO; +PRED20TA PO
[2022-02-07 09:16] LABS: BASO % 0.6 % (0.0-1.0); EOS # 0.1 10^3/uL (0.0-0.5); EOS % 1.3 % (0.0-3.0); HEMATOCRIT 44.1 % (36.0-47.0); HEMOGLOBIN 13.9 g/dl (12.0-15.5); LYMPH # 2.2 10^3/uL (1.5-5.0); LYMPH % 32.5 % (24.0-44.0); MEAN CORPUSCULAR HEMOGLOBIN 28.7 pg (27.0-33.0); MEAN CORPUSCULAR HGB CONC 31.5 g/dl (32.0-36.5); MEAN CORPUSCULAR VOLUME 90.9 fl (80.0-96.0); MONO # 0.5 10^3/uL (0.0-0.8); MONO % 7.2 % (2.0-8.0); NEUTROPHILS % 58.3 % (36.0-66.0); PLATELET COUNT, AUTOMATED 277 10^3/uL (150-450); RED BLOOD COUNT 4.85 10^6/uL (4.00-5.40); WHITE BLOOD COUNT 6.8 10^3/uL (4.0-10.0)
[2022-02-07 09:18] LABS: APPEARANCE, URINE HAZY (CLEAR); BACTERIA, URINE AUTO NEGATIVE (NEGATIVE); BILIRUBIN, URINE AUTO NEGATIVE (NEGATIVE); BLOOD, URINE BLOOD NEGATIVE (NEGATIVE); COLOR, URINE YELLOW (YELLOW); GLUCOSE, URINE (UA) AUTO NEGATIVE (NEGATIVE); KETONE, URINE AUTO NEGATIVE (NEGATIVE); LEUKOCYTE ESTERASE, URINE AUTO NEGATIVE (NEGATIVE); MUCUS, URINE SMALL (NEGATIVE); NITRITE, URINE AUTO NEGATIVE (NEGATIVE); PROTEIN, URINE AUTO NEGATIVE (NEGATIVE); RBC, URINE AUTO 0 /HPF (0-3); SPECIFIC GRAVITY URINE AUTO 1.018 (1.002-1.035); SQUAMOUS EPITHELIAL CELL UR AU 7 /HPF (0-6); UROBILINOGEN, URINE AUTO 0.2 mg/dL (0.0-2.0); WBC, URINE AUTO 2 /HPF (0-3)
[2022-02-07 09:35] LABS: CREATININE,RANDOM URINE 99.7 MG/DL; TOTAL PROTEIN,RANDOM URINE 15.5 MG/DL (0.0-12.0)
[2022-02-07 09:43] LABS: ERYTHROCYTE SEDIMENTATION RATE 40 mm/hr (0-30)
[2022-02-07 09:44] LABS: ALBUMIN 3.5 GM/DL (3.2-5.2); ALT/SGPT 33 U/L (12-78); BILIRUBIN,TOTAL 0.8 MG/DL (0.2-1.0); BLOOD UREA NITROGEN 21 MG/DL (7-18); C REACTIVE PROTEIN QUANTITATIV 1.64 MG/DL (0.00-0.30); CALCIUM LEVEL 9.5 MG/DL (8.5-10.1); CARBON DIOXIDE LEVEL 31 MEQ/L (21-32); CHLORIDE LEVEL 107 MEQ/L (98-107); COMPLEMENT C3 154 MG/DL (90-180); COMPLEMENT C4 19 MG/DL (10-40); CREATININE FOR GFR 0.76 MG/DL (0.55-1.30); GLOMERULAR FILTRATION RATE > 60.0 (>51); GLUCOSE, FASTING 105 MG/DL (70-100); POTASSIUM SERUM 4.7 MEQ/L (3.5-5.1); SODIUM LEVEL 141 MEQ/L (136-145); TOTAL PROTEIN 7.4 GM/DL (6.4-8.2)
== END ==
LOC: M LAB 07:51
PROVIDERS: ATTEND Internal Medicine Rheumatology
DX: M32.9 Systemic lupus erythematosus, unspecified (principal); N96 Recurrent pregnancy loss; M47.816 Spondylosis without myelopathy or radiculopathy, lumbar region; I73.00 Raynaud's syndrome without gangrene; Z79.899 Other long term (current) drug therapy

== ENCOUNTER 2022-03-09 03:39 | Emergency (ER) | payer OTHER ==
[~2022-03-09] VITALS: Ht 165.1 cm; Wt 150.6 kg
[2022-03-09] MEDS ORDERED: methocarbamoL 500 MG TAB PO ONE (06:25)
[2022-03-09] MEDS ORDERED: LIDOCAINE 5% (LIDODERM) PATCH TD ONE (06:25)
[2022-03-09] MEDS ORDERED: KETOROLAC 30 MG/ML 1ML VIAL IM ONE (07:00)
[2022-03-09] MEDS ORDERED: METH-1164 PO (07:37)
[2022-03-09 07:38] VITALS: BP 142/68
[2022-03-09] MEDS ORDERED: **NOTE PATIENT COMMENT** MISC XX SCH (21:00)
== END 2022-03-09 07:39 | disposition home or self-care (01) ==
LOC: M ED 03:39
DX: M25.512 Pain in left shoulder (principal); M54.2 Cervicalgia; R07.89 Other chest pain; I10 Essential (primary) hypertension; E03.9 Hypothyroidism, unspecified; G89.29 Other chronic pain; Z79.899 Other long term (current) drug therapy; Z79.890 Hormone replacement therapy; Z79.82 Long term (current) use of aspirin; Z97.5 Presence of (intrauterine) contraceptive device; Z88.0 Allergy status to penicillin; Z88.1 Allergy status to other antibiotic agents; Z88.8 Allergy status to other drugs, medicaments and biological substances; Z91.018 Allergy to other foods
CPT/HCPCS: 36415; 84484; 93005; 96372; 99284; J1885

== ENCOUNTER → 2022-03-22 | Outpatient (CLI) | payer OTHER ==
[~2022-03-22] MED LIST changes: +METH-1164 PO
[2022-03-22 12:17] LABS: BASO % 0.5 % (0.0-1.0); EOS # 0.1 10^3/uL (0.0-0.5); EOS % 0.9 % (0.0-3.0); HEMATOCRIT 46.8 % (36.0-47.0); HEMOGLOBIN 14.8 g/dl (12.0-15.5); LYMPH % 25.1 % (24.0-44.0); MEAN CORPUSCULAR HGB CONC 31.6 g/dl (32.0-36.5); MEAN CORPUSCULAR VOLUME 88.6 fl (80.0-96.0); MONO # 0.5 10^3/uL (0.0-0.8); MONO % 5.8 % (2.0-8.0); NEUTROPHILS # 5.4 10^3/uL (1.5-8.5); NEUTROPHILS % 67.4 % (36.0-66.0); PLATELET COUNT, AUTOMATED 277 10^3/uL (150-450); RED BLOOD COUNT 5.28 10^6/uL (4.00-5.40)
[2022-03-22 12:36] LABS: ALBUMIN 3.6 GM/DL (3.2-5.2); ALT/SGPT 80 U/L (12-78); BILIRUBIN,TOTAL 1.4 MG/DL (0.2-1.0); BLOOD UREA NITROGEN 17 MG/DL (7-18); CALCIUM LEVEL 9.6 MG/DL (8.5-10.1); CARBON DIOXIDE LEVEL 28 MEQ/L (21-32); CHLORIDE LEVEL 107 MEQ/L (98-107); CHOLESTEROL LEVEL 163 MG/DL (<200); CHOLESTEROL RISK RATIO 3.704 (<5); FREE T4 1.69 NG/DL (0.76-1.46); GLOMERULAR FILTRATION RATE > 60.0 (>51); GLUCOSE, FASTING 95 MG/DL (70-100); HDL CHOLESTEROL 44 MG/DL (>40); IRON (FE) 72 UG/DL (50-170); LDL CHOLESTEROL 99 MG/DL (<100); NON-HDL-C 119 MG/DL; PERCENT SATURATION 21.4 % (13.2-45.0); POTASSIUM SERUM 4.1 MEQ/L (3.5-5.1); SODIUM LEVEL 142 MEQ/L (136-145); THYROID STIMULATING HORMONE 0.863 uIU/ML (0.358-3.740); TOTAL IRON BINDING CAPACITY 337 UG/DL (250-450); TOTAL PROTEIN 7.7 GM/DL (6.4-8.2); TRIGLYCERIDES LEVEL 98 MG/DL (<150)
[2022-03-22 12:38] LABS: TOTAL 25(OH) VITAMIN D 43.7 NG/ML (30.0-100.0); VITAMIN B12 LEVEL 457 PG/ML
[2022-03-22 12:46] LABS: FOLATE 14.6 NG/ML
== END ==
LOC: M LAB 11:10
PROVIDERS: ATTEND Nurse Practitioner Adult Health
DX: I10 Essential (primary) hypertension (principal); E03.9 Hypothyroidism, unspecified; D68.62 Lupus anticoagulant syndrome; Z79.899 Other long term (current) drug therapy

== ENCOUNTER → 2022-05-01 | Outpatient (CLI) | payer OTHER | LOC: M RAD 08:07 | PROVIDERS: ATTEND Orthopaedic Surgery | DX: M47.892 Other spondylosis, cervical region (principal); M50.222 Other cervical disc displacement at C5-C6 level; M50.223 Other cervical disc displacement at C6-C7 level; M48.02 Spinal stenosis, cervical region ==

== ENCOUNTER 2022-05-30 04:55 | Emergency (ER) | payer OTHER, SELFPAY ==
[~2022-05-30] VITALS: Ht 165.1 cm; Wt 153.2 kg
[2022-05-30 08:00] VITALS: BP 170/89
[2022-05-30] MEDS ORDERED: MAGICMW SSP (08:00)
[2022-05-30] MEDS ORDERED: ACET-897 PO (08:00)
== END 2022-05-30 08:15 | disposition home or self-care (01) ==
LOC: M ED 04:55
DX: U07.1 COVID-19 (principal); R05.9 Cough, unspecified; E03.9 Hypothyroidism, unspecified; F43.10 Post-traumatic stress disorder, unspecified; M32.9 Systemic lupus erythematosus, unspecified; R00.2 Palpitations; Z88.0 Allergy status to penicillin; Z88.1 Allergy status to other antibiotic agents; Z88.8 Allergy status to other drugs, medicaments and biological substances; Z91.018 Allergy to other foods; Z79.899 Other long term (current) drug therapy; Z79.890 Hormone replacement therapy; Z79.82 Long term (current) use of aspirin; Z97.5 Presence of (intrauterine) contraceptive device

== ENCOUNTER 2022-06-03 19:25 | Emergency (ER) | payer OTHER ==
[~2022-06-03] VITALS: Ht 165.1 cm; Wt 152.0 kg
[~2022-06-03 19:25] MED LIST changes: +ACET-897 PO; +MAGICMW SSP
[2022-06-03 19:26] VITALS: BP 172/78
[2022-06-03 22:11] LABS: BASO % 0.4 % (0.0-1.0); EOS % 0.4 % (0.0-3.0); HEMATOCRIT 43.7 % (36.0-47.0); HEMOGLOBIN 14.3 g/dl (12.0-15.5); LYMPH # 2.5 10^3/uL (1.5-5.0); LYMPH % 53.3 % (24.0-44.0); MEAN CORPUSCULAR HGB CONC 32.7 g/dl (32.0-36.5); MEAN CORPUSCULAR VOLUME 88.6 fl (80.0-96.0); MONO # 0.4 10^3/uL (0.0-0.8); MONO % 7.8 % (2.0-8.0); NEUTROPHILS # 1.8 10^3/uL (1.5-8.5); NEUTROPHILS % 37.9 % (36.0-66.0); PLATELET COUNT, AUTOMATED 222 10^3/uL (150-450); RED BLOOD COUNT 4.93 10^6/uL (4.00-5.40); WHITE BLOOD COUNT 4.6 10^3/uL (4.0-10.0)
[2022-06-03 23:02] LABS: ALBUMIN 3.6 GM/DL (3.2-5.2); ALT/SGPT 37 U/L (12-78); BILIRUBIN,TOTAL 0.6 MG/DL (0.2-1.0); BLOOD UREA NITROGEN 16 MG/DL (7-18); CALCIUM LEVEL 9.1 MG/DL (8.5-10.1); CARBON DIOXIDE LEVEL 28 MEQ/L (21-32); CHLORIDE LEVEL 103 MEQ/L (98-107); CREATININE FOR GFR 0.99 MG/DL (0.55-1.30); GLOMERULAR FILTRATION RATE > 60.0 (>51); GLUCOSE, FASTING 132 MG/DL (70-100); POTASSIUM SERUM 3.8 MEQ/L (3.5-5.1); SODIUM LEVEL 138 MEQ/L (136-145); TOTAL PROTEIN 7.4 GM/DL (6.4-8.2)
== END 2022-06-04 01:45 | disposition left against medical advice (07) ==
LOC: M ED 19:25
DX: Z53.29 Procedure and treatment not carried out because of patient's decision for other reasons (principal)

== ENCOUNTER → 2022-08-01 | Outpatient (CLI) | payer OTHER ==
[2022-08-01 19:32] LABS: BASO # 0.1 10^3/uL (0.0-0.2); BASO % 0.6 % (0.0-1.0); EOS # 0.1 10^3/uL (0.0-0.5); EOS % 1.3 % (0.0-3.0); HEMATOCRIT 43.7 % (36.0-47.0); HEMOGLOBIN 13.7 g/dl (12.0-15.5); LYMPH # 2.9 10^3/uL (1.5-5.0); LYMPH % 33.9 % (24.0-44.0); MEAN CORPUSCULAR HEMOGLOBIN 28.3 pg (27.0-33.0); MEAN CORPUSCULAR HGB CONC 31.4 g/dl (32.0-36.5); MEAN CORPUSCULAR VOLUME 90.3 fl (80.0-96.0); MONO # 0.7 10^3/uL (0.0-0.8); MONO % 8.3 % (2.0-8.0); NEUTROPHILS # 4.7 10^3/uL (1.5-8.5); NEUTROPHILS % 55.7 % (36.0-66.0); PLATELET COUNT, AUTOMATED 281 10^3/uL (150-450); RED BLOOD COUNT 4.84 10^6/uL (4.00-5.40); WHITE BLOOD COUNT 8.4 10^3/uL (4.0-10.0)
[2022-08-01 19:48] LABS: APPEARANCE, URINE MANUAL CLEAR (CLEAR); COLOR, URINE MANUAL LT YELLOW (YELLOW)
[2022-08-01 19:50] LABS: BILIRUBIN, URINE MANUAL NEGATIVE (NEGATIVE); BLOOD URINE MANUAL NEGATIVE (NEGATIVE); GLUCOSE, URINE (UA) MANUAL NEGATIVE (NEGATIVE); KETONE, URINE MANUAL NEGATIVE (NEGATIVE); LEUKOCYTE ESTERASE, URINE MAN NEGATIVE (NEGATIVE); NITRITE, URINE MANUAL NEGATIVE (NEGATIVE); PROTEIN, URINE MANUAL NEGATIVE (NEGATIVE); SPECIFIC GRAVITY,URINE MANUAL 1.025 (1.002-1.035); UROBILINOGEN, URINE MANUAL NORMAL (NORMAL)
[2022-08-01 20:05] LABS: TOTAL PROTEIN,RANDOM URINE 19.5 MG/DL (0.0-12.0)
[2022-08-01 20:06] LABS: ALBUMIN 3.5 GM/DL (3.2-5.2); ALT/SGPT 27 U/L (12-78); BILIRUBIN,TOTAL 0.6 MG/DL (0.2-1.0); BLOOD UREA NITROGEN 19 MG/DL (7-18); C REACTIVE PROTEIN QUANTITATIV 1.64 MG/DL (0.00-0.30); CALCIUM LEVEL 8.7 MG/DL (8.5-10.1); CARBON DIOXIDE LEVEL 30 MEQ/L (21-32); CHLORIDE LEVEL 107 MEQ/L (98-107); CREATININE FOR GFR 0.77 MG/DL (0.55-1.30); GLOMERULAR FILTRATION RATE > 60.0 (>51); GLUCOSE, FASTING 100 MG/DL (70-100); POTASSIUM SERUM 3.9 MEQ/L (3.5-5.1); SODIUM LEVEL 142 MEQ/L (136-145); TOTAL PROTEIN 7.4 GM/DL (6.4-8.2)
[2022-08-01 20:19] LABS: ERYTHROCYTE SEDIMENTATION RATE 35 mm/hr (0-30)
[2022-08-01 20:33] LABS: COMPLEMENT C3 159 MG/DL (90-180); COMPLEMENT C4 20 MG/DL (10-40)
[2022-08-05 11:08] LABS: ANTI DS-DNA AB Negative (Negative)
== END ==
LOC: M LAB 18:01
PROVIDERS: ATTEND Internal Medicine Rheumatology
DX: M32.9 Systemic lupus erythematosus, unspecified (principal); N96 Recurrent pregnancy loss; M47.816 Spondylosis without myelopathy or radiculopathy, lumbar region; Z79.899 Other long term (current) drug therapy

== ENCOUNTER 2022-09-04 08:07 | Emergency (ER) | payer OTHER ==
[~2022-09-04] VITALS: Ht 165.1 cm; Wt 150.0 kg
[2022-09-04] MEDS ORDERED: GABA600T4 PO (08:19)
[2022-09-04] MEDS ORDERED: GABA-282 PO (08:19)
[2022-09-04] MEDS ORDERED: BENZONATATE 100MG CAPSULE PO ONE (09:35)
[2022-09-04] MEDS ORDERED: ACETAMINOPHEN 500 MG TAB PO ONE (09:50)
[2022-09-04] MEDS ORDERED: BENZ200C70 PO (09:51)
[2022-09-04] MEDS ORDERED: OSEL75CA PO (09:51)
[2022-09-04 10:09] VITALS: BP 152/89
== END 2022-09-04 10:11 | disposition home or self-care (01) ==
LOC: M ED 08:07
DX: J09.X2 Influenza due to identified novel influenza A virus with other respiratory manifestations (principal); I10 Essential (primary) hypertension; M32.9 Systemic lupus erythematosus, unspecified; E55.9 Vitamin D deficiency, unspecified; E03.9 Hypothyroidism, unspecified; F41.9 Anxiety disorder, unspecified; R00.2 Palpitations; Z90.49 Acquired absence of other specified parts of digestive tract; K57.32 Diverticulitis of large intestine without perforation or abscess without bleeding; Z86.718 Personal history of other venous thrombosis and embolism; Z88.0 Allergy status to penicillin; Z88.1 Allergy status to other antibiotic agents; Z88.8 Allergy status to other drugs, medicaments and biological substances; Z79.82 Long term (current) use of aspirin; Z79.890 Hormone replacement therapy; Z79.899 Other long term (current) drug therapy

== ENCOUNTER 2022-10-26 18:57 | Emergency (ER) | payer OTHER ==
[~2022-10-26] VITALS: Ht 165.1 cm; Wt 150.5 kg
[~2022-10-26 18:57] MED LIST changes: +BENZ200C70 PO; +GABA-282 PO; +GABA600T4 PO
[2022-10-26 19:03] VITALS: BP 179/87
== END 2022-10-26 23:38 | disposition left against medical advice (07) ==
LOC: M ED 18:57
DX: Z53.21 Procedure and treatment not carried out due to patient leaving prior to being seen by health care provider (principal)

== ENCOUNTER 2022-11-05 08:50 | Emergency (ER) | payer OTHER ==
[~2022-11-05] VITALS: Ht 157.5 cm; Wt 150.9 kg
[2022-11-05] MEDS ORDERED: CYCL-707 (09:08)
[2022-11-05] MEDS ORDERED: METH4PACK (09:08)
[2022-11-05] MEDS ORDERED: PANT20TA6 (09:08)
[2022-11-05] MEDS ORDERED: CETIRIZINE (ZyrTEC) 10 MG TAB PO ONE (11:35)
[2022-11-05] MEDS ORDERED: CETI-24 PO (12:26)
[2022-11-05 12:36] VITALS: BP 147/71
== END 2022-11-05 12:44 | disposition home or self-care (01) ==
LOC: M ED 08:50
DX: R21 Rash and other nonspecific skin eruption (principal); R00.2 Palpitations; F43.10 Post-traumatic stress disorder, unspecified; E03.9 Hypothyroidism, unspecified; Z88.0 Allergy status to penicillin; Z88.1 Allergy status to other antibiotic agents; Z91.018 Allergy to other foods; Z91.09 Other allergy status, other than to drugs and biological substances; Z79.1 Long term (current) use of non-steroidal anti-inflammatories (NSAID); Z79.82 Long term (current) use of aspirin; Z79.899 Other long term (current) drug therapy

== ENCOUNTER 2022-12-23 18:08 | Emergency (ER) | payer OTHER ==
[~2022-12-23] VITALS: Ht 165.1 cm; Wt 155.7 kg
[~2022-12-23 18:08] MED LIST changes: +CETI-24 PO; +CYCL-707; +METH4PACK; +PANT20TA6
[2022-12-23] MEDS ORDERED: LORazepam 2 MG/ML 1ML VIAL IV STA (22:27)
[2022-12-23 23:36] VITALS: BP 168/71
[2022-12-23] MEDS ORDERED: NS 1,000 ML IV SCH (23:40)
[2022-12-24] MEDS ORDERED: diazePAM 10MG/2ML SYRINGE IM ONE
== END 2022-12-24 01:55 | disposition home or self-care (01) ==
LOC: M ED 18:08
DX: S13.9XXA Sprain of joints and ligaments of unspecified parts of neck, initial encounter (principal); W01.0XXA Fall on same level from slipping, tripping and stumbling without subsequent striking against object, initial encounter; Y92.019 Unspecified place in single-family (private) house as the place of occurrence of the external cause; Y93.01 Activity, walking, marching and hiking; Y99.8 Other external cause status; I10 Essential (primary) hypertension; E03.9 Hypothyroidism, unspecified
CPT/HCPCS: 70450; 72141; 96372; 96374; 99284; J2060; J3360

== ENCOUNTER 2023-02-11 14:43 | Emergency (ER) | payer OTHER ==
[~2023-02-11] VITALS: Ht 165.1 cm; Wt 156.7 kg
[2023-02-11 17:41] VITALS: BP 171/85
== END 2023-02-11 17:47 | disposition home or self-care (01) ==
LOC: M ED 14:43
DX: S86.112A Strain of other muscle(s) and tendon(s) of posterior muscle group at lower leg level, left leg, initial encounter (principal); X58.XXXA Exposure to other specified factors, initial encounter; Y92.89 Other specified places as the place of occurrence of the external cause; Y93.89 Activity, other specified; Y99.8 Other external cause status; I10 Essential (primary) hypertension; M32.9 Systemic lupus erythematosus, unspecified; E03.9 Hypothyroidism, unspecified; K57.92 Diverticulitis of intestine, part unspecified, without perforation or abscess without bleeding; Z86.718 Personal history of other venous thrombosis and embolism; Z88.0 Allergy status to penicillin; Z88.8 Allergy status to other drugs, medicaments and biological substances; Z88.1 Allergy status to other antibiotic agents; Z91.018 Allergy to other foods; Z79.82 Long term (current) use of aspirin; Z79.899 Other long term (current) drug therapy

== ENCOUNTER 2023-03-06 07:33 | Emergency (ER) | payer OTHER ==
[~2023-03-06] VITALS: Ht 165.1 cm; Wt 156.5 kg
[2023-03-06] MEDS ORDERED: ACETAMINOPHEN 325 MG TAB PO ONE (08:00)
[2023-03-06 09:47] VITALS: BP 177/85
== END 2023-03-06 09:45 | disposition home or self-care (01) ==
LOC: M ED 07:33
DX: M77.32 Calcaneal spur, left foot (principal); M76.62 Achilles tendinitis, left leg; E03.9 Hypothyroidism, unspecified; E55.9 Vitamin D deficiency, unspecified; Z88.0 Allergy status to penicillin; Z88.8 Allergy status to other drugs, medicaments and biological substances; Z91.018 Allergy to other foods; Z79.82 Long term (current) use of aspirin; Z79.899 Other long term (current) drug therapy

== ENCOUNTER 2023-05-07 07:23 | Emergency (ER) | payer OTHER ==
[~2023-05-07] VITALS: Ht 165.1 cm; Wt 155.3 kg
[2023-05-07 07:23] VITALS: BP 142/84; TEMP 97.8; O2SAT 100
[~2023-05-07 07:23] MED LIST changes: -HYDR200T3 PO; +HYDR200T46 PO
== END 2023-05-07 10:35 | disposition left against medical advice (07) ==
LOC: M ED 07:23
DX: M25.562 Pain in left knee (principal); I10 Essential (primary) hypertension; E03.9 Hypothyroidism, unspecified; M35.9 Systemic involvement of connective tissue, unspecified; Z88.0 Allergy status to penicillin; Z88.1 Allergy status to other antibiotic agents; Z91.018 Allergy to other foods; E55.9 Vitamin D deficiency, unspecified; M32.9 Systemic lupus erythematosus, unspecified; Z79.899 Other long term (current) drug therapy

== ENCOUNTER → 2023-05-14 | Outpatient (CLI) | payer OTHER ==
[2023-05-14 09:24] LABS: APPEARANCE, URINE CLEAR (CLEAR); BACTERIA, URINE AUTO NEGATIVE (NEGATIVE); BILIRUBIN, URINE AUTO NEGATIVE (NEGATIVE); BLOOD, URINE BLOOD NEGATIVE (NEGATIVE); COLOR, URINE YELLOW (YELLOW); GLUCOSE, URINE (UA) AUTO NEGATIVE (NEGATIVE); KETONE, URINE AUTO NEGATIVE (NEGATIVE); LEUKOCYTE ESTERASE, URINE AUTO NEGATIVE (NEGATIVE); MUCUS, URINE SMALL (NEGATIVE); NITRITE, URINE AUTO NEGATIVE (NEGATIVE); PROTEIN, URINE AUTO NEGATIVE (NEGATIVE); RBC, URINE AUTO 0 /HPF (0-3); SPECIFIC GRAVITY URINE AUTO 1.015 (1.002-1.035); SQUAMOUS EPITHELIAL CELL UR AU 3 /HPF (0-6); UROBILINOGEN, URINE AUTO 0.2 mg/dL (0.0-2.0); WBC, URINE AUTO 0 /HPF (0-3)
[2023-05-14 09:25] LABS: BASO % 0.6 % (0.0-1.0); EOS # 0.1 10^3/uL (0.0-0.5); EOS % 1.4 % (0.0-3.0); HEMATOCRIT 43.7 % (36.0-47.0); HEMOGLOBIN 14.1 g/dl (12.0-15.5); LYMPH # 2.2 10^3/uL (1.5-5.0); LYMPH % 33.6 % (24.0-44.0); MEAN CORPUSCULAR HEMOGLOBIN 28.7 pg (27.0-33.0); MEAN CORPUSCULAR HGB CONC 32.3 g/dl (32.0-36.5); MONO # 0.4 10^3/uL (0.0-0.8); MONO % 6.1 % (2.0-8.0); NEUTROPHILS # 3.8 10^3/uL (1.5-8.5); NEUTROPHILS % 58.1 % (36.0-66.0); PLATELET COUNT, AUTOMATED 243 10^3/uL (150-450); RED BLOOD COUNT 4.91 10^6/uL (4.00-5.40); WHITE BLOOD COUNT 6.6 10^3/uL (4.0-10.0)
[2023-05-14 09:30] LABS: ERYTHROCYTE SEDIMENTATION RATE 53 mm/hr (0-30)
[2023-05-14 09:54] LABS: ALBUMIN 3.6 G/DL (3.2-5.2); ALKALINE PHOSPHATASE 70 U/L (46-116); ALT/SGPT 24 U/L (7.0-40); AST/SGOT 18 U/L (<34); BLOOD UREA NITROGEN 16 MG/DL (9-23); CARBON DIOXIDE LEVEL 30 MMOL/L (20-31); CHLORIDE LEVEL 105 MMOL/L (98-107); CREATININE FOR GFR 0.79 MG/DL (0.55-1.30); CREATININE,RANDOM URINE 76.3 MG/DL; GLOMERULAR FILTRATION RATE > 60.0 (>51); GLUCOSE, FASTING 105 MG/DL (60-100); POTASSIUM SERUM 4.4 MMOL/L (3.5-5.1); SODIUM LEVEL 142 MMOL/L (136-145); TOTAL PROTEIN 7.3 G/DL (5.7-8.2)
[2023-05-14 09:55] LABS: COMPLEMENT C3 174.5 MG/DL (90.0-170.0); COMPLEMENT C4 20.3 MG/DL (12-36)
[2023-05-14 09:56] LABS: TOTAL PROTEIN,RANDOM URINE < 6.0 MG/DL (0.0-14.0)
[2023-05-18 05:12] LABS: ANTI DS-DNA AB Negative (Negative)
== END ==
LOC: M LAB 08:13
PROVIDERS: ATTEND Internal Medicine Rheumatology
DX: M32.9 Systemic lupus erythematosus, unspecified (principal); N96 Recurrent pregnancy loss; M47.816 Spondylosis without myelopathy or radiculopathy, lumbar region; Z79.899 Other long term (current) drug therapy; I73.00 Raynaud's syndrome without gangrene; H04.129 Dry eye syndrome of unspecified lacrimal gland

== ENCOUNTER → 2023-06-09 | Outpatient (CLI) | payer OTHER | LOC: M PLAIMG 07:55 | PROVIDERS: ATTEND Family Medicine | DX: M25.562 Pain in left knee (principal) ==

== ENCOUNTER 2023-11-22 01:03 | Emergency (ER) | payer OTHER ==
[~2023-11-22] VITALS: Ht 165.1 cm; Wt 150.0 kg
[2023-11-22 01:03] VITALS: O2SAT 100
[2023-11-22] MEDS ORDERED: ERYT5OIN25 OD (04:07)
[2023-11-22] MEDS ORDERED: LEVO1TAB40 PO (04:07)
[2023-11-22 04:16] VITALS: BP 146/85; TEMP 98.8
== END 2023-11-22 04:14 | disposition home or self-care (01) ==
LOC: M ED 01:03
DX: J02.9 Acute pharyngitis, unspecified (principal); J01.90 Acute sinusitis, unspecified; H00.012 Hordeolum externum right lower eyelid; Z79.82 Long term (current) use of aspirin; Z79.899 Other long term (current) drug therapy; Z88.0 Allergy status to penicillin; Z88.1 Allergy status to other antibiotic agents; Z88.8 Allergy status to other drugs, medicaments and biological substances; Z91.018 Allergy to other foods

== ENCOUNTER → 2024-03-10 | Outpatient (CLI) | payer OTHER ==
[~2024-03-10] MED LIST changes: +ERYT5OIN25 OD; +LEVO1TAB40 PO; +ONDA-282 PO; -ONDA4TAB6 PO
[2024-03-10 12:39] LABS: APPEARANCE, URINE CLEAR (CLEAR); BACTERIA, URINE AUTO NEGATIVE (NEGATIVE); BILIRUBIN, URINE AUTO NEGATIVE (NEGATIVE); BLOOD, URINE BLOOD NEGATIVE (NEGATIVE); COLOR, URINE YELLOW (YELLOW); GLUCOSE, URINE (UA) AUTO NEGATIVE (NEGATIVE); KETONE, URINE AUTO NEGATIVE (NEGATIVE); LEUKOCYTE ESTERASE, URINE AUTO NEGATIVE (NEGATIVE); NITRITE, URINE AUTO NEGATIVE (NEGATIVE); PROTEIN, URINE AUTO NEGATIVE (NEGATIVE); RBC, URINE AUTO 0 /HPF (0-3); SPECIFIC GRAVITY URINE AUTO 1.016 (1.002-1.035); SQUAMOUS EPITHELIAL CELL UR AU 2 /HPF (0-6); UROBILINOGEN, URINE AUTO 0.2 mg/dL (0.0-2.0); WBC, URINE AUTO 1 /HPF (0-3)
[2024-03-10 12:41] LABS: BASO # 0.1 10^3/uL (0.0-0.2); BASO % 0.7 % (0.0-1.0); EOS # 0.1 10^3/uL (0.0-0.5); EOS % 1.3 % (0.0-3.0); HEMATOCRIT 42.6 % (36.0-47.0); HEMOGLOBIN 13.6 g/dl (12.0-15.5); LYMPH # 2.5 10^3/uL (1.5-5.0); MEAN CORPUSCULAR HEMOGLOBIN 28.6 pg (27.0-33.0); MEAN CORPUSCULAR HGB CONC 31.9 g/dl (32.0-36.5); MEAN CORPUSCULAR VOLUME 89.7 fl (80.0-96.0); MONO # 0.5 10^3/uL (0.0-0.8); MONO % 6.6 % (2.0-8.0); NEUTROPHILS # 4.3 10^3/uL (1.5-8.5); NEUTROPHILS % 57.1 % (36.0-66.0); PLATELET COUNT, AUTOMATED 239 10^3/uL (150-450); RED BLOOD COUNT 4.75 10^6/uL (4.00-5.40); WHITE BLOOD COUNT 7.5 10^3/uL (4.0-10.0)
[2024-03-10 12:52] LABS: ERYTHROCYTE SEDIMENTATION RATE 37 mm/hr (0-30)
[2024-03-10 13:02] LABS: CREATININE,RANDOM URINE 60.3 MG/DL
[2024-03-10 13:04] LABS: TOTAL PROTEIN,RANDOM URINE < 6.0 MG/DL (0.0-14.0)
[2024-03-10 13:15] LABS: ALBUMIN 3.5 G/DL (3.2-5.2); ALKALINE PHOSPHATASE 78 U/L (46-116); ALT/SGPT 25 U/L (7.0-40); AST/SGOT 19 U/L (<34); BILIRUBIN,TOTAL 0.9 MG/DL (0.3-1.2); BLOOD UREA NITROGEN 20 MG/DL (9-23); CALCIUM LEVEL 9.7 MG/DL (8.5-10.1); CARBON DIOXIDE LEVEL 32 MMOL/L (20-31); CHLORIDE LEVEL 107 MMOL/L (98-107); COMPLEMENT C3 173.8 MG/DL (90.0-170.0); COMPLEMENT C4 17.2 MG/DL (12-36); CREATININE FOR GFR 0.72 MG/DL (0.55-1.30); GLOMERULAR FILTRATION RATE > 60.0 (>51); GLUCOSE, FASTING 88 MG/DL (60-100); POTASSIUM SERUM 4.6 MMOL/L (3.5-5.1); SODIUM LEVEL 142 MMOL/L (136-145)
[2024-03-13 13:08] LABS: ANTI DS-DNA AB Negative (Negative)
== END ==
LOC: M LAB 03-08 07:07
PROVIDERS: ATTEND Internal Medicine Rheumatology
DX: M32.9 Systemic lupus erythematosus, unspecified (principal); N96 Recurrent pregnancy loss; M47.816 Spondylosis without myelopathy or radiculopathy, lumbar region; I73.00 Raynaud's syndrome without gangrene; H04.129 Dry eye syndrome of unspecified lacrimal gland; Z79.899 Other long term (current) drug therapy

== ENCOUNTER 2024-05-15 20:01 | Emergency (ER) | payer OTHER ==
[~2024-05-15] VITALS: Ht 165.1 cm; Wt 153.0 kg
[2024-05-15 20:01] VITALS: BP 180/81; TEMP 97.4; O2SAT 100
[2024-05-15] MEDS ORDERED: RABIES IMMUNE GLOBULIN 1500 INTERNATIONAL UNIT/5ML VIAL IM.IMMUN ONE (21:00)
[2024-05-15] MEDS: RABIES VACCINE HUMAN 2.5 INTERNATIONAL UNITS/ML VIAL IM.IMMUN ONE (21:11)
[2024-05-15] MEDS: BOOSTRIX VACCINE (TETANUS/DIPHTH/ACEL. PERTUSSIS) 0.5ML SYR IM.IMMUN ONE (21:11)
[2024-05-15] MEDS: RABIES IMMUNE GLOBULIN 300 INTERNATIONAL UNITS/1ML VIAL IM.IMMUN ONE (21:54)
[2024-05-15] MEDS: RABIES IMMUNE GLOBULIN 1500 INTERNATIONAL UNIT/5ML VIAL IM.IMMUN ONE (21:58)
== END 2024-05-15 22:42 | disposition home or self-care (01) ==
LOC: M ED 20:01
DX: S61.532A Puncture wound without foreign body of left wrist, initial encounter (principal); Z20.3 Contact with and (suspected) exposure to rabies; X58.XXXA Exposure to other specified factors, initial encounter; Y92.9 Unspecified place or not applicable; Y93.9 Activity, unspecified; Y99.9 Unspecified external cause status; Z79.82 Long term (current) use of aspirin; Z79.899 Other long term (current) drug therapy; Z88.0 Allergy status to penicillin; Z88.1 Allergy status to other antibiotic agents; Z88.8 Allergy status to other drugs, medicaments and biological substances; Z91.018 Allergy to other foods

== ENCOUNTER 2024-05-18 14:04 | Emergency (ER) | payer OTHER ==
[~2024-05-18] VITALS: Ht 165.1 cm; Wt 152.3 kg
[2024-05-18] MEDS: RABIES VACCINE HUMAN 2.5 INTERNATIONAL UNITS/ML VIAL (IMOVAX) IM ONE (14:30)
[2024-05-18 15:33] VITALS: BP 156/96; TEMP 96.9; O2SAT 96
[2024-05-18] MEDS: METOCLOPRAMIDE 5 MG TAB PO ONE (15:44)
== END 2024-05-18 15:59 | disposition home or self-care (01) ==
LOC: M ED 14:04
DX: Z20.3 Contact with and (suspected) exposure to rabies (principal); Z23 Encounter for immunization; E03.9 Hypothyroidism, unspecified; M32.9 Systemic lupus erythematosus, unspecified

== ENCOUNTER 2024-05-22 07:02 | Emergency (ER) | payer OTHER ==
[~2024-05-22] VITALS: Ht 165.1 cm; Wt 152.6 kg
[2024-05-22 08:56] VITALS: BP 156/84; TEMP 97.4; O2SAT 97
[2024-05-22] MEDS ORDERED: ONDA-282 PO (09:21)
[2024-05-22] MEDS: ONDANSETRON 4MG ORAL DISINTEGRATING TAB PO ONE (09:46)
[2024-05-22] MEDS: RABIES VACCINE HUMAN 2.5 INTERNATIONAL UNITS/ML VIAL (IMOVAX) IM.IMMUN ONE (09:47)
== END 2024-05-22 10:12 | disposition home or self-care (01) ==
LOC: M ED 07:02
DX: Z29.14 Encounter for prophylactic rabies immune globulin (principal); Z23 Encounter for immunization; I10 Essential (primary) hypertension; E03.9 Hypothyroidism, unspecified; Z88.0 Allergy status to penicillin; Z88.1 Allergy status to other antibiotic agents; Z88.8 Allergy status to other drugs, medicaments and biological substances; Z91.018 Allergy to other foods; Z79.1 Long term (current) use of non-steroidal anti-inflammatories (NSAID); Z79.2 Long term (current) use of antibiotics; Z79.899 Other long term (current) drug therapy

== ENCOUNTER 2024-05-29 07:07 | Emergency (ER) | payer OTHER ==
[~2024-05-29] VITALS: Ht 165.1 cm; Wt 153.1 kg
[2024-05-29] MEDS: ONDANSETRON 4MG ORAL DISINTEGRATING TAB PO ONE (07:35)
[2024-05-29] MEDS: RABIES VACCINE 2.5 INTERNATIONAL UNITS/ML VIAL (RABAVERT) IM ONE (07:36)
[2024-05-29 07:40] VITALS: BP 130/80; TEMP 98.1; O2SAT 100
== END 2024-05-29 07:45 | disposition home or self-care (01) ==
LOC: M ED 07:07
DX: Z29.14 Encounter for prophylactic rabies immune globulin (principal); Z23 Encounter for immunization; F43.10 Post-traumatic stress disorder, unspecified; Z88.0 Allergy status to penicillin; Z88.1 Allergy status to other antibiotic agents; Z88.8 Allergy status to other drugs, medicaments and biological substances; Z91.018 Allergy to other foods; Z79.1 Long term (current) use of non-steroidal anti-inflammatories (NSAID); Z79.2 Long term (current) use of antibiotics; Z79.899 Other long term (current) drug therapy

== ENCOUNTER → 2024-07-19 | Outpatient (CLI) | payer OTHER ==
[~2024-07-19] MED LIST changes: +GABA-1172 PO; +GABA-1490 PO; -GABA-282 PO; -GABA600T4 PO
== END ==
LOC: M WHC 07:01
PROVIDERS: ATTEND Family Medicine
DX: Z12.31 Encounter for screening mammogram for malignant neoplasm of breast (principal); R92.313 Mammographic fatty tissue density, bilateral breasts

== ENCOUNTER → 2024-07-24 | Outpatient (CLI) | payer OTHER | LOC: M SOG 07:21 | PROVIDERS: ATTEND Orthopaedic Surgery | DX: M25.562 Pain in left knee (principal) ==

== ENCOUNTER → 2024-08-07 | Outpatient (CLI) | payer OTHER | LOC: M SOG 07:25 | PROVIDERS: ATTEND Orthopaedic Surgery | DX: M25.562 Pain in left knee (principal); Z53.9 Procedure and treatment not carried out, unspecified reason ==

== ENCOUNTER → 2024-08-21 | Outpatient (CLI) | payer OTHER | LOC: M SOG 07:55 | PROVIDERS: ATTEND Orthopaedic Surgery | DX: M25.562 Pain in left knee (principal) ==

== ENCOUNTER → 2024-10-17 | Outpatient (CLI) | payer OTHER | LOC: M WHC 06:46 | PROVIDERS: ATTEND Student in an Organized Health Care Education/Training Program | DX: N95.0 Postmenopausal bleeding (principal) ==

== ENCOUNTER 2024-10-27 00:44 | Emergency (ER) | payer OTHER ==
[~2024-10-27] VITALS: Ht 165.1 cm; Wt 154.4 kg
[2024-10-27] MEDS ORDERED: CLEO300C2 PO (01:24)
[2024-10-27] MEDS ORDERED: CLINDAMYCIN 150MG CAPSULE PO ONE (01:25)
[2024-10-27 01:58] VITALS: BP 148/73; TEMP 98; O2SAT 98
== END 2024-10-27 02:13 | disposition home or self-care (01) ==
LOC: M ED 00:44
DX: S60.512A Abrasion of left hand, initial encounter (principal); W55.03XA Scratched by cat, initial encounter; Y92.009 Unspecified place in unspecified non-institutional (private) residence as the place of occurrence of the external cause; Y93.89 Activity, other specified; Y99.9 Unspecified external cause status; I10 Essential (primary) hypertension; M32.9 Systemic lupus erythematosus, unspecified; E03.9 Hypothyroidism, unspecified; Z79.82 Long term (current) use of aspirin; Z79.899 Other long term (current) drug therapy; Z88.0 Allergy status to penicillin; Z88.1 Allergy status to other antibiotic agents; Z88.8 Allergy status to other drugs, medicaments and biological substances; Z91.018 Allergy to other foods

== ENCOUNTER → 2024-11-28 | Outpatient (CLI) | payer OTHER ==
[2024-11-28 09:03] LABS: HEMOGLOBIN A1c 5.5 % (4.0-6.0)
[2024-11-28 09:06] LABS: ALBUMIN 3.4 G/DL (3.2-5.2); ALKALINE PHOSPHATASE 71 U/L (35-104); ALT/SGPT 21 U/L (7.0-40); AST/SGOT 18 U/L (<34); BILIRUBIN,TOTAL 0.9 MG/DL (0.3-1.2); BLOOD UREA NITROGEN 16 MG/DL (9-23); CALCIUM LEVEL 9.4 MG/DL (8.5-10.1); CARBON DIOXIDE LEVEL 32 MMOL/L (20-31); CHLORIDE LEVEL 106 MMOL/L (98-107); CHOLESTEROL LEVEL 181 MG/DL (<200); CHOLESTEROL RISK RATIO 3.67 (<5); CREATININE FOR GFR 0.82 MG/DL (0.55-1.30); GLOMERULAR FILTRATION RATE > 60.0 (>51); GLUCOSE, FASTING 116 MG/DL (60-100); HDL CHOLESTEROL 49.2 MG/DL (>40); LDL CHOLESTEROL 114.6 MG/DL (<100); NON-HDL-C 131.8 MG/DL; POTASSIUM SERUM 4.6 MMOL/L (3.5-5.1); SODIUM LEVEL 145 MMOL/L (136-145); TOTAL PROTEIN 7.3 G/DL (5.7-8.2); TRIGLYCERIDES LEVEL 86 MG/DL (<150)
== END ==
LOC: M LAB 07:11
PROVIDERS: ATTEND Internal Medicine Cardiovascular Disease
DX: I10 Essential (primary) hypertension (principal); E03.9 Hypothyroidism, unspecified; E78.5 Hyperlipidemia, unspecified

== ENCOUNTER 2024-12-31 11:41 | Day surgery (SDC) | payer OTHER ==
[~2024-12-31] VITALS: Ht 165.1 cm; Wt 154.7 kg
[~2024-12-31 11:41] MED LIST changes: +LISI20TA33 PO; +LR 1,000 ML IV SCH
[2024-12-31 12:12] LABS: HEMATOCRIT 45.3 % (36.0-47.0); HEMOGLOBIN 14.5 g/dl (12.0-15.5); MEAN CORPUSCULAR HEMOGLOBIN 28.9 pg (27.0-33.0); MEAN CORPUSCULAR VOLUME 90.2 fl (80.0-96.0); PLATELET COUNT, AUTOMATED 246 10^3/uL (150-450); RED BLOOD COUNT 5.02 10^6/uL (4.00-5.40); WHITE BLOOD COUNT 7.9 10^3/uL (4.0-10.0)
[2024-12-31] MEDS ORDERED: ACETAMINOPHEN 1000MG/100ML IV BAG As Ordered ONE (12:19)
[2024-12-31] MEDS ORDERED: propofoL 200 MG/20 ML VIAL As Ordered ONE (12:19)
[2024-12-31] MEDS ORDERED: ONDANSETRON 4MG 2ML VIAL As Ordered ONE (12:19)
[2024-12-31] MEDS ORDERED: LIDOCAINE 2% 100MG/5ML SDV (FOR ANES.) As Ordered ONE (12:19)
[2024-12-31] MEDS ORDERED: fentaNYL 100 MCG/2 ML INJECTION As Ordered ONE (12:20)
[2024-12-31] MEDS ORDERED: MIDAZOLAM INJ 2MG/2ML VIAL As Ordered ONE (12:20)
[2024-12-31] MEDS ORDERED: KETOROLAC 30 MG/ML 1ML VIAL As Ordered ONE (12:20)
[2024-12-31] MEDS: SCOPOLAMINE 1MG TRANSDERMAL PATCH TOP ONE (12:37)
[2024-12-31] MEDS: ACETAMINOPHEN 500 MG TAB PO ONE (12:37)
[2024-12-31 12:39] LABS: BLOOD UREA NITROGEN 13 MG/DL (9-23); CALCIUM LEVEL 8.9 MG/DL (8.5-10.1); CARBON DIOXIDE LEVEL 31 MMOL/L (20-31); CHLORIDE LEVEL 106 MMOL/L (98-107); CREATININE FOR GFR 0.81 MG/DL (0.55-1.30); GLOMERULAR FILTRATION RATE > 60.0 (>51); GLUCOSE, FASTING 111 MG/DL (60-100); POTASSIUM SERUM 4.8 MMOL/L (3.5-5.1); SODIUM LEVEL 143 MMOL/L (136-145)
[2024-12-31] MEDS ORDERED: ROCURONIUM BROMIDE 50MG/5ML VIAL As Ordered ONE (13:45)
[2024-12-31] MEDS ORDERED: SUGAMMADEX SODIUM 500 MG/5 ML VIAL (BRIDION) As Ordered ONE (14:18)
[2024-12-31] MEDS: ENOXAPARIN 40MG/0.4ML SYRINGE (J1650 PER 10MG) SC ONE (14:34)
[2024-12-31] MEDS ORDERED: METOCLOPRAMIDE INJ 10MG/2ML VIAL As Ordered ONE (14:41)
[2024-12-31] MEDS ORDERED: VASOPRESSIN INJ 20UNITS/ML 1ML VIAL As Ordered ONE (15:10)
[2024-12-31] MEDS: LIDOCAINE 1% SDV 30ML VIAL As Ordered ONE (15:30)
[2024-12-31] MEDS: LEVONORGESTREL 52MG (MIRENA) IUD As Ordered ONE (15:31)
[2024-12-31] MEDS ORDERED: LR 1,000 ML IV SCH (15:45)
[2024-12-31] MEDS ORDERED: fentaNYL 100 MCG/2 ML INJECTION IV PRN (15:45)
[2024-12-31] MEDS ORDERED: ONDANSETRON 4MG 2ML VIAL IV PRN (16:15)
[2024-12-31] MEDS ORDERED: oxyCODONE 5MG TAB PO PRN (16:15)
[2024-12-31] MEDS: ONDANSETRON 4MG 2ML VIAL IV PRN (16:16)
[2024-12-31] MEDS: oxyCODONE 5MG TAB PO PRN (16:17)
[2024-12-31] MEDS: HYDROMORPHONE HCL 0.5 MG/ 0.5 ML SYRINGE IV PRN (16:18)
[2024-12-31 17:00] VITALS: BP 146/65; TEMP 98.7; O2SAT 96
== END 2024-12-31 17:25 | disposition home or self-care (01) ==
LOC: M SDC 11:41
PROVIDERS: ATTEND Student in an Organized Health Care Education/Training Program
DX: N84.0 Polyp of corpus uteri (principal); N88.8 Other specified noninflammatory disorders of cervix uteri; Z68.43 Body mass index [BMI] 50.0-59.9, adult; F43.10 Post-traumatic stress disorder, unspecified; Z88.0 Allergy status to penicillin; Z88.1 Allergy status to other antibiotic agents; Z88.8 Allergy status to other drugs, medicaments and biological substances; Z91.018 Allergy to other foods; Z79.899 Other long term (current) drug therapy; Z97.5 Presence of (intrauterine) contraceptive device
CPT/HCPCS: 36415; 58558; 80048; 81025; 85027; 86850; 86870; 86900; 86901; 86905; 88305; 93005; J1100; J1171; J1650; J1885; J2250; J2405; J2598; J2765; J3010; J7298

== ENCOUNTER → 2025-01-03 | Outpatient (CLI) | payer OTHER ==
[~2025-01-03] MED LIST changes: -LR 1,000 ML IV SCH
[2025-01-03 07:45] LABS: BASO # 0.1 10^3/uL (0.0-0.2); BASO % 0.6 % (0.0-1.0); EOS # 0.1 10^3/uL (0.0-0.5); EOS % 1.2 % (0.0-3.0); HEMATOCRIT 42.4 % (36.0-47.0); HEMOGLOBIN 13.4 g/dl (12.0-15.5); MEAN CORPUSCULAR HGB CONC 31.6 g/dl (32.0-36.5); MEAN CORPUSCULAR VOLUME 91.8 fl (80.0-96.0); MONO # 0.5 10^3/uL (0.0-0.8); MONO % 5.9 % (2.0-8.0); NEUTROPHILS # 4.2 10^3/uL (1.5-8.5); PLATELET COUNT, AUTOMATED 208 10^3/uL (150-450); RED BLOOD COUNT 4.62 10^6/uL (4.00-5.40); WHITE BLOOD COUNT 7.8 10^3/uL (4.0-10.0)
[2025-01-03 07:46] LABS: APPEARANCE, URINE HAZY (CLEAR); BACTERIA, URINE AUTO NEGATIVE (NEGATIVE); BILIRUBIN, URINE AUTO NEGATIVE (NEGATIVE); BLOOD, URINE BLOOD 3+ (NEGATIVE); COLOR, URINE YELLOW (YELLOW); GLUCOSE, URINE (UA) AUTO NEGATIVE (NEGATIVE); KETONE, URINE AUTO NEGATIVE (NEGATIVE); LEUKOCYTE ESTERASE, URINE AUTO 2+ (NEGATIVE); MUCUS, URINE SMALL (NEGATIVE); NITRITE, URINE AUTO NEGATIVE (NEGATIVE); PROTEIN, URINE AUTO NEGATIVE (NEGATIVE); RBC, URINE AUTO 44 /HPF (0-3); SPECIFIC GRAVITY URINE AUTO 1.018 (1.002-1.035); SQUAMOUS EPITHELIAL CELL UR AU 9 /HPF (0-6); UROBILINOGEN, URINE AUTO 0.2 mg/dL (0.0-2.0); WBC, URINE AUTO 11 /HPF (0-3)
[2025-01-03 08:05] LABS: ERYTHROCYTE SEDIMENTATION RATE 56 mm/hr (0-30)
[2025-01-03 08:10] LABS: ALBUMIN 3.5 G/DL (3.2-5.2); ALKALINE PHOSPHATASE 70 U/L (35-104); ALT/SGPT 25 U/L (7.0-40); AST/SGOT 21 U/L (<34); BILIRUBIN,TOTAL 0.8 MG/DL (0.3-1.2); BLOOD UREA NITROGEN 18 MG/DL (9-23); C REACTIVE PROTEIN QUANTITATIV 0.77 MG/DL (<1.0); CALCIUM LEVEL 8.7 MG/DL (8.5-10.1); CARBON DIOXIDE LEVEL 32 MMOL/L (20-31); CHLORIDE LEVEL 106 MMOL/L (98-107); CREATININE FOR GFR 0.86 MG/DL (0.55-1.30); GLOMERULAR FILTRATION RATE > 60.0 (>51); GLUCOSE, FASTING 118 MG/DL (60-100); POTASSIUM SERUM 4.3 MMOL/L (3.5-5.1); SODIUM LEVEL 145 MMOL/L (136-145)
[2025-01-03 08:11] LABS: CREATININE,RANDOM URINE 120.3 MG/DL
[2025-01-03 08:12] LABS: COMPLEMENT C3 185.3 MG/DL (90.0-170.0); COMPLEMENT C4 16.7 MG/DL (12-36)
== END ==
LOC: M LAB 07:00
PROVIDERS: ATTEND Internal Medicine Rheumatology
DX: M32.9 Systemic lupus erythematosus, unspecified (principal); N96 Recurrent pregnancy loss; M47.818 Spondylosis without myelopathy or radiculopathy, sacral and sacrococcygeal region; I73.00 Raynaud's syndrome without gangrene; H04.129 Dry eye syndrome of unspecified lacrimal gland

== ENCOUNTER → 2025-01-06 | Outpatient (CLI) | payer OTHER | LOC: M RAD 11:52 | PROVIDERS: ATTEND Student in an Organized Health Care Education/Training Program | DX: R07.89 Other chest pain (principal); Z79.01 Long term (current) use of anticoagulants; L93.0 Discoid lupus erythematosus ==

== ENCOUNTER → 2025-01-08 | Outpatient (CLI) | payer OTHER | LOC: M LAB 07:29 | PROVIDERS: ATTEND Student in an Organized Health Care Education/Training Program | DX: R35.0 Frequency of micturition (principal) ==

== ENCOUNTER 2025-04-10 20:08 | Emergency (ER) | payer OTHER ==
[~2025-04-10] VITALS: Ht 165.1 cm; Wt 150.0 kg
[2025-04-11] MEDS ORDERED: METH-1165 PO (00:26)
[2025-04-11 00:32] VITALS: BP 148/70; TEMP 97.3; O2SAT 100
== END 2025-04-11 00:35 | disposition home or self-care (01) ==
LOC: M ED 20:08
DX: S13.4XXA Sprain of ligaments of cervical spine, initial encounter (principal); W01.0XXA Fall on same level from slipping, tripping and stumbling without subsequent striking against object, initial encounter; Y92.9 Unspecified place or not applicable; Y93.9 Activity, unspecified; Y99.9 Unspecified external cause status; M43.22 Fusion of spine, cervical region; Z79.82 Long term (current) use of aspirin; Z79.899 Other long term (current) drug therapy; Z88.0 Allergy status to penicillin; Z88.1 Allergy status to other antibiotic agents; Z88.8 Allergy status to other drugs, medicaments and biological substances; Z91.018 Allergy to other foods

== ENCOUNTER → 2025-06-23 | Outpatient (REF) | payer OTHER | LOC: M SFHCRHEU 09:00 | PROVIDERS: ATTEND Internal Medicine Rheumatology | DX: M32.9 Systemic lupus erythematosus, unspecified (principal); N96 Recurrent pregnancy loss; M47.816 Spondylosis without myelopathy or radiculopathy, lumbar region; Z79.899 Other long term (current) drug therapy; I73.00 Raynaud's syndrome without gangrene; H04.129 Dry eye syndrome of unspecified lacrimal gland; Z53.9 Procedure and treatment not carried out, unspecified reason ==

== ENCOUNTER 2025-06-27 15:53 | Emergency (ER) | payer OTHER ==
[~2025-06-27] VITALS: Ht 165.1 cm; Wt 152.3 kg
[2025-06-27 16:02] VITALS: TEMP 97.8
[2025-06-27] MEDS ORDERED: VALS160T2 (16:13)
[2025-06-27 16:51] LABS: KETONE, URINE AUTO RFX NEGATIVE (NEGATIVE); LEUKOCYTE ESTERASE UR AUTO RFX NEGATIVE (NEGATIVE); MUCUS, URINE RFX SMALL (NEGATIVE); NITRITE, URINE AUTO RFX NEGATIVE (NEGATIVE); RBC, URINE AUTO RFX 0 /HPF (0-3); SQUAM EPITHELIAL CELL UR AURFX 4 /HPF (0-6); WBC, URINE AUTO RFX 1 /HPF (0-3)
[2025-06-27 18:02] LABS: BASO # 0.1 10^3/uL (0.0-0.2); BASO % 0.5 % (0.0-1.0); EOS # 0.1 10^3/uL (0.0-0.5); EOS % 0.9 % (0.0-3.0); LYMPH # 2.0 10^3/uL (1.5-5.0); LYMPH % 20.4 % (24.0-44.0); MONO # 0.6 10^3/uL (0.0-0.8); MONO % 6.0 % (2.0-8.0); NEUTROPHILS # 7.1 10^3/uL (1.5-8.5); NEUTROPHILS % 71.9 % (36.0-66.0); PLATELET COUNT, AUTOMATED 313 10^3/uL (150-450)
[2025-06-27 18:12] LABS: ERYTHROCYTE SEDIMENTATION RATE 90 mm/hr (0-30)
[2025-06-27 18:39] LABS: ALT/SGPT 21 U/L (7.0-40); AST/SGOT 24 U/L (<34); C REACTIVE PROTEIN QUANTITATIV 3.06 MG/DL (<1.0); CALCIUM LEVEL 9.5 MG/DL (8.5-10.1); CARBON DIOXIDE LEVEL 30 MMOL/L (20-31); CHLORIDE LEVEL 100 MMOL/L (98-107); CK-MB VALUE MASS < 1.0 NG/ML (<3.6); CREATININE FOR GFR 0.76 MG/DL (0.55-1.30); GLOMERULAR FILTRATION RATE > 90.0 (>51); POTASSIUM SERUM 3.6 MMOL/L (3.5-5.1); SODIUM LEVEL 140 MMOL/L (136-145)
[2025-06-27] MEDS ORDERED: ISOVUE-370 76% 100 ML VIAL As Ordered ONE (18:54)
[2025-06-27 18:56] LABS: CPK CREATINE PHOSPHOKINASE 85 U/L (34-145)
[2025-06-27] MEDS: DEXMEDETOMIDINE IV ONE (19:40)
[2025-06-27] MEDS ORDERED: dexmedeTOMidine 200 MCG in IV 1 EA IV SCH (19:40)
[2025-06-27 19:45] LABS: CK-MB VALUE MASS < 1.0 NG/ML (<3.6); CPK CREATINE PHOSPHOKINASE 75 U/L (34-145)
[2025-06-28] MEDS ORDERED: MORPHINE 4 MG/ML 1 ML VIAL IV PRN (01:35)
[2025-06-28] MEDS: ONDANSETRON 4MG 2ML VIAL IV ONE (02:02)
[2025-06-28] MEDS: KETOROLAC 30 MG/ML 1 ML VIAL IV ONE (02:02)
[2025-06-28] MEDS ORDERED: NAPR-837 PO (04:24)
[2025-06-28] MEDS ORDERED: METH-1165 PO (04:24)
[2025-06-28] MEDS ORDERED: PERC5TAB12 PO (04:24)
[2025-06-28 04:30] VITALS: BP 155/85; O2SAT 98
[2025-06-28] MEDS: OXYCODONE/APAP 5MG/325MG(HOME DOSE PACK) PO ONE (04:54)
== END 2025-06-28 05:06 | disposition home or self-care (01) ==
LOC: M ED 15:53
DX: M51.361 Other intervertebral disc degeneration, lumbar region with lower extremity pain only (principal); I10 Essential (primary) hypertension; E78.5 Hyperlipidemia, unspecified; K57.92 Diverticulitis of intestine, part unspecified, without perforation or abscess without bleeding; Z79.82 Long term (current) use of aspirin; Z79.899 Other long term (current) drug therapy; Z88.0 Allergy status to penicillin; Z88.1 Allergy status to other antibiotic agents; Z88.8 Allergy status to other drugs, medicaments and biological substances; Z91.018 Allergy to other foods
CPT/HCPCS: 71045; 72148; 74177; 80048; 80076; 81001; 82550; 82553; 83605; 83690; 84145; 84484; 85025; 85652; 86140; 93005; 93041; 96374; 96375; 99285; J1885; J2405; J3360; Q9967

== ENCOUNTER → 2025-06-29 | Outpatient (CLI) | payer OTHER ==
[~2025-06-29] MED LIST changes: +NAPR-837 PO; +PERC5TAB12 PO; +VALS160T2
[2025-06-29 11:56] LABS: BASO # 0.0 10^3/uL (0.0-0.2); BASO % 0.4 % (0.0-1.0); EOS # 0.1 10^3/uL (0.0-0.5); EOS % 1.1 % (0.0-3.0); LYMPH # 2.0 10^3/uL (1.5-5.0); LYMPH % 25.3 % (24.0-44.0); MONO # 0.4 10^3/uL (0.0-0.8); MONO % 5.3 % (2.0-8.0); NEUTROPHILS # 5.4 10^3/uL (1.5-8.5); NEUTROPHILS % 67.6 % (36.0-66.0); PLATELET COUNT, AUTOMATED 299 10^3/uL (150-450)
[2025-06-29 12:00] LABS: APPEARANCE, URINE HAZY (CLEAR); BACTERIA, URINE AUTO 1+ (NEGATIVE); BILIRUBIN, URINE AUTO NEGATIVE (NEGATIVE); BLOOD, URINE BLOOD NEGATIVE (NEGATIVE); GLUCOSE, URINE (UA) AUTO NEGATIVE (NEGATIVE); KETONE, URINE AUTO NEGATIVE (NEGATIVE); LEUKOCYTE ESTERASE, URINE AUTO NEGATIVE (NEGATIVE); MUCUS, URINE SMALL (NEGATIVE); NITRITE, URINE AUTO NEGATIVE (NEGATIVE); PROTEIN, URINE AUTO NEGATIVE (NEGATIVE); RBC, URINE AUTO 1 /HPF (0-3); SPECIFIC GRAVITY URINE AUTO 1.020 (1.002-1.035); SQUAMOUS EPITHELIAL CELL UR AU 5 /HPF (0-6); UROBILINOGEN, URINE AUTO 0.2 mg/dL (0.0-2.0); WBC, URINE AUTO 3 /HPF (0-3)
[2025-06-29 12:02] LABS: ERYTHROCYTE SEDIMENTATION RATE 60 mm/hr (0-30)
[2025-06-29 12:21] LABS: TOTAL PROTEIN,RANDOM URINE 20.1 MG/DL (0.0-14.0)
[2025-06-29 12:25] LABS: C REACTIVE PROTEIN QUANTITATIV 1.77 MG/DL (<1.0)
[2025-06-29 12:27] LABS: COMPLEMENT C4 21.4 MG/DL (12-36)
[2025-06-29 12:28] LABS: ALT/SGPT 24.0 U/L (7.0-40); AST/SGOT 34.0 U/L (<34); CALCIUM LEVEL 8.6 MG/DL (8.5-10.1); CARBON DIOXIDE LEVEL 32.0 MMOL/L (20-31); CHLORIDE LEVEL 102.0 MMOL/L (98-107); CREATININE FOR GFR 0.89 MG/DL (0.55-1.30); GLOMERULAR FILTRATION RATE 77.0 (>51); POTASSIUM SERUM 4.1 MMOL/L (3.5-5.1); SODIUM LEVEL 142.0 MMOL/L (136-145)
== END ==
LOC: M LAB 11:09
PROVIDERS: ATTEND Internal Medicine Rheumatology
DX: M32.9 Systemic lupus erythematosus, unspecified (principal); M47.816 Spondylosis without myelopathy or radiculopathy, lumbar region; Z79.899 Other long term (current) drug therapy; I73.00 Raynaud's syndrome without gangrene; H04.1 Other disorders of lacrimal gland

== ENCOUNTER → 2025-07-03 | Outpatient (REF) | payer OTHER ==
[2025-07-03 13:40] LABS: IRON (FE) 68.0 UG/DL (50-170); PERCENT SATURATION 21.9 % (13.2-45.0); PLATELET COUNT, AUTOMATED 319 10^3/uL (150-450)
[2025-07-03 13:41] LABS: ALT/SGPT 32.0 U/L (7.0-40); AST/SGOT 25.0 U/L (<34); CALCIUM LEVEL 9.1 MG/DL (8.5-10.1); CARBON DIOXIDE LEVEL 32.0 MMOL/L (20-31); CHLORIDE LEVEL 101.0 MMOL/L (98-107); CHOLESTEROL LEVEL 156.0 MG/DL (<200); CHOLESTEROL RISK RATIO 3.66 (<5); CREATININE FOR GFR 0.93 MG/DL (0.55-1.30); FREE T4 1.41 NG/DL (0.89-1.76); GLOMERULAR FILTRATION RATE 73.0 (>51); LDL CHOLESTEROL 91.6 MG/DL (<100); NON-HDL-C 113.4 MG/DL; POTASSIUM SERUM 4.3 MMOL/L (3.5-5.1); SODIUM LEVEL 142.0 MMOL/L (136-145); TRIGLYCERIDES LEVEL 109.0 MG/DL (<150)
[2025-07-03 13:42] LABS: TOTAL 25(OH) VITAMIN D 36.0 NG/ML (20.0-100.0)
[2025-07-03 13:43] LABS: VITAMIN B12 LEVEL 382.0 PG/ML (211-911)
[2025-07-03 16:34] LABS: ESTIMATED AVERAGE GLUCOSE 120.0 MG/DL (60-110)
== END ==
LOC: M SFHCADAM 09:08
PROVIDERS: ATTEND Physician Assistant
DX: M48.062 Spinal stenosis, lumbar region with neurogenic claudication (principal); E55.9 Vitamin D deficiency, unspecified; M32.9 Systemic lupus erythematosus, unspecified; E03.9 Hypothyroidism, unspecified; E78.5 Hyperlipidemia, unspecified; Z68.43 Body mass index [BMI] 50.0-59.9, adult

== ENCOUNTER → 2025-07-24 | Outpatient (REF) | payer OTHER | LOC: M SFHCADAM 13:15 | PROVIDERS: ATTEND Physician Assistant | DX: J22 Unspecified acute lower respiratory infection (principal) ==

== ENCOUNTER 2025-09-05 06:40 | Emergency (ER) | payer OTHER ==
[~2025-09-05] VITALS: Ht 165.1 cm; Wt 150.0 kg
[~2025-09-05 06:40] MED LIST changes: -SULF400T14 PO; +SULF400T15 PO
[2025-09-05 06:43] VITALS: TEMP 98.7
[2025-09-05] MEDS: KETOROLAC 60 MG/2 ML VIAL IM ONE (07:18)
[2025-09-05 07:31] VITALS: BP 144/64; O2SAT 97
== END 2025-09-05 08:04 | disposition home or self-care (01) ==
LOC: M ED 06:40
DX: S93.402A Sprain of unspecified ligament of left ankle, initial encounter (principal); M76.62 Achilles tendinitis, left leg; X50.1XXA Overexertion from prolonged static or awkward postures, initial encounter; Y92.009 Unspecified place in unspecified non-institutional (private) residence as the place of occurrence of the external cause; Y93.9 Activity, unspecified; Y99.9 Unspecified external cause status; I10 Essential (primary) hypertension; Z86.718 Personal history of other venous thrombosis and embolism; E03.9 Hypothyroidism, unspecified; E55.9 Vitamin D deficiency, unspecified; F41.9 Anxiety disorder, unspecified; M32.9 Systemic lupus erythematosus, unspecified; Z86.19 Personal history of other infectious and parasitic diseases; E66.9 Obesity, unspecified; Z79.82 Long term (current) use of aspirin; Z79.899 Other long term (current) drug therapy; Z88.0 Allergy status to penicillin; Z88.1 Allergy status to other antibiotic agents; Z88.8 Allergy status to other drugs, medicaments and biological substances; Z91.018 Allergy to other foods
CPT/HCPCS: 29515; 73590; 73610; 96372; 99284; J1885